=== PATIENT | male | born 1980 | race Caucasian/White ===

== ENCOUNTER 2020-04-23 09:38 | Emergency (ER) | payer MEDICARE, OTHER, SELFPAY ==
[2020-04-23 09:52] VITALS: BP 87/50; BP 94/63; PULSE 41; PULSE 49; RESP 16; TEMP 36.9; O2SAT 97; BMI 20.4
--- NOTE | 2020-04-23 10:08 | CT_ITS ---
EXAMINATION: CT HEAD W/O IV CONTRAST CT CERVICAL SPINE W/O IV CONTRAST CLINICAL INFORMATION: Trauma. COMPARISON: None TECHNIQUE: Head - Contiguous axial imaging of the head was performed from the skull base to the vertex without the administration of intravenous contrast, and axial images are reconstructed at 2 mm and 5 mm slice thickness. Cervical spine - A volumetric, helical CT acquisition of the cervical spine was obtained without contrast; in addition to the standard set of axial images, multiplanar reformatted images were provided in the coronal and sagittal imaging planes. This CT examination was performed using dose optimization techniques as appropriate, variously including the following: *Automated exposure control *Adjustment of mA and/or kV according to patient size (this includes techniques or standardized protocols for targeted exams where dose is matched to indication/reason for exam; i.e. extremities or head) *Use of iterative reconstruction technique DLP: 1371 mGy-cm (total) FINDINGS: HEAD: No intracranial hemorrhage, extra-axial fluid collection, focal mass effect or midline shift. Moderate, diffuse atrophy of brain parenchyma with commensurate prominence of ventricles and sulci; no hydrocephalus. There are regions of encephalomalacia from prior infarcts in the left parietal lobe and within the inferior division territory of the right middle cerebral artery. No evidence of an acute major vascular territory infarction. The calvarium is intact. Mastoid air cells and middle ear cavities are well aerated. No fracture or malalignment at either temporomandibular joint. The orbits and globes are intact. Mucus/mucous retention cyst of right maxillary sinus. No air-fluid levels within paranasal sinuses. CERVICAL SPINE: No acute abnormalities. The craniocervical junction is normal. The occipital condyles, dens and atlantodental articulation are intact. Levoscoliosis of the cervical and upper thoracic spine. The cervical vertebra have well preserved height and alignment. No fractures in the anterior or posterior elements. No prevertebral soft tissue swelling. Mild multilevel degenerative disc space narrowing. Moderate loss of disc height at C6-C7. Multilevel uncovertebral joint hypertrophy with osteophytes causing mild to moderate foraminal stenosis at C3-C4, C5-C6 and C6-C7. There is mild left-sided foraminal stenosis at C4-C5. No significant narrowing of the central spinal canal. No spinal hematoma or focal fluid collection in the visualized neck. Thyroid gland is unremarkable. Mild paraseptal emphysema at lung apices. No apical pneumothorax. CT/CT cervical spine wo con IMPRESSION: * No hemorrhage or other acute intracranial pathology. 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 No acute infarcts. * No fracture or malalignment in the degenerated cervical spine.
--- NOTE | 2020-04-23 10:08 | ECG_ITS ---
Test Reason : FALL Blood Pressure : / mmHG Vent. Rate : 040 BPM Atrial Rate : 040 BPM P-R Int : 168 ms QRS Dur : 088 ms QT Int : 500 ms P-R-T Axes : 063 042 055 degrees QTc Int : 407 ms Marked sinus bradycardia Low voltage QRS Abnormal ECG No previous ECGs available Referred By: Tona Stockton Electronically Signed By:CHEVY BRAGA MD
--- NOTE | 2020-04-23 10:10 | ED_ITS ---
HPI - Fall General Chief Complaint: Fall Stated Complaint: UNWIT FALL,R FACE & NECK PAIN Time Seen by Provider: 04/23/20 10:08 History of Present Illness HPI Narrative: Patient is a 39-year-old male with a history of traumatic brain injury. Status post fall. Unwitnessed. Question etiology. Patient presented but some head injury. Baseline has low blood pressure has low heart rate. No systemic coughing congestion upper respiratory symptoms noted by staff. Patient from a retirement. Unable to obtain full details of the injury. Patient was found on the ground. Related Data Allergies Allergy/AdvReac Type Severity Reaction Status Date / Time erythromycin base Allergy Unknown Verified 04/23/20 10:03 ibuprofen Allergy Unknown Verified 04/23/20 10:03 ketorolac Allergy Unknown Verified 04/23/20 10:03 Sulfa (Sulfonamide Allergy Unknown Verified 04/23/20 10:03 Antibiotics) tromethamine Allergy Unknown Verified 04/23/20 10:03 Review of Systems Review of Systems: Unable to obtain review systems secondary to patient's condition PMFSH Past Medical History Medical History (Updated 04/23/20 @ 12:20 by Tona Stockton MD) Anxiety Dysphagia H/O alcohol dependence Hemiplegia affecting left nondominant side Hepatitis C Hyperlipidemia Hypothyroid Pulmonary embolism Scoliosis Surgical History H/O prosthetic heart valve Social History Social History Alcohol intake: former Smoking Status: Former smoker Use of substances other than those prescribed or required for medical reasons: No Advance Directives: No Advance Directives Information Provided: No Physical Exam Vital Signs: Vital Signs: Last Vital Signs Temp 98.5 F 04/23/20 09:52 Pulse 42 L 04/23/20 11:40 Resp 16 04/23/20 11:40 BP 106/75 04/23/20 11:40 Pulse Ox 97 04/23/20 11:40 Body Mass Index 20.4 Appearance: Alert. Oriented times 0. No acute distress. Eyes: Pupils equal, round and reactive to light. ENT: Pharynx normal. Neck: Normal inspection. Neck supple. No lymph nodes noted. No crepitus CVS: Normal heart rate and rhythm. Pulses normal. Normal S1 and S2 Respiratory: No respiratory distress. Breath sounds normal. No Wheezing. No rales Abdomen: Soft and nontender. No rigidity. No distention. good BS x4 Skin: Skin warm and dry. Normal skin color. Normal skin turgor. Extremities: No lower extremity edema. Neurovascular intact to all extremities. No Lacerations. No Rash Neuro: Oriented times 0 moving extremities, following simple commands MDM - Fall MDM Narrative Medical decision making narrative: Well-appearing no acute distress. CT scan of the head and C-spine were negative for any acute evidence of fracture or bleed. Patient's hemoglobin is baseline at 12. BUN and creatinine consistent with some mild dehydration at 22 and 0.87. Patient's EKG showed a sinus bradycardia which is baseline. Will discharge patient home. No evidence for rhabdo patient's CPK is 150. No chest pain patient's cardiac enzymes negative. Less than 3.5. Medical Records Attestation: I reviewed the patient's medical records. Lab Data Attestation: I reviewed the patient's lab results. Result diagrams: 04/23/20 10:23 04/23/20 10:23 Labs: Lab Results 04/23/20 04/23/20 04/23/20 Range/Units 10:23 10:23 10:23 WBC 5.8 (4.8-10.8) X10*3/uL RBC 4.19 L (4.60-5.80) X10*6/uL Hgb 12.7 L (14.0-18.0) g/dl Hct 38.8 L (42-52) % MCV 92.6 (80-98) fL MCH 30.3 (27.0-33.0) pg MCHC 32.7 (31.0-36.0) g/dl RDW 12.9 (11.0-16.0) % Plt Count 249 (160-400) X10*3/uL MPV 10.1 (9.4-12.4) fL Immature Gran % (Auto) 0.2 (0.0-0.4) % Neut % (Auto) 62.9 (45-73) % Lymph % (Auto) 27.7 (20-40) % [place] % (Auto) 6.9 (2-11) % Eos % (Auto) 1.4 (0-4) % Baso % (Auto) 0.9 (0-2) % Lymph # (Auto) 1.6 (1.2-4.9) X10*3/uL [place] # (Auto) 0.4 (0.1-1.2) X10*3/uL Eos # (Auto) 0.1 (0.0-0.4) X10*3/uL Baso # (Auto) 0.1 (0.0-0.2) X10*3/uL Abs Immat Gran (auto) 0.01 (0.00-0.03) X10*3/uL Absolute Neuts (auto) 3.6 (2.0-8.3) X10*3/uL Absolute Nucleated RBC 0.000 (0.0-0.012) X10*3/uL Nucleated RBC % (auto) 0.0 (0.0-0.2) /100WBC Sodium 140 (135-145) mmol/L Potassium 4.6 (3.3-5.1) mmol/l Chloride 104 (96-108) mmol/L Carbon Dioxide 28 (22-29) mmol/L Anion Gap 13 (12-20) BUN 22 H (9-16) mg/dL Creatinine 0.87 (0.5-1.4) mg/dL Estim Creat Clear Calc 112.2 Estimated GFR > 60 Random Glucose 79 (60-115) mg/dL Calcium 9.0 (8.4-10.2) mg/dL Total Creatine Kinase 168 (38-174) U/L Troponin I High Sens < 3.5 (<3.5-35.0) ng/L ECG Data Interpretation: Sinus heart rate was 50 [place] QRS QT within normal limits LVH noted Discharge Plan Discharge Clinical Impression: Fall, Head injury Patient Disposition: er [facility] Instructions: Head Injury (ED), Fall Prevention (ED), Fall Prevention for Older Adults (ED) Referrals: Donnell Banuelos DO [Primary Care Provider] - 2 days
[2020-04-23 10:11] VITALS: BP 102/69; PULSE 52
[2020-04-23] MEDS: 0.9 % Sodium Chloride 1,000 ML 999 ML IV (10:26)
[2020-04-23 10:30] LABS: MANUAL DIFF FLAG NO
[2020-04-23 10:37] LABS: Basophils Absolute Auto 0.1 X10*3/uL (0.0-0.2); Basophils Percent Auto 0.9 % (0-2); Eosinophils Absolute Auto 0.1 X10*3/uL (0.0-0.4); Eosinophils Percent Auto 1.4 % (0-4); Hematocrit 38.8 % (42-52); Hemoglobin 12.7 g/dl (14.0-18.0); Imm Gran Abs Auto 0.01 X10*3/uL (0.00-0.03); Imm Gran Pct Auto 0.2 % (0.0-0.4); Lymphocytes Absolute Auto 1.6 X10*3/uL (1.2-4.9); Lymphocytes Percent Auto 27.7 % (20-40); Mean Corpuscular HGB Conc 32.7 g/dl (31.0-36.0); Mean Corpuscular Hemoglobin 30.3 pg (27.0-33.0); Mean Corpuscular Volume 92.6 fL (80-98); Mean Platelet Volume 10.1 fL (9.4-12.4); Monocytes Absolute Auto 0.4 X10*3/uL (0.1-1.2); Monocytes Percent Auto 6.9 % (2-11); Neutrophils Absolute Auto 3.6 X10*3/uL (2.0-8.3); Neutrophils Percent Auto 62.9 % (45-73); Platelet Count 249 X10*3/uL (160-400); Red Blood Count 4.19 X10*6/uL (4.60-5.80); Red Cell Distribution Width 12.9 % (11.0-16.0); White Blood Count 5.8 X10*3/uL (4.8-10.8)
[2020-04-23 11:00] LABS: Anion Gap 13 (12-20); Blood Urea Nitrogen 22 mg/dL (9-16); Carbon Dioxide 28 mmol/L (22-29); Chloride 104 mmol/L (96-108); Creatinine Clr Calc Pharmacy 112.2; Estimated Glomerular Filt Rate > 60; Glucose Random 79 mg/dL (60-115); Potassium 4.6 mmol/l (3.3-5.1); Sodium 140 mmol/L (135-145)
[2020-04-23 11:06] LABS: Troponin-I High Sensitivity < 3.5 ng/L (<3.5-35.0)
[2020-04-23 11:40] VITALS: BP 106/75; PULSE 42; RESP 16; O2SAT 97
--- NOTE | 2020-04-23 13:11 | PC.NURSE ---
This RN called [facility] for report back to facility, per staff primary RN unable to take call at this time, awaiting call back from [facility] at this time
== END 2020-04-23 13:47 | disposition skilled nursing facility (03) ==
PROVIDERS: Emergency Provider Emergency Medicine Emergency Medical Services; PCP Hospitalist
DX: S09.90XA Unspecified injury of head, initial encounter (principal); M54.2 Cervicalgia; G44.309 Post-traumatic headache, unspecified, not intractable; W18.30XA Fall on same level, unspecified, initial encounter; Y93.9 Activity, unspecified; Y92.9 Unspecified place or not applicable; Y99.9 Unspecified external cause status; Z87.891 Personal history of nicotine dependence
CPT/HCPCS: 36415; 70450; 72125; 80048; 82550; 84484; 85025; 93005; 96360; 99284

== ENCOUNTER 2020-08-12 17:24 | Inpatient (IN) | payer MEDICARE, MEDICAID, SELFPAY ==
--- NOTE | ~2020-08-12 | CT_ITS ---
EXAMINATION: CT HEAD WITHOUT CONTRAST CLINICAL INFORMATION: Increased lethargy. COMPARISON: CT brain 04/23/2020 TECHNIQUE: Contiguous axial imaging was performed from the skull base to vertex without intravenous administration of contrast. This CT examination was performed using dose optimization techniques as appropriate, variously including the following: *Automated exposure control *Adjustment of mA and/or kV according to patient size (this includes techniques or standardized protocols for targeted exams where dose is matched to indication/reason for exam; i.e. extremities or head) *Use of iterative reconstruction technique DLP: 757 mGy-cm FINDINGS: None encephalomalacia in the left posterior parietal lobe and right middle cerebral artery territory involving the lateral temporal lobe from old insult. There is no acute infarct in evolution. There is no acute intra-axial, extra-axial bleed, masses or midline shift. The lateral ventricles are symmetrical and enlarged and so other cortical sulci. The garcia to white matter difference is maintained. Bone windows reveal no calvarial abnormality. There is no scalp soft tissue abnormality. Bilateral paranasal sinuses and mastoid air cells are well aerated. CT/CT head/brain wo con IMPRESSION: No acute intracranial process seen. Right lateral temporal lobe and left posterior parietal lobe encephalomalacia from old insult. Age-related cerebral volume loss.
--- NOTE | ~2020-08-12 | XR_ITS ---
EXAMINATION: XR CHEST CLINICAL INFORMATION: Increasing lethargy COMPARISON: None TECHNIQUE: Frontal view of the chest was obtained. FINDINGS: Scoliosis and kyphosis is present. Median sternotomy is seen. Left atrial appendage clip is present. The heart size is normal. Some mild increased reticular nodular densities present in the lungs most likely chronic. No acute infiltrates effusions or suspicious lung masses are seen. A bone island is present in the right humeral head XR/XR chest 1V IMPRESSION: No acute intrathoracic disease.
[2020-08-12 17:31] VITALS: BP 109/65; PULSE 63; RESP 16; O2SAT 98; BMI 20.8
--- NOTE | 2020-08-12 17:52 | ECG_ITS ---
Test Reason : CARDIAC HITORY Blood Pressure : / mmHG Vent. Rate : 063 BPM Atrial Rate : 063 BPM P-R Int : 164 ms QRS Dur : 084 ms QT Int : 412 ms P-R-T Axes : 076 038 064 degrees QTc Int : 421 ms Normal sinus rhythm Low voltage QRS Borderline ECG When compared with ECG of 23-APR-2020 10:30, Vent. rate has increased BY 23 BPM Referred By: Greta Jean Baptiste Electronically Signed By:MACRINA MARTINEZ
[2020-08-12 17:55] VITALS: BP 86/58; PULSE 62; RESP 18; TEMP 37; O2SAT 91
--- NOTE | 2020-08-12 17:57 | ED.WEAKNESS ---
HPI - Weakness General Chief complaint: Failure to Thrive Stated complaint: ftt Time Seen by Provider: 08/12/20 17:31 Source: EMS Mode of arrival: EMS History of Present Illness HPI Narrative: 39-year-old male with a past medical history of alcohol dependence, hemiplegia and hemiparesis s/p CVA, dysarthria and anarthria, encephalopathy, major depressive disorder, anxiety, hyperlipidemia, BIBA from [facility] for increased lethargy, weight loss, and depression x1 month. No reported fever, falls. History limited secondary to patient's baseline nonverbal Related Data Allergies Allergy/AdvReac Type Severity Reaction Status Date / Time erythromycin base Allergy Unknown Verified 04/23/20 10:03 ibuprofen Allergy Unknown Verified 04/23/20 10:03 ketorolac Allergy Unknown Verified 04/23/20 10:03 Sulfa (Sulfonamide Allergy Unknown Verified 04/23/20 10:03 Antibiotics) tromethamine Allergy Unknown Verified 04/23/20 10:03 Review of Systems Review of Systems: Constitutional: + Weight loss, No Fever, No Chills, + increased lethargy Neuro: + Weakness Psych: + Depression History limited secondary to patient being nonverbal Yes all other systems are reviewed and are negative PMFSH Past Medical History Attestation statement: The following information was validated with the patient. Medical History (Updated 08/13/20 @ 01:43 by MAK Saba) Anxiety Dysphagia H/O alcohol dependence Hemiplegia affecting left nondominant side Hepatitis C Hyperlipidemia Hypothyroid Pulmonary embolism Scoliosis Surgical History H/O prosthetic heart valve Social History Social History Alcohol intake: former Smoking Status: Former smoker Advance Directives: No Advance Directives Information Provided: No Physical Exam Vital Signs: Vital Signs: Last Vital Signs Temp 98.6 F 08/12/20 17:55 Pulse 41 L 08/12/20 20:00 Resp 16 08/12/20 20:00 BP 85/64 L 08/12/20 20:00 Pulse Ox 100 08/12/20 20:00 Body Mass Index 20.8 Const: General: alert Nutritional Appearance: thin Limitations: no limitations HENMT: Head: Yes normal to inspection Ears: hearing grossly normal bilaterally General nose exam: Normal external nose present Face and sinus: Yes normal facial exam Eyes: General: appearance normal, both eyes and all related structures EOM: EOMs intact bilaterally Neck: Neck: Yes normal visual inspection and Yes no meningeal signs Resp: Effort & Inspection: normal respiratory effort Auscultation: clear to auscultation bilaterally Cardio: Rate: regular rate Heart sounds: S1 normal heart sound present and S2 normal heart sound present GI: Inspection: Yes normal to inspection Palpation (GI): Soft to palpation, nontender, no guarding and not rigid Skin: Rashes: no rashes Wounds: no wounds Neuro: General: tone normal and no meningeal signs Extrem: General: Yes normal to inspection Course Course Course Narrative: -no leukocytosis, H&H stable, BUN chronically elevated, labs otherwise unremarkable. -UA negative. COVID-19/influenza/RSV negative CT head/brain wo con IMPRESSION: No acute intracranial process seen. Right lateral temporal lobe and left posterior parietal lobe encephalomalacia from old insult. Age-related cerebral volume loss. XR chest 1V IMPRESSION: No acute intrathoracic disease. -patient has been persistently hypotensive, 3rd L IVF ordered. Mentating at baseline. -0100--patient's heart rate dropped to mid 30s, repeat EKG sinus bradycardia, repeat POC, TSH & repeat troponin ordered. Plan to admit for further management -1330--heart rate noted to jump from 35 to 123, and then back to 60 > concern for tachy-kenneth or sick sinus syndrome > cardiology consulted MDM - Weakness MDM Narrative Medical decision making narrative: 39-year-old male with a past medical history of alcohol dependence, hemiplegia and hemiparesis s/p CVA, dysarthria and anarthria, encephalopathy, major depressive disorder, anxiety, hyperlipidemia, BIBA from [facility] for increased lethargy, weight loss, and depression x1 month. On exam hypotensive, 91% on RA, lungs CTA, abdomen soft/nontender. Concern for dehydration vs viral syndrome/COVID-19. Rule out metabolic/infectious etiology. Low concern for severe sepsis at this time. Plan: EKG, labs, head CT, CXR, IVF, reassess Medical Records Attestation: I reviewed the patient's medical records. Lab Data Attestation: I reviewed the patient's lab results. Result diagrams: 08/12/20 18:56 08/12/20 18:56 Labs: Lab Results 08/12/20 08/12/20 08/12/20 Range/Units 18:56 18:56 18:56 WBC 10.3 (4.8-10.8) X10*3/uL RBC 4.85 (4.60-5.80) X10*6/uL Hgb 14.4 (14.0-18.0) g/dl Hct 45.5 (42-52) % MCV 93.8 (80-98) fL MCH 29.7 (27.0-33.0) pg MCHC 31.6 (31.0-36.0) g/dl RDW 13.1 (11.0-16.0) % Plt Count 317 D (160-400) X10*3/uL MPV 10.9 (9.4-12.4) fL Immature Gran % (Auto) 0.3 (0.0-0.4) % Neut % (Auto) 79.4 H (45-73) % Lymph % (Auto) 14.0 L (20-40) % [place] % (Auto) 5.2 (2-11) % Eos % (Auto) 0.8 (0-4) % Baso % (Auto) 0.3 (0-2) % Lymph # (Auto) 1.4 (1.2-4.9) X10*3/uL [place] # (Auto) 0.5 (0.1-1.2) X10*3/uL Eos # (Auto) 0.1 (0.0-0.4) X10*3/uL Baso # (Auto) 0.0 (0.0-0.2) X10*3/uL Abs Immat Gran (auto) 0.03 (0.00-0.03) X10*3/uL Absolute Neuts (auto) 8.2 (2.0-8.3) X10*3/uL Absolute Nucleated RBC 0.000 (0.0-0.012) X10*3/uL Nucleated RBC % (auto) 0.0 (0.0-0.2) /100WBC Hold Blue Top SEE NOTE Sodium 145 (135-145) mmol/L Potassium 4.1 (3.3-5.1) mmol/L Chloride 101 (96-108) mmol/L Carbon Dioxide 33 H (22-29) mmol/L Anion Gap 15 (12-20) BUN 28 H (9-16) mg/dL Creatinine 0.90 (0.5-1.4) mg/dL Estim Creat Clear Calc 87.6 Estimated GFR > 60 POC Glucose (60-115) mg/dL Random Glucose 83 (60-115) mg/dL Calcium 9.4 (8.4-10.2) mg/dL Magnesium 2.1 (1.6-2.6) mg/dL Total Bilirubin 0.5 (0.0-1.0) mg/dL Direct Bilirubin 0.2 (0.0-0.5) mg/dL AST 21 (5-37) U/L ALT 16 (0-40) U/L Alkaline Phosphatase 70 (39-117) U/L Ammonia (13-55) umol/L Troponin I High Sens (<3.5-35.0) ng/L Total Protein 7.9 (6.5-8.0) g/dL Albumin 3.6 (3.5-5.0) g/dL Lipase 18 (8-78) U/L Urine Color Urine Appearance Urine pH (5.0-8.0) Ur Specific [place] (1.005-1.025) Urine Protein (NEG-TRACE) MG/DL Urine Glucose (UA) (NEG) MG/DL Urine Ketones (NEG) MG/DL Urine Blood (NEG) Urine Nitrite (NEG) Ur Leukocyte Esterase (NEG) Urine Opiates Screen (Not Detect) Ur Barbiturates Screen (Not Detect) Ur Phencyclidine Scrn (Not Detect) Ur Amphetamines Screen (Not Detect) U Benzodiazepines Scrn (Not Detect) Urine Cocaine Screen (Not Detect) U Marijuana (THC) Screen (Not Detect) Coronavirus (PCR) (Negative) Influenza Type A (PCR) (Negative) Influenza Type B (PCR) (Negative) RSV RNA Qual (PCR) (Negative) 08/12/20 08/12/20 08/12/20 Range/Units 18:56 18:56 20:00 WBC (4.8-10.8) X10*3/uL RBC (4.60-5.80) X10*6/uL Hgb (14.0-18.0) g/dl Hct (42-52) % MCV (80-98) fL MCH (27.0-33.0) pg MCHC (31.0-36.0) g/dl RDW (11.0-16.0) % Plt Count (160-400) X10*3/uL MPV (9.4-12.4) fL Immature Gran % (Auto) (0.0-0.4) % Neut % (Auto) (45-73) % Lymph % (Auto) (20-40) % [place] % (Auto) (2-11) % Eos % (Auto) (0-4) % Baso % (Auto) (0-2) % Lymph # (Auto) (1.2-4.9) X10*3/uL [place] # (Auto) (0.1-1.2) X10*3/uL Eos # (Auto) (0.0-0.4) X10*3/uL Baso # (Auto) (0.0-0.2) X10*3/uL Abs Immat Gran (auto) (0.00-0.03) X10*3/uL Absolute Neuts (auto) (2.0-8.3) X10*3/uL Absolute Nucleated RBC (0.0-0.012) X10*3/uL Nucleated RBC % (auto) (0.0-0.2) /100WBC Hold Blue Top Sodium (135-145) mmol/L Potassium (3.3-5.1) mmol/L Chloride (96-108) mmol/L Carbon Dioxide (22-29) mmol/L Anion Gap (12-20) BUN (9-16) mg/dL Creatinine (0.5-1.4) mg/dL Estim Creat Clear Calc Estimated GFR POC Glucose (60-115) mg/dL Random Glucose (60-115) mg/dL Calcium (8.4-10.2) mg/dL Magnesium (1.6-2.6) mg/dL Total Bilirubin (0.0-1.0) mg/dL Direct Bilirubin (0.0-0.5) mg/dL AST (5-37) U/L ALT (0-40) U/L Alkaline Phosphatase (39-117) U/L Ammonia 43 (13-55) umol/L Troponin I High Sens 4.5 (<3.5-35.0) ng/L Total Protein (6.5-8.0) g/dL Albumin (3.5-5.0) g/dL Lipase (8-78) U/L Urine Color Urine Appearance Urine pH (5.0-8.0) Ur Specific [place] (1.005-1.025) Urine Protein (NEG-TRACE) MG/DL Urine Glucose (UA) (NEG) MG/DL Urine Ketones (NEG) MG/DL Urine Blood (NEG) Urine Nitrite (NEG) Ur Leukocyte Esterase (NEG) Urine Opiates Screen (Not Detect) Ur Barbiturates Screen (Not Detect) Ur Phencyclidine Scrn (Not Detect) Ur Amphetamines Screen (Not Detect) U Benzodiazepines Scrn (Not Detect) Urine Cocaine Screen (Not Detect) U Marijuana (THC) Screen (Not Detect) Coronavirus (PCR) NEGATIVE (Negative) Influenza Type A (PCR) NEGATIVE (Negative) Influenza Type B (PCR) NEGATIVE (Negative) RSV RNA Qual (PCR) NEGATIVE (Negative) 08/12/20 08/12/20 08/13/20 Range/Units 20:00 20:00 01:05 WBC (4.8-10.8) X10*3/uL RBC (4.60-5.80) X10*6/uL Hgb (14.0-18.0) g/dl Hct (42-52) % MCV (80-98) fL MCH (27.0-33.0) pg MCHC (31.0-36.0) g/dl RDW (11.0-16.0) % Plt Count (160-400) X10*3/uL MPV (9.4-12.4) fL Immature Gran % (Auto) (0.0-0.4) % Neut % (Auto) (45-73) % Lymph % (Auto) (20-40) % [place] % (Auto) (2-11) % Eos % (Auto) (0-4) % Baso % (Auto) (0-2) % Lymph # (Auto) (1.2-4.9) X10*3/uL [place] # (Auto) (0.1-1.2) X10*3/uL Eos # (Auto) (0.0-0.4) X10*3/uL Baso # (Auto) (0.0-0.2) X10*3/uL Abs Immat Gran (auto) (0.00-0.03) X10*3/uL Absolute Neuts (auto) (2.0-8.3) X10*3/uL Absolute Nucleated RBC (0.0-0.012) X10*3/uL Nucleated RBC % (auto) (0.0-0.2) /100WBC Hold Blue Top Sodium (135-145) mmol/L Potassium (3.3-5.1) mmol/L Chloride (96-108) mmol/L Carbon Dioxide (22-29) mmol/L Anion Gap (12-20) BUN (9-16) mg/dL Creatinine (0.5-1.4) mg/dL Estim Creat Clear Calc Estimated GFR POC Glucose 74 (60-115) mg/dL Random Glucose (60-115) mg/dL Calcium (8.4-10.2) mg/dL Magnesium (1.6-2.6) mg/dL Total Bilirubin (0.0-1.0) mg/dL Direct Bilirubin (0.0-0.5) mg/dL AST (5-37) U/L ALT (0-40) U/L Alkaline Phosphatase (39-117) U/L Ammonia (13-55) umol/L Troponin I High Sens (<3.5-35.0) ng/L Total Protein (6.5-8.0) g/dL Albumin (3.5-5.0) g/dL Lipase (8-78) U/L Urine Color YELLOW Urine Appearance HAZY Urine pH 7.5 (5.0-8.0) Ur Specific [place] 1.010 (1.005-1.025) Urine Protein NEG (NEG-TRACE) MG/DL Urine Glucose (UA) NEG (NEG) MG/DL Urine Ketones NEG (NEG) MG/DL Urine Blood NEG (NEG) Urine Nitrite NEG (NEG) Ur Leukocyte Esterase NEG (NEG) Urine Opiates Screen Not Detected (Not Detect) Ur Barbiturates Screen Not Detected (Not Detect) Ur Phencyclidine Scrn Not Detected (Not Detect) Ur Amphetamines Screen Not Detected (Not Detect) U Benzodiazepines Scrn POSITIVE H (Not Detect) Urine Cocaine Screen Not Detected (Not Detect) U Marijuana (THC) Screen Not Detected (Not Detect) Coronavirus (PCR) (Negative) Influenza Type A (PCR) (Negative) Influenza Type B (PCR) (Negative) RSV RNA Qual (PCR) (Negative) Discharge Plan Discharge Clinical Impression: Lethargy, Bradycardia, Hypotension Patient Disposition: Admitted As Inpatient Transfer Details: Back to [facility] Instructions: Weakness (ED) Referrals: Donnell Banuelos DO [Physician] - 3 days
[2020-08-12 19:02] LABS: MANUAL DIFF FLAG NO
[2020-08-12 19:10] LABS: Basophils Percent Auto 0.3 % (0-2); Eosinophils Absolute Auto 0.1 X10*3/uL (0.0-0.4); Eosinophils Percent Auto 0.8 % (0-4); Hematocrit 45.5 % (42-52); Hemoglobin 14.4 g/dl (14.0-18.0); Imm Gran Abs Auto 0.03 X10*3/uL (0.00-0.03); Imm Gran Pct Auto 0.3 % (0.0-0.4); Lymphocytes Absolute Auto 1.4 X10*3/uL (1.2-4.9); Mean Corpuscular HGB Conc 31.6 g/dl (31.0-36.0); Mean Corpuscular Hemoglobin 29.7 pg (27.0-33.0); Mean Corpuscular Volume 93.8 fL (80-98); Mean Platelet Volume 10.9 fL (9.4-12.4); Monocytes Absolute Auto 0.5 X10*3/uL (0.1-1.2); Monocytes Percent Auto 5.2 % (2-11); Neutrophils Absolute Auto 8.2 X10*3/uL (2.0-8.3); Neutrophils Percent Auto 79.4 % (45-73); Platelet Count 317 X10*3/uL (160-400); Red Blood Count 4.85 X10*6/uL (4.60-5.80); Red Cell Distribution Width 13.1 % (11.0-16.0); White Blood Count 10.3 X10*3/uL (4.8-10.8)
[2020-08-12 19:34] LABS: Alanine Aminotransferase 16 U/L (0-40); Albumin Level 3.6 g/dL (3.5-5.0); Alkaline Phosphatase 70 U/L (39-117); Anion Gap 15 (12-20); Aspartate Amino Transferase 21 U/L (5-37); Bilirubin Direct 0.2 mg/dL (0.0-0.5); Bilirubin Total 0.5 mg/dL (0.0-1.0); Blood Urea Nitrogen 28 mg/dL (9-16); Calcium 9.4 mg/dL (8.4-10.2); Carbon Dioxide 33 mmol/L (22-29); Chloride 101 mmol/L (96-108); Creatinine Clr Calc Pharmacy 87.6; Estimated Glomerular Filt Rate > 60; Glucose Random 83 mg/dL (60-115); Lipase 18 U/L (8-78); Magnesium 2.1 mg/dL (1.6-2.6); Potassium 4.1 mmol/L (3.3-5.1); Sodium 145 mmol/L (135-145); Total Protein 7.9 g/dL (6.5-8.0)
[2020-08-12 19:40] LABS: Troponin-I High Sensitivity 4.5 ng/L (<3.5-35.0)
[2020-08-12 20:00] VITALS: BP 85/64; PULSE 41; RESP 16; O2SAT 100
[2020-08-12 20:06] LABS: Influenza A PCR NEGATIVE (Negative); Influenza B PCR NEGATIVE (Negative); Resp Syncy Virus RNA Qual PCR NEGATIVE (Negative); SARS COV2 PCR INHOUSE NEGATIVE (Negative)
[2020-08-12] MEDS: 0.9 % Sodium Chloride 1,000 ML 999 ML IVCONT ×2 (20:20→21:33)
[2020-08-12 20:24] LABS: Glucose Urine UA NEG (NEG); Leukocyte Esterase Urine NEG (NEG); Nitrite Urine NEG (NEG); PH 7.5 (5.0-8.0); Urine Blood NEG (NEG); Urine Ketones NEG (NEG); Urine Protein NEG (NEG-TRACE)
[2020-08-12 20:25] LABS: Appearance Urine HAZY; Color Urine YELLOW
--- NOTE | 2020-08-12 20:31 | PC.NURSE ---
pt resting in stretcher. Pt difficult stick and attempting to draw blood. NS up and running w/o site intact. pt is straight cath for urine sample. pt remains alert, respirations easy, n/l. skin w/d/pale.
[2020-08-12 20:50] LABS: Amphetamine Screen Urine Not Detected (Not Detect); Barbiturates, Urine Not Detected (Not Detect); Benzodiazepines Screen Urine POSITIVE (Not Detect); Cannabinoid Screen Urine Not Detected (Not Detect); Cocaine Screen Urine Not Detected (Not Detect); Opiate Screen Urine Not Detected (Not Detect); Phencyclidine Screen Urine Not Detected (Not Detect)
[2020-08-12 21:13] LABS: Ammonia 43 umol/L (13-55)
--- NOTE | 2020-08-12 23:23 | PC.NURSE ---
2nd L infusing w/o difficulty, site intact. pt awake and alert, looking around when someone enters the room. b/p improving. PA aware of b/p. /
[2020-08-13] VITALS (8 sets, daily range): BP systolic 82–145; BP diastolic 40–65; PULSE 30–78; RESP 18–20; TEMP 35.5–36.8; O2SAT 93–98
--- NOTE | 2020-08-13 00:44 | PC.NURSE ---
3RD L OF NS UP AND RUNNING, SITE INTACT. PT HAVING HR 35-36, PA AWARE. PT AWAKE AND NON VERBAL. EKG OBTAINED. PT DENIES ANY COMPLAINTS AT THIS TIME.
--- NOTE | 2020-08-13 00:56 | ECG_ITS ---
Test Reason : VON Blood Pressure : / mmHG Vent. Rate : 047 BPM Atrial Rate : 047 BPM P-R Int : 202 ms QRS Dur : 090 ms QT Int : 588 ms P-R-T Axes : 073 027 063 degrees QTc Int : 520 ms Sinus bradycardia with sinus arrhythmia Low voltage QRS Nonspecific ST and T wave abnormality Prolonged QT Abnormal ECG When compared with ECG of 13-AUG-2020 00:55, QT has lengthened Referred By: Greta Jean Baptiste Electronically Signed By:MACRINA MARTINEZ
[2020-08-13 01:09] LABS: Glucose, Whole Blood 74 mg/dL (60-115)
--- NOTE | 2020-08-13 01:29 | PC.NURSE ---
REPEAT EKG OBTAINED TO .
[2020-08-13 01:46] LABS: TSH reflex Free T4 2.08 uIU/mL (0.32-4.0)
--- NOTE | 2020-08-13 02:31 | PC.NURSE ---
REPORT TO FLOOR. PT TO FLOOR IN STRETCHER AT THIS TIME. PT LEFT ED IN NAD.
[2020-08-13 03:10] LABS: B Type Natriuretic Peptide 26 pg/mL (<100); Troponin-I High Sensitivity 5.6 ng/L (<3.5-35.0)
[2020-08-13] MEDS: Enoxaparin Sodium 40 MG/0.4 ML SYRINGE SUBCUT (03:57)
--- NOTE | 2020-08-13 05:56 | PM.IMHP ---
History of Present Illness Date of Service: 08/13/20 Chief Complaint: bradycardia, hypotension Past medical history of hemiplegia and hemiparesis status post CVA, bed-bound, and or 3 a, encephalopathy, major depressive disorder, HLD, history of alcohol dependence who presents from [facility] for increased lethargy, weight loss and depression for 1 month. Patient is nonverbal therefore I am unable to review any of his systems. There is no reported history of fever, falls, no history of diarrhea, and his blood pressures have been reported in the low 100s above 90. on arrival to the ED pt was found to have temp of 98.5, HR 41, RR of 16, BP of 87/50 and 97% on RA. In the ED pt's HR seem to fluctuates between mid 30s to 123 and then down to the 60s. Labs unremarkable with normal trop, tsh pt pmhx as below per EMR Review of Systems Review of Systems: Yes all other systems are reviewed and are negative FOR[facility], [facility] Medical History Anxiety Dysphagia H/O alcohol dependence Hemiplegia affecting left nondominant side Hepatitis C Hyperlipidemia Hypothyroid Pulmonary embolism Scoliosis Surgical History H/O prosthetic heart valve Social History Housing: Long-Term Alcohol intake: former Smoking Status: Former smoker Use of substances other than those prescribed or required for medical reasons: No Advance Directives: No Advance Directives Information Provided: No Do you have thoughts of harming others: None Do you have a plan to hurt others: No Plan Recently lost weight without trying: Yes How much weight loss: 24-33 pounds Meds Allergies Allergy/AdvReac Type Severity Reaction Status Date / Time erythromycin base Allergy Unknown Verified 04/23/20 10:03 ibuprofen Allergy Unknown Verified 04/23/20 10:03 ketorolac Allergy Unknown Verified 04/23/20 10:03 Sulfa (Sulfonamide Allergy Unknown Verified 04/23/20 10:03 Antibiotics) tromethamine Allergy Unknown Verified 04/23/20 10:03 Active Medications: Current Medications Generic Name Dose Route Start Last Admin Trade Name Freq PRN Reason Stop Dose Admin Acetaminophen 650 mg 08/13/20 03:17 Acetaminophen 325 Mg Tablet PO Q6H PRN Pain, Mild (Pain Scale 1-3) Docusate Sodium 100 mg 08/13/20 03:17 Docusate Sodium 100 Mg Capsule PO DAILY PRN Constipation Enoxaparin Sodium 40 mg 08/13/20 04:00 08/13/20 03:57 Enoxaparin Sodium 40 Mg/0.4 Ml Syringe SUBCUT 40 mg Q24H PORFIRIO Administration Ondansetron HCl 4 mg 08/13/20 03:17 Ondansetron Hcl 4 Mg/2 Ml Vial IVPUSH Q8H PRN Nausea and Vomiting Pharmacy Consult 1 each 08/13/20 00:58 Consult Rx Perform Med Rec MISCELLANE ONCE PRN Consult order Sodium Chloride 3 ml 08/13/20 08:00 0.9 % Sodium Chloride Flush 3 Ml Syringe IVFLUSH QSHIFT [facility] Home Medications Medication Instructions Recorded Confirmed Last Taken Type acetaminophen [Tylenol] 650 mg PO Q6-8H PRN 08/13/20 08/13/20 Unknown History diazepam [Valium] 5 mg PO TID PRN 08/13/20 08/13/20 Unknown History docusate sodium 100 mg PO Q24W PRN 08/13/20 08/13/20 Unknown History famotidine 20 mg PO DAILY 08/13/20 08/13/20 Unknown History levothyroxine 100 mcg PO DAILY 08/13/20 08/13/20 Unknown History oxycodone 5 mg PO TID PRN 08/13/20 08/13/20 Unknown History sennosides [senna] 8.6 mg PO DAILY 08/13/20 08/13/20 Unknown History Physical Exam Vital Signs and Narrative: Vital Signs: Last Vital Signs Temp 97.5 F 08/13/20 03:29 Pulse 35 L 08/13/20 03:29 Resp 18 08/13/20 03:29 BP 83/50 L 08/13/20 03:29 Pulse Ox 98 08/13/20 03:29 Body Mass Index 20.8 Const: General: cooperative and no acute distress Orientation/consciousness: patient oriented x3 Eyes: General: appearance normal, both eyes and all related structures Resp: Effort & Inspection: normal respiratory effort and able to speak in complete sentences Cardio: Rate: regular rate Rhythm: regular rhythm GI: Palpation (GI): Soft to palpation Auscultation: normal bowel sounds Skin: General skin exam: no rashes or lesions noted Neuro: General: patient oriented x3 Cognition (Neuro): normal cognition Extrem: General: Yes normal to inspection and Yes no pedal edema Results Labs CBC and Chem 7: 08/12/20 18:56 08/12/20 18:56 Labs: Laboratory Results - last 24 hr 08/12/20 08/12/20 08/12/20 18:56 18:56 18:56 MCV 93.8 MCH 29.7 MCHC 31.6 RDW 13.1 Plt Count 317 D MPV 10.9 Immature Gran % (Auto) 0.3 Neut % (Auto) 79.4 H Lymph % (Auto) 14.0 L [place] % (Auto) 5.2 Eos % (Auto) 0.8 Baso % (Auto) 0.3 Lymph # (Auto) 1.4 Bond # (Auto) 0.5 Eos # (Auto) 0.1 Baso # (Auto) 0.0 Abs Immat Gran (auto) 0.03 Absolute Neuts (auto) 8.2 Absolute Nucleated RBC 0.000 Nucleated RBC % (auto) 0.0 Hold Blue Top SEE NOTE Anion Gap 15 Estim Creat Clear Calc 87.6 Estimated GFR > 60 POC Glucose Random Glucose 83 Calcium 9.4 Magnesium 2.1 Total Bilirubin 0.5 Direct Bilirubin 0.2 AST 21 ALT 16 Alkaline Phosphatase 70 Ammonia Troponin I High Sens B-Natriuretic Peptide Total Protein 7.9 Albumin 3.6 Lipase 18 TSH 2.08 Urine Color Urine Appearance Urine pH Ur Specific [place] Urine Protein Urine Glucose (UA) Urine Ketones Urine Blood Urine Nitrite Ur Leukocyte Esterase Urine Opiates Screen Ur Barbiturates Screen Ur Phencyclidine Scrn Ur Amphetamines Screen U Benzodiazepines Scrn Urine Cocaine Screen U Marijuana (THC) Screen Coronavirus (PCR) Influenza Type A (PCR) Influenza Type B (PCR) RSV RNA Qual (PCR) 08/12/20 08/12/20 08/12/20 18:56 18:56 20:00 MCV MCH MCHC RDW Plt Count MPV Immature Gran % (Auto) Neut % (Auto) Lymph % (Auto) [place] % (Auto) Eos % (Auto) Baso % (Auto) Lymph # (Auto) [place] # (Auto) Eos # (Auto) Baso # (Auto) Abs Immat Gran (auto) Absolute Neuts (auto) Absolute Nucleated RBC Nucleated RBC % (auto) Hold Blue Top Anion Gap Estim Creat Clear Calc Estimated GFR POC Glucose Random Glucose Calcium Magnesium Total Bilirubin Direct Bilirubin AST ALT Alkaline Phosphatase Ammonia 43 Troponin I High Sens 4.5 B-Natriuretic Peptide Total Protein Albumin Lipase TSH Urine Color Urine Appearance Urine pH Ur Specific [place] Urine Protein Urine Glucose (UA) Urine Ketones Urine Blood Urine Nitrite Ur Leukocyte Esterase Urine Opiates Screen Ur Barbiturates Screen Ur Phencyclidine Scrn Ur Amphetamines Screen U Benzodiazepines Scrn Urine Cocaine Screen U Marijuana (THC) Screen Coronavirus (PCR) NEGATIVE Influenza Type A (PCR) NEGATIVE Influenza Type B (PCR) NEGATIVE RSV RNA Qual (PCR) NEGATIVE 08/12/20 08/12/20 08/13/20 20:00 20:00 01:05 MCV MCH MCHC RDW Plt Count MPV Immature Gran % (Auto) Neut % (Auto) Lymph % (Auto) [place] % (Auto) Eos % (Auto) Baso % (Auto) Lymph # (Auto) [place] # (Auto) Eos # (Auto) Baso # (Auto) Abs Immat Gran (auto) Absolute Neuts (auto) Absolute Nucleated RBC Nucleated RBC % (auto) Hold Blue Top Anion Gap Estim Creat Clear Calc Estimated GFR POC Glucose 74 Random Glucose Calcium Magnesium Total Bilirubin Direct Bilirubin AST ALT Alkaline Phosphatase Ammonia Troponin I High Sens B-Natriuretic Peptide Total Protein Albumin Lipase TSH Urine Color YELLOW Urine Appearance HAZY Urine pH 7.5 Ur Specific [place] 1.010 Urine Protein NEG Urine Glucose (UA) NEG Urine Ketones NEG Urine Blood NEG Urine Nitrite NEG Ur Leukocyte Esterase NEG Urine Opiates Screen Not Detected Ur Barbiturates Screen Not Detected Ur Phencyclidine Scrn Not Detected Ur Amphetamines Screen Not Detected U Benzodiazepines Scrn POSITIVE H Urine Cocaine Screen Not Detected U Marijuana (THC) Screen Not Detected Coronavirus (PCR) Influenza Type A (PCR) Influenza Type B (PCR) RSV RNA Qual (PCR) 08/13/20 02:36 MCV MCH MCHC RDW Plt Count MPV Immature Gran % (Auto) Neut % (Auto) Lymph % (Auto) [place] % (Auto) Eos % (Auto) Baso % (Auto) Lymph # (Auto) [place] # (Auto) Eos # (Auto) Baso # (Auto) Abs Immat Gran (auto) Absolute Neuts (auto) Absolute Nucleated RBC Nucleated RBC % (auto) Hold Blue Top Anion Gap Estim Creat Clear Calc Estimated GFR POC Glucose Random Glucose Calcium Magnesium Total Bilirubin Direct Bilirubin AST ALT Alkaline Phosphatase Ammonia Troponin I High Sens 5.6 B-Natriuretic Peptide 26 Total Protein Albumin Lipase TSH Urine Color Urine Appearance Urine pH Ur Specific [place] Urine Protein Urine Glucose (UA) Urine Ketones Urine Blood Urine Nitrite Ur Leukocyte Esterase Urine Opiates Screen Ur Barbiturates Screen Ur Phencyclidine Scrn Ur Amphetamines Screen U Benzodiazepines Scrn Urine Cocaine Screen U Marijuana (THC) Screen Coronavirus (PCR) Influenza Type A (PCR) Influenza Type B (PCR) RSV RNA Qual (PCR) Imaging Radiologist's Impressions: Impressions Chest X-Ray 08/12/20 17:52 IMPRESSION: No acute intrathoracic disease. Head CT 08/12/20 17:52 IMPRESSION: No acute intracranial process seen. Right lateral temporal lobe and left posterior parietal lobe encephalomalacia from old insult. Age-related cerebral volume loss. Assessment and Plan (1) Lethargy: Status: Acute (2) Wicho-tachy syndrome: Status: Acute (3) Hypotension: Status: Acute This is a 39-year-old male with past medical history of CVA with residual hemiparesis bed-bound presents to the hospital with increased lethargy found to be hypotensive as well as have bradycardia and tachycardia # WICHO-TACHY SYNDROME - EKG shows sinus rhythm, but heart rate in the ED jaundice between 30s to 120s - not on any AV agnes blockers - unable to get any systemic review from patient as he is nonverbal - will order atropine PRN for HR <30 - consult cardiology for possible pacemaker - keep NPO # hypotension - unclear etiology - has no evidence of infection, no leukocytosis, afebrile, chest x-ray negative, UA negative, - received 3 L of fluids with BP still in the 80s over 50s - unlikely to be secondary to sepsis - will follow cultures - at this time will keep off antibiotics as there is no evidence of infection # lethargy - on my interview patient seemed alert oriented with no evidence of lethargy - no clear infection - possibly secondary to hypotension versus wicho-tachy syndrome - will monitor # hypothyroidism - continue levothyroxine DVT prophylaxis:lovenox
[2020-08-13] MEDS: Atropine Sulfate 1 MG/10 ML SYRINGE 0.5 MG IVPUSH (06:25)
[2020-08-13] MEDS: Lactated Ringers 500 ML 999 ML IV (06:28)
--- NOTE | 2020-08-13 06:50 | PC.NURSE ---
Noted in the ED pt. came up with low bp. In the time in the ED 3 L of IVF were bolused without much changed. Pts 4am Bp was 83/50 and hr between 30s and 40s overnight hospitalist was notified. Pt dropped to 26 at a point and hospitalist was once again notified. Pt. was ordered to get 0.5mg atropine and hr came up into 50s. 1L Lr bolus was also ordered and sbp still staying in the 80s.
[2020-08-13] MEDS: 0.9 % Sodium Chloride Flush 3 ML SYRINGE IVFLUSH ×2 (07:44→15:54)
[2020-08-13] MEDS: Midodrine HCl 5 MG TABLET PO (08:55)
[2020-08-13] MEDS: Levothyroxine Sodium 100 MCG TABLET PO (08:55)
[2020-08-13] MEDS: Famotidine 20 MG TABLET PO (08:56)
--- NOTE | 2020-08-13 10:22 | P.CONCA_ITS ---
History of Present Illness History of Present Illness Date of Service: 08/13/20 Consult reason: other (Bradycardia) Chief complaint: hypotensive,bradycardia Narrative: This is a cardiology consultation regarding bradycardia. Patient has a history of hemiplegia status post cerebrovascular accident and he also seems to be bed-bound and has other issues including depression, history of alcohol dependence and some encephalopathy. He has been admitted from [facility] for increased lethargy, weight loss and being depressed. Patient himself is not able to give any history whatsoever. Otherwise based on the information given by ER provider as well as H&P, his heart rate has been slow and hence we have been asked to see him. Patient himself is not able to provide any information whatsoever. Review of Systems Review of Systems: Yes Unobtainable due to mental status PMFSH Past Medical History Medical History Anxiety Dysphagia H/O alcohol dependence Hemiplegia affecting left nondominant side Hepatitis C Hyperlipidemia Hypothyroid Pulmonary embolism Scoliosis Surgical History Surgical History H/O prosthetic heart valve Social History Social History Housing: [facility] Alcohol intake: former Smoking Status: Former smoker Use of substances other than those prescribed or required for medical reasons: No Currently Displaying Signs/Symptoms of Drug Intoxication Withdrawal: No Advance Directives: No Advance Directives Information Provided: No Do you have thoughts of harming others: None Do you have a plan to hurt others: No Plan Recently lost weight without trying: Yes How much weight loss: 24-33 pounds Meds Allergies Allergy/AdvReac Type Severity Reaction Status Date / Time erythromycin base Allergy Unknown Verified 04/23/20 10:03 ibuprofen Allergy Unknown Verified 04/23/20 10:03 ketorolac Allergy Unknown Verified 04/23/20 10:03 Sulfa (Sulfonamide Allergy Unknown Verified 04/23/20 10:03 Antibiotics) tromethamine Allergy Unknown Verified 04/23/20 10:03 Active Medications: Current Medications Generic Name Dose Route Start Last Admin Trade Name Freq PRN Reason Stop Dose Admin Acetaminophen 650 mg 08/13/20 03:17 Acetaminophen 325 Mg Tablet PO Q6H PRN Pain, Mild (Pain Scale 1-3) Diazepam 2.5 mg 08/13/20 08:29 Diazepam 5 Mg Tablet PO TID PRN Anxiety Docusate Sodium 100 mg 08/13/20 03:17 Docusate Sodium 100 Mg Capsule PO DAILY PRN Constipation Docusate Sodium 100 mg 08/13/20 06:14 Docusate Sodium 100 Mg Capsule PO Q24H PRN Constipation Enoxaparin Sodium 40 mg 08/13/20 04:00 08/13/20 03:57 Enoxaparin Sodium 40 Mg/0.4 Ml Syringe SUBCUT 40 mg Q24H PORFIRIO Administration Famotidine 20 mg 08/13/20 09:00 08/13/20 08:56 Famotidine 20 Mg Tablet PO 20 mg DAILY PORFIRIO Administration Levothyroxine Sodium 100 mcg 08/13/20 09:00 08/13/20 08:55 Levothyroxine Sodium 100 Mcg Tablet PO 100 mcg DAILY PORFIRIO Administration Ondansetron HCl 4 mg 08/13/20 03:17 Ondansetron Hcl 4 Mg/2 Ml Vial IVPUSH Q8H PRN Nausea and Vomiting Oxycodone HCl 5 mg 08/13/20 06:14 Oxycodone Hcl Immed Release 5 Mg Tablet PO TID PRN Pain Pharmacy Consult 1 each 08/13/20 00:58 Consult Rx Perform Med Rec MISCELLANE ONCE PRN Consult order Sodium Chloride 3 ml 08/13/20 08:00 08/13/20 07:44 0.9 % Sodium Chloride Flush 3 Ml Syringe IVFLUSH 3 ml QSHIFT PORFIRIO Administration Home Medications Medication Instructions Recorded Confirmed Last Taken Type acetaminophen [Tylenol] 650 mg PO Q6-8H PRN 08/13/20 08/13/20 Unknown History diazepam [Valium] 5 mg PO TID PRN 08/13/20 08/13/20 Unknown History docusate sodium 100 mg PO Q24W PRN 08/13/20 08/13/20 Unknown History famotidine 20 mg PO DAILY 08/13/20 08/13/20 Unknown History levothyroxine 100 mcg PO DAILY 08/13/20 08/13/20 Unknown History oxycodone 5 mg PO TID PRN 08/13/20 08/13/20 Unknown History sennosides [senna] 8.6 mg PO DAILY 08/13/20 08/13/20 Unknown History Physical Exam Vital Signs: Vital Signs: Last Vital Signs Temp 98 F 08/13/20 07:06 Pulse 31 L 08/13/20 08:55 Resp 18 08/13/20 07:06 BP 84/40 L 08/13/20 08:55 Pulse Ox 96 08/13/20 07:06 Body Mass Index 20.8 Const: General: comfortable and no acute distress HENMT: Other: Unremarkable Neck: Neck: Yes normal visual inspection Chest: Chest palpation & inspection: normal inspection of the chest Resp: Auscultation: clear to auscultation bilaterally, no crackles and no wheezes Cardio: Jugular venous distension: no JVD Palpation: normal PMI Heart sounds: S1 normal heart sound present, S2 normal heart sound present, no ga llops, no murmurs and no rubs GI: Palpation (GI): Soft to palpation Back/Spine/Pelvis: Other: unremarkable Skin: General skin exam: no rashes or lesions noted Extrem: General: Yes no clubbing, cyanosis or edema Psych: Mental Status: other Results Labs and Meds Result diagrams: 08/12/20 18:56 08/12/20 18:56 Lab results: Laboratory Results - last 24 hr 08/12/20 08/12/20 08/12/20 18:56 18:56 18:56 WBC 10.3 RBC 4.85 Hgb 14.4 Hct 45.5 MCV 93.8 MCH 29.7 MCHC 31.6 RDW 13.1 Plt Count 317 D MPV 10.9 Immature Gran % (Auto) 0.3 Neut % (Auto) 79.4 H Lymph % (Auto) 14.0 L [place] % (Auto) 5.2 Eos % (Auto) 0.8 Baso % (Auto) 0.3 Lymph # (Auto) 1.4 [place] # (Auto) 0.5 Eos # (Auto) 0.1 Baso # (Auto) 0.0 Abs Immat Gran (auto) 0.03 Absolute Neuts (auto) 8.2 Absolute Nucleated RBC 0.000 Nucleated RBC % (auto) 0.0 Hold Blue Top SEE NOTE Sodium 145 Potassium 4.1 Chloride 101 Carbon Dioxide 33 H Anion Gap 15 BUN 28 H Creatinine 0.90 Estim Creat Clear Calc 87.6 Estimated GFR > 60 POC Glucose Random Glucose 83 Calcium 9.4 Magnesium 2.1 Total Bilirubin 0.5 Direct Bilirubin 0.2 AST 21 ALT 16 Alkaline Phosphatase 70 Ammonia Troponin I High Sens B-Natriuretic Peptide Total Protein 7.9 Albumin 3.6 Lipase 18 TSH 2.08 Urine Color Urine Appearance Urine pH Ur Specific [place] Urine Protein Urine Glucose (UA) Urine Ketones Urine Blood Urine Nitrite Ur Leukocyte Esterase Urine Opiates Screen Ur Barbiturates Screen Ur Phencyclidine Scrn Ur Amphetamines Screen U Benzodiazepines Scrn Urine Cocaine Screen U Marijuana (THC) Screen Coronavirus (PCR) Influenza Type A (PCR) Influenza Type B (PCR) RSV RNA Qual (PCR) 08/12/20 08/12/20 08/12/20 18:56 18:56 20:00 WBC RBC Hgb Hct MCV MCH MCHC RDW Plt Count MPV Immature Gran % (Auto) Neut % (Auto) Lymph % (Auto) [place] % (Auto) Eos % (Auto) Baso % (Auto) Lymph # (Auto) [place] # (Auto) Eos # (Auto) Baso # (Auto) Abs Immat Gran (auto) Absolute Neuts (auto) Absolute Nucleated RBC Nucleated RBC % (auto) Hold Blue Top Sodium Potassium Chloride Carbon Dioxide Anion Gap BUN Creatinine Estim Creat Clear Calc Estimated GFR POC Glucose Random Glucose Calcium Magnesium Total Bilirubin Direct Bilirubin AST ALT Alkaline Phosphatase Ammonia 43 Troponin I High Sens 4.5 B-Natriuretic Peptide Total Protein Albumin Lipase TSH Urine Color Urine Appearance Urine pH Ur Specific [place] Urine Protein Urine Glucose (UA) Urine Ketones Urine Blood Urine Nitrite Ur Leukocyte Esterase Urine Opiates Screen Ur Barbiturates Screen Ur Phencyclidine Scrn Ur Amphetamines Screen U Benzodiazepines Scrn Urine Cocaine Screen U Marijuana (THC) Screen Coronavirus (PCR) NEGATIVE Influenza Type A (PCR) NEGATIVE Influenza Type B (PCR) NEGATIVE RSV RNA Qual (PCR) NEGATIVE 08/12/20 08/12/20 08/13/20 20:00 20:00 01:05 WBC RBC Hgb Hct MCV MCH MCHC RDW Plt Count MPV Immature Gran % (Auto) Neut % (Auto) Lymph % (Auto) [place] % (Auto) Eos % (Auto) Baso % (Auto) Lymph # (Auto) [place] # (Auto) Eos # (Auto) Baso # (Auto) Abs Immat Gran (auto) Absolute Neuts (auto) Absolute Nucleated RBC Nucleated RBC % (auto) Hold Blue Top Sodium Potassium Chloride Carbon Dioxide Anion Gap BUN Creatinine Estim Creat Clear Calc Estimated GFR POC Glucose 74 Random Glucose Calcium Magnesium Total Bilirubin Direct Bilirubin AST ALT Alkaline Phosphatase Ammonia Troponin I High Sens B-Natriuretic Peptide Total Protein Albumin Lipase TSH Urine Color YELLOW Urine Appearance HAZY Urine pH 7.5 Ur Specific [place] 1.010 Urine Protein NEG Urine Glucose (UA) NEG Urine Ketones NEG Urine Blood NEG Urine Nitrite NEG Ur Leukocyte Esterase NEG Urine Opiates Screen Not Detected Ur Barbiturates Screen Not Detected Ur Phencyclidine Scrn Not Detected Ur Amphetamines Screen Not Detected U Benzodiazepines Scrn POSITIVE H Urine Cocaine Screen Not Detected U Marijuana (THC) Screen Not Detected Coronavirus (PCR) Influenza Type A (PCR) Influenza Type B (PCR) RSV RNA Qual (PCR) 08/13/20 02:36 WBC RBC Hgb Hct MCV MCH MCHC RDW Plt Count MPV Immature Gran % (Auto) Neut % (Auto) Lymph % (Auto) [place] % (Auto) Eos % (Auto) Baso % (Auto) Lymph # (Auto) [place] # (Auto) Eos # (Auto) Baso # (Auto) Abs Immat Gran (auto) Absolute Neuts (auto) Absolute Nucleated RBC Nucleated RBC % (auto) Hold Blue Top Sodium Potassium Chloride Carbon Dioxide Anion Gap BUN Creatinine Estim Creat Clear Calc Estimated GFR POC Glucose Random Glucose Calcium Magnesium Total Bilirubin Direct Bilirubin AST ALT Alkaline Phosphatase Ammonia Troponin I High Sens 5.6 B-Natriuretic Peptide 26 Total Protein Albumin Lipase TSH Urine Color Urine Appearance Urine pH Ur Specific [place] Urine Protein Urine Glucose (UA) Urine Ketones Urine Blood Urine Nitrite Ur Leukocyte Esterase Urine Opiates Screen Ur Barbiturates Screen Ur Phencyclidine Scrn Ur Amphetamines Screen U Benzodiazepines Scrn Urine Cocaine Screen U Marijuana (THC) Screen Coronavirus (PCR) Influenza Type A (PCR) Influenza Type B (PCR) RSV RNA Qual (PCR) ECG Attestation: I personally reviewed and interpreted this ECG as follows: Interpretation: Telemetry reviewed. Essential he has sinus bradycardia in the 30s 40s and sometimes into the 60s. Brief periods of junctional rhythm. Imaging Radiologist's impression: Impressions Chest X-Ray 08/12/20 17:52 IMPRESSION: No acute intrathoracic disease. Head CT 08/12/20 17:52 IMPRESSION: No acute intracranial process seen. Right lateral temporal lobe and left posterior parietal lobe encephalomalacia from old insult. Age-related cerebral volume loss. Assessment and Plan (1) Sinus bradycardia: Status: Acute (2) Hypotension: Qualifiers: Hypotension type: idiopathic hypotension Qualified Code(s): I95.0 - Idiopathic hypotension Status: Acute (3) Failure to thrive: Qualifiers: Failure to thrive age range: in adult Qualified Code(s): R62.7 - Adult failure to thrive Status: Acute He does have sinus bradycardia on periods of junctional escape along with hypertension. However he also looks emaciated and of poor nutritional status. Multiple prior issues including history of stroke and residual weakness and little or no baseline physical activity. He has also not able to communicate. I feel that a permanent pacemaker may not be beneficial to him considering the above. Will need to discuss with family and explained the above and get their thoughts. Discussed with from hospitalist service.
--- NOTE | 2020-08-13 16:24 | HO.PM.IMPN ---
Subjective Subjective Date of Service: 08/14/20 Interval History: patient nonverbal ,lethargic hx obtained by mom and admission note unable to obtain ros as above. Physical Exam Vital Signs: Vital Signs: Last Vital Signs Temp 96.8 F 08/13/20 15:09 Pulse 31 L 08/13/20 15:09 Resp 20 08/13/20 15:09 BP 82/51 L 08/13/20 15:09 Pulse Ox 94 08/13/20 15:09 Body Mass Index 20.8 Resting in bed no acute distress Neck no JVD Heart regular rate rhythm Lungs clear to auscultation Abdomen normal bowel sounds soft Extremities no edema neuro not assessed Objective Data Current Medications Generic Name Dose Route Start Last Admin Trade Name Freq PRN Reason Stop Dose Admin Acetaminophen 650 mg 08/13/20 03:17 Acetaminophen 325 Mg Tablet PO Q6H PRN Pain, Mild (Pain Scale 1-3) Diazepam 2.5 mg 08/13/20 08:29 Diazepam 5 Mg Tablet PO TID PRN Anxiety Docusate Sodium 100 mg 08/13/20 03:17 Docusate Sodium 100 Mg Capsule PO DAILY PRN Constipation Docusate Sodium 100 mg 08/13/20 06:14 Docusate Sodium 100 Mg Capsule PO Q24H PRN Constipation Enoxaparin Sodium 40 mg 08/13/20 04:00 08/13/20 03:57 Enoxaparin Sodium 40 Mg/0.4 Ml Syringe SUBCUT 40 mg Q24H PORFIRIO Administration Famotidine 20 mg 08/13/20 09:00 08/13/20 08:56 Famotidine 20 Mg Tablet PO 20 mg DAILY PORFIRIO Administration Levothyroxine Sodium 100 mcg 08/13/20 09:00 08/13/20 08:55 Levothyroxine Sodium 100 Mcg Tablet PO 100 mcg DAILY PORFIRIO Administration Ondansetron HCl 4 mg 08/13/20 03:17 Ondansetron Hcl 4 Mg/2 Ml Vial IVPUSH Q8H PRN Nausea and Vomiting Oxycodone HCl 5 mg 08/13/20 06:14 Oxycodone Hcl Immed Release 5 Mg Tablet PO TID PRN Pain Pharmacy Consult 1 each 08/13/20 00:58 Consult Rx Perform Med Rec MISCELLANE ONCE PRN Consult order Sodium Chloride 3 ml 08/13/20 08:00 08/13/20 15:54 0.9 % Sodium Chloride Flush 3 Ml Syringe IVFLUSH 3 ml QSHIFT PORFIRIO Administration Labs CBC & Chem 7: 08/14/20 05:51 08/14/20 05:51 Assessment and Plan (1) Hypotension: Status: Acute (2) Sinus bradycardia: Status: Acute (3) Failure to thrive: Status: Acute (4) Wicho-tachy syndrome: Status: Acute (5) Lethargy: Status: Acute Assessment and Plan: 39-year-old male with past medical history of CVA with residual hemiparesis bed-bound presents to the hospital with increased lethargy found to be hypotensive as well as have bradycardia and tachycardia # WICHO-TACHY SYNDROME - EKG shows sinus rhythm, but telemonitor shows HR in 30 -40 range, with periods of junctional escape, not on any AV agnes blockers, normal TSH, no evidence of infection Case discussed with consultant in ergonomics and safety Dr. Mccauley, he feels that a permanent pacemaker may not be beneficial with current patient's condition including history of small stroke left-sided weakness poor by mouth intake underlying depression and failure to thrive spoke with mother Margaret [phone],discussed treatment plan she agrees with above plan,she does no want resusciation will change code staus to DNR/DNI she has signed paperwork at [facility], cont telemonitor , continue IV fluids. # hypotension - unclear etiology likely due to dehydration, patient noted to have low blood pressure 4 months ago , has no evidence of infection, no leukocytosis, afebrile, chest x-ray negative, UA negative, - received 3 L of fluids with BP still in the 80s will continue IV fluid, hold antibiotic # failure to thrive/ lethargy - due to poor by mouth intake spoke with mother patient has been taking only 2 Ensure can daily he stopped eating 3 weeks ago question related to depression Will reduce dose of diazepam that can be contributing to above symptoms # hypothyroidism - continue levothyroxine # history of CVA, nonverbal communicate through pointing thumbs up or down. DVT prophylaxis:lovenox
[2020-08-13] MEDS: Lactated Ringers 1,000 ML 100 ML IVCONT (19:03)
[2020-08-13] MEDS: diazePAM 5 MG TABLET 2.5 MG PO (19:45)
[2020-08-14] VITALS (14 sets, daily range): BP systolic 74–111; BP diastolic 38–73; PULSE 28–51; RESP 16–20; TEMP 36–37.1; O2SAT 93–100
[2020-08-14] MEDS: Enoxaparin Sodium 40 MG/0.4 ML SYRINGE SUBCUT (05:15)
--- NOTE | 2020-08-14 06:50 | PM.EVENT ---
Event Note Date of Service: 08/14/20 Event Note: HR dropped to 20s 1 dose of atropine given
[2020-08-14 06:59] LABS: MANUAL DIFF FLAG NO
[2020-08-14] MEDS: Atropine Sulfate 1 MG/10 ML SYRINGE 0.5 MG IVPUSH (07:02)
[2020-08-14 07:04] LABS: Basophils Percent Auto 0.4 % (0-2); Eosinophils Absolute Auto 0.1 X10*3/uL (0.0-0.4); Eosinophils Percent Auto 2.2 % (0-4); Hematocrit 36.7 % (42-52); Hemoglobin 11.8 g/dl (14.0-18.0); Imm Gran Abs Auto 0.01 X10*3/uL (0.00-0.03); Imm Gran Pct Auto 0.2 % (0.0-0.4); Lymphocytes Absolute Auto 1.6 X10*3/uL (1.2-4.9); Lymphocytes Percent Auto 29.4 % (20-40); Mean Corpuscular HGB Conc 32.2 g/dl (31.0-36.0); Mean Corpuscular Volume 93.4 fL (80-98); Mean Platelet Volume 10.6 fL (9.4-12.4); Monocytes Absolute Auto 0.4 X10*3/uL (0.1-1.2); Monocytes Percent Auto 7.5 % (2-11); Neutrophils Absolute Auto 3.3 X10*3/uL (2.0-8.3); Neutrophils Percent Auto 60.3 % (45-73); Platelet Count 345 X10*3/uL (160-400); Red Blood Count 3.93 X10*6/uL (4.60-5.80); Red Cell Distribution Width 13.1 % (11.0-16.0); White Blood Count 5.5 X10*3/uL (4.8-10.8)
[2020-08-14] MEDS: Lactated Ringers 1,000 ML 100 ML IVCONT ×2 (07:18→17:15)
[2020-08-14] MEDS: 0.9 % Sodium Chloride Flush 3 ML SYRINGE IVFLUSH (07:23)
[2020-08-14 08:00] LABS: Blood Urea Nitrogen 19 mg/dL (9-16); Creatinine Clr Calc Pharmacy 103.8; Estimated Glomerular Filt Rate > 60; Glucose Random 99 mg/dL (60-115)
[2020-08-14] MEDS: Famotidine 20 MG TABLET PO (08:13)
[2020-08-14] MEDS: Levothyroxine Sodium 100 MCG TABLET PO (08:13)
[2020-08-14 08:17] LABS: Anion Gap 11 (12-20); Calcium 8.5 mg/dL (8.4-10.2); Carbon Dioxide 26 mmol/L (22-29); Chloride 109 mmol/L (96-108); Potassium 4.1 mmol/L (3.3-5.1); Sodium 142 mmol/L (135-145)
--- NOTE | 2020-08-14 08:59 | MHC.CM.PN ---
Addendum entered by Betsey Smith 08/14/20 13:19: CM SPOKE TO PTS MOTHER, MARIANA THIS MORNING. SHE IS INTERESTED IN LOOKING INTO [facility] [place] [facility]. A REFERRAL HAS BEEN SENT. Original Note: CM SPOKE TO PTS MOTHER/LEGAL GUARDIAN, MARIANA RODRÍGUEZ ([phone]) AT APPROXIMATELY 1625 ON 08/13/20. 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 SHE REPORTS THE PT HAS BEEN UNWELL FOR 3 WEEKS. MARIANA REPORTS SHE VISITED THE PT ABOUT 3 WEEKS AGO AT THE [facility] AND SOON AFTER THE VISIT THE PT FACE TIMED HER. SHE REPORTS DURING THE CALL THE PT WAS NOT HIMSELF SO SHE CONTACTED THE FACILITY STAFF. SHE REPORTS THEY TOLD HER THE PT WAS DEPRESSED AND THAT WAS WHY HE WAS NO LONGER ENGAGING IN HIS USUAL ACTIVITIES. MARIANA REPORTS PRIOR TO THIS THE PT WAS USING AN ELLIPTICAL MACHINE DAILY AND DOING WELL . MARIANA REPORTS WHEN SHE FACE TIMED THE PT AT THE [facility] ON 08/12, HE PASSED OUT MULTIPLE TIMES DURING THE CALL. SHE REPORTS SHE SPOKE TO THE NURSES WELL THE DON AND THEY ALL CONTINUED TO TELL HER THE PT WAS FINE AND HIS VITALS WERE GREAT . MARIANA REPORTS SHE EVENTUALLY TOLD THEM SHE WAS GOING TO CALL THE STATE IF THEY DID NOT SEND THE PT TO THE ED. SHE REPORTS WHEN THE PT ARRIVED AT THE ED, HIS HEART RATE WAS IN THE 30'S . SHE REPORTS SHE IS NOT SURE THAT SHE WANTS THE PT TO RETURN. SHE REPORTS THE DON CONTINUED TO INDICATE SHE WAS BEING OVER PROTECTIVE HOWEVER SHE FEELS SHE IS VERY REALISTIC AND SAYS SHE KNOWS THE PT CAN BE DIFFICULT . MARIANA WOULD LIKE TO RESEARCH OTHER LTC FACILITIES FOR CM TO REFER TO. [facility] WILL CONTACT MARIANA WITH A LIST OF POTENTIAL SNF'S AND MAKE REFERRALS TODAY, 08/14/20.
--- NOTE | 2020-08-14 11:51 | PM.PNCARD ---
Subjective Subjective Date of Service: 08/14/20 Interval history: Using his thumbs, he was showing signs that he feels okay. Denies any symptoms like dizziness or presyncope. Review of Systems Review of Systems Yes Unobtainable due to mental status Physical Exam Vital Signs: Last Vital Signs Temp 97 F 08/14/20 10:50 Pulse 39 L 08/14/20 10:50 Resp 18 08/14/20 10:50 BP 91/56 L 08/14/20 10:50 Pulse Ox 98 08/14/20 10:50 Body Mass Index 20.8 Const General: comfortable and no acute distress [facility] Other: Unremarkable Neck Neck: Yes normal visual inspection Chest Chest palpation & inspection: normal inspection of the chest Resp Auscultation: clear to auscultation bilaterally, no crackles and no wheezes Cardio Jugular venous distension: no JVD Palpation: normal PMI Heart sounds: S1 normal heart sound present, S2 normal heart sound present, no gallops, no murmurs and no rubs GI Palpation (GI): Soft to palpation Back/Spine/Pelvis Other: unremarkable Skin General skin exam: no rashes or lesions noted Extrem General: Yes no clubbing, cyanosis or edema Psych Mental Status: other Results Labs and Meds Result diagrams: 08/14/20 05:51 08/14/20 05:51 Lab results: Laboratory Results - last 24 hr 08/14/20 08/14/20 05:51 05:51 WBC 5.5 RBC 3.93 L Hgb 11.8 L Hct 36.7 L MCV 93.4 MCH 30.0 MCHC 32.2 RDW 13.1 Plt Count 345 MPV 10.6 Immature Gran % (Auto) 0.2 Neut % (Auto) 60.3 Lymph % (Auto) 29.4 [place] % (Auto) 7.5 Eos % (Auto) 2.2 Baso % (Auto) 0.4 Lymph # (Auto) 1.6 [place] # (Auto) 0.4 Eos # (Auto) 0.1 Baso # (Auto) 0.0 Abs Immat Gran (auto) 0.01 Absolute Neuts (auto) 3.3 Absolute Nucleated RBC 0.000 Nucleated RBC % (auto) 0.0 Sodium 142 Potassium 4.1 Chloride 109 H Carbon Dioxide 26 Anion Gap 11 L BUN 19 H Creatinine 0.76 Estim Creat Clear Calc 103.8 Estimated GFR > 60 Random Glucose 99 Calcium 8.5 D Progress Note: A&P Assessment and plan (1) Sinus bradycardia: Status: Acute (2) Hypotension: Status: Acute (3) Failure to thrive: Status: Acute Assessment and Plan: He does have sinus bradycardia and periods of junctional escape along with hypotension. However he also looks emaciated and of poor nutritional status. Multiple prior issues including history of stroke and residual weakness and little or no baseline physical activity. Also communication issues. I feel that a permanent pacemaker will likely not be beneficial to him considering the above. To address goals of care. Discussed with from hospitalist service who discussed with his mother- agrees to above. Fall Risk Details Current Medications: Current Medications Generic Name Dose Route Start Last Admin Trade Name Freq PRN Reason Stop Dose Admin Acetaminophen 650 mg 08/13/20 03:17 Acetaminophen 325 Mg Tablet PO Q6H PRN Pain, Mild (Pain Scale 1-3) Diazepam 2.5 mg 08/13/20 08:29 08/13/20 19:45 Diazepam 5 Mg Tablet PO 2.5 mg TID PRN Administration Anxiety Docusate Sodium 100 mg 08/13/20 03:17 Docusate Sodium 100 Mg Capsule PO DAILY PRN Constipation Docusate Sodium 100 mg 08/13/20 06:14 Docusate Sodium 100 Mg Capsule PO Q24H PRN Constipation Enoxaparin Sodium 40 mg 08/13/20 04:00 08/14/20 05:15 Enoxaparin Sodium 40 Mg/0.4 Ml Syringe SUBCUT 40 mg Q24H PORFIRIO Administration Famotidine 20 mg 08/13/20 09:00 08/14/20 08:13 Famotidine 20 Mg Tablet PO 20 mg DAILY PORFIRIO Administration Lactated Ringer's 1,000 mls @ 100 mls/hr 08/13/20 18:45 08/14/20 07:18 Lr IVCONT 100 mls/hr .Q10H PORFIRIO Administration Levothyroxine Sodium 100 mcg 08/13/20 09:00 08/14/20 08:13 Levothyroxine Sodium 100 Mcg Tablet PO 100 mcg DAILY PORFIRIO Administration Ondansetron HCl 4 mg 08/13/20 03:17 Ondansetron Hcl 4 Mg/2 Ml Vial IVPUSH Q8H PRN Nausea and Vomiting Oxycodone HCl 5 mg 08/13/20 06:14 Oxycodone Hcl Immed Release 5 Mg Tablet PO TID PRN Pain Pharmacy Consult 1 each 08/13/20 00:58 Consult Rx Perform Med Rec MISCELLANE ONCE PRN Consult order Sodium Chloride 3 ml 08/13/20 08:00 08/14/20 07:23 0.9 % Sodium Chloride Flush 3 Ml Syringe IVFLUSH 3 ml QSHIFT PORFIRIO Administration Time Spent With Patient Time: Total time spent is greater than 50% in coordination of care (as documented) at patient's floor/unit and/or counseling patient: Time with patient: less than 15 minutes
--- NOTE | 2020-08-14 14:36 | HO.PM.IMPN ---
Subjective Subjective Date of Service: 08/14/20 Interval History: Patient awake alert following commands this morning, nonverbal, pointing to back likely has pain. Unable to obtain review of systems since nonverbal. Physical Exam Vital Signs: Vital Signs: Last Vital Signs Temp 97 F 08/14/20 10:50 Pulse 39 L 08/14/20 10:50 Resp 18 08/14/20 10:50 BP 91/56 L 08/14/20 10:50 Pulse Ox 96 08/14/20 12:57 Body Mass Index 20.8 Resting in bed awake alert, no acute distress Neck no JVD Heart regular rate rhythm Lungs clear to auscultation Abdomen normal bowel sounds, soft Extremities no edema neuro able to raise both hands above head, point thumbs up and down for answering, face symmetrical. Objective Data Current Medications Generic Name Dose Route Start Last Admin Trade Name Freq PRN Reason Stop Dose Admin Acetaminophen 650 mg 08/13/20 03:17 Acetaminophen 325 Mg Tablet PO Q6H PRN Pain, Mild (Pain Scale 1-3) Diazepam 2.5 mg 08/13/20 08:29 08/13/20 19:45 Diazepam 5 Mg Tablet PO 2.5 mg TID PRN Administration Anxiety Docusate Sodium 100 mg 08/13/20 03:17 Docusate Sodium 100 Mg Capsule PO DAILY PRN Constipation Docusate Sodium 100 mg 08/13/20 06:14 Docusate Sodium 100 Mg Capsule PO Q24H PRN Constipation Enoxaparin Sodium 40 mg 08/13/20 04:00 08/14/20 05:15 Enoxaparin Sodium 40 Mg/0.4 Ml Syringe SUBCUT 40 mg Q24H PORFIRIO Administration Famotidine 20 mg 08/13/20 09:00 08/14/20 08:13 Famotidine 20 Mg Tablet PO 20 mg DAILY PORFIRIO Administration Lactated Ringer's 1,000 mls @ 100 mls/hr 08/13/20 18:45 08/14/20 07:18 Lr IVCONT 100 mls/hr .Q10H PORFIRIO Administration Levothyroxine Sodium 100 mcg 08/13/20 09:00 08/14/20 08:13 Levothyroxine Sodium 100 Mcg Tablet PO 100 mcg DAILY PORFIRIO Administration Ondansetron HCl 4 mg 08/13/20 03:17 Ondansetron Hcl 4 Mg/2 Ml Vial IVPUSH Q8H PRN Nausea and Vomiting Oxycodone HCl 5 mg 08/13/20 06:14 Oxycodone Hcl Immed Release 5 Mg Tablet PO TID PRN Pain Pharmacy Consult 1 each 08/13/20 00:58 Consult Rx Perform Med Rec MISCELLANE ONCE PRN Consult order Sodium Chloride 3 ml 08/13/20 08:00 08/14/20 07:23 0.9 % Sodium Chloride Flush 3 Ml Syringe IVFLUSH 3 ml QSHIFT PORFIRIO Administration Labs CBC & Chem 7: 08/14/20 05:51 08/14/20 05:51 Assessment and Plan (1) Hypotension: Status: Acute (2) Sinus bradycardia: Status: Acute (3) Failure to thrive: Status: Acute Assessment and Plan: 39-year-old male with past medical history of CVA with residual hemiparesis bed-bound presents to the hospital with increased lethargy found to be hypotensive as well as have bradycardia and tachycardia # Sinus bradycardia EKG shows sinus rhythm, telemonitor shows HR in 30 -40 range, last night heart rate drop in 20s therefore received dose of atropine Noted to have periods of junctional escape, not on any AV agnes blockers, normal TSH, no evidence of infection Case discussed with windows application administrator Dr. Mccauley, he feels that a permanent pacemaker may not be beneficial with current patient's condition including history of stroke left-sided weakness, aphasia failure to thrive, and underlying depression spoke with mother Margaret [phone],discussed treatment plan she agrees with above plan,she does no want resusciation will change code staus to DNR/DNI she has [facility], cont. telemonitor , continue IV fluids, mother is requesting for a different rehab upon discharge, she is requesting for rehab that can offer physical therapy case discussed with certified social workers in health care she is looking for beds. # hypotension - unclear etiology likely due to dehydration, patient noted to have low blood pressure 4 months ago , has no evidence of infection, no leukocytosis, afebrile, chest x-ray negative, UA negative, - received 3 L of fluids with BP still in the 80s will continue IV fluid, hold antibiotic, reduce dose of diazepam to 2.5 mg that can be contributing to hypotension and bradycardia. # failure to thrive/ lethargy - poor by mouth intake x 3 weeks, question related to depression,added ensure can tid, and cont. on pureed nectar thick liqs. # hypothyroidism - continue levothyroxine # history of CVA, nonverbal communicate through pointing thumbs up or down,will add scheduled tylenol for back pain. DVT prophylaxis:lovenox
[2020-08-14] MEDS: Acetaminophen 325 MG TABLET 650 MG PO ×2 (14:55→20:20)
--- NOTE | 2020-08-14 15:48 | PC.NURSE ---
Pt looked more awake & alert today. Was able to get pt OOB w/2assist to recliner. Pt doesnt stand staright up and is mostly a stand /pivot not bearing much of his own weight. Pt able to able to communicate yes/no using up and down thumbs and miming some words. Was able to point to commode when need to use and had BM. Pt facetimes his family on ipad which makes him happy. When asked about pain pt points to his back - started on monica tylenol. Lungs clear. Skin intact, pt moves himself and bed and staff repo pt more q2 as well. PT tolerating pureed diet andnectar thick liquids, able to feed himself w/only assistance to set up tray. Pt sometimes uses call cano appropriately. Telesitter also in place. High fall risk measures in place. Pt room is across from RN station.
[2020-08-15 02:32] VITALS: BP 122/72
[2020-08-15] MEDS: Lactated Ringers 1,000 ML 100 ML IVCONT ×3 (03:04→18:24)
[2020-08-15 03:05] VITALS: BP 120/71; PULSE 35; RESP 16; TEMP 36.7; O2SAT 98
[2020-08-15] MEDS: Omeprazole 40 MG CAPSULE.DR PO (03:05)
[2020-08-15] MEDS: Enoxaparin Sodium 40 MG/0.4 ML SYRINGE SUBCUT (03:06)
[2020-08-15] MEDS: Acetaminophen 325 MG TABLET 650 MG PO ×4 (03:06→20:06)
[2020-08-15 06:50] LABS: Anion Gap 14 (12-20); Blood Urea Nitrogen 13 mg/dL (9-16); Calcium 8.6 mg/dL (8.4-10.2); Carbon Dioxide 22 mmol/L (22-29); Chloride 107 mmol/L (96-108); Estimated Glomerular Filt Rate > 60; Glucose Random 83 mg/dL (60-115); Magnesium 1.9 mg/dL (1.6-2.6); Potassium 4.3 mmol/L (3.3-5.1); Sodium 139 mmol/L (135-145)
[2020-08-15 06:56] VITALS: BP 90/52; PULSE 38; RESP 18; TEMP 35.8; O2SAT 99
[2020-08-15] MEDS: 0.9 % Sodium Chloride Flush 3 ML SYRINGE IVFLUSH (09:12)
[2020-08-15] MEDS: Levothyroxine Sodium 100 MCG TABLET PO (09:12)
[2020-08-15] MEDS: Famotidine 20 MG TABLET PO (09:12)
--- NOTE | 2020-08-15 10:56 | P.CDIC_ITS ---
CDI Concurrent Query Service Date: 08/15/20 Documentation Clarification: Please clarify if you are treating a proba ble/suspected/likely or confirmed: Mild Protein Calorie Malnutrition Moderate Protein Calorie Malnutrition Severe Protein Calorie Malnutrition Provider Response: Moderate Protein-Calorie Malnutrition PLEASE DO NOT DELETE/MODIFY EXISTING CONTENT Additional information is needed in order to code to the highest accuracy and appropriate Severity of Illness (SOI). Please clarify the information noted below in your progress notes and discharge summary. Risk Factors/Clinical Indicators/Treatments 39 year old male admitted with FTT, weight loss, lethargy, Depression, Wicho-tachy Syndrome HT 5'5 WT 56.8 kg BMI 20.8 Per Cardiology note 08/14/20 looks emaciated and poor nutritional status CDS: Laverne Aguayo RN Contact Number: [phone] Please Review the information above and exercise your independent professional judgment in responding to the query. If you concur, pleas document in the PROGRESS NOTES and DISCHARGE SUMMARY. If you do not agree with the query, please document in the query above. THIS QUERY IS PART OF THE PERMANENT MEDICAL RECORD
[2020-08-15 11:02] VITALS: BP 90/52; PULSE 46; RESP 18; TEMP 35.9; O2SAT 98
--- NOTE | 2020-08-15 11:09 | MHC.CM.PN ---
DP Male 39 DX Bradycardia hypotension DP return to [facility], via BLS. The pt's Mother Bibiana Shelby/ HCP, had requested that the Pt be placed elsewhere @ discharge. T/W explained that due to insurance, [place] Medicaid, the Pt can not be placed elsewhere at this time. She understands that she will need to apply for [facility] prior to transfering to another facility. She verbalized understanding of all information provided. CM will follow.
[2020-08-15 12:23] VITALS: BMI 20.8
[2020-08-15] MEDS: oxyCODONE HCl Immed Release 5 MG TABLET PO ×2 (14:00→21:09)
--- NOTE | 2020-08-15 15:04 | P.PNIM_ITS ---
Subjective Subjective Date of Service: 08/15/20 Interval History: nonverbal and as such unable to obtain ROS appears in NAD Physical Exam Vital Signs: Vital Signs: Last Vital Signs Temp 96.6 F L 08/15/20 11:02 Pulse 46 L 08/15/20 11:02 Resp 18 08/15/20 11:02 BP 90/52 L 08/15/20 11:02 Pulse Ox 98 08/15/20 11:02 Body Mass Index 20.8 Gen: appears emaciated HEENT: sclera anicteric, moist mucus membranes Neck: supple Lungs: clear to auscultation bilaterally Heart: bradycardic, no m/r/g Abd: soft, non-tender, non-distended Ext: no edema Skin: warm/well-perfused Neuro: alert, nonverbal Objective Data Current Medications Generic Name Dose Route Start Last Admin Trade Name Freq PRN Reason Stop Dose Admin Acetaminophen 650 mg 08/14/20 14:45 08/15/20 09:12 Acetaminophen 325 Mg Tablet PO 650 mg Q6H PORFIRIO Administration Al Hydroxide/Mg Hydroxide 15 ml 08/15/20 02:37 Magnesium Hydrox/Alum Hydrox 30 Ml Oral.Susp PO Q6H PRN Heartburn Diazepam 2.5 mg 08/13/20 08:29 08/13/20 19:45 Diazepam 5 Mg Tablet PO 2.5 mg TID PRN Administration Anxiety Docusate Sodium 100 mg 08/13/20 03:17 Docusate Sodium 100 Mg Capsule PO DAILY PRN Constipation Docusate Sodium 100 mg 08/13/20 06:14 Docusate Sodium 100 Mg Capsule PO Q24H PRN Constipation Enoxaparin Sodium 40 mg 08/13/20 04:00 08/15/20 03:06 Enoxaparin Sodium 40 Mg/0.4 Ml Syringe SUBCUT 40 mg Q24H PORFIRIO Administration Famotidine 20 mg 08/13/20 09:00 08/15/20 09:12 Famotidine 20 Mg Tablet PO 20 mg DAILY PORFIRIO Administration Lactated Ringer's 1,000 mls @ 100 mls/hr 08/13/20 18:45 08/15/20 09:13 Lr IVCONT 100 mls/hr .Q10H PORFIRIO Administration Levothyroxine Sodium 100 mcg 08/13/20 09:00 08/15/20 09:12 Levothyroxine Sodium 100 Mcg Tablet PO 100 mcg DAILY PORFIRIO Administration Omeprazole 40 mg 08/15/20 02:40 08/15/20 03:05 Omeprazole 40 Mg Capsule. PO 40 mg DAILY@0630 [facility] Administration Ondansetron HCl 4 mg 08/13/20 03:17 Ondansetron Hcl 4 Mg/2 Ml Vial IVPUSH Q8H PRN Nausea and Vomiting Oxycodone HCl 5 mg 08/13/20 06:14 08/15/20 14:00 Oxycodone Hcl Immed Release 5 Mg Tablet PO 5 mg TID PRN Administration Pain Pharmacy Consult 1 each 08/13/20 00:58 Consult Rx Perform Med Rec MISCELLANE ONCE PRN Consult order Sodium Chloride 3 ml 08/13/20 08:00 08/15/20 09:12 0.9 % Sodium Chloride Flush 3 Ml Syringe IVFLUSH 3 ml QSHIFT PORFIRIO Administration Labs CBC & Chem 7: 08/14/20 05:51 08/15/20 06:14 Labs: Laboratory Results - last 24 hr 08/15/20 06:14 Sodium 139 Potassium 4.3 Chloride 107 Carbon Dioxide 22 Anion Gap 14 BUN 13 Creatinine 0.73 Estim Creat Clear Calc 108.0 Estimated GFR > 60 Random Glucose 83 Calcium 8.6 Magnesium 1.9 Assessment and Plan (1) Hypotension: Status: Acute (2) Sinus bradycardia: Status: Acute (3) Failure to thrive: Status: Acute Assessment and Plan: hospital d#3 39-year-old male with past medical history of CVA with residual hemiparesis bed- bound presents to the hospital with increased lethargy found to be hypotensive as well as have bradycardia and tachycardia # sinus bradycardia - HR in the 30s while asleep, even as low as 20s 2 nights ago and got dose of atropine then - noted to have periods of junctional escape, not on any AV agnes blockers; normal TSH, no evidence of infection - per Cardiology PPM not likely to be in interests of patient given hx of stroke with dense aphsia, FTT - Dr Cortes spoke to pt's mother Margaret @ [phone] and agrees with above plan; code status changed to DNR/DNI; requests a different rehab that can offer PT # hypotension - unclear etiology; likely due to dehydration, patient noted to have low blood pressure 4 months ago , has no evidence of infection, no leukocytosis, afebrile, chest x-ray negative, UA negative, - continue IV fluids; reduced dose of diazepam to 2.5 mg that can be contr ibuting to hypotension and bradycardia. # failure to thrive/moderate protein-calorie malnutrition - poor by mouth intake x 3 weeks, question related to depression, added Ensure 1 can tid, and continued on pureed solids + nectar-thick liquids # hypothyroidism - continue levothyroxine, TSH therapeutic # history of CVA - nonverbal; communicates through pointing thumbs up or down # back pain - scheduled APAP # VTE ppx - [facility]
[2020-08-15 15:49] VITALS: BP 93/63; PULSE 68; RESP 20; TEMP 36.6; O2SAT 95
[2020-08-15 23:30] VITALS: BP 87/42; PULSE 48; RESP 18; TEMP 37.1; O2SAT 96
[2020-08-16 03:21] VITALS: BP 88/50; PULSE 48; RESP 16; TEMP 36.8; O2SAT 95
[2020-08-16] MEDS: Acetaminophen 325 MG TABLET 650 MG PO ×2 (03:28→08:53)
[2020-08-16] MEDS: Lactated Ringers 1,000 ML 100 ML IVCONT (03:29)
[2020-08-16] MEDS: Enoxaparin Sodium 40 MG/0.4 ML SYRINGE SUBCUT (03:29)
[2020-08-16] MEDS: Omeprazole 40 MG CAPSULE.DR PO (05:40)
[2020-08-16 07:28] VITALS: BP 93/63; PULSE 42; RESP 16; TEMP 36.6; O2SAT 98
[2020-08-16] MEDS: Levothyroxine Sodium 100 MCG TABLET PO (08:49)
[2020-08-16] MEDS: 0.9 % Sodium Chloride Flush 3 ML SYRINGE IVFLUSH (08:53)
[2020-08-16] MEDS: Famotidine 20 MG TABLET PO (08:53)
[2020-08-16] MEDS: diazePAM 5 MG TABLET 2.5 MG PO (11:02)
[2020-08-16 11:40] VITALS: BP 95/63; PULSE 41; RESP 16; TEMP 36.8; O2SAT 98
[2020-08-16 11:53] LABS: COVID-19 Test Negative (Negative)
--- NOTE | 2020-08-16 14:25 | PM.DS ---
DS: Providers Provider Date of Service: 08/16/20 Date of admission: 08/13/20 06:17 Primary care physician: Donnell Banuelos DO Consults: 08/13/20 03:17 Consult to Cardiology Routine Consulting Provider: Mauricio Mccauley Reason for consultation: sick sinus syndrome Has provider been notified: Yes DS: Diagnosis Discharge Diagnosis (1) Hypotension: Status: Acute (2) Sinus bradycardia: Status: Acute (3) Failure to thrive: Status: Acute (4) Protein-calorie malnutrition, moderate: Status: Acute DS: Medications Discharge Medications Home Medications: Home Medications Medication Instructions Recorded Confirmed acetaminophen [Tylenol] 650 mg PO Q6-8H PRN 08/13/20 08/13/20 docusate sodium 100 mg PO Q24W PRN 08/13/20 08/13/20 famotidine 20 mg PO DAILY 08/13/20 08/13/20 levothyroxine 100 mcg PO DAILY 08/13/20 08/13/20 oxycodone 5 mg PO TID PRN 08/13/20 08/13/20 sennosides [senna] 8.6 mg PO DAILY 08/13/20 08/13/20 Previous Rx's Medication Instructions Recorded diazepam 2.5 mg PO TID PRN #20 tab 08/16/20 DS: Summary Hospital Course Hospital Course: From H+P by admitting hospitalist Mikaela Miller, 08/13/20: [This is a 39 year-old man with a] Past medical history of hemiplegia and hemiparesis status post CVA, bed-bound, and... ...encephalopathy, major depressive disorder, HLD, history of alcohol dependence who presents from [facility] for increased lethargy, weight loss and depression for 1 month. Patient is nonverbal therefore I am unable to review any of his systems. There is no reported history of fever, falls, no history of diarrhea, and his blood pressures have been reported in the low 100s above 90. on arrival to the ED pt was found to have temp of 98.5, HR 41, RR of 16, BP of 87/50 and 97% on RA. In the ED pt's HR seem to fluctuates between mid 30s to 123 and then down to the 60s. Labs unremarkable with normal trop, tsh The patient was admitted to telemetry. 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 He was noted to have sinus bradycardia in the 30s while asleep with 1 episode down to the 20s for which he got 1 dose of atropine. he was noted to have periods of junctional escape rhythm. He is not on any AV agnes blockers. TSH was normal and there was no evidence of infection. Cardiology was consulted and ultimately pacemaker was not felt to be in the interests of the patient's quality of life. After discussion with his mother, his healthcare proxy, his code status was changed to DNR/DNI. Hypotension improved with IV hydration and dose-reduction of his diazepam. For failure to thrive and malnutrition, he was started on 1 can of Ensure 3x a day and continued on pureed solids and nectar-thick liquids. He was discharged back to [facility] and his mother plans to transition him to a different SNF once he can change insurance from [place] Medicaid to [employer]. Time Spent with Patient Time attestation: Total time spent providing and/or coordinating discharge services: 35 Discharge coordination time: Greater than 30 minutes Physical Exam Vital Signs: Vital Signs: Last Vital Signs Temp 98.3 F 08/16/20 11:40 Pulse 41 L 08/16/20 11:40 Resp 16 08/16/20 11:40 BP 95/63 08/16/20 11:40 Pulse Ox 98 08/16/20 11:40 Body Mass Index 20.8 Gen: appears emaciated HEENT: sclera anicteric, moist mucus membranes Neck: supple Lungs: clear to auscultation bilaterally Heart: bradycardic, no m/r/g Abd: soft, non-tender, non-distended Ext: no edema Skin: warm/well-perfused Neuro: alert, nonverbal DS: Data Data Completed and Pending Completed studies during hospitalization [Text1]: Laboratory Results WBC 5.5 X10*3/uL (4.8-10.8) 08/14/20 05:51 RBC 3.93 X10*6/uL (4.60-5.80) L 08/14/20 05:51 Hgb 11.8 g/dl (14.0-18.0) L 08/14/20 05:51 Hct 36.7 % (42-52) L 08/14/20 05:51 MCV 93.4 fL (80-98) 08/14/20 05:51 MCH 30.0 pg (27.0-33.0) 08/14/20 05:51 MCHC 32.2 g/dl (31.0-36.0) 08/14/20 05:51 RDW 13.1 % (11.0-16.0) 08/14/20 05:51 Plt Count 345 X10*3/uL (160-400) 08/14/20 05:51 MPV 10.6 fL (9.4-12.4) 08/14/20 05:51 Immature Gran % (Auto) 0.2 % (0.0-0.4) 08/14/20 05:51 Neut % (Auto) 60.3 % (45-73) 08/14/20 05:51 Lymph % (Auto) 29.4 % (20-40) 08/14/20 05:51 [place] % (Auto) 7.5 % (2-11) 08/14/20 05:51 Eos % (Auto) 2.2 % (0-4) 08/14/20 05:51 Baso % (Auto) 0.4 % (0-2) 08/14/20 05:51 Lymph # (Auto) 1.6 X10*3/uL (1.2-4.9) 08/14/20 05:51 [place] # (Auto) 0.4 X10*3/uL (0.1-1.2) 08/14/20 05:51 Eos # (Auto) 0.1 X10*3/uL (0.0-0.4) 08/14/20 05:51 Baso # (Auto) 0.0 X10*3/uL (0.0-0.2) 08/14/20 05:51 Abs Immat Gran (auto) 0.01 X10*3/uL (0.00-0.03) 08/14/20 05:51 Absolute Neuts (auto) 3.3 X10*3/uL (2.0-8.3) 08/14/20 05:51 Absolute Nucleated RBC 0.000 X10*3/uL (0.0-0.012) 08/14/20 05:51 Nucleated RBC % (auto) 0.0 /100WBC (0.0-0.2) 08/14/20 05:51 Hold Blue Top SEE NOTE 08/12/20 18:56 Sodium 139 mmol/L (135-145) 08/15/20 06:14 Potassium 4.3 mmol/L (3.3-5.1) 08/15/20 06:14 Chloride 107 mmol/L (96-108) 08/15/20 06:14 Carbon Dioxide 22 mmol/L (22-29) 08/15/20 06:14 Anion Gap 14 (12-20) 08/15/20 06:14 BUN 13 mg/dL (9-16) 08/15/20 06:14 Creatinine 0.73 mg/dL (0.5-1.4) 08/15/20 06:14 Estim Creat Clear Calc 108.0 08/15/20 06:14 Estimated GFR > 60 08/15/20 06:14 POC Glucose 74 mg/dL (60-115) 08/13/20 01:05 Random Glucose 83 mg/dL (60-115) 08/15/20 06:14 Calcium 8.6 mg/dL (8.4-10.2) 08/15/20 06:14 Magnesium 1.9 mg/dL (1.6-2.6) 08/15/20 06:14 Total Bilirubin 0.5 mg/dL (0.0-1.0) 08/12/20 18:56 Direct Bilirubin 0.2 mg/dL (0.0-0.5) 08/12/20 18:56 AST 21 U/L (5-37) 08/12/20 18:56 ALT 16 U/L (0-40) 08/12/20 18:56 Alkaline Phosphatase 70 U/L (39-117) 08/12/20 18:56 Ammonia 43 umol/L (13-55) 08/12/20 20:00 Troponin I High Sens 5.6 ng/L (<3.5-35.0) 08/13/20 02:36 B-Natriuretic Peptide 26 pg/mL (<100) 08/13/20 02:36 Total Protein 7.9 g/dL (6.5-8.0) 08/12/20 18:56 Albumin 3.6 g/dL (3.5-5.0) 08/12/20 18:56 Lipase 18 U/L (8-78) 08/12/20 18:56 TSH 2.08 uIU/mL (0.32-4.0) 08/12/20 18:56 Urine Color YELLOW 08/12/20 20:00 Urine Appearance HAZY 08/12/20 20:00 Urine pH 7.5 (5.0-8.0) 08/12/20 20:00 Ur Specific [place] 1.010 (1.005-1.025) 08/12/20 20:00 Urine Protein NEG MG/DL (NEG-TRACE) 08/12/20 20:00 Urine Glucose (UA) NEG MG/DL (NEG) 08/12/20 20:00 Urine Ketones NEG MG/DL (NEG) 08/12/20 20:00 Urine Blood NEG (NEG) 08/12/20 20:00 Urine Nitrite NEG (NEG) 08/12/20 20:00 Ur Leukocyte Esterase NEG (NEG) 08/12/20 20:00 Urine Opiates Screen Not Detected (Not Detect) 08/12/20 20:00 Ur Barbiturates Screen Not Detected (Not Detect) 08/12/20 20:00 Ur Phencyclidine Scrn Not Detected (Not Detect) 08/12/20 20:00 Ur Amphetamines Screen Not Detected (Not Detect) 08/12/20 20:00 U Benzodiazepines Scrn POSITIVE (Not Detect) H 08/12/20 20:00 Urine Cocaine Screen Not Detected (Not Detect) 08/12/20 20:00 U Marijuana (THC) Screen Not Detected (Not Detect) 08/12/20 20:00 Coronavirus (PCR) NEGATIVE (Negative) 08/12/20 18:56 COVID-19 (MEHUL) Negative (Negative) 08/16/20 11:15 COVID-19 Clin Com See Note 08/16/20 11:15 Influenza Type A (PCR) NEGATIVE (Negative) 08/12/20 18:56 Influenza Type B (PCR) NEGATIVE (Negative) 08/12/20 18:56 RSV RNA Qual (PCR) NEGATIVE (Negative) 08/12/20 18:56 Impressions Chest X-Ray 08/12/20 17:52 IMPRESSION: No acute intrathoracic disease. Head CT 08/12/20 17:52 IMPRESSION: No acute intracranial process seen. Right lateral temporal lobe and left posterior parietal lobe encephalomalacia from old insult. Age-related cerebral volume loss. Discharge Plan Discharge Patient Disposition: er SNF Discharge Diagnosis: bradycardia Referrals: [facility] [Outside] - 1 Week Donnell Banuelos DO [Physician] - 3 days Physician,Unknown [Primary Care Provider] - 1 Week Discharge Medications: New diazepam 5 mg Tablet 2.5 mg PO TID PRN (Reason: Anxiety) Qty: 20 RF: 0 Continued sennosides [senna] 8.6 mg Tablet 8.6 mg PO DAILY RF: 0 acetaminophen [Tylenol] 325 mg Tablet 650 mg PO Q6-8H PRN (Reason: Fever) RF: 0 levothyroxine 100 mcg Tablet 100 mcg PO DAILY RF: 0 famotidine 20 mg Tablet 20 mg PO DAILY RF: 0 docusate sodium 100 mg Capsule 100 mg PO Q24W PRN (Reason: Constipation) RF: 0 oxycodone 5 mg Tablet, Oral Only 5 mg PO TID PRN (Reason: Pain) RF: 0 Discontinued diazepam [Valium] 5 mg Tablet 5 mg PO TID PRN (Reason: Anxiety) RF: 0 Discharge Orders: Discharge Order (Routine); Ordered 08/16/20 Ordered By: Tomi Andre Diet: advance to usual diet Activity on Discharge: As tolerated Stand Alone Forms: Patient Portal Discharge page Care Plan Goals: improved nutrition Health Concerns: bradycardia failure to thrive/malnutrition Plan of Treatment: no pacemaker indicated for now Ensure 1 can tid pureed solids + nectar-thick liquids Assessment: as above Patient Instructions: Malnutrition (DC), Weakness (ED)
--- NOTE | 2020-08-16 14:58 | MHC.CM.PN ---
Patient will discharge today. He will return to [facility]. The Pts Mother/guardian has been notified of discharge this afternoon. [facility] is scheduled to [facility]. Clinical info has been sent. The result of Covid test and discharge info has been sent. Transportation via S scheduled for 4pm. [facility]
[2020-08-16 15:29] VITALS: BP 102/64; PULSE 50; RESP 18; TEMP 36.7; O2SAT 99
[2020-08-16] MEDS: oxyCODONE HCl Immed Release 5 MG TABLET PO (16:07)
== END 2020-08-16 17:13 | disposition skilled nursing facility (03) | DRG 315 ==
LOC: HO.ED 08-13 01:43 → HO.EDOVER 08-13 01:44 → HO.IMC 08-13 01:55
PROVIDERS: Physician Assistant; Admitting Provider Internal Medicine; Emergency Provider Emergency Medicine; Visit Provider Family Medicine
DX: I95.0 Idiopathic hypotension (principal); I69.954 Hemiplegia and hemiparesis following unspecified cerebrovascular disease affecting left non-dominant side; E44.0 Moderate protein-calorie malnutrition; I49.5 Sick sinus syndrome; F41.9 Anxiety disorder, unspecified; Z74.01 Bed confinement status; R62.7 Adult failure to thrive; E03.9 Hypothyroidism, unspecified; Z20.822 Contact with and (suspected) exposure to COVID-19; Z68.20 Body mass index [BMI] 20.0-20.9, adult; Z87.891 Personal history of nicotine dependence; I69.920 Aphasia following unspecified cerebrovascular disease; I69.991 Dysphagia following unspecified cerebrovascular disease; Z88.2 Allergy status to sulfonamides; Z88.6 Allergy status to analgesic agent; Z79.890 Hormone replacement therapy; Z79.891 Long term (current) use of opiate analgesic; Z79.899 Other long term (current) drug therapy; Z66 Do not resuscitate
CPT/HCPCS: 0241U; 36415; 70450; 71045; 80048; 80076; 80307; 81003; 82140; 82947; 83690; 83735; 83880; 84443; 84484; 85025; 87635; 93005; 96361; 96372; 96374; 96375; 99285; J0461; J1650

== ENCOUNTER 2020-11-29 20:09 | Emergency (ER) | payer MEDICARE, MEDICAID, SELFPAY ==
--- NOTE | 2020-11-29 20:10 | PC.NURSE ---
RECEIVED AN EXPECT CALL FROM NURSE AT [facility], STATING THAT THE PATIENT WAS BEING SENT IN FOR RULE OUT DVT WITH THE UPPER LEG. NURSE WAS UNSURE WHICH LEG WAS EFFECT, REPORTING WELL HE HAS AN AMPUTATION REPORTING THAT THEY PATIENTS LEG WAS SWOLLEN WARM TO THE TOUCH. STATING HE RECEIVED AN ULTRASOUND AT [facility] BUT WAS INCONCLUSIVE AND NEEDS ANOTHER ONE
[2020-11-29 20:12] VITALS: BP 115/74; PULSE 60; RESP 18; TEMP 36.7; O2SAT 97; BMI 26.6
--- NOTE | 2020-11-29 20:20 | ED.EXTPRO ---
HPI - Extremity Problem General Chief complaint: Extremity Problem Stated complaint: RULE OUT DVT Time Seen by Provider: 11/29/20 20:19 Source: EMS Mode of arrival: EMS History of Present Illness HPI Narrative: Patient L leg arterial Doppler done today which showed moderate peripheral vascular disease with normal peak systolic velocity in femoral artery 8200 centimeter/second popliteal artery 60-80 tibial artery 40-60. On vancomycin and Cipro for osteomyelitis seen in the x-ray of left calcaneum without any open wound. Patient was sent here to rule out any blood clot although patient not a Doppler does not say any occlusion patient is nonverbal alert and awake Related Data Home Medications Medication Instructions Recorded Confirmed acetaminophen 325 mg tablet 650 mg PO Q6-8H PRN 08/13/20 08/13/20 (Tylenol) docusate sodium 100 mg capsule 100 mg PO Q24W PRN 08/13/20 08/13/20 famotidine 20 mg tablet 20 mg PO DAILY 08/13/20 08/13/20 levothyroxine 100 mcg tablet 100 mcg PO DAILY 08/13/20 08/13/20 oxycodone 5 mg tablet,oral ONLY 5 mg PO TID PRN 08/13/20 08/13/20 (not feeding tubes) sennosides 8.6 mg tablet (senna) 8.6 mg PO DAILY 08/13/20 08/13/20 Previous Rx's Medication Instructions Recorded diazepam 5 mg tablet 2.5 mg PO TID PRN #20 tab 08/16/20 Allergies Allergy/AdvReac Type Severity Reaction Status Date / Time erythromycin base Allergy Unknown Verified 04/23/20 10:03 ibuprofen Allergy Unknown Verified 04/23/20 10:03 ketorolac Allergy Unknown Verified 04/23/20 10:03 Sulfa (Sulfonamide Allergy Unknown Verified 04/23/20 10:03 Antibiotics) tromethamine Allergy Unknown Verified 04/23/20 10:03 Review of Systems Review of Systems: Limited as patient is nonverbal [facility] Past Medical History Medical History Anxiety Wicho-tachy syndrome Bradycardia Dysphagia Failure to thrive H/O alcohol dependence Hemiplegia affecting left nondominant side Hepatitis C Hyperlipidemia Hypotension Hypothyroid Lethargy Protein-calorie malnutrition, moderate Pulmonary embolism Scoliosis Sinus bradycardia Surgical History H/O prosthetic heart valve Social History Social History Housing: Group Home Alcohol intake: former Advance Directives: No Advance Directives Information Provided: Yes service: No Current occupational status: disabled Physical Exam Vital Signs: Vital Signs: Last Vital Signs Temp 98.0 F 11/29/20 20:12 Pulse 60 11/29/20 20:12 Resp 18 11/29/20 20:12 BP 115/74 11/29/20 20:12 Pulse Ox 97 11/29/20 20:12 Body Mass Index 26.6 Appearance: Alert. And awake nonverbal. No acute distress. Eyes: No pallor or icterus ENT: Pharynx normal. Oral Mucosa moist Neck: Normal inspection. Neck supple. CVS: Normal heart rate and rhythm. Pulses normal. Respiratory: No respiratory distress. Equal air entry bilateral, no wheezing/rales/rhonchi Abdomen: Soft and nontender. Bowel sounds are present, no mass palpable, no CVA tenderness Skin: Skin warm and dry. Normal skin color. Normal skin turgor. Extremities: No lower extremity edema. No calf tenderness PICC line in right arm left metatarsal amputation slight colder than right no cyanosis Neuro: Oriented and awake MDM - Extremity (Nontraumatic) Lab Data Result diagrams: 11/29/20 20:30 11/29/20 20:30 Labs: Lab Results 11/29/20 11/29/20 11/29/20 Range/Units 20:30 20:30 20:30 WBC 6.7 (4.8-10.8) X10*3/uL RBC 4.30 L (4.60-5.80) X10*6/uL Hgb 13.0 L (14.0-18.0) g/dl Hct 39.8 L (42-52) % MCV 92.6 (80-98) fL MCH 30.2 (27.0-33.0) pg MCHC 32.7 (31.0-36.0) g/dl RDW 12.4 (11.0-16.0) % Plt Count 325 (160-400) X10*3/uL MPV 8.9 L (9.4-12.4) fL Immature Gran % (Auto) 0.1 (0.0-0.4) % Neut % (Auto) 64.6 (45-73) % Lymph % (Auto) 22.6 (20-40) % [place] % (Auto) 9.5 (2-11) % Eos % (Auto) 2.8 (0-4) % Baso % (Auto) 0.4 (0-2) % Lymph # (Auto) 1.5 (1.2-4.9) X10*3/uL [place] # (Auto) 0.6 (0.1-1.2) X10*3/uL Eos # (Auto) 0.2 (0.0-0.4) X10*3/uL Baso # (Auto) 0.0 (0.0-0.2) X10*3/uL Abs Immat Gran (auto) 0.01 (0.00-0.03) X10*3/uL Absolute Neuts (auto) 4.3 (2.0-8.3) X10*3/uL Absolute Nucleated RBC 0.000 (0.0-0.012) X10*3/uL Nucleated RBC % (auto) 0.0 (0.0-0.2) /100WBC ESR 13 (0-15) MM/HR Sodium 140 (135-145) mmol/L Potassium 4.4 (3.3-5.1) mmol/L Chloride 100 (96-108) mmol/L Carbon Dioxide 31 H (22-29) mmol/L Anion Gap 13 (12-20) BUN 24 H D (9-16) mg/dL Creatinine 0.81 (0.5-1.4) mg/dL Estim Creat Clear Calc 104.3 Estimated GFR > 60 Random Glucose 77 (60-115) mg/dL Calcium 9.8 D (8.4-10.2) mg/dL Total Bilirubin 0.4 (0.0-1.0) mg/dL AST 30 D (5-37) U/L ALT 35 (0-40) U/L Alkaline Phosphatase 80 (39-117) U/L C-Reactive Protein (< or = 0.50) mg/dL Total Protein 7.8 (6.5-8.0) g/dL Albumin 4.1 (3.5-5.0) g/dL 11/29/20 Range/Units 20:30 WBC (4.8-10.8) X10*3/uL RBC (4.60-5.80) X10*6/uL Hgb (14.0-18.0) g/dl Hct (42-52) % MCV (80-98) fL MCH (27.0-33.0) pg MCHC (31.0-36.0) g/dl RDW (11.0-16.0) % Plt Count (160-400) X10*3/uL MPV (9.4-12.4) fL Immature Gran % (Auto) (0.0-0.4) % Neut % (Auto) (45-73) % Lymph % (Auto) (20-40) % [place] % (Auto) (2-11) % Eos % (Auto) (0-4) % Baso % (Auto) (0-2) % Lymph # (Auto) (1.2-4.9) X10*3/uL [place] # (Auto) (0.1-1.2) X10*3/uL Eos # (Auto) (0.0-0.4) X10*3/uL Baso # (Auto) (0.0-0.2) X10*3/uL Abs Immat Gran (auto) (0.00-0.03) X10*3/uL Absolute Neuts (auto) (2.0-8.3) X10*3/uL Absolute Nucleated RBC (0.0-0.012) X10*3/uL Nucleated RBC % (auto) (0.0-0.2) /100WBC ESR (0-15) MM/HR Sodium (135-145) mmol/L Potassium (3.3-5.1) mmol/L Chloride (96-108) mmol/L Carbon Dioxide (22-29) mmol/L Anion Gap (12-20) BUN (9-16) mg/dL Creatinine (0.5-1.4) mg/dL Estim Creat Clear Calc Estimated GFR Random Glucose (60-115) mg/dL Calcium (8.4-10.2) mg/dL Total Bilirubin (0.0-1.0) mg/dL AST (5-37) U/L ALT (0-40) U/L Alkaline Phosphatase (39-117) U/L C-Reactive Protein 0.13 (< or = 0.50) mg/dL Total Protein (6.5-8.0) g/dL Albumin (3.5-5.0) g/dL Discharge Plan Discharge Clinical Impression: Peripheral vascular disease of lower extremity Patient Disposition: Xfer [facility] Transfer Details: Follow-up with your PCP Instructions: Peripheral Vascular Disease (ED) Additional Instructions: Continue aspirin and follow up with vascular surgeon Prescriptions: No Action sennosides [senna] 8.6 mg Tablet 8.6 mg PO DAILY RF: 0 acetaminophen [Tylenol] 325 mg Tablet 650 mg PO Q6-8H PRN (Reason: Fever) RF: 0 levothyroxine 100 mcg Tablet 100 mcg PO DAILY RF: 0 famotidine 20 mg Tablet 20 mg PO DAILY RF: 0 docusate sodium 100 mg Capsule 100 mg PO Q24W PRN (Reason: Constipation) RF: 0 oxycodone 5 mg Tablet, Oral Only 5 mg PO TID PRN (Reason: Pain) RF: 0 diazepam 5 mg Tablet 2.5 mg PO TID PRN (Reason: Anxiety) Qty: 20 RF: 0
[2020-11-29 20:35] LABS: MANUAL DIFF FLAG NO
[2020-11-29 20:36] LABS: Basophils Percent Auto 0.4 % (0-2); Eosinophils Absolute Auto 0.2 X10*3/uL (0.0-0.4); Eosinophils Percent Auto 2.8 % (0-4); Hematocrit 39.8 % (42-52); Imm Gran Abs Auto 0.01 X10*3/uL (0.00-0.03); Imm Gran Pct Auto 0.1 % (0.0-0.4); Lymphocytes Absolute Auto 1.5 X10*3/uL (1.2-4.9); Lymphocytes Percent Auto 22.6 % (20-40); Mean Corpuscular HGB Conc 32.7 g/dl (31.0-36.0); Mean Corpuscular Hemoglobin 30.2 pg (27.0-33.0); Mean Corpuscular Volume 92.6 fL (80-98); Mean Platelet Volume 8.9 fL (9.4-12.4); Monocytes Absolute Auto 0.6 X10*3/uL (0.1-1.2); Monocytes Percent Auto 9.5 % (2-11); Neutrophils Absolute Auto 4.3 X10*3/uL (2.0-8.3); Neutrophils Percent Auto 64.6 % (45-73); Platelet Count 325 X10*3/uL (160-400); Red Cell Distribution Width 12.4 % (11.0-16.0); White Blood Count 6.7 X10*3/uL (4.8-10.8)
[2020-11-29 20:54] LABS: C Reactive Protein 0.13 mg/dL (< or = 0.50)
[2020-11-29 20:56] LABS: Alanine Aminotransferase 35 U/L (0-40); Albumin Level 4.1 g/dL (3.5-5.0); Alkaline Phosphatase 80 U/L (39-117); Anion Gap 13 (12-20); Aspartate Amino Transferase 30 U/L (5-37); Bilirubin Total 0.4 mg/dL (0.0-1.0); Blood Urea Nitrogen 24 mg/dL (9-16); Calcium 9.8 mg/dL (8.4-10.2); Carbon Dioxide 31 mmol/L (22-29); Chloride 100 mmol/L (96-108); Creatinine Clr Calc Pharmacy 104.3; Estimated Glomerular Filt Rate > 60; Glucose Random 77 mg/dL (60-115); Potassium 4.4 mmol/L (3.3-5.1); Sodium 140 mmol/L (135-145); Total Protein 7.8 g/dL (6.5-8.0)
[2020-11-29 21:15] LABS: Erythrocyte Sedimentation Rate 13 MM/HR (0-15)
== END 2020-11-29 21:57 | disposition skilled nursing facility (03) ==
PROVIDERS: Emergency Provider Internal Medicine
DX: I73.9 Peripheral vascular disease, unspecified (principal); E78.5 Hyperlipidemia, unspecified; B19.20 Unspecified viral hepatitis C without hepatic coma; Z86.711 Personal history of pulmonary embolism; Z89.422 Acquired absence of other left toe(s); Z79.899 Other long term (current) drug therapy
CPT/HCPCS: 36415; 80053; 85025; 85652; 86140; 99283

== ENCOUNTER 2020-11-30 14:22 | Outpatient (REF) | payer MEDICARE, MEDICAID, SELFPAY ==
--- NOTE | ~2020-11-30 | XR_ITS ---
EXAMINATION: KUB. CLINICAL INFORMATION: Pre-MRI screening. COMPARISON: None TECHNIQUE: KUB FINDINGS: There is moderate scattered stool seen throughout the colon without any significant distention. There is mild levoscoliosis lumbar spine. There are median sternotomy sutures from previous intervention. No gross bony abnormality seen. XR/XR pre mri screening IMPRESSION: No radiopaque foreign body seen in the abdomen. Median sternotomy sutures from previous cardiac valve replacement is noted. Moderate levoscoliosis lumbar spine.
--- NOTE | ~2020-11-30 | MR_ITS ---
EXAMINATION: MR ANKLE WITHOUT AND WITH CONTRAST, LEFT CLINICAL INFORMATION: Left ankle wound. Posterior ankle wound. Evaluate for osteomyelitis. COMPARISON: None. TECHNIQUE: MRI of the ankle was performed before and after the intravenous administration of 7.5 mL gadolinium on a high-field scanner. FINDINGS: BONE AND ARTICULAR CARTILAGE: Increased T2 and decreased T1 signal with postcontrast enhancement within the anterior and inferior aspect of the cuboid, concerning for osteomyelitis. Findings consistent with metatarsal resections. No additional abnormal marrow signal. No talar osteochondral lesion. ACHILLES TENDON: Normal. OTHER TENDONS: Fluid within the posterior tibialis and flexor digitorum longus tendon sheaths, consistent with tenosynovitis. Edema within the visualized portion of the flexor hallucis longus myotendinous junction, which could represent a strain/partial tear. LIGAMENTS: Intact. JOINT FLUID AND SOFT TISSUES: Soft tissue ulceration anterior to the cuboid without significant enhancement or soft tissue collection/abscess formation. PLANTAR FASCIA: The proximal plantar fascia is intact. SINUS TARSI AND TARSAL TUNNEL: Normal. MR/MR ankle LT wo/w con IMPRESSION: 1. Soft tissue ulceration anterior to the cuboid with cuboid marrow edema and postcontrast enhancement, consistent with acute osteomyelitis. 2. No additional osseous abnormality. 3. Posterior tibialis and flexor digitorum longus tenosynovitis. Strain/partial tear of the distal flexor hallucis longus myotendinous junction.
== END 2020-11-30 14:23 | disposition home or self-care (01) ==
LOC: HO.MRI 14:22
PROVIDERS: Visit Provider Hospitalist
DX: M86.9 Osteomyelitis, unspecified (principal); Z89.422 Acquired absence of other left toe(s)
CPT/HCPCS: 73723; A9585

== ENCOUNTER 2021-01-12 08:37 | Outpatient (REF) | payer MEDICARE, MEDICAID, SELFPAY | END 2021-01-12 08:38 | disposition home or self-care (01) | LOC: HO.MRI 08:37 | PROVIDERS: Visit Provider Hospitalist | DX: Z13.89 Encounter for screening for other disorder (principal) ==

== ENCOUNTER 2021-01-24 10:46 | Outpatient (REF) | payer MEDICARE, MEDICAID, SELFPAY ==
--- NOTE | ~2021-01-24 | MR_ITS ---
EXAMINATION: MR ANKLE WITHOUT AND WITH CONTRAST, LEFT CLINICAL INFORMATION: Follow up nonhealing left calcaneal wound. Osteomyelitis. COMPARISON: Left ankle MRI dated 11/30/2020. TECHNIQUE: MRI of the ankle was performed before and after the intravenous administration of 7 mL Gadavist on a high-field scanner. FINDINGS: BONE AND ARTICULAR CARTILAGE: Redemonstration of forefoot amputation. Soft tissue ulceration is again noted at the ventral aspect of the cuboid with minimal subcutaneous edema. Minimal postcontrast subcutaneous enhancement which could represent minimal cellulitis. No associated fluid collection/abscess formation. There is underlying edema redemonstrated within the anterior aspect of the cuboid. This appears to demonstrate increased T1 signal on both pre and postcontrast imaging without significant postcontrast-enhancement. Minimal postcontrast enhancement cannot be entirely excluded. No new abnormal marrow signal or osseous erosion. ACHILLES TENDON: The distal Achilles tendon is intact. OTHER TENDONS: Fluid within the posterior tibialis tendon sheath, consistent with tenosynovitis. The visualized flexor and extensor tendons are intact. JOINT FLUID AND SOFT TISSUES: No new soft tissue mass or fluid collection. PLANTAR FASCIA: The proximal plantar fascia is intact. SINUS TARSI AND TARSAL TUNNEL: Normal. MR/MR ankle LT wo/w con IMPRESSION: 1. Soft tissue ulceration again noted at the ventral aspect of the cuboid with minimal subcutaneous edema and enhancement, which could represent minimal cellulitis. No associated fluid collection/abscess formation. Edema within the underlying anterior cuboid which appears similar when compared to the prior examination. No new osseous erosion. Minimal if any postcontrast enhancement. Minimal osteomyelitis cannot be excluded. 2. No new osseous abnormality. 3. Mild posterior tibialis tenosynovitis.
== END 2021-01-24 10:47 | disposition home or self-care (01) ==
LOC: HO.MRI 10:46
PROVIDERS: Visit Provider Hospitalist
DX: M86.9 Osteomyelitis, unspecified (principal)
CPT/HCPCS: 73723; A9585

== ENCOUNTER 2023-01-06 10:31 | Inpatient (IN) | payer MEDICARE, MEDICAID, SELFPAY ==
[2023-01-06] VITALS (9 sets, daily range): BP systolic 89–135; BP diastolic 37–52; PULSE 35–64; RESP 13–20; TEMP 36.3–36.7; O2SAT 97–99; BMI 20.9; BMI 21.2
--- NOTE | ~2023-01-06 | XR_ITS ---
EXAMINATION: XR CHEST CLINICAL INFORMATION: Reason for Exam weakness COMPARISON: Chest radiograph 08/12/2020 TECHNIQUE: One view of the chest FINDINGS: Lines and tubes: Median sternotomy wires, several which appear fractured similar to prior. Left atrial appendage clip. EKG leads overlie the patient. Clear lungs. No pleural effusion. No pneumothorax. Unchanged cardiomediastinal silhouette. XR/XR chest 1V IMPRESSION: * Clear lungs.
--- NOTE | 2023-01-06 10:33 | ED_ITS ---
HPI - General Adult General Chief complaint: General Medical Stated complaint: WEAK,LOW BP 104/50,FROM SNF PER EMS Time Seen by Provider: 01/06/23 10:32 Source: patient, EMS, RN notes reviewed and old records reviewed Mode of arrival: EMS History of Present Illness HPI narrative: 42-year-old male with a past medical history of hemiplegia and hemiparesis s/p CVA, bed-bound, hepatitis-C, encephalopathy, major depressive disorder, HLD, hx of alcohol dependence, Wicho-tachy syndrome, nonverbal presenting to the ED from [facility] for increased lethargy and generalized weakness noted this morning. Patient was also noted to be hypotensive 72/36, needing extra help with ADLs. Per report patient did not get up for breakfast or take his medications this morning. Remaining history limited due to patient's baseline nonverbal status Related Data Home Medications Medication Instructions Recorded Confirmed acetaminophen 325 mg tablet 650 mg PO Q6-8H PRN Fever 08/13/20 01/06/23 (Tylenol) docusate sodium 100 mg capsule 100 mg PO BID PRN Constipation 08/13/20 01/06/23 sennosides 8.6 mg tablet (senna) 8.6 mg PO DAILY 08/13/20 01/06/23 artificial tears solution eye drops 1 drp ophthalmic (eye) Q4H PRN Dry 01/06/23 01/06/23 Eye(S) naphazoline 0.025 %-pheniramine 1 drp ophthalmic (eye) QID PRN 01/06/23 01/06/23 0.3 % eye drops REDNESS Allergies Allergy/AdvReac Type Severity Reaction Status Date / Time erythromycin base Allergy Unknown Verified 04/23/20 10:03 ibuprofen Allergy Unknown Verified 04/23/20 10:03 ketorolac Allergy Unknown Verified 04/23/20 10:03 Sulfa (Sulfonamide Allergy Unknown Verified 04/23/20 10:03 Antibiotics) tromethamine Allergy Unknown Verified 04/23/20 10:03 Review of Systems 2 Review of Systems: ROS limited as patient is nonverbal Yes all other systems are reviewed and are negative Constitutional: Constitutional: Reports as per HPI [facility] Past Medical History Attestation statement: The following information was validated with the patient. Source: old records reviewed Medical History Protein-calorie malnutrition, moderate Failure to thrive Sinus bradycardia Wicho-tachy syndrome Hypotension Bradycardia Lethargy Hepatitis C H/O alcohol dependence Anxiety Hyperlipidemia Scoliosis Pulmonary embolism Hypothyroid Dysphagia Hemiplegia affecting left nondominant side Surgical History H/O prosthetic heart valve Social History Social History Housing: [facility] Alcohol intake: former Smoked in Last 30 Days: No Use of substances other than those prescribed or required for medical reasons: No Advance Directives: No Advance Directives Information Provided: No service: No Current occupational status: disabled Physical Exam ED Vital Signs: Vital Signs - 24 hr 01/06/23 10:43 01/06/23 11:19 01/06/23 11:56 Temperature 98 F Pulse Rate 49 L 39 L 35 L Respiratory Rate 16 19 18 Blood Pressure 105/48 L 106/43 L 91/40 L Pulse Oximetry 98 98 99 Oxygen Delivery Method Room Air Room Air Room Air 01/06/23 12:47 Temperature Pulse Rate 64 Respiratory Rate 17 Blood Pressure 89/37 L Pulse Oximetry 99 Oxygen Delivery Method Room Air BMI result Body Mass Index 20.9 Const General: no acute distress Limitations: other limitations (nonverbal) [facility] Head: Yes normal to inspection and Yes atraumatic Ears: hearing grossly normal bilaterally General nose exam: Normal external nose present Face and sinus: Yes normal facial exam Eyes General: appearance normal, both eyes and all related structures EOM: EOMs intact bilaterally Neck Neck: Yes normal visual inspection and Yes no meningeal signs Resp Effort & Inspection: normal respiratory effort, no respiratory distress and not tachypneic Auscultation: clear to auscultation bilaterally Cardio Rate: regular rate Heart sounds: S1 normal heart sound present and S2 normal heart sound present GI Inspection: Yes normal to inspection Palpation (GI): Soft to palpation, nontender, no guarding and not rigid Skin Rashes: no rashes Wounds: no wounds Neuro Other: Awake/alert, following commands, mentation appears at baseline General: tone normal, moves all extremities and no meningeal signs Cranial nerves: Yes CN's II-XII intact bilaterally Extrem General: Yes normal to inspection Course Course Course Narrative: -1206--mild leukopenia to 4.1. Chronic anemia. UA negative -COVID and influenza negative -1319--BUN 23, chronically elevated. XR chest 1V IMPRESSION: * Clear lungs. > plan to admit for further management. No evidence of infection, will hold on antibiotics at this time. Patient with history of hypotension during prior admission Medications Administered Discontinued Medications Generic Name Dose Route Start Last Admin Trade Name Freq PRN Reason Stop Dose Admin Sodium Chloride 1,000 mls @ 999 mls/hr 01/06/23 11:00 01/06/23 12:02 Ns IV 01/06/23 12:00 Infused .Q1H1M PORFIRIO Infusion Sodium Chloride 1,000 mls @ 999 mls/hr 01/06/23 12:15 01/06/23 12:48 Ns IV 01/06/23 13:15 999 mls/hr .Q1H1M PORFIRIO Administration Medical Decision Making Medical Decision Making [facility] Narrative: 42-year-old male with a past medical history of hemiplegia and hemiparesis s/p CVA, bed-bound, hepatitis-C, encephalopathy, major depressive disorder, HLD, hx of alcohol dependence, Wicho-tachy syndrome, nonverbal presenting to the ED from [facility] for increased lethargy and generalized weakness noted this morning. On exam BP soft, NAD, nontoxic appearing, mentating at baseline. Concern for viral syndrome vs dehydration/metabolic abnormalities. Rule out infectious etiology. Low suspicion for severe sepsis. Lower suspicion for ICH/acute CVA Plan: EKG, labs, UA, CXR, viral testing, IVF, re-evaluate Please refer to course for remaining clinical decision making, interpretation of labs/imaging results, and discussions with consultants and/or family members. Differential Diagnosis Differential Diagnoses: The differential diagnosis associated with the presentation includes As above Admission/Observation Consideration of admission/observation: Escalation of care including admission/observation considered Lab Data [facility] Lab Attestation statement: I reviewed the patient's lab results. 01/06/23 11:41 01/06/23 11:41 Labs: Lab Results 01/06/23 01/06/23 01/06/23 Range/Units 11:15 11:17 11:41 WBC 4.1 L (4.8-10.8) X10*3/uL RBC 3.90 L (4.60-5.80) X10*6/uL Hgb 11.8 L (14.0-18.0) g/dl Hct 35.8 L (42.0-52.0) % MCV 91.8 (80.0-98.0) fL MCH 30.3 (27.0-33.0) pg MCHC 33.0 (31.0-36.0) g/dl RDW 13.1 (11.0-16.0) % Plt Count 204 (160-400) X10*3/uL MPV 9.7 (9.4-12.4) fL Immature Gran % (Auto) 0.2 (0.0-0.4) % Neut % (Auto) 56.0 (45-73) % Lymph % (Auto) 28.7 (20-40) % [place] % (Auto) 11.2 H (2-11) % Eos % (Auto) 3.2 (0-4) % Baso % (Auto) 0.7 (0-2) % Lymph # (Auto) 1.2 (1.2-4.9) X10*3/uL [place] # (Auto) 0.5 (0.1-1.2) X10*3/uL Eos # (Auto) 0.1 (0.0-0.4) X10*3/uL Baso # (Auto) 0.0 (0.0-0.2) X10*3/uL Abs Immat Gran (auto) 0.01 (0.00-0.03) X10*3/uL Absolute Neuts (auto) 2.3 (2.0-8.3) x10*3/uL Absolute Nucleated RBC 0.000 (0.0-0.012) X10*3/uL Nucleated RBC % (auto) 0.0 (0.0-0.2) /100WBC PT 12.4 (11.1-13.3) SEC INR 1.0 (0.9-1.1) Sodium 139 (135-145) mmol/L Potassium 4.2 (3.3-5.1) mmol/L Chloride 103 (96-108) mmol/L Carbon Dioxide 26 (22-29) mmol/L Anion Gap 14 (12-20) BUN 23 H (9-16) mg/dL Creatinine 0.78 (0.5-1.4) mg/dL Estim Creat Clear Calc 114.3 Estimated GFR > 60 Random Glucose 84 (60-115) mg/dL Calcium 9.9 (8.4-10.2) mg/dL Magnesium 2.0 (1.6-2.6) mg/dL Total Bilirubin 0.4 (0.0-1.0) mg/dL Direct Bilirubin 0.2 (0.0-0.5) mg/dL AST 30 (5-37) U/L ALT 33 (0-40) U/L Alkaline Phosphatase 60 (39-117) U/L Ammonia 22 (13-55) umol/L Troponin I High Sens < 2.7 (<3.5-35.0) ng/L Total Protein 7.4 (6.5-8.0) g/dL Albumin 4.1 (3.5-5.0) g/dL TSH 0.45 (0.32-4.0) uIU/mL Urine Color Yellow Urine Appearance Clear Urine pH 8.0 (5.0-9.0) Ur Specific [place] 1.015 (1.005-1.025) Urine Protein Negative (Neg-Trace) mg/dL Urine Glucose (UA) Negative (Negative) mg/dL Urine Ketones Negative (Negative) mg/dL Urine Blood Negative (Negative) Urine Nitrite Negative (Negative) Ur Leukocyte Esterase Negative (Negative) COVID-19 (MEHUL) Negative (Negative) COVID-19 Clin Com See Note Influenza Type A (KATY) Negative (Negative) Influenza Type B (KATY) Negative (Negative) Influenza A & B Note See Note Independent Interpretation I performed an independent interpretation of an: EKG (EKG sinus bradycardia with first-degree AV block rate of 38. The see elevation no present in anterior leads. Nonspecific T-wave abnormality in inferior/lateral leads. No STEMI ) and Plain X-Ray Radiology Impression Discussion of test interpretation with radiology: I have reviewed the radiologist's reading. Independent Historian Clinical information obtained from an independent historian. History obtained from or confirmed by: EMS External Record Review External record reviewed: Inpatient record, Office record, Outpatient record, Prior outpatient labs, Prior outpatient radiology, Primary care record and Outside ED record Tests considered The following testing was considered but not selected: As above Chronic Conditions Patient?s care impacted by: Other (Hemiplegia and hemiparesis s/p CVA) Social Determinants Patient?s care significantly limited by Social Determinants of Health including: Alcoholism and drug addiction in family and Problems related to primary support group Critical Care Time Critical Care Time Critical Care Time: Yes Total Critical Care Time: 35 Attestation: I have personally provided critical care time exclusive of time spent on separately billable procedures. Time includes review of lab data, radiology results, discussion with consultants, and monitoring for potential decompensation. Intervention performed as documented. Discharge Plan Discharge Clinical Impression: Acute hypotension, Bradycardia, Generalized weakness Patient Disposition: Admitted As Inpatient
--- NOTE | 2023-01-06 10:49 | ECG_ITS ---
Test Reason : WEAKNESS Blood Pressure : / mmHG Vent. Rate : 038 BPM Atrial Rate : 038 BPM P-R Int : 220 ms QRS Dur : 098 ms QT Int : 502 ms P-R-T Axes : 067 042 034 degrees QTc Int : 399 ms Marked sinus bradycardia with 1st degree A-V block Nonspecific ST and T wave abnormality Abnormal ECG When compared with ECG of 13-AUG-2020 00:56, ST elevation now present in Anterior leads Nonspecific T wave abnormality now evident in Inferior leads Nonspecific T wave abnormality now evident in Lateral leads QT has shortened Referred By: Greta Juarez Electronically Signed By:HONORIO BAI
[2023-01-06] MEDS: 0.9 % Sodium Chloride 1,000 ML 999 ML IV ×2 (11:00→12:48)
--- NOTE | 2023-01-06 11:15 | PHA.MEDREC ---
Pharmacy Consult ? Medication Reconciliation Pharmacy has completed the medication reconciliation. List from [facility]
[2023-01-06 11:26] LABS: Appearance Urine Clear; Color Urine Yellow; Glucose Urine UA Negative (Negative); Leukocyte Esterase Urine Negative (Negative); Nitrite Urine Negative (Negative); Specific Gravity - Urine 1.015 (1.005-1.025); Urine Blood Negative (Negative); Urine Ketones Negative (Negative); Urine Protein Negative (Neg-Trace)
[2023-01-06 11:42] LABS: COVID-19 Test Negative (Negative); IDNOW Serial# 08D9AD1C; IDNOW Serial# BCCEAD1C; Influenza A Negative (Negative); Influenza B2 Negative (Negative)
[2023-01-06 11:47] LABS: MANUAL DIFF FLAG NO
[2023-01-06 11:48] LABS: Basophils Percent Auto 0.7 % (0-2); Eosinophils Absolute Auto 0.1 X10*3/uL (0.0-0.4); Eosinophils Percent Auto 3.2 % (0-4); Hematocrit 35.8 % (42.0-52.0); Hemoglobin 11.8 g/dl (14.0-18.0); Imm Gran Abs Auto 0.01 X10*3/uL (0.00-0.03); Imm Gran Pct Auto 0.2 % (0.0-0.4); Lymphocytes Absolute Auto 1.2 X10*3/uL (1.2-4.9); Lymphocytes Percent Auto 28.7 % (20-40); Mean Corpuscular Hemoglobin 30.3 pg (27.0-33.0); Mean Corpuscular Volume 91.8 fL (80.0-98.0); Mean Platelet Volume 9.7 fL (9.4-12.4); Monocytes Absolute Auto 0.5 X10*3/uL (0.1-1.2); Monocytes Percent Auto 11.2 % (2-11); Neutrophils Absolute Auto 2.3 x10*3/uL (2.0-8.3); Platelet Count 204 X10*3/uL (160-400); Red Cell Distribution Width 13.1 % (11.0-16.0); White Blood Count 4.1 X10*3/uL (4.8-10.8)
[2023-01-06 11:54] LABS: Prothrombin Time 12.4 SEC (11.1-13.3)
[2023-01-06 12:02] LABS: Ammonia 22 umol/L (13-55)
--- NOTE | 2023-01-06 12:03 | PC.NURSE ---
Greta CORADO made aware of low BP. IVF infusing on a pressure bag
[2023-01-06 12:11] LABS: Alanine Aminotransferase 33 U/L (0-40); Albumin Level 4.1 g/dL (3.5-5.0); Alkaline Phosphatase 60 U/L (39-117); Anion Gap 14 (12-20); Aspartate Amino Transferase 30 U/L (5-37); Bilirubin Direct 0.2 mg/dL (0.0-0.5); Bilirubin Total 0.4 mg/dL (0.0-1.0); Blood Urea Nitrogen 23 mg/dL (9-16); Calcium 9.9 mg/dL (8.4-10.2); Carbon Dioxide 26 mmol/L (22-29); Chloride 103 mmol/L (96-108); Creatinine Clr Calc Pharmacy 114.3; Estimated Glomerular Filt Rate > 60; Glucose Random 84 mg/dL (60-115); Potassium 4.2 mmol/L (3.3-5.1); Sodium 139 mmol/L (135-145); Total Protein 7.4 g/dL (6.5-8.0)
[2023-01-06 12:19] LABS: Troponin-I High Sensitivity < 2.7 ng/L (<3.5-35.0)
[2023-01-06 12:48] LABS: TSH reflex Free T4 0.45 uIU/mL (0.32-4.0)
--- NOTE | 2023-01-06 14:11 | MHC.EDTECH ---
Unable to obtain 2nd set of cultures/trop at this time, t/w tried twice, several other techs have tried to draw on Pt throughout day. RN aware.
[2023-01-06] MEDS: Lactated Ringers 1,000 ML 999 ML IV (14:29)
--- NOTE | 2023-01-06 14:53 | P.HPHOSP_ITS ---
History of Present Illness Date of Service: 01/06/23 Attending physician on admission: Tomi Andre Chief Complaint: Hypotension, bradycardia, lethargy Pt is a 42-year-old male with a PMH significant for?hx of IVDU, endocarditis, aortic valve replacement x3, bradycardia, hypotension, hemiplegia d/t CVA, bed- bound, and wicho-tachy syndrome who presents to the ED from [facility] with hypotension bradycardia, increased lethargy, and generalized weakness noted since this morning. Patient apparently did not get off for breakfast this morning or take his medications. Staff noted patient to be hypotensive as low as 72/36 and he needed extra help with ADLs. Patient is nonverbal at baseline but can make some of his needs known by pointing to a letter chart and giving a thumbs up for yes and thumbs down for no. Patient seen evaluated at bedside. Appears to be at baseline mentation. Patient complains of lower back pain and left leg pain. Also reports not eating or drinking much lately. Otherwise has no acute medical complaints. Denies chest pain/pressure, palpitations. Denies lightheadedness, dizziness. No shortness of breath. Denies fever, chills, nausea, vomiting, abdominal pain. ?Of note, pt has a long and complicated cardiac history. Patient originally had an aortic valve replacement procedure 23 years ago secondary to endocarditis d/t IVDU. Patient then had TAVR procedure done 7 years ago; procedures complicated by stroke and hemiplegia. Recent echo showed severe prosthetic valve stenosis and patient had repeat TAVR procedure 1 month prior on 11/29/2022. During hospital stay patient was hypotensive and bradycardic in the 30-50s. Had repeat echo done that showed increase in paravalvular leak with normal RV/LV function, and possible apical hypertrophy. There are no plans by [facility] to repeat procedure. Patient was started on midodrine 15 mg q8hr and eventually weaned off of it the week after discharge. In speaking to the healthcare proxy, she notes this is his 3rd admission to the hospital since his most recent TAVR procedure. There has been some discussion with [facility] about possible pacemaker. In the ED patient was afebrile but bradycardic as low as 35, hypotensive as low as 89/37, and satting at 97% on RA. Labs were significant for WBC 4.1, H&H 11.8/35.8 otherwise grossly unremarkable. Electrolytes WNL. Renal function, hepatic function WNL. Troponin negative. CXR showed clear lungs. EKG demonstrated sinus bradycardia of 38 and with first-degree AV block with nonspecific ST and T-wave abnormalities. Pt was treated with 3L IVF. Pt will be admitted to the hospital for treatment further evaluation of marked bradycardia and hypotension. Review of Systems 2 Review of Systems: Lower back pain Left leg pain Generalized weakness Yes all other systems are reviewed and are negative [facility] Medical History Protein-calorie malnutrition, moderate Failure to thrive Sinus bradycardia Wicho-tachy syndrome Hypotension Bradycardia Lethargy Hepatitis C H/O alcohol dependence Anxiety Hyperlipidemia Scoliosis Pulmonary embolism Hypothyroid Dysphagia Hemiplegia affecting left nondominant side Surgical History H/O prosthetic heart valve Social History Housing: Retirement Alcohol intake: former Patient Tobacco Use Status: Tobacco use Unknown service: No Current occupational status: disabled Meds Allergies Allergy/AdvReac Type Severity Reaction Status Date / Time erythromycin base Allergy Unknown Verified 04/23/20 10:03 ibuprofen Allergy Unknown Verified 04/23/20 10:03 ketorolac Allergy Unknown Verified 04/23/20 10:03 Sulfa (Sulfonamide Allergy Unknown Verified 04/23/20 10:03 Antibiotics) tramadol Allergy Unknown Verified 01/06/23 16:25 tromethamine Allergy Unknown Verified 04/23/20 10:03 Home Medications Medication Instructions Recorded Confirmed Last Taken Type acetaminophen 325 mg tablet 650 mg PO Q6-8H PRN Fever 08/13/20 01/06/23 Unknown History (Tylenol) docusate sodium 100 mg capsule 100 mg PO BID PRN Constipation 08/13/20 01/06/23 Unknown History sennosides 8.6 mg tablet (senna) 8.6 mg PO DAILY 08/13/20 01/06/23 Unknown History artificial tears solution eye drops 1 drp ophthalmic (eye) Q4H PRN Dry 01/06/23 01/06/23 Unknown History Eye(S) naphazoline 0.025 %-pheniramine 1 drp ophthalmic (eye) QID PRN 01/06/23 01/06/23 Unknown History 0.3 % eye drops REDNESS Physical Exam 2 Vital Signs and Narrative: Vital Signs: Last Vital Signs Temp 97.4 F 01/06/23 14:11 Pulse 45 L 01/06/23 14:11 Resp 13 01/06/23 14:11 BP 96/45 L 01/06/23 14:11 Pulse Ox 99 01/06/23 14:11 O2 Del Method Room Air 01/06/23 14:11 BMI result Body Mass Index 20.9 Constitutional: Alert, nonverbal but capable of making basic needs known, in no acute distress. Mental Status: Oriented to person, place and time. Eyes: Pupils are equal, round, and reactive to light. Ear, Nose, and Throat: Oropharynx clear, mucous membranes moist. Ears and nose without deformities. Trachea midline. Respiratory: Clear but diminished. Cardiovascular: S1, S2, slow. Gastrointestinal: Abdomen soft, non-tender, non-distended. Normal bowel sounds. Neurologic: Cranial nerves II-XII are grossly intact bilaterally. Pt with chronic hemipalegia. Skin: No rashes or lesions noted. Musculoskeletal: No cyanosis or clubbing. Extremities: No edema. Results Labs 01/06/23 11:41 01/06/23 11:41 Labs: Laboratory Results - last 24 hr 01/06/23 01/06/23 01/06/23 11:15 11:17 11:41 MCV 91.8 MCH 30.3 MCHC 33.0 RDW 13.1 Plt Count 204 MPV 9.7 Immature Gran % (Auto) 0.2 Neut % (Auto) 56.0 Lymph % (Auto) 28.7 [place] % (Auto) 11.2 H Eos % (Auto) 3.2 Baso % (Auto) 0.7 Lymph # (Auto) 1.2 [place] # (Auto) 0.5 Eos # (Auto) 0.1 Baso # (Auto) 0.0 Abs Immat Gran (auto) 0.01 Absolute Neuts (auto) 2.3 Absolute Nucleated RBC 0.000 Nucleated RBC % (auto) 0.0 PT 12.4 INR 1.0 Anion Gap 14 Estim Creat Clear Calc 114.3 Estimated GFR > 60 Random Glucose 84 Calcium 9.9 Magnesium 2.0 Total Bilirubin 0.4 Direct Bilirubin 0.2 AST 30 ALT 33 Alkaline Phosphatase 60 Ammonia 22 Total Protein 7.4 Albumin 4.1 TSH 0.45 Urine Color Yellow Urine Appearance Clear Urine pH 8.0 Ur Specific [place] 1.015 Urine Protein Negative Urine Glucose (UA) Negative Urine Ketones Negative Urine Blood Negative Urine Nitrite Negative Ur Leukocyte Esterase Negative COVID-19 (MEHUL) Negative COVID-19 Clin Com See Note Influenza Type A (KATY) Negative Influenza Type B (KATY) Negative Influenza A & B Note See Note Imaging Radiologist's Impressions: Impressions Chest X-Ray 01/06/23 12:25 IMPRESSION: * Clear lungs. Assessment and Plan (1) Bradycardia: Status: Acute (2) Acute hypotension: Status: Acute Plan Pt is a 42-year-old male with a PMH significant for?hx of IVDU, endocarditis, aortic valve replacement x3, bradycardia, hypotension, hemiplegia d/t CVA, bed- bound, and wicho-tachy syndrome who [facility] with hypotension bradycardia, increased lethargy, and generalized weakness noted since this morning. Pt will be admitted to the hospital for treatment further evaluation of marked bradycardia and hypotension. Hypotension BP at [facility] this morning 72/36, is low as 89/37 in ED Patient long history of hypotension which has continued since latest TAVR procedure 1 month ago This is patient's 3rd hospitalization in the past month since latest TAVR procedure Pt received 3L IVF in ED Will place on maintenance fluids If pt continues to be hypotensive despite IVF, consider cardiology consult Monitor BP Bradycardia Pt with chronic bradycardia, currently not on any home meds Monitor on telemetry Lethargy/generalized weakness Noted at [facility] In the setting of hypotension, bradycardia Pt appears to be at baseline mentation Treat as above Aortic stenosis Patient has had 3 separate TAVR procedures in the past 23 years, most recently 1 month ago at [facility] Patient discharged on 1-month prescription of aspirin 81 mg which was not renewed at facility Will restart aspirin 81mg Diet Patient failed nurse swallowing screen Will be kept NPO for now Will get speech and swallow evaluation tomorrow Patient apparently on mechanically ground diet and nectar thick liquids HCP notes patient still coughs and chokes while eating and has done this for the past 6 years Full Code Attending:?Dr. Andre DVT Prophylaxis: Lovenox Pt will require a hospitalization of at least two nights for treatment of?symptomatic hypotension and bradycardia with IVF and close monitoring. Time Spent With Patient Time: Total time managing care of this patient today ____ minutes. Quality Stroke Does the patient have a stroke diagnosis?: No VTE Prior VTE?: No VTE Risk Level:: Medical - moderate - high VTE Device Contraindication: Treatment Not Indicated VTE Drug Contraindication: N/A - Med Ordered
--- NOTE | 2023-01-06 15:11 | PC.NURSE ---
attempted to give PO tylenol. paperwork from [facility] did not include diet orders. attempted nursing bed side swallow eval. pt failed immediately. will hold PO tylenol, give rectal tylenol.
[2023-01-06 15:29] LABS: Troponin-I High Sensitivity < 2.7 ng/L (<3.5-35.0)
--- NOTE | 2023-01-06 15:31 | PC.NURSE ---
pt refused rectal tylenol, said it doesn't do anything
[2023-01-06] MEDS: Enoxaparin Sodium 40 MG/0.4 ML SYRINGE SUBCUT (16:33)
[2023-01-06] MEDS: 0.9 % Sodium Chloride Flush 3 ML SYRINGE IVFLUSH (16:33)
[2023-01-06] MEDS: Morphine Sulfate 2 MG/ML CARTRIDGE 1 MG IVPUSH (17:15)
--- NOTE | 2023-01-06 17:27 | PC.NURSE ---
pt requesting coffee. this bond underwriter informed pt he is NPO as he choked on his water during his nursing bedside swallow eval. pt proceeded to flip this bond underwriter off. explained process to pt, who proceeded to ball up his fists and shake them at this bond underwriter. informed MAK Frazier, who reported he spoke with the HCP and recent admission at [facility], plans to maintain NPO status until pt can be evaluated by speech/swallow
[2023-01-07] MEDS: Morphine Sulfate 4 MG/ML CARTRIDGE IVPUSH (02:32)
[2023-01-07 03:12] VITALS: BP 89/51; PULSE 45; RESP 16; TEMP 37.1; O2SAT 97
[2023-01-07] MEDS: LORazepam 2 MG/ML VIAL 0.5 MG IVPUSH (03:13)
[2023-01-07 06:36] LABS: Hematocrit 32.9 % (42.0-52.0); Hemoglobin 10.9 g/dl (14.0-18.0); Mean Corpuscular HGB Conc 33.1 g/dl (31.0-36.0); Mean Corpuscular Hemoglobin 30.7 pg (27.0-33.0); Mean Corpuscular Volume 92.7 fL (80.0-98.0); Mean Platelet Volume 10.5 fL (9.4-12.4); Platelet Count 184 X10*3/uL (160-400); Red Blood Count 3.55 X10*6/uL (4.60-5.80); Red Cell Distribution Width 13.2 % (11.0-16.0); White Blood Count 4.2 X10*3/uL (4.8-10.8)
[2023-01-07 06:53] LABS: Anion Gap 10 (12-20); Blood Urea Nitrogen 17 mg/dL (9-16); Calcium 9.2 mg/dL (8.4-10.2); Carbon Dioxide 27 mmol/L (22-29); Chloride 108 mmol/L (96-108); Estimated Glomerular Filt Rate > 60; Glucose Random 74 mg/dL (60-115); Potassium 3.9 mmol/L (3.3-5.1); Sodium 141 mmol/L (135-145)
[2023-01-07 07:05] VITALS: BP 84/55; PULSE 43; RESP 20; TEMP 36.8; O2SAT 95
[2023-01-07] MEDS: 0.9 % Sodium Chloride Flush 3 ML SYRINGE IVFLUSH ×2 (07:43→15:48)
--- NOTE | 2023-01-07 09:09 | MHC.CM.PN ---
CM spoke with Guardian/Mother/Bibiana @ [phone] and addressed IMM with her; Bibiana requested that no IMM be mailed to her because she has several already. Patient is a LTC Resident of [facility] and returning there is the goal, once medically cleared for dc. FAVIO has initiated and will follow for dc planning.
--- NOTE | 2023-01-07 10:17 | PM.CNCAR ---
History of Present Illness History of Present Illness Date of Service: 01/07/23 Chief complaint: Hypotension, bradycardia, lethargy Narrative: This is a cardiology consultation regarding hypotension, bradycardia and history of TAVR. Fairly complex history. [facility] documentation reviewed. History of IV drug use, apparently 2 aortic valve replacements in the past. Most recently 7 years ago. At that time, complicated by stroke hemiplegia. Then a recent echo had again shown severe prosthetic valve stenosis and then had another TAVR-valve in this year. It seems that there were issues with bradycardia and hypotension even then. He was discharged on midodrine. Echocardiogram had shown paravalvular leak but it seems that they had decided not to pursue that. Current admission is because of hypotension/bradycardia, lethargy and increased weakness per documentation. Patient not able to communicate but able to show thumbs up and thumbs down. He is able to write something but unfortunately is not legible and hence not able to comprehend. We also tried using a clinical nursing instructor at the bedside and communicate but still not able to. Review of Systems Review of Systems: Unable to obtain a full review of systems as the patient is not able to communicate. [facility] Past Medical History Medical History Protein-calorie malnutrition, moderate Failure to thrive Sinus bradycardia Wicho-tachy syndrome Hypotension Bradycardia Lethargy Hepatitis C H/O alcohol dependence Anxiety Hyperlipidemia Scoliosis Pulmonary embolism Hypothyroid Dysphagia Hemiplegia affecting left nondominant side Surgical History Surgical History H/O prosthetic heart valve Social History Social History Household Members: Unknown / Unable to assess Housing: Assisted Living Facility Alcohol intake: former Patient Tobacco Use Status: Tobacco use Unknown Smoked in Last 30 Days: No Use of substances other than those prescribed or required for medical reasons: No Currently Displaying Signs/Symptoms of Drug Intoxication Withdrawal: No Advance Directives: No Advance Directives Information Provided: No Recently lost weight without trying: Unsure How much weight loss: Unsure Nutrition Risks: Difficulty swallowing and On aspiration precautions service: No Current occupational status: disabled Meds Allergies Allergy/AdvReac Type Severity Reaction Status Date / Time erythromycin base Allergy Unknown Verified 04/23/20 10:03 ibuprofen Allergy Unknown Verified 04/23/20 10:03 ketorolac Allergy Unknown Verified 04/23/20 10:03 Sulfa (Sulfonamide Allergy Unknown Verified 04/23/20 10:03 Antibiotics) tramadol Allergy Unknown Verified 01/06/23 16:25 tromethamine Allergy Unknown Verified 04/23/20 10:03 Active Medications: Current Medications Acetaminophen (Acetaminophen 325 Mg Tablet) 650 mg PO Q6H PRN PRN Reason: Pain, Mild (Pain Scale 1-3) Aspirin (Aspirin 81 Mg Tab.Chew) 81 mg PO DAILY [facility] Last Admin: 01/07/23 10:10 Dose: Not Given Docusate Sodium (Docusate Sodium 100 Mg Capsule) 100 mg PO DAILY PRN PRN Reason: Constipation Enoxaparin Sodium (Enoxaparin Sodium 40 Mg/0.4 Ml Syringe) 40 mg SUBCUT Q24H [facility] Last Admin: 01/06/23 16:33 Dose: 40 mg Lactated Ringer's (Lr) 1,000 mls @ 100 mls/hr IVCONT .Q10H [facility] Last Admin: 01/06/23 17:02 Dose: Not Given Ondansetron HCl (Ondansetron Hcl 4 Mg/2 Ml Vial) 4 mg IVPUSH Q8H PRN PRN Reason: Nausea and Vomiting Sodium Chloride (0.9 % Sodium Chloride Flush 3 Ml Syringe) 3 ml IVFLUSH QSHIFT [facility] Last Admin: 01/07/23 07:43 Dose: 3 ml Home Medications Medication Instructions Recorded Confirmed Last Taken Type acetaminophen 325 mg tablet 650 mg PO Q6-8H PRN Fever 08/13/20 01/06/23 Unknown History (Tylenol) docusate sodium 100 mg capsule 100 mg PO BID PRN Constipation 08/13/20 01/06/23 Unknown History sennosides 8.6 mg tablet (senna) 8.6 mg PO DAILY 08/13/20 01/06/23 Unknown History artificial tears solution eye drops 1 drp ophthalmic (eye) Q4H PRN Dry 01/06/23 01/06/23 Unknown History Eye(S) naphazoline 0.025 %-pheniramine 1 drp ophthalmic (eye) QID PRN 01/06/23 01/06/23 Unknown History 0.3 % eye drops REDNESS Physical Exam Vital Signs: Vital Signs: Last Vital Signs Temp 98.2 F 01/07/23 07:05 Pulse 43 L 01/07/23 07:05 Resp 20 01/07/23 07:05 BP 84/55 L 01/07/23 07:05 Pulse Ox 95 01/07/23 07:05 O2 Del Method Room Air 01/07/23 07:05 BMI result Body Mass Index 21.2 Const: General: comfortable and no acute distress Orientation/consciousness: No patient oriented x3 HEENT: Other: Unremarkable Head: Yes normal to inspection Neck: Neck: Yes normal visual inspection Chest: Chest palpation & inspection: normal inspection of the chest Resp: Auscultation: clear to auscultation bilaterally Cardio: Palpation: normal PMI Heart sounds: S1 normal heart sound present, S2 normal heart sound present, no gallops, Murmur heart sound present diastolic II/ and at the right sternal border and systolic and no rubs GI: Palpation (GI): Soft to palpation Back/Spine/Pelvis: Other: unremarkable Skin: General skin exam: no rashes or lesions noted Neuro: General: No patient oriented x3 Extrem: General: Yes normal to inspection Psych: Mental Status: mental status grossly abnormal Objective Labs and Meds 01/07/23 06:22 01/07/23 06:22 Lab results: Laboratory Results - last 24 hr 01/06/23 01/06/23 01/06/23 11:15 11:17 11:41 WBC 4.1 L RBC 3.90 L Hgb 11.8 L Hct 35.8 L MCV 91.8 MCH 30.3 MCHC 33.0 RDW 13.1 Plt Count 204 MPV 9.7 Immature Gran % (Auto) 0.2 Neut % (Auto) 56.0 Lymph % (Auto) 28.7 [place] % (Auto) 11.2 H Eos % (Auto) 3.2 Baso % (Auto) 0.7 Lymph # (Auto) 1.2 [place] # (Auto) 0.5 Eos # (Auto) 0.1 Baso # (Auto) 0.0 Abs Immat Gran (auto) 0.01 Absolute Neuts (auto) 2.3 Absolute Nucleated RBC 0.000 Nucleated RBC % (auto) 0.0 PT 12.4 INR 1.0 Sodium 139 Potassium 4.2 Chloride 103 Carbon Dioxide 26 Anion Gap 14 BUN 23 H Creatinine 0.78 Estim Creat Clear Calc 114.3 Estimated GFR > 60 Random Glucose 84 Calcium 9.9 Magnesium 2.0 Total Bilirubin 0.4 Direct Bilirubin 0.2 AST 30 ALT 33 Alkaline Phosphatase 60 Ammonia 22 Troponin I High Sens < 2.7 Total Protein 7.4 Albumin 4.1 TSH 0.45 Urine Color Yellow Urine Appearance Clear Urine pH 8.0 Ur Specific [place] 1.015 Urine Protein Negative Urine Glucose (UA) Negative Urine Ketones Negative Urine Blood Negative Urine Nitrite Negative Ur Leukocyte Esterase Negative COVID-19 (MEHUL) Negative COVID-19 Clin Com See Note Influenza Type A (KATY) Negative Influenza Type B (KATY) Negative Influenza A & B Note See Note 01/06/23 01/07/23 14:39 06:22 WBC 4.2 L RBC 3.55 L Hgb 10.9 L Hct 32.9 L MCV 92.7 MCH 30.7 MCHC 33.1 RDW 13.2 Plt Count 184 MPV 10.5 Immature Gran % (Auto) Neut % (Auto) Lymph % (Auto) [place] % (Auto) Eos % (Auto) Baso % (Auto) Lymph # (Auto) [place] # (Auto) Eos # (Auto) Baso # (Auto) Abs Immat Gran (auto) Absolute Neuts (auto) Absolute Nucleated RBC 0.000 Nucleated RBC % (auto) 0.0 PT INR Sodium 141 Potassium 3.9 Chloride 108 Carbon Dioxide 27 Anion Gap 10 L BUN 17 H Creatinine 0.79 Estim Creat Clear Calc 114.0 Estimated GFR > 60 Random Glucose 74 Calcium 9.2 D Magnesium Total Bilirubin Direct Bilirubin AST ALT Alkaline Phosphatase Ammonia Troponin I High Sens < 2.7 Total Protein Albumin TSH Urine Color Urine Appearance Urine pH Ur Specific [place] Urine Protein Urine Glucose (UA) Urine Ketones Urine Blood Urine Nitrite Ur Leukocyte Esterase COVID-19 (MEHUL) COVID-19 Clin Com Influenza Type A (KATY) Influenza Type B (KATY) Influenza A & B Note ECG Interpretation: EKG with sinus bradycardia at 38/Min; NC prolongation to 120 milliseconds. Imaging Radiologist's impression: Impressions Chest X-Ray 01/06/23 12:25 IMPRESSION: * Clear lungs. Assessment and Plan (1) Bradycardia: Status: Acute (2) Acute hypotension: Status: Acute (3) Status post transcatheter aortic valve replacement (TAVR) using bioprosthesis: Status: Acute Plan Complex medical history as listed above with valve in valve TAVR, paravalvular leak, chronic bradycardia and hypotension but worse than baseline. We need to reconcile Midodrine as to how much he takes at home, as that is not reconciled. Per [facility] discharge summary, he was discharged on midodrine 15 mg t.i.d.. We can resume that. Otherwise, we will get another echocardiogram to assess cardiac function and prosthetic valve function. Will you discussed with family about goals of care. Time Spent With Patient Time: Total time managing care of this patient today ____ minutes. Procedures Date of Service Date of Service: 01/07/23
--- NOTE | 2023-01-07 10:49 | P.PNIM_ITS ---
Subjective Subjective Date of Service: 01/07/23 Interval History: Pointing to lower back complaining of pain, unable to verbalize, showing thumbs up. BP and pulse remains low , patient awake alert. Review of Systems Unable to obtain since patient nonverbal Physical Exam 2 Vital Signs: Vital Signs: Last Vital Signs Temp 98.2 F 01/07/23 07:05 Pulse 43 L 01/07/23 07:05 Resp 20 01/07/23 07:05 BP 84/55 L 01/07/23 07:05 Pulse Ox 95 01/07/23 07:05 O2 Del Method Room Air 01/07/23 07:05 BMI result Body Mass Index 21.2 Const: Other: General sitting in bed awake alert, no acute distress Neck no JVD Heart regular rate rhyth m Lungs clear to a uscultation Abdome n normal bowel indira nds, soft Extremit ies no edema Back scoliosis, no para vertebral muscle s pasm, no redness, no bruising neuro point thumbs up a nd down for answer ing, face symmetri monica. Objective Data Active Medications Acetaminophen (Acetaminophen 325 Mg Tablet) 650 mg PO Q6H PRN PRN Reason: Pain, Mild (Pain Scale 1-3) Acetaminophen (Acetaminophen 325 Mg Tablet) 650 mg PO Q6H PRN PRN Reason: Pain, Mild (Pain Scale 1-3) Aspirin (Aspirin 81 Mg Tab.Chew) 81 mg PO DAILY [facility] Last Admin: 01/07/23 10:10 Dose: Not Given Documented By: JORDON Non-Admin Reason: unable to swallow Docusate Sodium (Docusate Sodium 100 Mg Capsule) 100 mg PO DAILY PRN PRN Reason: Constipation Enoxaparin Sodium (Enoxaparin Sodium 40 Mg/0.4 Ml Syringe) 40 mg SUBCUT Q24H [facility] Last Admin: 01/06/23 16:33 Dose: 40 mg Documented By: PRAFUL Lactated Ringer's (Lr) 1,000 mls @ 100 mls/hr IVCONT .Q10H [facility] Last Admin: 01/06/23 17:02 Dose: Not Given Documented By: PRAFUL Non-Admin Reason: Physician Held Med Midodrine (Midodrine Hcl 10 Mg Tablet) 10 mg PO TID [facility] Ondansetron HCl (Ondansetron Hcl 4 Mg/2 Ml Vial) 4 mg IVPUSH Q8H PRN PRN Reason: Nausea and Vomiting Sodium Chloride (0.9 % Sodium Chloride Flush 3 Ml Syringe) 3 ml IVFLUSH QSHIFT [facility] Last Admin: 01/07/23 07:43 Dose: 3 ml Documented By: JORDON Labs 01/07/23 06:22 01/07/23 06:22 Labs: Laboratory Results - last 24 hr 01/06/23 01/06/23 01/06/23 11:15 11:17 11:41 MCV 91.8 MCH 30.3 MCHC 33.0 RDW 13.1 Plt Count 204 MPV 9.7 Immature Gran % (Auto) 0.2 Neut % (Auto) 56.0 Lymph % (Auto) 28.7 [place] % (Auto) 11.2 H Eos % (Auto) 3.2 Baso % (Auto) 0.7 Lymph # (Auto) 1.2 [place] # (Auto) 0.5 Eos # (Auto) 0.1 Baso # (Auto) 0.0 Abs Immat Gran (auto) 0.01 Absolute Neuts (auto) 2.3 Absolute Nucleated RBC 0.000 Nucleated RBC % (auto) 0.0 PT 12.4 INR 1.0 Anion Gap 14 Estim Creat Clear Calc 114.3 Estimated GFR > 60 Random Glucose 84 Calcium 9.9 Magnesium 2.0 Total Bilirubin 0.4 Direct Bilirubin 0.2 AST 30 ALT 33 Alkaline Phosphatase 60 Ammonia 22 Total Protein 7.4 Albumin 4.1 TSH 0.45 Urine Color Yellow Urine Appearance Clear Urine pH 8.0 Ur Specific [place] 1.015 Urine Protein Negative Urine Glucose (UA) Negative Urine Ketones Negative Urine Blood Negative Urine Nitrite Negative Ur Leukocyte Esterase Negative COVID-19 (MEHUL) Negative COVID-19 Clin Com See Note Influenza Type A (KATY) Negative Influenza Type B (KATY) Negative Influenza A & B Note See Note 01/07/23 06:22 MCV 92.7 MCH 30.7 MCHC 33.1 RDW 13.2 Plt Count 184 MPV 10.5 Immature Gran % (Auto) Neut % (Auto) Lymph % (Auto) [place] % (Auto) Eos % (Auto) Baso % (Auto) Lymph # (Auto) [place] # (Auto) Eos # (Auto) Baso # (Auto) Abs Immat Gran (auto) Absolute Neuts (auto) Absolute Nucleated RBC 0.000 Nucleated RBC % (auto) 0.0 PT INR Anion Gap 10 L Estim Creat Clear Calc 114.0 Estimated GFR > 60 Random Glucose 74 Calcium 9.2 D Magnesium Total Bilirubin Direct Bilirubin AST ALT Alkaline Phosphatase Ammonia Total Protein Albumin TSH Urine Color Urine Appearance Urine pH Ur Specific [place] Urine Protein Urine Glucose (UA) Urine Ketones Urine Blood Urine Nitrite Ur Leukocyte Esterase COVID-19 (MEHUL) COVID-19 Clin Com Influenza Type A (KATY) Influenza Type B (KATY) Influenza A & B Note Assessment and Plan (1) Generalized weakness: Status: Acute (2) Bradycardia: Status: Acute Plan 42-year-old male with a PMH significant for?hx of IVDU, endocarditis, aortic valve replacement x3, bradycardia, hypotension, hemiplegia d/t CVA, bed-bound, and kenneth-tachy syndrome who presents to the ED from [facility] with hypotension bradycardia, increased lethargy, and generalized weakness noted since this morning. Pt will be admitted to the hospital for treatment further evaluation of marked bradycardia and hypotension. Hypotension Chronic hypotension BP 84/55 is status post 3 L of IV fluid in ED currently on IV fluid 100 mL/hour Obtain Cardiology consult,follow echo, added midodrine 10 mg t.i.d., patient was treated at [facility] with 15 mg of midodrine t.i.d. that was weaned off the week after discharge. Monitor BP Bradycardia chronic bradycardia, currently not on any home meds Monitor on telemetry Lethargy/generalized weakness Noted at SNF, at present awake alert no lethargy, does not communicate verbally Aortic stenosis Patient has had 3 separate TAVR procedures in the past 23 years, most recently 1 month ago at [facility], continue aspirin 81 mg daily Back pain point to mid lower back has scoliosis will add Tylenol prn. Diet Seen by speech therapy they recommend NPO HCP notes patient still coughs and chokes while eating and has done this for the past 6 years. Full Code DVT Prophylaxis: Lovenox Pt will require continued inpatient hospitalization for treatment of?symptomatic hypotension and bradycardia with IVF , further cardiac workup melinda gravis making you 3 ox ordered on new next a 30 and close monitoring. Time Spent With Patient Time: Total time managing care of this patient today ____ minutes. Quality Stroke Does the patient have a stroke diagnosis?: No VTE Prior VTE?: No VTE Risk Level:: Medical - moderate - high VTE Device Contraindication: Treatment Not Indicated VTE Drug Contraindication: N/A - Med Ordered
[2023-01-07 12:00] VITALS: BP 95/51; PULSE 44; RESP 20; TEMP 37.1; O2SAT 97
--- NOTE | 2023-01-07 12:23 | P.DS_ITS ---
DS: Providers Provider Date of Service: 01/07/23 Date of admission: 01/06/23 15:43 Primary care physician: Donnell Banuelos DO Consults: 01/07/23 08:04 Consult to Cardiology Routine Consulting Provider: Mauricio Mccauley Reason for consultation: bradycardia Has provider been notified: No DS: Diagnosis Discharge Diagnosis (1) Generalized weakness: Status: Acute (2) Bradycardia: Status: Acute DS: Summary Hospital Course Hospital Course: Date of Service: 01/06/23 Attending physician on admission: Tomi Andre Chief Complaint: Hypotension, bradycardia, lethargy Pt is a 42-year-old male with a PMH significant for?hx of IVDU, endocarditis, aortic valve replacement x3, bradycardia, hypotension, hemiplegia d/t CVA, bed- bound, and kenneth-tachy syndrome who presents to the ED from [facility] with hypotension bradycardia, increased lethargy, and generalized weakness noted since this morning. Patient apparently did not get off for breakfast this morning or take his medications. Staff noted patient to be hypotensive as low as 72/36 and he needed extra help with ADLs. Patient is nonverbal at baseline but can make some of his needs known by pointing to a letter chart and giving a thumbs up for yes and thumbs down for no. Patient seen evaluated at bedside. Appears to be at baseline mentation. Patient complains of lower back pain and l eft leg pain. Also reports not eating or drinking much lately. Otherwise has no acute medical complaints. Denies chest pain/pressure, palpitations. Denies lightheadedness, dizziness. No shortness of breath. Denies fever, chills, nausea, vomiting, abdominal pain. ?Of note, pt has a long and complicated cardiac history. Patient originally had an aortic valve replacement procedure 23 years ago secondary to endocarditis d/t IVDU. Patient then had TAVR procedure done 7 years ago; procedures complicated by stroke and hemiplegia. Recent echo showed severe prosthetic valve stenosis and patient had repeat TAVR procedure 1 month prior on 11/29/2022. During hospital stay patient was hypotensive and bradycardic in the 30-50s. Had repeat echo done that showed increase in paravalvular leak with normal RV/LV function, and possible apical hypertrophy. There are no plans by [facility] Cardiology to repeat procedure. Patient was started on midodrine 15 mg q8hr and eventually weaned off of it the week after discharge. In speaking to the healthcare proxy, she notes this is his 3rd admission to the hospital since his most recent TAVR procedure. There has been some discussion with [facility] Cardiology about possible pacemaker. In the ED patient was afebrile but bradycardic as low as 35, hypotensive as low as 89/37, and satting at 97% on RA. Labs were significant for WBC 4.1, H&H 11.8/35.8 otherwise grossly unremarkable. Electrolytes WNL. Renal function, hepatic function WNL. Troponin negative. CXR showed clear lungs. EKG demonstrated sinus bradycardia of 38 and with first-degree AV block with nonspecific ST and T-wave abnormalities. Pt was treated with 3L IVF. Pt will be admitted to the hospital for treatment further evaluation of marked bradycardia and hypotension. Hospital course 42-year-old male with a PMH significant for?hx of IVDU, endocarditis, aortic valve replacement x3, bradycardia, hypotension, hemiplegia d/t CVA, bed-bound, and kenneth-tachy syndrome who presents to the ED from [facility] with hypotension bradycardia, increased lethargy, and generalized weakness noted since this morning. Pt will be admitted to the hospital for treatment further evaluation of marked bradycardia and hypotension. Hypotension /bradycardia BP at [facility] 72/36, treated with 3 L of IV fluids, blood pressure improved to 84/55, heart rate remains low around 40, patient placed on midodrine 10 mg t.i.d., continue IV fluids patient seen by manager export Dr. Mccauley he Discussed with , from [facility] and being transferred to [facility] for EP eval and possible pacemaker placement. Pt with chronic bradycardia, not on any home meds, recent echo showed paravalvular leak. Lethargy/generalized weakness, likely due to hypotension and bradycardia noted at [facility] at present patient appears to be at baseline mentation with no lethargy. Aortic stenosis Patient has had 3 separate TAVR procedures in the past 23 years, most recently 1 month ago at [facility], continue aspirin 81 mg daily and recommend follow-up with Cardiology Diet seen by speech therapy and failed swallow eval recommend continued speech therapy evaluation HCP informed that patient still cough and chokes while eating and has done this for the past 6 years Time Spent with Patient Time attestation: Total time managing care of this patient today ____ minutes. Discharge coordination time: Greater than 30 minutes Quality: Safe Use of Opioids Does Pt have an Active Cancer Diagnosis on the Problem List?: No Quality: Stroke Does the patient have a stroke diagnosis?: No Physical Exam Vital Signs: Vital Signs: Last Vital Signs Temp 98.7 F 01/07/23 12:00 Pulse 44 L 01/07/23 12:00 Resp 20 01/07/23 12:00 BP 95/51 L 01/07/23 12:00 Pulse Ox 97 01/07/23 12:00 O2 Del Method Room Air 01/07/23 12:00 BMI result Body Mass Index 21.2 Const: Other: Constitutional: Alert, nonverbal but capable of making basic needs known, in no acute distress. Eyes: Pupils are equal, round, and reactive to light. Ear, Nose, and Throat: Oropharynx clear, mucous membranes moist. Ears and nose without deformities. Trachea midline. Respiratory: Clear but diminished. Cardiovascular: S1, S2, slow. Gastrointestinal: Abdomen soft, non-tender, non-distended. Normal bowel sounds. Neurologic: alert, nonverbal. Skin: No rashes or lesions noted. Back scoliosis Musculoskeletal: No cyanosis or clubbing. Extremities: No edema. DS: Data Data Completed and Pending Labs on day of discharge: Laboratory Results - last 24 hr 01/06/23 01/06/23 01/07/23 11:41 14:39 06:22 WBC 4.2 L RBC 3.55 L Hgb 10.9 L Hct 32.9 L MCV 92.7 MCH 30.7 MCHC 33.1 RDW 13.2 Plt Count 184 MPV 10.5 Absolute Nucleated RBC 0.000 Nucleated RBC % (auto) 0.0 Sodium 141 Potassium 3.9 Chloride 108 Carbon Dioxide 27 Anion Gap 10 L BUN 17 H Creatinine 0.79 Estim Creat Clear Calc 114.0 Estimated GFR > 60 Random Glucose 74 Calcium 9.2 D Troponin I High Sens < 2.7 TSH 0.45 Discharge Plan Discharge Anticipated Discharge Date/Time: 01/07/23 12:19 Patient Disposition: Xfer Acute Care Hospital Discharge Diagnosis: Hypotension Bradycardia Referrals: [facility] [Outside] - 1 Week Donnell Banuelos DO [Primary Care Provider] - 1 Week Discharge Medications: New midodrine 10 mg Tablet 10 mg PO TID Qty: 30 0RF Continued sennosides [senna] 8.6 mg Tablet 8.6 mg PO DAILY acetaminophen [Tylenol] 325 mg Tablet 650 mg PO Q6-8H PRN (Reason: Fever) docusate sodium 100 mg Capsule 100 mg PO BID PRN (Reason: Constipation) artificial tears solution Drops 1 drp OPHTHALMIC (EYE) Q4H PRN (Reason: Dry Eye(S)) naphazoline-pheniramine 0.025-0.3 % Drops 1 drp OPHTHALMIC (EYE) QID PRN (Reason: REDNESS) Discharge Orders: Discharge Order (Routine); Ordered 01/07/23 Ordered By: Deny Cortes Diet: npo Activity on Discharge: As tolerated Stand Alone Forms: Patient Portal Discharge page Care Plan Goals: Chronic bradycardia and hypotension, transferred to [facility] for pacemaker Need speech therapy evaluation iv D5 Ringer lactate 100 mL/hour Health Concerns: status post TAVR with paravalvular leak Plan of Treatment: Follow-up with cardiology and primary care physician Assessment: As above
--- NOTE | 2023-01-07 12:30 | MHC.CM.PN ---
Patient will dc/transfer to [facility] today.
--- NOTE | 2023-01-07 13:04 | MHC.SL.SWA ---
Speech Pathologist Impression: Risk of aspiration, severe oropharyngeal dysphagia Risk of Aspiration Due to: Lethargy Medically Fragile Neurological Condition Dysphasia Diet Status:No change, continue NPO status Liquid Consistency and Strategies for Safe Swallow: Liquid Intake Recommendation: NPO Solid Food Consistency: Dietary Recommendations: NPO Additional Modifications to Solid Foods: Pt w/ clinical s/s of aspiration on ice chips, honey thick juice, and puree. Pt w/ significantly delayed swallow trigger, swallow appeared very effortful. Multiple swallow attempts, which resulted in immediate wet and nonproductive cough and increased work of breathing. Pt turning red in the face, unable to clear his throat. Pt was tearful and appeared anxious. RN on floor and MD immediately notified. Based on these observations, safest recommendation is to remain NPO strict, as pt is at high risk of aspiration. Recommend elevate head of bed at least 30 degrees and provide frequent oral care, moisturize oral cavity for comfort. Recommend continue ST for continued eval and management of severe dysphagia during inpatient stay and at next level of care. Oral Medication Intake: NPO Please contact the pharmacy regarding appropriate crushable or liquid drug formulations that are available whenever modified delivery is recommended. Supervision While Eating and Drinking for Safe Swallow: PO with [facility] Recommendation for Speech: Speech Therapy through Rehab Facility Modified Barium Swallow Study - Inpatient Modified Barium Swallow Study - Outpatient Inspection And Testing Supervisor Clinican/Clinical Fellow: No Supervisory Statement: I have reviewed and agree with the student/clinical fellow's documentation: N/A Speech Language Pathologist: Judi Canales M.A., [facility]
[2023-01-07 15:35] VITALS: BP 127/63; PULSE 57; RESP 16; TEMP 37.1; O2SAT 98
[2023-01-07] MEDS: Enoxaparin Sodium 40 MG/0.4 ML SYRINGE SUBCUT (15:47)
[2023-01-07] MEDS: Midodrine HCl 10 MG TABLET PO (15:47)
--- NOTE | 2023-01-07 16:06 | PC.NURSE ---
Report called to [facility], talked to receiving Nurse MOISES. 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
== END 2023-01-07 16:42 | disposition short-term general hospital (02) | DRG 315 ==
LOC: HO.ED 13:21 → HO.EDOVER 15:55 → HO.IMC 17:40
PROVIDERS: Physician Assistant; Admitting Provider Student in an Organized Health Care Education/Training Program; Emergency Provider Emergency Medicine; PCP Hospitalist; Visit Provider Hospitalist
DX: I95.9 Hypotension, unspecified (principal); I69.354 Hemiplegia and hemiparesis following cerebral infarction affecting left non-dominant side; E03.9 Hypothyroidism, unspecified; F10.21 Alcohol dependence, in remission; I35.0 Nonrheumatic aortic (valve) stenosis; R00.1 Bradycardia, unspecified; F32.9 Major depressive disorder, single episode, unspecified; Z95.2 Presence of prosthetic heart valve; Z20.822 Contact with and (suspected) exposure to COVID-19; Z74.01 Bed confinement status; Z79.899 Other long term (current) drug therapy
CPT/HCPCS: 36415; 71045; 80048; 80076; 81003; 82140; 83735; 84443; 84484; 85025; 85027; 85610; 87040; 87502; 87635; 92610; 93005; 99285; J1650; J2060; J2270

== ENCOUNTER → 2023-01-06 15:43 | Outpatient (BNV) | payer MEDICARE, MEDICAID, SELFPAY | PROVIDERS: Admitting Provider Student in an Organized Health Care Education/Training Program; Emergency Provider Emergency Medicine; PCP Hospitalist; Visit Provider Internal Medicine | DX: R00.1 Bradycardia, unspecified (principal); I95.9 Hypotension, unspecified; Z95.3 Presence of xenogenic heart valve | CPT/HCPCS: 99223 ==

== ENCOUNTER → 2023-01-06 15:43 | Outpatient (BNV) | payer MEDICARE, MEDICAID, SELFPAY | PROVIDERS: Admitting Provider Student in an Organized Health Care Education/Training Program; Emergency Provider Emergency Medicine; PCP Hospitalist; Visit Provider Hospitalist | DX: R53.1 Weakness (principal); R00.1 Bradycardia, unspecified | CPT/HCPCS: 99223; 99239 ==

== ENCOUNTER 2023-02-08 14:30 | Outpatient (REF) | payer MEDICARE, MEDICAID, SELFPAY ==
--- NOTE | ~2023-02-08 | XR_ITS ---
EXAMINATION: XR CHEST CLINICAL INFORMATION: Cough, congestion COMPARISON: January 06, 2023 TECHNIQUE: 4 views of the chest were obtained. FINDINGS: Median sternotomy wires, several of which again appear fractured, redemonstrated. Left atrial appendage clip. Severe kyphoscoliosis with multilevel degenerative changes. There is no gross pneumothorax. Evaluation of cardiomediastinal silhouette limited because of patient rotation. Left subclavian approach electronic device with leads projecting over right heart. Prosthetic device overlies the heart. Increased mild bibasilar opacities, left greater than right may represent pneumonia. No gross pleural effusion. XR/XR chest 2V IMPRESSION: Increased mild bibasilar opacities, left greater than right may represent pneumonia. This study was presented February 12, 2023 at 11:36 AM for interpretation. PSA staff will provide results to referring provider at this time.
== END 2023-02-08 14:31 | disposition home or self-care (01) ==
LOC: HO.XRAY 14:30
PROVIDERS: PCP Hospitalist; Visit Provider Hospitalist
DX: R05.9 Cough, unspecified (principal)
CPT/HCPCS: 71046

== ENCOUNTER 2023-03-06 11:10 | Outpatient (REF) | payer MEDICARE, MEDICAID, SELFPAY ==
--- NOTE | ~2023-03-06 | XR_ITS ---
EXAMINATION: XR CHEST CLINICAL INFORMATION: Cough, lethargy COMPARISON: 02/08/2023. TECHNIQUE: 2 views of the chest were obtained. FINDINGS: Status post median sternotomy. Left atrial appendage clip is again observed. Pacer wires maintain position. No pneumothorax. No new dominant airspace consolidations. Patchy opacities previously seen toward the bases have improved. Minimal linear atelectatic change noted toward the right base. Pulmonary vascularity is stable. No new pleural effusions. Previously noted stent or prosthesis overlying the heart appears to be stable. XR/XR chest 2V IMPRESSION: No new dominant consolidations. Previously noted patchy opacities toward the bases improved. Minimal linear atelectasis toward the right base. Postoperative changes.
== END 2023-03-06 11:11 | disposition home or self-care (01) ==
LOC: HO.XRAY 11:10
PROVIDERS: PCP Hospitalist; Visit Provider Hospitalist
DX: Z13.89 Encounter for screening for other disorder (principal)
CPT/HCPCS: 71046

== ENCOUNTER 2023-03-28 11:27 | Outpatient (REF) | payer MEDICARE, MEDICAID, SELFPAY ==
--- NOTE | ~2023-03-28 | XR_ITS ---
EXAMINATION: XR CHEST CLINICAL INFORMATION: Lethargy. COMPARISON: March 06, 2023 TECHNIQUE: 2 views of the chest were obtained. FINDINGS: The cardiomediastinal silhouette is stable. There has been a previous median sternotomy. Pacer leads are again seen in place. There is no focal lung consolidation or pleural effusion. There is mild curvature of the thoracic spine to the right. The soft tissues are unremarkable. XR/XR chest 2V IMPRESSION: No evidence for active cardiopulmonary disease.
== END 2023-03-28 11:28 | disposition home or self-care (01) ==
LOC: HO.XRAY 11:27
PROVIDERS: PCP Hospitalist; Visit Provider Hospitalist
DX: R53.83 Other fatigue (principal)
CPT/HCPCS: 71046

== ENCOUNTER 2023-04-19 11:35 | Outpatient (REF) | payer MEDICARE, MEDICAID, SELFPAY ==
--- NOTE | ~2023-04-19 | XR_ITS ---
EXAMINATION: XR CHEST CLINICAL INFORMATION: Follow-up, history of dysphagia COMPARISON: Chest 03/28/2023 TECHNIQUE: 2 views of the chest were obtained. FINDINGS: The lungs are well-expanded and clear of acute process. Heart size and pulmonary vascularity is normal. There are dual pacer electrodes in right atrium and right ventricle. There are median sternotomy sutures, aortic valve stent and atrial appendage clip. XR/XR chest 2V IMPRESSION: No acute cardiopulmonary process seen.
== END 2023-04-19 11:36 | disposition home or self-care (01) ==
LOC: HO.XRAY 11:35
PROVIDERS: PCP Hospitalist; Visit Provider Hospitalist
DX: R13.10 Dysphagia, unspecified (principal)
CPT/HCPCS: 71046

== ENCOUNTER 2024-08-22 14:14 | Inpatient (IN) | payer MEDICARE, MEDICAID, SELFPAY ==
[2024-08-22] VITALS (9 sets, daily range): BP systolic 91–146; BP diastolic 51–82; PULSE 65–87; RESP 14–20; TEMP 36.7–37.8; O2SAT 92–94; BMI 17.8
--- NOTE | ~2024-08-22 | XR_ITS ---
CLINICAL HISTORY: Back pain, fever, rule out pneumonia 1 view chest x-ray Comparison: DX/SR - XR CHEST 2V - 04/19/23 12:30 EST Findings: There is a large focus of consolidation within the left lung, centered at the level of the mid lung. The right lung is clear. Borderline heart size. Status post TAVR. Status post sternotomy. Cardiac pacemaker present. Moderate scoliosis. No acute fracture. IMPRESSION: Consolidative change within the left lung, compatible with pneumonia. This document has been electronically signed by: Yamilex Cervantes MD on 08/22/2024 17:34:13
--- NOTE | ~2024-08-22 | CT_ITS ---
CLINICAL HISTORY: Severe lower back pain, UTI R O stone, pyelonephri CT abdomen and pelvis with contrast Comparison: None Findings: Status post TAVR. Ground-glass opacity and nodularity within the left lower lung. Linear and bandlike foci of atelectasis within the left lower lobe. There is a focus of splenic scarring associated with multiple calcifications. No splenomegaly. Unremarkable liver, pancreas and adrenal glands. Heterogeneity of portions of the right kidney. Unremarkable left kidney. No calculus or hydronephrosis. Moderate fecal retention within the colon. Desiccated appearance of fecal material suggesting constipation. No bowel edema or dilatation. Borderline thickening of the bladder wall. Unremarkable prostate. Likely visualization of a normal appendix. The bones are intact. IMPRESSION: 1. Probable pyelonephritis of the right kidney. 2. There is a focus of infiltrate within the left lower lung. This document has been electronically signed by: Yamilex Cervantes MD on 08/22/2024 19:19:57
--- OUTSIDE RECORDS SUMMARY | 2024-08-22 15:08 | XMS_ITS | Encounter Summary ---
Author Organization [facility] Address [address] [place] [address] Care Team Providers Care Novelty Balloon Assembler And Packer Name Role Phone Donnell Banuelos MD Primary Care Provider Encounter Details Date Type Department Care Team (Late st Contact Info) Description 08/22/2024 Lab Requisition [facility] - Main Lab [address] [facility] [employer] [place] [phone] Donnell Banuelos MD [address] [place] [address] [address] [place], [place] Other viral infections of unspecified site Social History Tobacco Use Types Packs/Day Years Used Date Smoking Tobacco: Former Smokeless Tobacco: Never Alcohol Use Standard Drinks/Week Comments Not Currently 0 (1 standard drink = 0.6 oz pur e alcohol) Sex and Gender Information Value Date Recorded Sex Assigned at Not on file Legal Sex Male 9:05 PM EST Gender Identity Not on file Sexual Orientation Not on file documented as of this encounter Plan of Treatment Upcoming Encounters Date Type Department Care Team (Late Contact Info) Description 03/11/2025 10:30 AM EST Ancillary Procedure [facility] - [facility] [address] [facility] [address] [place] [phone] Pending Results Name Type Priority Associated Diagnoses Date /Time Culture blood Microbiology Routine Other viral infections of unspecified site 08/22/2024 8:16 AM EDT documented as of this encounter Procedures Procedure Name Priority Date/Time Associated Diagnosis Comments CULTURE BLOOD Routine 08/22/2024 8:16 AM EDT Other viral infections of unspecified site documented in this encounter Visit Diagnoses Diagnosis Other viral infections of unspecified site Encounter for adjustment or management of cardiac device documented in this encounter Care Teams Novelty Balloon Assembler And Packer Relationship Specialty Start Date End Date Donnell Banuelos MD [address] [place] [address] Dr [address] PEDRO Fernandez PCP - General Internal Medicine 11/03/21 documented as of this encounter
--- OUTSIDE RECORDS SUMMARY | 2024-08-22 15:08 | XMS_ITS | Encounter Summary ---
Author Organization [facility] Address [address] [place] [address] Care Team Providers Care Chief Customer Officer Name Role Phone Donnell Banuelos MD Primary Care Provider Encounter Details Date Type Department Care Team (Late Contact Info) Description 08/21/2024 Lab Requisition [facility] - Main Lab [address] [place] [phone] Donnell Banuelos MD [address] [place] [address] [address] [place], [place] Unspecified infectious disease Social History Tobacco Use Types Packs/Day Years [...] Description 03/11/2025 10:30 AM EST Ancillary Procedure [facility] - [facility] [address] [facility] [address] [place] [address] documented as of this encounter Procedures Procedure Name Priority Date/Time Associated Diagnosis Comments BASIC METABOLIC PANEL Routine 08/21/2024 5:55 AM EDT Unspecified infectious disease documented in this encounter Results * (ABNORMAL) Basic metabolic panel (08/21/2024 5:55 AM EDT) Sodium 151(H) 133 - 145 mmol/L LAB CHEMISTRY METHOD 08/21/2024 8:57 AM EDT [facility] Potassium 4.1 3.5 - 5.5 mmol/L LAB CHEMISTRY METHOD 08/21/2024 8:57 AM T [facility] LAB Chloride 113(H) 96 - 110 mmol/L LAB CHEMISTRY METHOD 08/21/2024 8:57 AM [facility] CO2 31 21 - 32 mmol/L LAB CHEMISTRY METHOD 08/21/2024 8:57 AM T [facility] LAB Anion Gap 7 3 - 11 LAB CHEMISTRY METHOD 08/21/2024 8:57 AM [facility] Glucose 108(H) 70 - 100 mg/dL LAB CHEMISTRY METHOD 08/21/2024 8:57 AM [facility] BUN 30(H) 5 - 25 mg/dL LAB CHEMISTRY METHOD 08/21/2024 8:57 AM [facility] Creatinine 0.66(L) 0.70 - 1.30 mg/dL LAB CHEMISTRY METHOD 08/21/2024 8:57 AM [facility] LAB eGFR 119 >=60 mL/min/1. 73m2 LAB CHEMISTRY METHOD 08/21/2024 8:57 AM [facility] LAB Comment:Calculation based on the Chronic Kidney Disease Epidemiology Collaboration (CKD-EPI) equation refit without adjustment for race. BUN/Creatinine Ratio 45.5 LAB CHEMISTRY METHOD 08/21/2024 8:57 AM [facility] LAB Calcium 8.8 8.5 - 10.5 mg/dL LAB CHEMISTRY METHOD 08/21/2024 8:57 AM [facility] LAB Blood Venous blood specimen / Unknown 08/21/2024 5:55 AM EDT 08/21/2024 6:47 AM EDT us Donnell Banuelos MD LAB BLOOD ORDERABLES Final Resul t [facility] [address] [place], [place] [address] [phone] documented in this encounter Visit Diagnoses Diagnosis Unspecified infectious disease Encounter for adjustment or management of cardiac device documented in this encounter Care Teams Chief Customer Officer Relationship Specialty Start Date End Date Donnell Banuelos MD [address] [place] [address] [address] PEDRO Fernandez PCP - General Internal Medicine 11/03/21 documented as of this encounter
--- OUTSIDE RECORDS SUMMARY | 2024-08-22 15:08 | XMS_ITS | Encounter Summary ---
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 Social History Tobacco Use Types Packs/Day Years [...] Description 03/11/2025 10:30 AM EST Ancillary Procedure [facility] - [facility] [address] [facility] [address] [place] [phone] documented as of this encounter Procedures Procedure Name Priority Date/Time Associated Diagnosis Comments CBC WITH AUTO DIFFERENTIAL Routine 08/14/2024 6:25 AM EDT 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 WBC 6.2 4.8 - 10.8 K/mcL LAB HEMETOLOGY METHOD 08/14/2024 7:18 AM [facility] RBC 3.70(L) 4.50 - 5.50 M/mcL LAB HEMETOLOGY METHOD 08/14/2024 7:18 AM EDT [facility] LAB Hemoglobin 11.1(L) 13.5 - 17.5 g/dL LAB HEMETOLOGY METHOD 08/14/2024 7:18 AM [facility] Hematocrit 33.0(L) 42.0 - 54.0 % LAB HEMETOLOGY METHOD 08/14/2024 7:18 AM [facility] MCV 89.9 79.0 - 98.0 FL LAB HEMETOLOGY METHOD 08/14/2024 7:18 AM [facility] LAB MCH 30.2 27.0 - 32.0 pcg LAB HEMETOLOGY METHOD 08/14/2024 7:18 AM [facility] MCHC 33.6 32.0 - 37.0 g/dL LAB HEMETOLOGY METHOD 08/14/2024 7:18 AM [facility] RDW 13.0 11.0 - 15.0 % LAB HEMETOLOGY METHOD 08/14/2024 7:18 AM [facility] Platelets 267 130 - 400 K/mcL LAB HEMETOLOGY METHOD 08/14/2024 7:18 AM [facility] MPV 9.5 7.0 - 11.0 FL LAB HEMETOLOGY METHOD 08/14/2024 7:18 AM [facility] NRBC 0.0 <1.0 % LAB HEMETOLOGY METHOD 08/14/2024 7:18 AM [facility] NRBC Absolute 0.00 <0.10 K/mcL LAB HEMETOLOGY METHOD 08/14/2024 7:18 AM [facility] Neutrophils Relative 64.0 % LAB HEMETOLOGY METHOD 08/14/2024 7:18 AM [facility] Lymphocytes Relative 22.9 % LAB HEMETOLOGY METHOD 08/14/2024 7:18 AM [facility] Monocytes Relative 10.4 % LAB HEMETOLOGY METHOD 08/14/2024 7:18 AM [facility] Eosinophils Relative 1.9 % LAB HEMETOLOGY METHOD 08/14/2024 7:18 AM [facility] Basophils Relative 0.5 % LAB HEMETOLOGY METHOD 08/14/2024 7:18 AM [facility] Immature Granulocytes Relative 0.3 % LAB HEMETOLOGY METHOD 08/14/2024 7:18 AM [facility] Neutrophils Absolute 3.99 1.50 - 7.00 K/mcL LAB HEMETOLOGY METHOD 08/14/2024 7:18 AM [facility] Lymphocytes Absolute 1.43 1.00 - 5.00 K/mcL LAB HEMETOLOGY METHOD 08/14/2024 7:18 AM [facility] Monocytes Absolute 0.65 0.20 - 1.00 K/mcL LAB HEMETOLOGY METHOD 08/14/2024 7:18 AM [facility] Eosinophils Absolute 0.12 0.00 - 0.50 K/mcL LAB HEMETOLOGY METHOD 08/14/2024 7:18 AM [facility] Basophils Absolute 0.03 0.00 - 0.20 K/mcL LAB HEMETOLOGY METHOD 08/14/2024 7:18 AM [facility] Immature Granulocytes Absolute 0.02 0.00 - 0.03 K/mcL LAB HEMETOLOGY METHOD 08/14/2024 7:18 AM [facility] Blood Venous blood specimen / Unknown 08/14/2024 6:25 AM EDT 08/14/2024 6:59 AM EDT us Donnell Banuelos MD LAB BLOOD ORDERABLES Final Resul t [facility] [address] [place] [address], [place] [phone] * (ABNORMAL) Comprehensive metabolic panel (08/14/2024 6:25 AM EDT) Sodium 136 133 - 145 mmol/L LAB CHEMISTRY METHOD 08/14/2024 7:52 AM [facility] Potassium 3.8 3.5 - 5.5 mmol/L LAB CHEMISTRY METHOD 08/14/2024 7:52 AM [facility] Chloride 101 96 - 110 mmol/L LAB CHEMISTRY METHOD 08/14/2024 7:52 AM [facility] CO2 28 21 - 32 mmol/L LAB CHEMISTRY METHOD 08/14/2024 7:52 AM [facility] Anion Gap 7 3 - 11 LAB CHEMISTRY METHOD 08/14/2024 7:52 AM [facility] Glucose 79 70 - 100 mg/dL LAB CHEMISTRY METHOD 08/14/2024 7:52 AM [facility] BUN 18 5 - 25 mg/dL LAB CHEMISTRY METHOD 08/14/2024 7:52 AM [facility] Creatinine 0.61(L) 0.70 - 1.30 mg/dL LAB CHEMISTRY METHOD 08/14/2024 7:52 AM [facility] eGFR 121 >=60 mL/min/1. 73m2 LAB CHEMISTRY METHOD 08/14/2024 7:52 AM EDT [facility] Comment:Calculation based on the Chronic Kidney Disease Epidemiology Collaboration (CKD-EPI) equation refit without adjustment for race. BUN/Creatinine Ratio 29.5 LAB CHEMISTRY METHOD 08/14/2024 7:52 AM [facility] Calcium 9.0 8.5 - 10.5 mg/dL LAB CHEMISTRY METHOD 08/14/2024 7:52 AM [facility] AST (SGOT) 20 10 - 42 unit/L LAB CHEMISTRY METHOD 08/14/2024 7:52 AM [facility] ALT (SGPT) 27 10 - 60 unit/L LAB CHEMISTRY METHOD 08/14/2024 7:52 AM [facility] Alkaline Phosphatase 70 42 - 121 unit/L LAB CHEMISTRY METHOD 08/14/2024 7:52 AM [facility] Total Protein 7.0 6.0 - 8.0 g/dL LAB CHEMISTRY METHOD 08/14/2024 7:52 AM [facility] Albumin 3.5 3.2 - 5.0 g/dL LAB CHEMISTRY METHOD 08/14/2024 7:52 AM [facility] Total Bilirubin 0.3 0.0 - 1.4 mg/dL LAB CHEMISTRY METHOD 08/14/2024 7:52 AM [facility] Blood Venous blood specimen / Unknown 08/14/2024 6:25 AM EDT 08/14/2024 6:59 AM EDT us Donnell Banuelos MD LAB BLOOD ORDERABLES Final Resul t [facility] [address] [place] [address], documented in this encounter Visit Diagnoses Diagnosis Other care home (current) drug therapy Encounter for adjustment or management of cardiac device documented in this encounter Care Teams Machine Icer Relationship Specialty Start Date End Date Donnell Banuelos MD [address] [place] [address] Dr [facility] PEDRO Fernandez PCP - General Internal Medicine 11/03/21 documented as of this encounter
--- OUTSIDE RECORDS SUMMARY | 2024-08-22 15:08 | XMS_ITS | Encounter Summary ---
Author Organization [facility] Address [address] [place] [address] Care Team Providers Care Stained Glass Installer Name Role Phone Donnell Banuelos MD Primary Care Provider Encounter Details Date Type Department Care Team (Late st Contact Info) Description 05/07/2024 Lab Requisition [facility] - Main Lab [address] [facility] [place] [phone] Donnell Banuelos MD [address] [place] [address] [address] [place], [place] Hyperlipidemia, unspecified; Other jail (current) drug therapy; Essential (primary) hypertension; Dysphagia following cerebral infarction Social History Tobacco Use Types Packs/Day Years [...] Encounters Date Type Department Care Team (Late st Contact Info) Description 03/11/2025 10:30 AM EST Ancillary Procedure [facility] - [facility] [address] [facility] [address] [place] [phone] documented as of this encounter Procedures Procedure Name Priority Date/Time Associated Diagnosis Comments LIPID PANEL WITH REFLEX TO DIRECT LDL Routine 05/07/2024 5:49 AM EST Other jail (current) drug therapy Essential (primary) hypertension Dysphagia following cerebral infarction Hyperlipidemia, unspecified CBC WITH AUTO DIFFERENTIAL Routine 05/07/2024 5:49 AM EST Other jail (current) drug therapy Essential (primary) hypertension Dysphagia following cerebral infarction Hyperlipidemia, unspecified CBC AND DIFFERENTIAL Routine 05/07/2024 5:49 AM EST Other terminologist (current) drug therapy Essential (primary) hypertension Dysphagia following cerebral infarction Hyperlipidemia, unspecified THYROID STIMULATING HORMONE Routine 05/07/2024 5:49 AM EST Other jail (current) drug therapy Essential (primary) hypertension Dysphagia following cerebral infarction Hyperlipidemia, unspecified THYROXINE FREE Routine 05/07/2024 5:49 AM EST Other jail (current) drug therapy Essential (primary) hypertension Dysphagia following cerebral infarction Hyperlipidemia, unspecified COMPREHENSIVE METABOLIC PANEL Routine 05/07/2024 5:49 AM EST Other jail (current) drug therapy Essential (primary) hypertension Dysphagia following cerebral infarction Hyperlipidemia, unspecified documented in this encounter Results * (ABNORMAL) CBC auto differential (05/07/2024 5:49 AM EST) WBC 4.7(L) 4.8 - 10.8 K/mcL LAB HEMETOLOGY METHOD 05/07/2024 7:09 AM [facility] RBC 4.10(L) 4.50 - 5.50 M/mcL LAB HEMETOLOGY METHOD 05/07/2024 7:09 AM [facility] Hemoglobin 12.2(L) 13.5 - 17.5 g/dL LAB HEMETOLOGY METHOD 05/07/2024 7:09 AM [facility] LAB Hematocrit 37.6(L) 42.0 - 54.0 % LAB HEMETOLOGY METHOD 05/07/2024 7:09 AM [facility] MCV 91.5 79.0 - 98.0 FL LAB HEMETOLOGY METHOD 05/07/2024 7:09 AM [facility] MCH 29.7 27.0 - 32.0 pcg LAB HEMETOLOGY METHOD 05/07/2024 7:09 AM [facility] LAB MCHC 32.4 32.0 - 37.0 g/dL LAB HEMETOLOGY METHOD 05/07/2024 7:09 AM [facility] RDW 12.9 11.0 - 15.0 % LAB HEMETOLOGY METHOD 05/07/2024 7:09 AM [facility] Platelets 256 130 - 400 K/mcL LAB HEMETOLOGY METHOD 05/07/2024 7:09 AM [facility] MPV 10.1 7.0 - 11.0 FL LAB HEMETOLOGY METHOD 05/07/2024 7:09 AM [facility] NRBC 0.0 <1.0 % LAB HEMETOLOGY METHOD 05/07/2024 7:09 AM [facility] NRBC Absolute 0.00 <0.10 K/mcL LAB HEMETOLOGY METHOD 05/07/2024 7:09 AM [facility] Neutrophils Relative 36.7 % LAB HEMETOLOGY METHOD 05/07/2024 7:09 AM [facility] Lymphocytes Relative 48.6 % LAB HEMETOLOGY METHOD 05/07/2024 7:09 AM [facility] Monocytes Relative 9.7 % LAB HEMETOLOGY METHOD 05/07/2024 7:09 AM [facility] Eosinophils Relative 4.0 % LAB HEMETOLOGY METHOD 05/07/2024 7:09 AM [facility] Basophils Relative 0.8 % LAB HEMETOLOGY METHOD 05/07/2024 7:09 AM [facility] Immature Granulocytes Relative 0.2 % LAB HEMETOLOGY METHOD 05/07/2024 7:09 AM [facility] Neutrophils Absolute 1.73 1.50 - 7.00 K/mcL LAB HEMETOLOGY METHOD 05/07/2024 7:09 AM [facility] Lymphocytes Absolute 2.30 1.00 - 5.00 K/mcL LAB HEMETOLOGY METHOD 05/07/2024 7:09 AM [facility] Monocytes Absolute 0.46 0.20 - 1.00 K/mcL LAB HEMETOLOGY METHOD 05/07/2024 7:09 AM [facility] Eosinophils Absolute 0.19 0.00 - 0.50 K/mcL LAB HEMETOLOGY METHOD 05/07/2024 7:09 AM [facility] Basophils Absolute 0.04 0.00 - 0.20 K/mcL LAB HEMETOLOGY METHOD 05/07/2024 7:09 AM [facility] Immature Granulocytes Absolute 0.01 0.00 - 0.03 K/[facility] LAB HEMETOLOGY METHOD 05/07/2024 7:09 AM [facility] Blood Venous blood specimen / Unknown 05/07/2024 5:49 AM EST 05/07/2024 6:24 AM EST us Donnell Banuelos MD LAB BLOOD ORDERABLES Final Resul t [facility] [address] [place] [address], * Lipid panel with reflex to direct LDL (05/07/2024 5:49 AM EST) Cholesterol 138 0 - 200 mg/dL LAB CHEMISTRY METHOD 05/07/2024 8:27 AM [facility] Triglycerides 109 0 - 150 mg/dL LAB CHEMISTRY METHOD 05/07/2024 8:27 AM [facility] HDL 60 >=40 mg/dL LAB CHEMISTRY METHOD 05/07/2024 8:27 AM [facility] LDL Calculated 56 0 - 100 mg/dL LAB CHEMISTRY METHOD 05/07/2024 8:27 AM [facility] VLDL Cholesterol Alex 21.8 mg/dL LAB CHEMISTRY METHOD 05/07/2024 8:27 AM [facility] Non HDL Chol. (LDL+VLDL) 78 <145 mg/dL LAB CHEMISTRY METHOD 05/07/2024 8:27 AM [facility] Chol/HDL Ratio 2.3 0.0 - 4.4 LAB CHEMISTRY METHOD 05/07/2024 8:27 AM [facility] Blood Venous blood specimen / Unknown 05/07/2024 5:49 AM EST 05/07/2024 6:24 AM EST us Donnell Banuelos MD LAB BLOOD ORDERABLES Final Resul t [facility] [address] [place] [address], [place] [phone] * (ABNORMAL) Comprehensive metabolic panel (05/07/2024 5:49 AM EST) Sodium 136 133 - 145 mmol/L LAB CHEMISTRY METHOD 05/07/2024 8:27 AM [facility] Potassium 4.3 3.5 - 5.5 mmol/L LAB CHEMISTRY METHOD 05/07/2024 8:27 AM [facility] Chloride 101 96 - 110 mmol/L LAB CHEMISTRY METHOD 05/07/2024 8:27 AM [facility] CO2 33(H) 21 - 32 mmol/L LAB CHEMISTRY METHOD 05/07/2024 8:27 AM [facility] Anion Gap 2(L) 3 - 11 LAB CHEMISTRY METHOD 05/07/2024 8:27 AM [facility] Glucose 72 70 - 100 mg/dL LAB CHEMISTRY METHOD 05/07/2024 8:27 AM [facility] BUN 20 5 - 25 mg/dL LAB CHEMISTRY METHOD 05/07/2024 8:27 AM [facility] Creatinine 0.78 0.70 - 1.30 mg/dL LAB CHEMISTRY METHOD 05/07/2024 8:27 AM [facility] LAB eGFR 113 >=60 mL/min/1. 73m2 LAB CHEMISTRY METHOD 05/07/2024 8:27 AM [facility] LAB Comment:Calculation based on the??Chronic Kidney Disease Epidemiology Collaboration (CKD-EPI) equation refit??without adjustment for race. BUN/Creatinine Ratio 25.6 LAB CHEMISTRY METHOD 05/07/2024 8:27 AM [facility] Calcium 9.3 8.5 - 10.5 mg/dL LAB CHEMISTRY METHOD 05/07/2024 8:27 AM [facility] AST (SGOT) 25 10 - 42 unit/L LAB CHEMISTRY METHOD 05/07/2024 8:27 AM [facility] ALT (SGPT) 35 10 - 60 unit/L LAB CHEMISTRY METHOD 05/07/2024 8:27 AM [facility] Alkaline Phosphatase 70 42 - 121 unit/L LAB CHEMISTRY METHOD 05/07/2024 8:27 AM [facility] Total Protein 7.3 6.0 - 8.0 g/dL LAB CHEMISTRY METHOD 05/07/2024 8:27 AM [facility] Albumin 3.6 3.2 - 5.0 g/dL LAB CHEMISTRY METHOD 05/07/2024 8:27 AM [facility] Total Bilirubin 0.3 0.0 - 1.4 mg/dL LAB CHEMISTRY METHOD 05/07/2024 8:27 AM [facility] Blood Venous blood specimen / Unknown 05/07/2024 5:49 AM EST 05/07/2024 6:24 AM EST us Donnell Banuelos MD LAB BLOOD ORDERABLES Final Resul t [facility] [address] [place] [address], * Thyroxine free (05/07/2024 5:49 AM EST) Free T4 1.24 0.70 - 1.80 ng/dL LAB CHEMISTRY METHOD 05/07/2024 8:30 AM EST [facility] Blood Venous blood specimen / Unknown 05/07/2024 5:49 AM EST 05/07/2024 6:24 AM EST us Donnell Banuelos MD LAB BLOOD ORDERABLES Final Resul t Performing Organization Address City/[facility]/ZIP Co de Phone Number [facility] [address] [place] [address], [place] [phone] * Thyroid stimulating hormone (05/07/2024 5:49 AM EST) TSH 1.91 0.40 - 4.00 mcIU/mL LAB CHEMISTRY METHOD 05/07/2024 8:30 AM EST [facility] Blood Venous blood specimen / Unknown 05/07/2024 5:49 AM EST 05/07/2024 6:24 AM EST us Donnell Banuelos MD LAB BLOOD ORDERABLES Final Resul t Performing Organization Address [facility] Co de Phone Number [facility] [address] [place] [address], [place] [phone] documented in this encounter Visit Diagnoses Diagnosis Hyperlipidemia, unspecified Other terminologist (current) drug therapy Essential (primary) hypertension Unspecified essential hypertension Dysphagia following cerebral infarction Encounter for adjustment or management of cardiac device documented in this encounter Care Teams Stained Glass Installer Relationship Specialty Start Date End Date Donnell Banuelos MD [address] [facility] [address] Abilio Fernandez [place] PCP - General Internal Medicine 11/03/21 documented as of this encounter
--- OUTSIDE RECORDS SUMMARY | 2024-08-22 15:08 | XMS_ITS | Clinical Summary ---
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 Active aspirin 81 mg EC tablet Take 1 Tablet by mouth daily. Active benzocaine (HurriCaine) 20 % gel 1 application every 6 hours/prn 3 Active bisacodyL (DULCOLAX) [address] 1 Suppository rectally as needed. 3 Active carboxymethylcel lulose (REFRESH PLUS) 0.5 % ophthalmic solution Place 1 Drop into both eyes every 4 hours as needed. Active citalopram (CeleXA) 10 mg tablet Take 1 Tablet by mouth daily. Active diazePAM (VALIUM) 5 mg tablet Take 0.5 Tablets by mouth 2 times daily. Active docusate sodium (COLACE) 100 mg tablet Take 1 Tablet by mouth 2 times daily. Active famotidine (PEPCID) 20 mg tablet Take 1 Tablet by mouth daily. Active levothyroxine (SYNTHROID, LEVOTHROID) 100 mcg tablet Take 1 Tablet by mouth daily. Active midodrine (PROAMATINE) 5 mg tablet Take 3 Tablets by mouth every 8 hours as needed. Active naloxone (NARCAN) 4 mg/0.1 mL nasal spray by Nasal route as needed. Active naphazoline-phen iramine (NAPHCON-A) 0.025-0.3 % ophthalmic solution Place 2 Drops into both eyes every 6 hours as needed. Active nicotine (NICODERM CQ) 14 mg/[address] 1 Patch onto the skin every 24 hours. Active NYSTATIN TOP Apply?topica lly as needed. Active oxyCODONE-acetam inophen (PERCOCET) 10-325 mg per tablet Take 1 Tablet by mouth 3 times daily as needed. Active senna (SENOKOT) 8.6 mg tablet Take?by mouth as needed. Active sodium phosphates (Fleet Enema Extra) 19-7 gram/[address]?rectal ly daily as needed. Active multivit-min/iro n/folic acid/K (ADULTS MULTIVITAMIN ORAL) Take?by mouth daily. Active Active Problems Problem Noted Date Diagnosed Date Hypotension after procedure 12/17/2022 Overview (01/23/2024): Last Assessment & Plan: Patient was noted to be hypotensive and bradycardic postprocedure. He was bolused with IV fluids, and started on midodrine 3 times a day. He presents today with a blood pressure of 110/60. He will continue on midodrine to ensure adequate blood pressure. I have made no changes to his medication regime today. Encounters Date Type Department Care Team Description 08/22/2024 Lab Requisition [facility] Lab [address] [place] [address] Donnell Banuelos MD Other viral infections of unspecified site 08/21/2024 Lab Requisition [facility] Lab [address] [place] [address] Donnell Banuelos MD Unspecified infectious disease 08/19/2024 Lab Requisition [facility] Lab [address] [place] [address] Donnell Banuelos MD Repeated falls 08/19/2024 Lab Requisition [facility] Lab [address] [place] [address] Donnell Banuelos MD Altered mental status, unspecified 08/14/2024 Lab Requisition [facility] [address] [facility] [place] [address] Donnell Banuelos MD 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 07/10/2024 10:55 PM EDT Ancillary Procedure [facility] Cardiology [facility] [address] [place] [id number] 06/03/2024 9:20 PM EST Ancillary Procedure [facility] [address] [place] [id number] from Last 3 Months Surgical History Surgery Date Site/Laterality Comments CARDIAC SURGERY PROCEDURE: HISTORICAL HEART SURGERY(ASD,VSD,VALVES) Medical History Medical History Date Comments Hemiplegia (CMS/HCC V24, CMS/HCC V28) DX:Hemiplegia (HCC) CVA (cerebral vascular accid ent) (CMS/HCC V24, CMS/HCC V28) DX:CVA (cerebral vascular a ccident) (HCC) Depression DX:Depression Encephalopathy DX:Encephalopath y Anxiety DX:Anxiety Dysphagia DX:Dysphagia Hepatitis C DX:Hepatitis C Hypothyroidism DX:Hypothyroidis m Pulmonary embolism (CMS/HCC V24, CMS/HCC V28) DX:Pulmonary embolism (HCC) Scoliosis DX:Scoliosis Failure to thrive in adult DX:Fa ilure to thrive in adult Personal history of other di seases of circulatory system DX:Personal history of other diseases of circulatory system Personal history of diseases of blood and blood-forming organs DX:Personal history of disea ses of blood and blood-forming organs Chronic viral hepatitis (CMS /HCC V24, CMS/HCC V28) DX:Chronic viral hepatitis ( HCC) Functional dyspepsia DX:Function al dyspepsia Other chronic pain DX: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 pain Abnormal weight loss DX:Abnormal weight loss Pain in left foot DX:Pain in lef t foot Regular astigmatism, bilateral D X:Regular astigmatism, bilateral Presbyopia DX:Presbyopia 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 DX:Dry eye syndrome of bilat eral lacrimal glands Generalized anxiety disorder DX: Generalized anxiety disorder Sciatica, left side DX:Sciatica, left side Other forms of scoliosis, ce rvical region DX:Other forms of scoliosis, cervical region Constipation DX:Constipation Anoxic brain damage (CMS/HCC V24, CMS/HCC V28) DX:Anoxic brain damage (HCC) Weakness DX:Weakness Unsteadiness on feet DX:Unsteadi ness on feet Major depressive disorder, r ecurrent, moderate (CMS/HCC V24, CMS/HCC V28) DX:Major depressiv e disorder, recurrent, moderate (HCC) Muscle weakness (generalized) DX :Muscle weakness (generalized) Other encephalopathy DX:Other en cephalopathy Pressure ulcer of heel DX:Pressu re ulcer of heel Social History Tobacco Use Types Packs/Day Years Used Date Smoking Tobacco: Former Smokeless Tobacco: Never Alcohol Use Standard Drinks/Week Comments Not Currently 0 (1 standard drink = 0.6 oz pur e alcohol) Sex and Gender Information Value Date Recorded Sex Assigned at Not on file Legal Sex Male 9:05 PM EST Gender Identity Not on file Sexual Orientation Not on file Obstetrics History Last Filed Vital Signs Vital Sign Reading Time Taken Comments Blood Pressure 92/50 12/16/2023 10:30 AM EDT Pulse 60 01/28/2023 11:08 AM EDT Temperature - - Respiratory Rate - - Oxygen Saturation - - Inhaled Oxygen Concentration - - Weight 61 kg (134 lb 8 oz) 01/28/2024 3:46 PM ED T Height 162.6 cm (5' 4 ) 01/28/2024 3:46 PM EDT Body Mass Index 23.09 01/28/2024 3:46 PM EDT Plan of Treatment Upcoming Encounters Date Type Department Care Team (Late st Contact Info) Description 03/11/2025 10:30 AM EST Ancillary Procedure [facility] [address] [facility] [address] [place] [address] Health Maintenance Due Date Last Done Comments DTaP,Tdap,and Td Vaccines (1 - Tdap) 09/14/1998 Hepatitis B Vaccines (1 of 3 - 19+ 3-dose series) 09/14/1998 Depression Screening 03/18/2022 HIV Screening 03/18/2022 Hepatitis C Screening 03/18/2022 Medicare Annual Wellness Visit 03/18/2022 Social Influencers of Health Screening 03/18/2022 COVID-19 Vaccine ( season) 2023 02/15/2023, 2021, 01/25/2021, Additional history exists Influenza Vaccine (Season Ended) 2024 01/19/2021 Hypertension/CHF/CAD Annual BMP Blood Test 08/21/2025 08/21/2024, 08/19/2024, 08/14/2024, Additional history exists Cholesterol Screening (Lipid Panel) 05/07/2029 05/07/2024 HIB Vaccines Aged Out No longer eligi ble based on patient's age to complete this topic HPV Vaccines Aged Out No longer eligi ble based on patient's age to complete this topic Hepatitis A Vaccines Aged Out No long er eligible based on patient's age to complete this topic IPV Vaccines Aged Out No longer eligi ble based on patient's age to complete this topic MMR Vaccines Aged Out No longer eligi ble based on patient's age to complete this topic Meningococcal ACWY Vaccine Aged Out N o longer eligible based on patient's age to complete this topic Meningococcal B Vaccine Aged Out No l onger eligible based on patient's age to complete this topic Pneumococcal Vaccine: Pediatrics (0 to 5 Years) and At-Risk Patients (6 to 64 Years) Aged Out No longer eligible based on patient's age to complete this topic RSV Immunization Patients Under 20 months Aged Out No longer eligible based on patient's age to complete this topic Varicella Vaccines Aged Out No longer eligible based on patient's age to complete this topic Medical Devices Implanted Type Area General Operations Manager Device Identifier Shelf Expiration Date Model / Serial / Lot Bsci-Crm [id number] Implanted:08/2022 (Quantity not on file) Cardiac Pacemaker [employer]HY[employer] MGMT [id number] / [id number] / Procedures Procedure Name Priority Date/Time Associated Diagnosis Comments CULTURE BLOOD Routine 08/22/2024 8:16 AM EDT Other viral infections of unspecified site BASIC METABOLIC PANEL Routine 08/21/2024 5:55 AM EDT Unspecified infectious disease URINALYSIS WITH REFLEX MICROSCOPIC AND CULTURE Routine 08/19/2024 12:40 PM EDT Repeated falls URINALYSIS WITH REFLEX MICROSCOPIC AND CULTURE Routine 08/19/2024 12:40 PM EDT Repeated falls CULTURE URINE Routine 08/19/2024 12:40 PM EDT Repeated falls COMPLETE BLOOD COUNT Routine 08/19/2024 7:06 AM EDT Altered mental status, unspecified COMPREHENSIVE METABOLIC PANEL Routine 08/19/2024 7:06 AM EDT Altered mental status, unspecified CBC WITH AUTO DIFFERENTIAL Routine 08/14/2024 6:25 AM EDT Other alf (current) drug therapy CBC AND DIFFERENTIAL Routine 08/14/2024 6:25 AM EDT 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 COMPREHENSIVE METABOLIC PANEL Routine 08/14/2024 6:25 AM EDT 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 CARDIAC DEVICE CHECK- REMOTE- MURJ Routine 07/10/2024 10:54 PM EDT CARDIAC DEVICE CHECK- REMOTE- MURJ Routine 06/03/2024 9:15 PM EST LIPID PANEL WITH REFLEX TO DIRECT LDL Routine 05/07/2024 5:49 AM EST 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 Essential (primary) hypertension Dysphagia following cerebral infarction Hyperlipidemia, unspecified from Last 3 Months or Most Recently Relevant to Health Maintenance Results * (ABNORMAL) Basic metabolic panel (08/21/2024 5:55 AM EDT) Sodium 151(H) 133 - 145 mmol/L LAB CHEMISTRY METHOD 08/21/2024 8:57 AM EDT [facility] Potassium 4.1 3.5 - 5.5 mmol/L LAB CHEMISTRY METHOD 08/21/2024 8:57 AM EDT [facility] Chloride 113(H) 96 - 110 mmol/L LAB CHEMISTRY METHOD 08/21/2024 8:57 AM EDT [facility] CO2 31 21 - 32 mmol/L LAB CHEMISTRY METHOD 08/21/2024 8:57 AM EDT [facility] Anion Gap 7 3 - 11 LAB CHEMISTRY METHOD 08/21/2024 8:57 AM [facility] Glucose 108(H) 70 - 100 mg/dL LAB CHEMISTRY METHOD 08/21/2024 8:57 AM [facility] BUN 30(H) 5 - 25 mg/dL LAB CHEMISTRY METHOD 08/21/2024 8:57 AM [facility] Creatinine 0.66(L) 0.70 - 1.30 mg/dL LAB CHEMISTRY METHOD 08/21/2024 8:57 AM [facility] eGFR 119 >=60 mL/min/1. 73m2 LAB CHEMISTRY METHOD 08/21/2024 8:57 AM [facility] Comment:Calculation based on the Chronic Kidney Disease Epidemiology Collaboration (CKD-EPI) equation refit without adjustment for race. BUN/Creatinine Ratio 45.5 LAB CHEMISTRY METHOD 08/21/2024 8:57 AM [facility] Calcium 8.8 8.5 - 10.5 mg/dL LAB CHEMISTRY METHOD 08/21/2024 8:57 AM [facility] Blood Venous blood specimen / Unknown 08/21/2024 5:55 AM EDT 08/21/2024 6:47 AM EDT us Donnell Banuelos MD LAB BLOOD ORDERABLES Final Resul t [facility] [address] [place] [address], * (ABNORMAL) Urinalysis with reflex microscopic and culture (08/19/2024 12:40 PM EDT) Specific [place] Urine 1.023 1.003 - 1.030 LAB URINALYSIS - AUTOMATED METHOD 08/19/2024 5:31 PM EDT [facility] pH, Urine 6.0 5.0 - 8.0 pH LAB URINALYSIS - AUTOMATED METHOD 08/19/2024 5:31 PM [facility] Leukocytes, Urine Moderate(A) Negative LAB URINALYSIS - AUTOMATED METHOD 08/19/2024 5:31 PM [facility] Nitrite, Urine Positive(A) Negative LAB URINALYSIS - AUTOMATED METHOD 08/19/2024 5:31 PM [facility] Protein, Urine 100(A) <=Trace mg/dL LAB URINALYSIS - AUTOMATED METHOD 08/19/2024 5:31 PM [facility] Glucose, Urine Negative Negative mg/dL LAB URINALYSIS - AUTOMATED METHOD 08/19/2024 5:31 PM [facility] Ketones, Urine Trace(A) Negative mg/dL LAB URINALYSIS - AUTOMATED METHOD 08/19/2024 5:31 PM [facility] Urobilinogen , Urine 1.0 0.2 - 1.0 mg/dL LAB URINALYSIS - AUTOMATED METHOD 08/19/2024 5:31 PM [facility] Bilirubin, Urine Negative Negative LAB URINALYSIS - AUTOMATED METHOD 08/19/2024 5:31 PM [facility] Blood, Urine Small(A) Negative LAB URINALYSIS - AUTOMATED METHOD 08/19/2024 5:31 PM [facility] RBC, Urine 5.7(H) 0 - 4 /HPF LAB URINALYSIS - AUTOMATED METHOD 08/19/2024 5:31 PM [facility] WBC, Urine 121.1(H) 0 - 4 /HPF LAB URINALYSIS - AUTOMATED METHOD 08/19/2024 5:31 PM [facility] Squamous Epithelial, Urine 11 0 - 60 /LPF LAB URINALYSIS - AUTOMATED METHOD 08/19/2024 5:31 PM [facility] Bacteria, Urine Many(A) Negative /HPF LAB URINALYSIS - AUTOMATED METHOD 08/19/2024 5:31 PM EDT [facility] Hyaline Casts, Urine 17.3(H) 0 - 3 /LPF LAB URINALYSIS - AUTOMATED METHOD 08/19/2024 5:31 PM EDT [facility] Urine Urine specimen obtained by clean catch procedure / Unknown 08/19/2024 12:40 PM EDT 08/19/2024 4:21 PM EDT us Donnell Banuelos MD LAB URINE ORDERABLES Final Resul t [facility] [address] [place] [address], [place] [phone] * (ABNORMAL) Culture urine (08/19/2024 12:40 PM EDT) Culture, Urine >100,000 CFU/mL Escherichia coli(A) ROSA 08/21/2024 11:20 AM EDT [facility] Urine Urine specimen obtained by clean catch procedure / Unknown 08/19/2024 12:40 PM EDT 08/19/2024 5:31 PM EDT Narrative [facility] - 08/21/2024 11:20 AM EDT Additional colony types present in insignificant amounts. Organism Antibiotic Method Susceptibility Escherichia coli Amoxicillin/Clavulanate ROSA <=2 ug/ml: Susceptible Escherichia coli Ampicillin/Sulbactam ROSA <=2 ug/ml: Susceptible Escherichia coli Piperacillin/Tazobactam ROSA <=4 ug/ml: Susceptible Escherichia coli Cefazolin (Urine) ROSA <=1 ug/ml: Susceptible Escherichia coli Cefoxitin ROSA <=4 ug/ml: Susceptible Escherichia coli Ceftazidime ROSA <=0.5 ug/ml: Susceptible Escherichia coli Ceftriaxone ROSA <=0.25 ug/ml: Susceptible Escherichia coli Cefepime ROSA <=0.12 ug/ml: Susceptible Escherichia coli Meropenem ROSA <=0.25 ug/ml: Susceptible Escherichia coli Amikacin ROSA 2 ug/ml: Susceptible Escherichia coli Gentamicin ROSA <=1 ug/ml: Susceptible Escherichia coli Ciprofloxacin ROSA <=0.06 ug/ml: Susceptible Escherichia coli Levofloxacin ROSA <=0.12 ug/ml: Susceptible Escherichia coli Nitrofurantoin ROSA <=16 ug/ml: Susceptible Escherichia coli Trimethoprim/Sulfamethoxazole ROSA >=320 ug/ml: Resistant Donnell Banuelos MD LAB MICROBIOLOGY - GENERAL ORDER FRANKIE Final Result [facility] [address] [place] [address], * (ABNORMAL) Complete blood count (08/19/2024 7:06 AM EDT) WBC 16.2(H) 4.8 - 10.8 K/mcL LAB HEMETOLOGY METHOD 08/19/2024 7:53 AM EDT [facility] RBC 4.10(L) 4.50 - 5.50 M/mcL LAB HEMETOLOGY METHOD 08/19/2024 7:53 AM EDT [facility] Hemoglobin 12.2(L) 13.5 - 17.5 g/dL LAB HEMETOLOGY METHOD 08/19/2024 7:53 AM EDT [facility] Hematocrit 37.3(L) 42.0 - 54.0 % LAB HEMETOLOGY METHOD 08/19/2024 7:53 AM EDT [facility] MCV 91.9 79.0 - 98.0 FL LAB HEMETOLOGY METHOD 08/19/2024 7:53 AM EDT [facility] MCH 30.0 27.0 - 32.0 pcg LAB HEMETOLOGY METHOD 08/19/2024 7:53 AM EDT [facility] MCHC 32.7 32.0 - 37.0 g/dL [facility] RDW 13.1 11.0 - 15.0 % LAB HEMETOLOGY METHOD 08/19/2024 7:53 AM EDT [facility] Platelets 313 130 - 400 K/mcL LAB HEMETOLOGY METHOD 08/19/2024 7:53 AM EDT [facility] MPV 9.7 7.0 - 11.0 FL LAB HEMETOLOGY METHOD 08/19/2024 7:53 AM EDT [facility] NRBC 0.0 <1.0 % LAB HEMETOLOGY METHOD 08/19/2024 7:53 AM EDT [facility] NRBC Absolute 0.00 <0.10 K/mcL [facility] 08/19/2024 7:53 AM EDT [facility] Blood Venous blood specimen / Unknown 08/19/2024 7:06 AM EDT 08/19/2024 7:45 AM EDT us Donnell Banuelos MD LAB BLOOD ORDERABLES Final Resul t [facility] [address] [place] [address], * (ABNORMAL) Comprehensive metabolic panel (08/19/2024 7:06 AM EDT) Only the most recent of2 resultswithin the time period is included. Sodium 142 133 - 145 mmol/L LAB CHEMISTRY METHOD 08/19/2024 8:38 AM EDT [facility] Potassium 3.8 3.5 - 5.5 mmol/L LAB CHEMISTRY METHOD 08/19/2024 8:38 AM EDT [facility] Chloride 107 96 - 110 mmol/L LAB CHEMISTRY METHOD 08/19/2024 8:38 AM T [facility] CO2 30 21 - 32 mmol/L LAB CHEMISTRY METHOD 08/19/2024 8:38 AM EDT [facility] Anion Gap 5 3 - 11 LAB CHEMISTRY METHOD 08/19/2024 8:38 AM [facility] Glucose 106(H) 70 - 100 mg/dL LAB CHEMISTRY METHOD 08/19/2024 8:38 AM [facility] BUN 43(H) 5 - 25 mg/dL LAB CHEMISTRY METHOD 08/19/2024 8:38 AM [facility] Comment:Results verified by repeat testing Creatinine 0.93 0.70 - 1.30 mg/dL LAB CHEMISTRY METHOD 08/19/2024 8:38 AM [facility] eGFR 104 >=60 mL/min/1. 73m2 LAB CHEMISTRY METHOD 08/19/2024 8:38 AM [facility] Comment:Calculation based on the Chronic Kidney Disease Epidemiology Collaboration (CKD-EPI) equation refit without adjustment for race. BUN/Creatinine Ratio 46.2 LAB CHEMISTRY METHOD 08/19/2024 8:38 AM [facility] Calcium 9.3 8.5 - 10.5 mg/dL LAB CHEMISTRY METHOD 08/19/2024 8:38 AM [facility] AST (SGOT) 83(H) 10 - 42 unit/L LAB CHEMISTRY METHOD 08/19/2024 8:38 AM [facility] Comment:Results verified by repeat testing ALT (SGPT) 45 10 - 60 unit/L LAB CHEMISTRY METHOD 08/19/2024 8:38 AM [facility] Alkaline Phosphatase 78 42 - 121 unit/L LAB CHEMISTRY METHOD 08/19/2024 8:38 AM [facility] Total Protein 7.9 6.0 - 8.0 g/dL LAB CHEMISTRY METHOD 08/19/2024 8:38 AM [facility] Albumin 3.5 3.2 - 5.0 g/dL LAB CHEMISTRY METHOD 08/19/2024 8:38 AM [facility] Total Bilirubin 0.5 0.0 - 1.4 mg/dL LAB CHEMISTRY METHOD 08/19/2024 8:38 AM EDT [facility] Blood Venous blood specimen / Unknown 08/19/2024 7:06 AM EDT 08/19/2024 7:45 AM EDT Donnell Banuelos MD LAB BLOOD ORDERABLES Final Resul t [facility] [address] [place] [address], * (ABNORMAL) CBC auto differential (08/14/2024 6:25 AM EDT) WBC 6.2 4.8 - 10.8 K/mcL LAB [facility] RBC 3.70(L) 4.50 - 5.50 M/mcL LAB HEMETOLOGY METHOD 08/14/2024 7:18 AM [facility] Hemoglobin 11.1(L) 13.5 - 17.5 g/dL LAB HEMETOLOGY METHOD 08/14/2024 7:18 AM [facility] Hematocrit 33.0(L) 42.0 - 54.0 % LAB HEMETOLOGY METHOD 08/14/2024 7:18 AM [facility] MCV 89.9 79.0 - 98.0 FL LAB HEMETOLOGY METHOD 08/14/2024 7:18 AM EDT [facility] MCH 30.2 27.0 - 32.0 pcg LAB HEMETOLOGY METHOD 08/14/2024 7:18 AM [facility] MCHC 33.6 32.0 - 37.0 g/dL LAB HEMETOLOGY METHOD 08/14/2024 7:18 AM [facility] RDW 13.0 11.0 - 15.0 % LAB HEMETOLOGY METHOD 08/14/2024 7:18 AM [facility] Platelets 267 130 - 400 K/mcL LAB HEMETOLOGY METHOD 08/14/2024 7:18 AM [facility] MPV 9.5 7.0 - 11.0 FL LAB HEMETOLOGY METHOD 08/14/2024 7:18 AM [facility] NRBC 0.0 <1.0 % LAB HEMETOLOGY METHOD 08/14/2024 7:18 AM [facility] NRBC Absolute 0.00 <0.10 K/mcL LAB HEMETOLOGY METHOD 08/14/2024 7:18 AM [facility] Neutrophils Relative 64.0 % LAB HEMETOLOGY METHOD 08/14/2024 7:18 AM [facility] Lymphocytes Relative 22.9 % LAB HEMETOLOGY METHOD 08/14/2024 7:18 AM [facility] Monocytes Relative 10.4 % LAB HEMETOLOGY METHOD 08/14/2024 7:18 AM [facility] Eosinophils Relative 1.9 % LAB HEMETOLOGY METHOD 08/14/2024 7:18 AM [facility] Basophils Relative 0.5 % LAB HEMETOLOGY METHOD 08/14/2024 7:18 AM [facility] Immature Granulocytes Relative 0.3 % LAB HEMETOLOGY METHOD 08/14/2024 7:18 AM [facility] Neutrophils Absolute 3.99 1.50 - 7.00 K/mcL LAB HEMETOLOGY METHOD 08/14/2024 7:18 AM [facility] Lymphocytes Absolute 1.43 1.00 - 5.00 K/mcL LAB HEMETOLOGY METHOD 08/14/2024 7:18 AM [facility] Monocytes Absolute 0.65 0.20 - 1.00 K/mcL LAB HEMETOLOGY METHOD 08/14/2024 7:18 AM [facility] Eosinophils Absolute 0.12 0.00 - 0.50 K/mcL LAB HEMETOLOGY METHOD 08/14/2024 7:18 AM EDT [facility] Basophils Absolute 0.03 0.00 - 0.20 K/mcL LAB HEMETOLOGY METHOD 08/14/2024 7:18 AM EDT [facility] Immature Granulocytes Absolute 0.02 0.00 - 0.03 K/mcL LAB HEMETOLOGY METHOD 08/14/2024 7:18 AM EDT [facility] Blood Venous blood specimen / Unknown 08/14/2024 6:25 AM EDT 08/14/2024 6:59 AM EDT us Donnell Banuelos MD LAB BLOOD ORDERABLES Final Resul t [facility] [address] [place] [address], * Cardiac device check - Remote- MURJ (07/10/2024 10:54 PM EDT) Only the most recent of2 resultswithin the time period is included. Date Time Interrogation Session [id number] CV DEVICE CHECK Type Interrogation Session Remote Scheduled CV DEVICE CHECK Implantable Pulse Generator General Operations Manager BSX CV DEVICE CHECK Implantable Pulse Generator Type IPG CV DEVICE CHECK Implantable Pulse Generator Model L111 CV DEVICE CHECK Implantable Pulse Generator Serial Number [id number] CV DEVICE CHECK Implantable Pulse Generator Implant Date 20230110 CV DEVICE CHECK Battery Remaining Percentage 100.00 CV DEVICE CHECK Battery Remaining Longevity 96.0 CV DEVICE CHECK Battery Status Beginning of Service CV DEVICE CHECK [place] Statistic RA Percent Paced 59.00 CV DEVICE CHECK [place] Statistic RV Percent Paced 0.00 CV DEVICE CHECK Atrial Tachy Statistic AT/AF [place] Percent 1.00 CV DEVICE CHECK Lead Channel Sensing Intrinsic Amplitude 4.700 CV DEVICE CHECK Lead Channel Setting Sensing Sensitivity 0.25 CV DEVICE CHECK Lead Channel Impedance Value 675 CV DEVICE CHECK Lead Channel Pacing Threshold Amplitude 0.500 CV DEVICE CHECK Lead Channel Pacing Threshold Pulse Width 0.4 CV DEVICE CHECK Lead Channel RA Pacing Threshold Date 2023-12-02 CV DEVICE CHECK Lead Channel Setting Pacing Amplitude 2.000 CV DEVICE CHECK Lead Channel Setting Pacing Pulse Width 0.4 CV DEVICE CHECK Lead Channel Sensing Intrinsic Amplitude 15.800 CV DEVICE CHECK Lead Channel Setting Sensing Sensitivity 0.60 CV DEVICE CHECK Lead Channel Impedance Value 414 CV DEVICE CHECK Lead Channel Pacing Threshold Amplitude 0.700 CV DEVICE CHECK Lead Channel Pacing Threshold Pulse Width 0.4 CV DEVICE CHECK Lead Channel RV Pacing Threshold Date 2023-12-02 CV DEVICE CHECK Lead Channel Setting Pacing Amplitude 1.300 CV DEVICE CHECK Lead Channel Setting Pacing Pulse Width 0.4 CV DEVICE CHECK [place]o Setting Mode (NBG Code) DDDR CV DEVICE CHECK [place] Setting Lower Rate Limit 60 CV DEVICE CHECK [place]o Setting AT Mode Switch Rate 170 CV DEVICE CHECK [place]o Setting Maximum Tracking Rate 130 CV DEVICE CHECK [place]o Setting Maximum Sensor Rate 130 CV DEVICE CHECK [place]o Setting PAV Delay 180 CV DEVICE CHECK [place]o Setting ARMIN Delay 150 CV DEVICE CHECK Zone Setting Type Category VT CV DEVICE CHECK Rate 160 CV DEVICE CHECK Zone Setting Status Monitor CV DEVICE CHECK Zone ID 1 CV DEVICE CHECK Date of Service 2023-12-14 CV DEVICE CHECK Anatomical Region Laterality Modality Device Interroga tion 12/04/2023 4:41 AM EDT Impressions 12/09/2023 11:45 PM EDT Normal Remote: No Events * Normal Device Function * Alerts or events: None * Battery: Battery is at 100%, 8.00 yrs * Sensing, impedance and thresholds reviewed * Programmed parameters reviewed * Presenting rhythm reviewed * Heart Rate Histograms reviewed * No significant changes noted Narrative Procedure Note Gretchen Douglas MD - 07/10/2024 IMPRESSION: Normal Remote: No Events * Normal Device Function * Alerts or events: None * Battery: Battery is at 100%, 8.00 yrs * Sensing, impedance and thresholds reviewed * Programmed parameters reviewed * Presenting rhythm reviewed * Heart Rate Histograms reviewed * No significant changes noted Gretchen Douglas MD CV IMPLANTABLE CARDIAC DEV ICE PROCEDURES Final Result * Lipid panel with reflex to direct LDL (05/07/2024 5:49 AM EST) Cholesterol 138 0 - 200 mg/dL LAB CHEMISTRY METHOD 05/07/2024 8:27 AM EST [facility] Triglycerides 109 0 - 150 mg/dL LAB CHEMISTRY METHOD 05/07/2024 8:27 AM EST [facility] HDL 60 >=40 mg/dL LAB CHEMISTRY METHOD 05/07/2024 8:27 AM [facility] LDL Calculated 56 0 - 100 mg/dL LAB CHEMISTRY METHOD 05/07/2024 8:27 AM EST [facility] VLDL Cholesterol Alex 21.8 mg/dL LAB CHEMISTRY METHOD 05/07/2024 8:27 AM [facility] Non HDL Chol. (LDL+VLDL) 78 <145 mg/dL LAB CHEMISTRY METHOD 05/07/2024 8:27 AM [facility] Chol/HDL Ratio 2.3 0.0 - 4.4 LAB CHEMISTRY METHOD 05/07/2024 8:27 AM [facility] Blood Venous blood specimen / Unknown 05/07/2024 5:49 AM EST 05/07/2024 6:24 AM EST us Donnell Banuelos MD LAB BLOOD ORDERABLES Final Resul t [facility]) [facility] [address] [place] [address], from Last 3 Months or Most Recently Relevant to Health Maintenance Insurance MEDICARE MEDICAID - [place] Advance Directives Documents on File Type Date Recorded Patient Bed Control Specialist Expl anation Health Care Decision (hx) 12/27/2022 AD PICKENS DIRECTIVE Health Care Decision (hx) 12/27/2022 AD PICKENS DIRECTIVE Care Teams Packing And Wrapping Supervisor Relationship Specialty Start Date End Date Donnell Banuelos MD [address] [place], [place] PCP - General Internal Medicine 11/03/21
--- OUTSIDE RECORDS SUMMARY | 2024-08-22 15:08 | XMS_ITS | Encounter Summary ---
Author Organization [facility] Address [address] [place] [address] Care Team Providers Care Rural Route Carrier Name Role Phone Donnell Banuelos MD Primary Care Provider [phone] Encounter Details Date Type Department Care Team (Late Contact Info) Description 05/15/[address] [facility] - Main Lab [address] [place] [phone] Donnell Banuelos MD [address] [place] [address] [address] [place], [place] Dysphagia following cerebral infarction Social History Tobacco [...] Description 03/11/2025 10:30 AM EST Ancillary Procedure [facility] - [facility] [address] [facility] [address] [place] [address] documented as of this encounter Procedures Procedure Name Priority Date/Time Associated Diagnosis Comments THYROXINE FREE Routine 05/15/2024 6:03 AM EST Dysphagia following cerebral infarction documented in this encounter Results * Thyroxine free (05/15/2024 6:03 AM EST) Free T4 1.24 0.70 - 1.80 ng/dL LAB CHEMISTRY METHOD 05/15/2024 8:[address] [facility] Blood Venous blood specimen / Unknown 05/15/2024 6:03 AM EST 05/15/2024 6:53 AM EST us Donnell Banuelos MD LAB BLOOD ORDERABLES Final Resul t [facility]) [facility] [address] [place] [address], documented in this encounter Visit Diagnoses Diagnosis Dysphagia following cerebral infarction Encounter for adjustment or management of cardiac device documented in this encounter Care Teams Rural Route Carrier Relationship Specialty Start Date End Date Donnell Banuelos MD [address] [place], [place] PCP - General Internal Medicine 11/03/21 documented as of this encounter
--- OUTSIDE RECORDS SUMMARY | 2024-08-22 15:08 | XMS_ITS | Encounter Summary ---
Author Organization [facility] Address [address] [place] [address] Care Team Providers Care Emergency Room Orderly Name Role Phone Donnell Banuelos MD Primary Care Provider [phone] Encounter Details Date Type Department Care Team (Late st Contact Info) Description 08/19/2024 Lab Requisition [facility] - Main Lab [address] [facility] [place] [phone] Donnell Banuelos MD [address] [place] [address] [address] [place], [place] Repeated falls Social History Tobacco Use Types Packs/Day Years [...] Description 03/11/2025 10:30 AM EST Ancillary Procedure [facility] - [facility] [address] [facility] [address] [place] [phone] documented as of this encounter Procedures Procedure Name Priority Date/Time Associated Diagnosis Comments URINALYSIS WITH REFLEX MICROSCOPIC AND CULTURE Routine 08/19/2024 12:40 PM EDT Repeated falls URINALYSIS WITH REFLEX MICROSCOPIC AND CULTURE Routine 08/19/2024 12:40 PM EDT Repeated falls CULTURE URINE Routine 08/19/2024 12:40 PM EDT Repeated falls documented in this encounter Results * (ABNORMAL) Culture urine (08/19/2024 12:40 PM EDT) Culture, Urine >100,000 CFU/mL Escherichia coli(A) ROSA 08/21/2024 11:20 AM EDT [facility] Urine Urine specimen obtained by clean catch procedure / Unknown 08/19/2024 12:40 PM EDT 08/19/2024 5:31 PM EDT Narrative [facility] - 08/21/2024 11:20 AM EDT [...] MICROBIOLOGY - GENERAL ORDER FRANKIE Final Result [facility] [address] [place] [address], * (ABNORMAL) Urinalysis with reflex microscopic and culture (08/19/2024 12:40 PM EDT) Specific [place] Urine 1.023 1.003 - 1.030 LAB URINALYSIS - AUTOMATED METHOD 08/19/2024 5:31 PM [facility] pH, Urine 6.0 5.0 - 8.0 pH LAB URINALYSIS - AUTOMATED METHOD 08/19/2024 5:31 PM [facility] Leukocytes, Urine Moderate(A) Negative LAB URINALYSIS - AUTOMATED METHOD 08/19/2024 5:31 PM [facility] Nitrite, Urine Positive(A) Negative LAB URINALYSIS - AUTOMATED METHOD 08/19/2024 5:31 PM [facility] Protein, Urine 100(A) <=Trace mg/dL LAB URINALYSIS - AUTOMATED METHOD 08/19/2024 5:31 PM [facility] Glucose, Urine Negative Negative mg/dL LAB URINALYSIS - AUTOMATED METHOD 08/19/2024 5:31 PM [facility] Ketones, Urine Trace(A) Negative mg/dL LAB URINALYSIS - AUTOMATED METHOD 08/19/2024 5:31 PM [facility] Urobilinogen , Urine 1.0 0.2 - 1.0 mg/dL LAB URINALYSIS - AUTOMATED METHOD 08/19/2024 5:31 PM [facility] Bilirubin, Urine Negative Negative LAB URINALYSIS - AUTOMATED METHOD 08/19/2024 5:31 PM [facility] Blood, Urine Small(A) Negative LAB URINALYSIS - AUTOMATED METHOD 08/19/2024 5:31 PM [facility] RBC, Urine 5.7(H) 0 - 4 /HPF LAB URINALYSIS - AUTOMATED METHOD 08/19/2024 5:31 PM [facility] WBC, Urine 121.1(H) 0 - 4 /HPF LAB URINALYSIS - AUTOMATED METHOD 08/19/2024 5:31 PM [facility] Squamous Epithelial, Urine 11 0 - 60 /LPF LAB URINALYSIS - AUTOMATED METHOD 08/19/2024 5:31 PM EDT [facility] Bacteria, Urine Many(A) Negative /HPF LAB URINALYSIS - AUTOMATED METHOD 08/19/2024 5:31 PM EDT [facility] Hyaline Casts, Urine 17.3(H) 0 - 3 /LPF LAB URINALYSIS - AUTOMATED METHOD 08/19/2024 5:31 PM EDT [facility] Urine Urine specimen obtained by clean catch procedure / Unknown 08/19/2024 12:40 PM EDT 08/19/2024 4:21 PM EDT us Donnell Banuelos MD LAB URINE ORDERABLES Final Resul t [facility] [address] [place] [address], documented in this encounter Visit Diagnoses Diagnosis Repeated falls Encounter for adjustment or management of cardiac device documented in this encounter Care Teams Emergency Room Orderly Relationship Specialty Start Date End Date Donnell Banuelos MD [address] PEDRO Fernandez PCP - General Internal Medicine 11/03/21 documented as of this encounter
--- OUTSIDE RECORDS SUMMARY | 2024-08-22 15:08 | XMS_ITS | Encounter Summary ---
Author Organization [facility] Address [address] [place] [address] Care Team Providers Care Customer Business Manager Name Role Phone Donnell Banuelos MD Primary Care Provider Encounter Details Date Type Department Care Team (Late Contact Info) Description 08/19/2024 Lab Requisition [facility] - Main Lab [address] [facility] [place] [phone] Donnell Banuelos MD [address] [place] [address] [address] [place], [place] Altered mental status, unspecified Social History Tobacco Use Types Packs/Day Years [...] Description 03/11/2025 10:30 AM EST Ancillary Procedure [facility] - [facility] [address] [facility] [address] [place] [phone] documented as of this encounter Procedures Procedure Name Priority Date/Time Associated Diagnosis Comments COMPLETE BLOOD COUNT Routine 08/19/2024 7:06 AM EDT Altered mental status, unspecified COMPREHENSIVE METABOLIC PANEL Routine 08/19/2024 7:06 AM EDT Altered mental status, unspecified documented in this encounter Results * (ABNORMAL) Complete blood count (08/19/2024 7:06 AM EDT) [facility] WBC 16.2(H) 4.8 - 10.8 K/mcL LAB HEMETOLOGY METHOD 08/19/2024 7:53 AM [facility] RBC 4.10(L) 4.50 - 5.50 M/mcL LAB HEMETOLOGY METHOD 08/19/2024 7:53 AM [facility] Hemoglobin 12.2(L) 13.5 - 17.5 g/dL LAB HEMETOLOGY METHOD 08/19/2024 7:53 AM [facility] Hematocrit 37.3(L) 42.0 - 54.0 % LAB HEMETOLOGY METHOD 08/19/2024 7:53 AM [facility] MCV 91.9 79.0 - 98.0 FL LAB HEMETOLOGY METHOD 08/19/2024 7:53 AM [facility] MCH 30.0 27.0 - 32.0 pcg LAB HEMETOLOGY METHOD 08/19/2024 7:53 AM [facility] MCHC 32.7 32.0 - 37.0 g/dL LAB HEMETOLOGY METHOD 08/19/2024 7:53 AM [facility] RDW 13.1 11.0 - 15.0 % LAB HEMETOLOGY METHOD 08/19/2024 7:53 AM [facility] Platelets 313 130 - 400 K/mcL LAB HEMETOLOGY METHOD 08/19/2024 7:53 AM [facility] MPV 9.7 7.0 - 11.0 FL LAB HEMETOLOGY METHOD 08/19/2024 7:53 AM [facility] NRBC 0.0 <1.0 % LAB HEMETOLOGY METHOD 08/19/2024 7:53 AM [facility] NRBC Absolute 0.00 <0.10 K/mcL LAB HEMETOLOGY METHOD 08/19/2024 7:53 AM [facility] Blood Venous blood specimen / Unknown 08/19/2024 7:06 AM EDT 08/19/2024 7:45 AM EDT us Donnell Banuelos MD LAB BLOOD ORDERABLES Final Resul t [facility] [address] [place] [address], * (ABNORMAL) Comprehensive metabolic panel (08/19/2024 7:06 AM EDT) Sodium 142 133 - 145 mmol/L LAB CHEMISTRY METHOD 08/19/2024 8:38 AM [facility] Potassium 3.8 3.5 - 5.5 mmol/L LAB CHEMISTRY METHOD 08/19/2024 8:38 AM [facility] Chloride 107 96 - 110 mmol/L LAB CHEMISTRY METHOD 08/19/2024 8:38 AM [facility] CO2 30 21 - 32 mmol/L LAB CHEMISTRY METHOD 08/19/2024 8:38 AM [facility] Anion Gap 5 3 - 11 LAB CHEMISTRY METHOD 08/19/2024 8:38 AM [facility] Glucose 106(H) 70 - 100 mg/dL LAB CHEMISTRY METHOD 08/19/2024 8:38 AM [facility] BUN 43(H) 5 - 25 mg/dL LAB CHEMISTRY METHOD 08/19/2024 8:38 AM [facility] Comment:Results verified by repeat testing Creatinine 0.93 0.70 - 1.30 mg/dL LAB CHEMISTRY METHOD 08/19/2024 8:38 AM [facility] eGFR 104 >=60 mL/min/1. 73m2 LAB CHEMISTRY METHOD 08/19/2024 8:38 AM [facility] Comment:Calculation based on the Chronic Kidney Disease Epidemiology Collaboration (CKD-EPI) equation refit without adjustment for race. BUN/Creatinine Ratio 46.2 LAB CHEMISTRY METHOD 08/19/2024 8:38 AM [facility] Calcium 9.3 8.5 - 10.5 mg/dL LAB CHEMISTRY METHOD 08/19/2024 8:38 AM [facility] AST (SGOT) 83(H) 10 - 42 unit/L LAB CHEMISTRY METHOD 08/19/2024 8:38 AM [facility] Comment:Results verified by repeat testing ALT (SGPT) 45 10 - 60 unit/L LAB CHEMISTRY METHOD 08/19/2024 8:38 AM [facility] Alkaline Phosphatase 78 42 - 121 unit/L LAB CHEMISTRY METHOD 08/19/2024 8:38 AM [facility] Total Protein 7.9 6.0 - 8.0 g/dL LAB CHEMISTRY METHOD 08/19/2024 8:38 AM [facility] Albumin 3.5 3.2 - 5.0 g/dL LAB CHEMISTRY METHOD 08/19/2024 8:38 AM [facility] Total Bilirubin 0.5 0.0 - 1.4 mg/dL LAB CHEMISTRY METHOD 08/19/2024 8:38 AM [facility] Blood Venous blood specimen / Unknown 08/19/2024 7:06 AM EDT 08/19/2024 7:45 AM EDT us Donnell Banuelos MD LAB BLOOD ORDERABLES Final Resul t [facility] [address] [place] [address], documented in this encounter Visit Diagnoses Diagnosis Altered mental status, unspecified Encounter for adjustment or management of cardiac device documented in this encounter Care Teams Customer Business Manager Relationship Specialty Start Date End Date Donnell Banuelos MD [address] [place] [address] Dr [facility] PEDRO Fernandez PCP - General Internal Medicine 11/03/21 documented as of this encounter
--- OUTSIDE RECORDS SUMMARY | 2024-08-22 15:08 | XMS_ITS | Encounter Summary ---
Author Organization [facility] Address [address] [place] [address] Care Team Providers Care Bag Filler Name Role Phone Donnell Banuelos MD Primary Care Provider Encounter Details Date Type Department Care Team (Late Contact Info) Description 03/10/2024 Lab Requisition [facility] - Main Lab [address] [facility] [place] [phone] Donnell Banuelos MD [address] [place] [address] [address] [place], [place] Other buttermaker helper (current) drug therapy; Dysphagia following cerebral infarction Social History Tobacco [...] Description 03/11/2025 10:30 AM EST Ancillary Procedure [facility] - [facility] [address] [facility] [address] [place] [phone] documented as of this encounter Procedures Procedure Name Priority Date/Time Associated Diagnosis Comments THYROID STIMULATING HORMONE Routine 03/10/2024 5:25 AM EST Dysphagia following cerebral infarction [facility] ([facility] drug therapy documented in this encounter Results * Thyroid stimulating hormone (03/10/2024 5:25 AM EST) TSH 1.16 0.40 - 4.00 mcIU/mL LAB CHEMISTRY METHOD 03/10/2024 10:24 AM EST [facility] Blood Venous blood specimen / Unknown 03/10/2024 5:25 AM EST 03/10/2024 6:51 AM EST Donnell Banuelos MD LAB BLOOD ORDERABLES Final Resul t [facility] ([facility] [address] [place] [address], documented in this encounter Visit Diagnoses Diagnosis 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
--- NOTE | 2024-08-22 15:43 | ED_ITS ---
HPI - Back Pain/Injury General Chief Complaint: Back Pain/Injury Stated Complaint: uti Time Seen by Provider: 08/22/24 15:40 History of Present Illness ED Provider: Dr. Peter Walter HPI Narrative: 42-year-old male with a past medical history of TAVR, hemiplegia and hemiparesis s/p CVA, bed-bound, hepatitis-C, encephalopathy, major depressive disorder, HLD, hx of alcohol dependence, Wicho-tachy syndrome, nonverbal presenting to the ED from [facility] severe back pain which is 10/10. Patient has a known UTI and is being treated with ceftriaxone. The patient can communicate using a letter board with yes and no answers. The patient is having severe back pain. He has had similar back pain in the past. He has been treated with morphine for his pain in the past. The patient has not used injection drugs for at least 4 year and he states that he has been at [facility] for 4 years. The following was obtained from the [facility] Hospital transfer form: Reason for transfer: Urinary tract infection, fever. Vital signs : BP 132/82, heart rate 80, respiratory rate 18, temperature 101.2 degrees, O2 saturation 95%. Most recent pain level: 10. Pain location: back. Most recent pain medication: Oxycodone/APAP 10/25 mg. Related Data Home Medications ?Medication ?Instructions ?Recorded ?Confirmed acetaminophen 325 mg tablet 650 mg PO Q6-8H PRN Fever 08/13/20 01/06/23 (Tylenol) docusate sodium 100 mg capsule 100 mg PO BID PRN Constipation 08/13/20 01/06/23 sennosides 8.6 mg tablet (senna) 8.6 mg PO DAILY 08/13/20 01/06/23 artificial tears solution eye drops 1 drp ophthalmic (eye) Q4H PRN Dry 01/06/23 01/06/23 Eye(S) naphazoline 0.025 %-pheniramine 1 drp ophthalmic (eye) QID PRN 01/06/23 01/06/23 0.3 % eye drops REDNESS Previous Rx's ?Medication ?Instructions ?Recorded midodrine 10 mg tablet 10 mg PO TID #30 tabs 01/07/23 Allergies Allergy/AdvReac Type Severity Reaction Status Date / Time erythromycin base Allergy Unknown Verified 08/22/24 14:54 ibuprofen Allergy Unknown Verified 08/22/24 14:54 ketorolac Allergy Unknown Verified 08/22/24 14:54 Sulfa (Sulfonamide Allergy Unknown Verified 08/22/24 14:54 Antibiotics) tramadol Allergy Unknown Verified 08/22/24 14:54 tromethamine Allergy Unknown Verified 08/22/24 14:54 [facility] Past Medical History Medical History Protein-calorie malnutrition, moderate Failure to thrive Sinus bradycardia Wicho-tachy syndrome Hypotension Bradycardia Lethargy Hepatitis C H/O alcohol dependence Anxiety Hyperlipidemia Scoliosis Pulmonary embolism Hypothyroid Dysphagia Hemiplegia affecting left nondominant side Surgical History H/O prosthetic heart valve Social History Social History Household Members: Unknown / Unable to assess Housing: Assisted Living Facility Alcohol intake: former Patient Tobacco Use Status: Tobacco use Unknown Advance Directives: Yes Advance Directives on File: Yes Advance Directives Date on File: 01/06/23 Do you have a plan to hurt others: No Plan service: No Current occupational status: disabled Physical Exam 2 Vital Signs: Vital Signs: Last Vital Signs Temp 98.0 F 08/22/24 19:11 Pulse 83 08/22/24 20:28 Resp 14 08/22/24 20:28 BP 124/68 08/22/24 20:28 Pulse Ox 92 08/22/24 20:28 O2 Del Method Room Air 08/22/24 20:28 BMI result Body Mass Index 17.8 Vital signs were normal Exam: General: Awake, alert in no distress, weight 51.7 kg, low BMI of 17.9 Head: Normocephalic, atraumatic EENT: PERRL, Lids normal, sclera normal, conjunctiva normal, nose normal , ears normal, throat without erythema or exudates Neck: Supple, no adenopathy Lung: breath sounds symmetric, no wheezing, rales or rhonchi Chest: symmetric movement, nontender Heart: regular rate and rhythm, normal S1, S2 , 3/6 systolic murmur best heard at the right upper quadrant Abdomen: soft, mild to moderate suprapubic tenderness,, nondistended, normal bowel sounds Back: Mild bilateral CVA tenderness, no point vertebral tenderness, tenderness palpation of the paraspinal muscles in the lumbar sacral area with no spasm Psych: Pleasant, cooperative Course Reevaluation(s) Reevaluation #1: Dr. Mulligan: The patient was signed out to me at change of shift pending the results of a CT scan of the abdomen and pelvis. The patient is a 43-year-old male who was chronically ill and lives at the [facility] where he has lived for many years. Apparently they were concerned about a possible UTI in the last couple of days and started him on cefuroxime (not ceftriaxone) yesterday. Apparently they had sent a urine specimen to a lab through the [facility] system. He received a dose yesterday evening and a dose this morning. Despite this he was febrile today and he was sent here. He has been complaining of some right- sided back pain. Prior to my evaluation the patient had received IV cefepime and IV vancomycin. Labs were fairly unremarkable. His lactate was normal. The patient is very difficult to communicate with because of his chronic brain issues. The CT of the abdomen and pelvis suggested the possibility of right-sided pyelonephritis. There was also a question of a left lower lobe infiltrate. Given these findings the patient will be hospitalized for further care. Time: 21:07 Medications Administered Discontinued Medications Generic Name Dose Route Start Last Admin Trade Name Freq PRN Reason Stop Dose Admin Sodium Chloride 1,000 mls @ 999 mls/hr 08/22/24 16:16 08/22/24 17:43 Ns IV 08/22/24 17:16 Infused .Q1H1M STA Infusion Vancomycin HCl 1,250 mg/ 250 mls @ 166.667 mls/hr 08/22/24 17:07 08/22/24 20:03 Sodium Chloride IV 08/22/24 18:36 Infused ONCE ONE Infusion Cefepime HCl 2 gm in 50 mls @ 100 mls/hr 08/22/24 17:08 08/22/24 17:54 Maxipime IV 08/22/24 17:37 Infused ONCE ONE Infusion Iohexol 100 ml 08/22/24 18:03 08/22/24 18:03 Iohexol 350 Mg/Ml 100 Ml Infus..Btl IV 08/22/24 18:04 85 ml ONCE ONE Administration Morphine Sulfate 4 mg 08/22/24 16:16 08/22/24 16:43 Morphine Sulfate 4 Mg/Ml Cartridge IVPUSH 08/22/24 16:17 4 mg ONCE STA Administration Protocol Medical Decision Making Medical Decision Making MDM Narrative: 42-year-old male with a past medical history of IVDU, endocarditis, TAVR x3(last on February 2023), bradycardia, hypotension, hemiplegia d/t CVA, bed-bound, and wicho-tachy syndrome , bed-bound, hepatitis-C, encephalopathy, major depressive disorder, HLD, hx of alcohol dependence, Wicho-tachy syndrome, nonverbal presenting to the ED from [facility] severe back pain which is 10/10. Patient has a known UTI and is being treated with ceftriaxone. The patient can communicate using a letter board with yes and no answers. The patient is having severe back pain. He has had similar back pain in the past. He has been treated with morphine for his pain in the past. The following was obtained from the [facility] Hospital transfer form: Reason for transfer: Urinary tract infection, fever. Vital signs : BP 132/82, heart rate 80, respiratory rate 18, temperature 101.2 degrees, O2 saturation 95%. Most recent pain level: 10. Pain location: back. Most recent pain medication: Oxycodone/APAP 10/25 mg. Physical examination did reveal suprapubic tenderness, mild bilateral CVA tenderness and tenderness palpation over his paraspinal muscles in the lumbar sacral area with no point tenderness over his vertebrae. Patient does have a 3/6 systolic murmur best heard at the right upper sternal border. 17:13 Differential diagnosis: ?Includes but is not limited to pneumonia, endocarditis, pyelonephritis, urinary tract infection, musculoskeletal pain, anemia, electrolyte abnormalities Course: 17:[address] scan of the abdomen pelvis with IV contrast to evaluate the patient for possible hydronephrosis, pyelonephritis and other sources for possible infection. I am also obtain a chest x-ray, laboratory evaluation including lactic acid and blood cultures. Given the patient's fever in his nursing facility in the fact that he is being treated for urinary tract infection with ceftriaxone I am concerned that he may a resistant organism causing his persistent symptoms in his back pain. Therefore I ordered vancomycin 1250 mg IV and cefepime 2 g IV. At the end of my shift, patient's studies are pending and the patient's care was turned over to my colleague, Dr. Rene Mulligan. Admission/Observation Consideration of admission/observation: Escalation of care including admission/observation considered (Yes) Lab Data 08/22/24 16:48 08/22/24 16:48 Labs: Lab Results 08/22/24 08/22/24 Range/Units 16:48 19:14 WBC 9.5 (4.8-10.8) X10*3/uL RBC 3.96 L (4.60-5.80) X10*6/uL Hgb 12.0 L (14.0-18.0) g/dl Hct 37.1 L (42.0-52.0) % MCV 93.7 (80.0-98.0) fL MCH 30.3 (27.0-33.0) pg MCHC 32.3 (31.0-36.0) g/dl RDW 13.3 (11.0-16.0) % Plt Count 354 D (160-400) X10*3/uL MPV 9.4 (9.4-12.4) fL Immature Gran % (Auto) 0.3 (0.0-0.4) % Neut % (Auto) 70.5 (45-73) % Lymph % (Auto) 19.6 L (20-40) % [place] % (Auto) 8.4 (2-11) % Eos % (Auto) 0.7 (0-4) % Baso % (Auto) 0.5 (0-2) % Lymph # (Auto) 1.9 (1.2-4.9) X10*3/uL [place] # (Auto) 0.8 (0.1-1.2) X10*3/uL Eos # (Auto) 0.1 (0.0-0.4) X10*3/uL Baso # (Auto) 0.1 (0.0-0.2) X10*3/uL Abs Immat Gran (auto) 0.03 (0.00-0.03) X10*3/uL Absolute Neuts (auto) 6.7 (2.0-8.3) x10*3/uL Absolute Nucleated RBC 0.000 (0.0-0.012) X10*3/uL Nucleated RBC % (auto) 0.0 (0.0-0.2) /100WBC ESR 42 H (0-15) MM/HR Sodium 150 H (135-145) mmol/L Potassium 4.0 (3.3-5.1) mmol/L Chloride 112 H (96-108) mmol/L Carbon Dioxide 30 H (22-29) mmol/L Anion Gap 12 (12-20) BUN 24 H (9-16) mg/dL Creatinine 0.63 (0.5-1.4) mg/dL Estim Creat Clear Calc 109.4 Estimated GFR > 60 Random Glucose 87 (60-115) mg/dL Lactic Acid 0.9 (0.5-2.0) mmol/L Calcium 8.7 (8.4-10.2) mg/dL Magnesium 2.2 (1.6-2.6) mg/dL Total Bilirubin 0.4 (0.0-1.0) mg/dL AST 52 H (5-37) U/L ALT 37 (0-40) U/L Alkaline Phosphatase 58 (39-117) U/L Total Creatine Kinase 352 H (38-174) U/L C-Reactive Protein 6.37 H (< or = 0.50) mg/dL B-Natriuretic Peptide 263 H (<100) pg/mL Total Protein 7.2 (6.5-8.0) g/dL Albumin 3.2 L (3.5-5.0) g/dL Lipase 20 (8-78) U/L Urine Color Yellow Urine Appearance Clear Urine pH 6.5 (5.0-9.0) Ur Specific [place] >= 1.030 H (1.005-1.025) Urine Protein Trace (Neg-Trace) mg/dL Urine Glucose (UA) Negative (Negative) mg/dL Urine Ketones Trace (Negative) mg/dL Urine Blood Negative (Negative) Urine Nitrite Negative (Negative) Ur Leukocyte Esterase Trace H (Negative) Urine RBC 6-10 H (0-2) /HPF Urine WBC 0-5 (0-5) /HPF Ur Squamous Epith Cells 0-2 (0-2) /HPF Urine Bacteria None Seen (None Seen) Hyaline Casts 0-2 (0-2) /LPF External Record Review External record reviewed: Outside ED record ([facility] jail facility notes) Discharge Plan Discharge Clinical Impression: Fever, Back pain Patient Disposition: Admitted As Inpatient
[2024-08-22] MEDS: Morphine Sulfate 4 MG/ML CARTRIDGE IVPUSH (16:43)
[2024-08-22] MEDS: 0.9 % Sodium Chloride 1,000 ML 999 ML IV (16:44)
[2024-08-22 16:55] LABS: MANUAL DIFF FLAG NO
[2024-08-22 17:08] LABS: Basophils Absolute Auto 0.1 X10*3/uL (0.0-0.2); Basophils Percent Auto 0.5 % (0-2); Eosinophils Absolute Auto 0.1 X10*3/uL (0.0-0.4); Eosinophils Percent Auto 0.7 % (0-4); Hematocrit 37.1 % (42.0-52.0); Imm Gran Abs Auto 0.03 X10*3/uL (0.00-0.03); Imm Gran Pct Auto 0.3 % (0.0-0.4); Lymphocytes Absolute Auto 1.9 X10*3/uL (1.2-4.9); Lymphocytes Percent Auto 19.6 % (20-40); Mean Corpuscular HGB Conc 32.3 g/dl (31.0-36.0); Mean Corpuscular Hemoglobin 30.3 pg (27.0-33.0); Mean Corpuscular Volume 93.7 fL (80.0-98.0); Mean Platelet Volume 9.4 fL (9.4-12.4); Monocytes Absolute Auto 0.8 X10*3/uL (0.1-1.2); Monocytes Percent Auto 8.4 % (2-11); Neutrophils Absolute Auto 6.7 x10*3/uL (2.0-8.3); Neutrophils Percent Auto 70.5 % (45-73); Platelet Count 354 X10*3/uL (160-400); Red Blood Count 3.96 X10*6/uL (4.60-5.80); Red Cell Distribution Width 13.3 % (11.0-16.0); White Blood Count 9.5 X10*3/uL (4.8-10.8)
[2024-08-22 17:16] LABS: Alanine Aminotransferase 37 U/L (0-40); Albumin Level 3.2 g/dL (3.5-5.0); Alkaline Phosphatase 58 U/L (39-117); Anion Gap 12 (12-20); Aspartate Amino Transferase 52 U/L (5-37); Bilirubin Total 0.4 mg/dL (0.0-1.0); Blood Urea Nitrogen 24 mg/dL (9-16); Calcium 8.7 mg/dL (8.4-10.2); Carbon Dioxide 30 mmol/L (22-29); Chloride 112 mmol/L (96-108); Creatinine Clr Calc Pharmacy 109.4; Estimated Glomerular Filt Rate > 60; Glucose Random 87 mg/dL (60-115); Lipase 20 U/L (8-78); Magnesium 2.2 mg/dL (1.6-2.6); Sodium 150 mmol/L (135-145); Total Protein 7.2 g/dL (6.5-8.0)
[2024-08-22 17:17] LABS: Lactic Acid 0.9 mmol/L (0.5-2.0)
[2024-08-22 17:20] LABS: B Type Natriuretic Peptide 263 pg/mL (<100)
[2024-08-22 17:31] LABS: C Reactive Protein 6.37 mg/dL (< or = 0.50)
[2024-08-22] MEDS: cefEPime HCl/D5W 2 GM/50 ML PIGGYBACK IV (17:32)
[2024-08-22] MEDS: iohexoL 350 MG/ML 100 ML INFUS..BTL IV (18:03)
[2024-08-22 18:05] LABS: Erythrocyte Sedimentation Rate 42 MM/HR (0-15)
[2024-08-22] MEDS: vancomycin HCL 1,250 MG in 0.9 % Sodium Chloride 250 ML 166.67 MG IV (18:11)
--- NOTE | 2024-08-22 18:25 | PC.NURSE ---
Call received from small brake form operator Fadumo at [facility] inquiring about an update on Pt. Brief overview given and advised still waiting for CT results. Fadumo reports she will call Pts mom to update.
--- NOTE | 2024-08-22 19:18 | PC.NURSE ---
assumed care of patient, patient incont of urine at this time. cleaned and new linens applied.
[2024-08-22 19:19] LABS: Appearance Urine Clear; Color Urine Yellow; Glucose Urine UA Negative (Negative); Leukocyte Esterase Urine Trace (Negative); Nitrite Urine Negative (Negative); PH 6.5 (5.0-9.0); Specific Gravity - Urine >= 1.030 (1.005-1.025); UMIC TRIGGER UACC YES; Urine Blood Negative (Negative); Urine Ketones Trace mg/dL (Negative); Urine Protein Trace mg/dL (Neg-Trace)
[2024-08-22 19:35] LABS: Bacteria Urine None Seen (None Seen); Hyaline Casts Urine 0-2 /LPF (0-2); Squamous Epithelial Cell Urine 0-2 /HPF (0-2); WBC Urine 0-5 /HPF (0-5)
--- NOTE | 2024-08-22 20:17 | PC.NURSE ---
patient incont of urine, bed linens changed wood care providers male purewick applied at this time
--- NOTE | 2024-08-22 21:20 | P.HPHOSP_ITS ---
History of Present Illness Date of Service: 08/22/24 Attending physician on admission: Dennis Hodgson Chief Complaint: back pain Patient is a 43-year-old male living permanently at [facility], nonverbal but able to communicate using letter chart and thumbs up and thumbs down for yes and no, has past medical history of hx of IVDU, endocarditis, aortic valve replacement x3, bradycardia, hypotension, hemiplegia d/t CVA, bed-bound, and wicho-tachy syndrome with PPM, constipation, dysphagia was brought in from [facility] for complaints of back pain per ED evaluation. Patient did not have fever on arrival but eventually temperature max at 100.1. Patient has no leukocytosis, denies chills or fever, Mid Left LUng PNA noted on CXR, possibly from aspiraton as pt is on a vegetarian pureed diet with hx fo dysphagia. Pt is permitted to have thin liquids according to his records from [facility]. In addition, pyelonephritis noted in R kidney on CT scan ABD/PELVIS with evidence of stool burden and constipation. No calculus or hydronephrosis seen, Patient being admitted for antibiotic therapy for suspected aspiration pneumonia and right pyelonephritis.Pure wick is draining ck yellow urine, no sediment seen. Incidentally patient has a sodium of 150, D5W started with repeat sodium at 23:00. CK 352, mildley elevated. BMI noted at 17.9. Nutritional consultation will be ordered as well. Review of Systems 2 Review of Systems: Patient reports thumbs down to chest pain, shortness of breath at rest, headache. Patient reports thumbs up to being hungry. [facility] Medical History Protein-calorie malnutrition, moderate Failure to thrive Sinus bradycardia Wicho-tachy syndrome Hypotension Bradycardia Lethargy Hepatitis C H/O alcohol dependence Anxiety Hyperlipidemia Scoliosis Pulmonary embolism Hypothyroid Dysphagia Hemiplegia affecting left nondominant side Cognitive capacity: nonverbal, alert to self, able to communicate nonverbally using letter sheet, thumbs up for yes, thumbs up for no. Functional capacity: bed bound Pertinent family history: Patient unable to provide Surgical History Status post transcatheter aortic valve replacement (TAVR) using bioprosthesis H/O prosthetic heart valve Social History Household Members: Unknown / Unable to assess Housing: Assisted Living Facility Alcohol intake: former Patient Tobacco Use Status: Tobacco use Unknown Advance Directives: Yes Advance Directives on File: Yes Advance Directives Date on File: 01/06/23 Do you have a plan to hurt others: No Plan service: No Current occupational status: disabled Ebola Risk: Travel/Contact With Anyone From Affected Area/s: No Has Patient Experienced Ebola Symptoms: No Meds Allergies Allergy/AdvReac Type Severity Reaction Status Date / Time erythromycin base Allergy Unknown Verified 08/22/24 14:54 ibuprofen Allergy Unknown Verified 08/22/24 14:54 ketorolac Allergy Unknown Verified 08/22/24 14:54 Sulfa (Sulfonamide Allergy Unknown Verified 08/22/24 14:54 Antibiotics) tramadol Allergy Unknown Verified 08/22/24 14:54 tromethamine Allergy Unknown Verified 08/22/24 14:54 Active Medications: Current Medications Acetaminophen (Acetaminophen 325 Mg Tablet) 650 mg PO Q6H PRN PRN Reason: Pain, Mild 1-3,fever,headache Albuterol/Ipratropium (Albuterol/Iprat 2.5/0.5mg 3 Ml Ampul.Neb) 3 ml INHALE Q4H PRN PRN Reason: Shortness of Breath/Wheezing Calcium Carbonate (Calcium Carbonate 750 Mg Tab.Chew) 750 mg PO Q4H PRN PRN Reason: Heartburn Enoxaparin Sodium (Enoxaparin Sodium 40 Mg/0.4 Ml Syringe) 40 mg SUBCUT Q24H PORFIRIO Magnesium Hydroxide (Milk Of Magnesia 30 Ml Oral.Susp) 30 ml PO DAILY PRN PRN Reason: Constipation Melatonin (Melatonin 3 Mg Tablet) 6 mg PO BEDTIME PRN PRN Reason: Insomnia Ondansetron HCl (Ondansetron Hcl 4 Mg/2 Ml Vial) 4 mg IVPUSH Q8H PRN PRN Reason: Nausea and Vomiting Senna (Sennosides 8.6 Mg Tablet) 17.2 mg PO BEDTIME PORFIRIO Sodium Chloride (0.9 % Sodium Chloride Flush 3 Ml Syringe) 3 ml IVFLUSH QSHIFT [facility] Home Medications ?Medication ?Instructions ?Recorded ?Confirmed ?Last Taken ?Type acetaminophen 325 mg tablet 650 mg PO Q6-8H PRN Fever 08/13/20 01/06/23 Unknown History (Tylenol) docusate sodium 100 mg capsule 100 mg PO BID PRN Constipation 08/13/20 01/06/23 Unknown History sennosides 8.6 mg tablet (senna) 8.6 mg PO DAILY 08/13/20 01/06/23 Unknown History artificial tears solution eye drops 1 drp ophthalmic (eye) Q4H PRN Dry 01/06/23 01/06/23 Unknown History Eye(S) naphazoline 0.025 %-pheniramine 1 drp ophthalmic (eye) QID PRN 01/06/23 01/06/23 Unknown History 0.3 % eye drops REDNESS Physical Exam 2 Vital Signs and Narrative: Vital Signs: Last Vital Signs Temp 98.0 F 08/22/24 19:11 Pulse 83 08/22/24 20:28 Resp 14 08/22/24 20:28 BP 124/68 08/22/24 20:28 Pulse Ox 92 08/22/24 20:28 O2 Del Method Room Air 08/22/24 20:28 BMI result Body Mass Index 17.8 Alert to self, non verbal, can communicate non verbally Neuro: pt can follow commands, visual acuity intact EYES: PERRLA, EOM intact ENT: hearing intact, uvula midline, lips moist, nares patent no epistaxis, pt uses dentures Cardiac: S1 S2 RRR, systolic murmur, no JVD, no edema in Lower ext, PPM under left chest Pulmonary: lungs diminished bilaterally, left lower lobe greater than right Abdominal: BS active in all 4 quadrants, no guarding, tenderness, rebounding, mild distention MSK: strength 2-3/5 upper and lower extremities, noted muscle atrophy : no CVA tenderness no bladder distension Extremities: no edema in lower extremities, PT and DP pulses palpable +2 Psych: mood stable, judgement and insight fair Skin: Unable to examine the backside, no other obvious wounds found Results Labs 08/22/24 16:48 08/22/24 16:48 Labs: Laboratory Results - last 24 hr 08/22/24 08/22/24 16:48 19:14 MCV 93.7 MCH 30.3 MCHC 32.3 RDW 13.3 Plt Count 354 D MPV 9.4 Immature Gran % (Auto) 0.3 Neut % (Auto) 70.5 Lymph % (Auto) 19.6 L [place] % (Auto) 8.4 Eos % (Auto) 0.7 Baso % (Auto) 0.5 Lymph # (Auto) 1.9 [place] # (Auto) 0.8 Eos # (Auto) 0.1 Baso # (Auto) 0.1 Abs Immat Gran (auto) 0.03 Absolute Neuts (auto) 6.7 Absolute Nucleated RBC 0.000 Nucleated RBC % (auto) 0.0 ESR 42 H Anion Gap 12 Estim Creat Clear Calc 109.4 Estimated GFR > 60 Random Glucose 87 Lactic Acid 0.9 Calcium 8.7 Magnesium 2.2 Total Bilirubin 0.4 AST 52 H ALT 37 Alkaline Phosphatase 58 Total Creatine Kinase 352 H C-Reactive Protein 6.37 H B-Natriuretic Peptide 263 H Total Protein 7.2 Albumin 3.2 L Lipase 20 Urine Color Yellow Urine Appearance Clear Urine pH 6.5 Ur Specific [place] >= 1.030 H Urine Protein Trace Urine Glucose (UA) Negative Urine Ketones Trace Urine Blood Negative Urine Nitrite Negative Ur Leukocyte Esterase Trace H Urine RBC 6-10 H Urine WBC 0-5 Ur Squamous Epith Cells 0-2 Urine Bacteria None Seen Hyaline Casts 0-2 ECG Attestation: I personally reviewed and interpreted this ECG as follows: Prior ECG tracings: not available for review Imaging Radiologist's Impressions: CT ABD PELVIS MPRESSION: 1. Probable pyelonephritis of the right kidney. 2. There is a focus of infiltrate within the left lower lung CXR IMPRESSION: Consolidative change within the left lung, compatible with pneumonia. Assessment and Plan (1) Pyelonephritis: Status: Acute (2) Pneumonia: Qualifiers: Laterality: left Lung location: lower lobe of lung Pneumonia type: due to unspecified organism Qualified Code(s): J18.9 - Pneumonia, unspecified organism Status: Acute Plan Patient is a 43-year-old male living permanently at [facility], nonverbal but able to communicate using letter chart and thumbs up and thumbs down for yes and no, has past medical history of hx of IVDU, endocarditis, aortic valve replacement x3, bradycardia, hypotension, hemiplegia d/t CVA, bed-bound, and wicho-tachy syndrome with PPM, constipation, dysphagia was brought in for complaints of back pain and diagnosed with pyelonephritis of the right kidney and left lower lobe pneumonia. Pyelonephritis -IV hydration -ceftriaxone azithromycin -Purewick in place -no evidence of hydronephrosis or calculus -no evidence of enlarged prostate on CT scan -morphine p.r.n. for pain Pneumonia -left lower lobe possibly from aspiration as patient has known dysphagia -ceftriaxone and azithromycin -duo nebs -and supportive care -incentive spirometer Hypernatremia -D5W at 80 per hour -recheck BMP at 23:00 -monitor closely Metabolic alkalosis -BNP will be repeated at 2300 Elevated CK level -IV fluids initiated -repeat CK in the a.m. Under weight -nutritional consultation ordered -supplements ordered DVT prophylaxis: Lovenox Med rec pending Full Code status Quality Stroke Does the patient have a stroke diagnosis?: No Reason for No Anti-thrombotic by Day Two: N/A - Med Ordered VTE Prior VTE?: No VTE Risk Level:: Medical - moderate - high VTE Device Contraindication: N/A - Device Ordered VTE Drug Contraindication: N/A - Med Ordered
[2024-08-22] MEDS: Enoxaparin Sodium 40 MG/0.4 ML SYRINGE SUBCUT (21:52)
[2024-08-22] MEDS: Dextrose 5 % 1,000 ML 80 ML IVCONT (21:53)
[2024-08-22] MEDS: Azithromycin 500 MG in 0.9 % Sodium Chloride 250 ML 125 MG IV (21:53)
[2024-08-22] MEDS: Acetaminophen 325 MG TABLET 650 MG PO (22:11)
[2024-08-22] MEDS: Morphine Sulfate 2 MG/ML CARTRIDGE 1 MG IVPUSH (23:43)
[2024-08-22 23:44] LABS: Anion Gap 11 (12-20); Blood Urea Nitrogen 20 mg/dL (9-16); Calcium 8.4 mg/dL (8.4-10.2); Carbon Dioxide 27 mmol/L (22-29); Chloride 114 mmol/L (96-108); Creatinine Clr Calc Pharmacy 116.8; Estimated Glomerular Filt Rate > 60; Glucose Random 116 mg/dL (60-115); Potassium 3.9 mmol/L (3.3-5.1); Sodium 148 mmol/L (135-145)
[2024-08-22] MEDS: 0.9 % Sodium Chloride Flush 3 ML SYRINGE IVFLUSH (23:46)
[2024-08-23] VITALS (7 sets, daily range): BP systolic 111–132; BP diastolic 55–70; PULSE 54–73; RESP 14–18; TEMP 36.2–36.9; O2SAT 92–97
[2024-08-23] MEDS: Morphine Sulfate 2 MG/ML CARTRIDGE IVPUSH (01:56)
--- NOTE | 2024-08-23 02:53 | HO.SKINPHOTO ---
Location: Left buttocks Category: Stage: Length: Width: Depth: cm
--- NOTE | 2024-08-23 02:54 | HO.SKINPHOTO ---
Location: R heel Category: Stage: Length: Width: Depth: cm
--- NOTE | 2024-08-23 02:54 | HO.SKINPHOTO ---
Location:coccyx Category: Stage: Length: Width: Depth: cm Location : r heel location: L buttock
--- NOTE | 2024-08-23 04:28 | PC.NURSE ---
Patient to floor approx 0045, via stretcher from ED. Patient came with male purewick in place. pressure ulcer to coccyx, skin tear to right buttock and blanchable pink bony prominence along mid spine, foams placed. Large blister appears fluid filled with redness surrouning, painful per pt, open to air, but elevated off bed using two pillows. Photos placed in chart an wound consult placed.
[2024-08-23 06:29] LABS: Alanine Aminotransferase 32 U/L (0-40); Albumin Level 2.8 g/dL (3.5-5.0); Alkaline Phosphatase 47 U/L (39-117); Anion Gap 10 (12-20); Aspartate Amino Transferase 48 U/L (5-37); Bilirubin Total 0.3 mg/dL (0.0-1.0); Blood Urea Nitrogen 21 mg/dL (9-16); Calcium 8.2 mg/dL (8.4-10.2); Carbon Dioxide 27 mmol/L (22-29); Chloride 113 mmol/L (96-108); Creatinine Clr Calc Pharmacy 125.3; Estimated Glomerular Filt Rate > 60; Glucose Random 91 mg/dL (60-115); Potassium 3.7 mmol/L (3.3-5.1); Sodium 146 mmol/L (135-145); Total Protein 6.1 g/dL (6.5-8.0)
--- NOTE | 2024-08-23 08:08 | P.PNIM_ITS ---
Subjective Subjective Date of Service: 08/23/24 Interval History: uti /pyelonephritis Review of Systems awake does not answer questions Review of Systems: Yes all other systems are reviewed and are negative Physical Exam 2 Vital Signs: Vital Signs: Last Vital Signs Temp 97.1 F 08/23/24 07:26 Pulse 73 08/23/24 07:26 Resp 14 08/23/24 07:26 BP 114/55 L 08/23/24 07:26 Pulse Ox 93 08/23/24 07:26 O2 Del Method Room Air 08/23/24 07:26 BMI result Body Mass Index 17.8 Appearance: please see h&P note. cvs: rrr, [id number]. res: air entry seems somewhat diminshes lower bases. abd: no rebound or guarding ,nt, bs present. ext pulses present , no cyanosis . neuro: axo3 , nonfocal. Objective Data Active Medications Acetaminophen (Acetaminophen 325 Mg Tablet) 650 mg PO Q6H PRN PRN Reason: Pain, Mild 1-3,fever,headache Last Admin: 08/22/24 22:11 Dose: 650 mg Documented By: GARY Albuterol/Ipratropium (Albuterol/Iprat 2.5/0.5mg 3 Ml Ampul.Neb) 3 ml INHALE Q4H PRN PRN Reason: Shortness of Breath/Wheezing Calcium Carbonate (Calcium Carbonate 750 Mg Tab.Chew) 750 mg PO Q4H PRN PRN Reason: Heartburn Ceftriaxone Sodium (Ceftriaxone Sodium 1 Gm Vial) 1 gm IVPUSH Q24H COUNT INCLUDES THE [facility] Enoxaparin Sodium (Enoxaparin Sodium 40 Mg/0.4 Ml Syringe) 40 mg SUBCUT Q24H COUNT INCLUDES THE [facility] Last Admin: 08/22/24 21:52 Dose: 40 mg Documented By: GARY Azithromycin 500 mg/ Sodium (Chloride) 250 mls @ 125 mls/hr IV Q24H COUNT INCLUDES THE [facility] Last Infusion: 08/23/24 00:16 Dose: Infused Documented By: GARY Dextrose (D5w) 1,000 mls @ 80 mls/hr IVCONT .[id number] COUNT INCLUDES THE [facility] Last Admin: 08/22/24 21:53 Dose: 80 mls/hr Documented By: GARY Magnesium Hydroxide (Milk Of Magnesia 30 Ml Oral.Susp) 30 ml PO DAILY PRN PRN Reason: Constipation Melatonin (Melatonin 3 Mg Tablet) 6 mg PO BEDTIME PRN PRN Reason: Insomnia Morphine Sulfate (Morphine Sulfate 2 Mg/Ml Cartridge) 2 mg IVPUSH Q4H PRN; Protocol PRN Reason: Pain, Severe (Pain Scale 7-10) Last Admin: 08/23/24 01:56 Dose: 2 mg Documented By: JOSÉ MIGUEL Ondansetron HCl (Ondansetron Hcl 4 Mg/2 Ml Vial) 4 mg IVPUSH Q8H PRN PRN Reason: Nausea and Vomiting Senna (Sennosides 8.6 Mg Tablet) 17.2 mg PO BEDTIME PORFIRIO Sodium Chloride (0.9 % Sodium Chloride Flush 3 Ml Syringe) 3 ml IVFLUSH QSHIFT PORFIRIO Last Admin: 08/23/24 06:58 Dose: Not Given Documented By: RAÚL Non-Admin Reason: IV Running Labs 08/22/24 16:48 08/23/24 05:37 Labs: Laboratory Results - last 24 hr 08/22/24 08/22/24 08/22/24 16:48 19:14 23:24 MCV 93.7 MCH 30.3 MCHC 32.3 RDW 13.3 Plt Count 354 D MPV 9.4 Immature Gran % (Auto) 0.3 Neut % (Auto) 70.5 Lymph % (Auto) 19.6 L Morton % (Auto) 8.4 Eos % (Auto) 0.7 Baso % (Auto) 0.5 Lymph # (Auto) 1.9 Morton # (Auto) 0.8 Eos # (Auto) 0.1 Baso # (Auto) 0.1 Abs Immat Gran (auto) 0.03 Absolute Neuts (auto) 6.7 Absolute Nucleated RBC 0.000 Nucleated RBC % (auto) 0.0 ESR 42 H Hold Purple Top SEE NOTE Anion Gap 12 11 L Estim Creat Clear Calc 109.4 116.8 Estimated GFR > 60 > 60 Random Glucose 87 116 H Lactic Acid 0.9 Calcium 8.7 8.4 Magnesium 2.2 Total Bilirubin 0.4 AST 52 H ALT 37 Alkaline Phosphatase 58 Total Creatine Kinase 352 H C-Reactive Protein 6.37 H B-Natriuretic Peptide 263 H Total Protein 7.2 Albumin 3.2 L Lipase 20 Urine Color Yellow Urine Appearance Clear Urine pH 6.5 Ur Specific Delong >= 1.030 H Urine Protein Trace Urine Glucose (UA) Negative Urine Ketones Trace Urine Blood Negative Urine Nitrite Negative Ur Leukocyte Esterase Trace H Urine RBC 6-10 H Urine WBC 0-5 Ur Squamous Epith Cells 0-2 Urine Bacteria None Seen Hyaline Casts 0-2 08/23/24 05:37 MCV MCH MCHC RDW Plt Count MPV Immature Gran % (Auto) Neut % (Auto) Lymph % (Auto) Morton % (Auto) Eos % (Auto) Baso % (Auto) Lymph # (Auto) Morton # (Auto) Eos # (Auto) Baso # (Auto) Abs Immat Gran (auto) Absolute Neuts (auto) Absolute Nucleated RBC Nucleated RBC % (auto) ESR Hold Purple Top Anion Gap 10 L Estim Creat Clear Calc 125.3 Estimated GFR > 60 Random Glucose 91 Lactic Acid Calcium 8.2 L Magnesium Total Bilirubin 0.3 AST 48 H ALT 32 Alkaline Phosphatase 47 Total Creatine Kinase 228 H C-Reactive Protein B-Natriuretic Peptide Total Protein 6.1 L Albumin 2.8 L Lipase Urine Color Urine Appearance Urine pH Ur Specific Delong Urine Protein Urine Glucose (UA) Urine Ketones Urine Blood Urine Nitrite Ur Leukocyte Esterase Urine RBC Urine WBC Ur Squamous Epith Cells Urine Bacteria Hyaline Casts Assessment and Plan (1) Pyelonephritis: Status: Acute (2) Pneumonia: Status: Acute Assessment and Plan: 43-year-old male living permanently at [facility], nonverbal but able to communicate using letter chart and thumbs up and thumbs down for yes and no, has past medical history of hx of IVDU, endocarditis, aortic valve replacement x3, bradycardia, hypotension, hemiplegia d/t CVA, bed-bound, and kenneth-tachy syndrome with PPM, constipation, dysphagia was brought in for complaints of back pain and diagnosed with pyelonephritis of the right kidney and left lower lobe pneumonia. possible Pyelonephritis: added urine cultures -not sent earlier ,blood cultures pending Purewick in place,no evidence of hydronephrosis or calculus,no evidence of enlarged prostate. plan: IV hydration,ceftriaxone azithromycin,morphine p.r.n. for pain Pneumonia-left lower lobe possibly from aspiration as patient has known dysphagia blood cultures pending TWIST TESTER eval plan:ceftriaxone and azithromycin,duo nebs,and supportive care,incentive spirometer Hypernatremia: improving with d5w moniter electrolytes closely. Elevated CK level: improving -IV fluids initiated Under weight-nutritional consultation ordered supplements ordered DVT prophylaxis: Lovenox ongoing need: pneumonia /pyelonephritis -iv antiobiotics ,need oven attendant ,hypernbatremia -nee renal fyunction, Electrolyte monitoring and IV antibiotics, also blood culture pending. Quality Stroke Does the patient have a stroke diagnosis?: No Reason for No Anti-thrombotic by Day Two: N/A - Med Ordered VTE Prior VTE?: No VTE Risk Level:: Medical - moderate - high VTE Device Contraindication: N/A - Device Ordered VTE Drug Contraindication: N/A - Med Ordered
--- NOTE | 2024-08-23 09:44 | PHA.MEDREC ---
Addendum entered by Lilliana Man RPh 08/23/24 18:30: Reviewed by [facility] Original Note: Pharmacy Consult ? Medication Reconciliation Pharmacy has completed the medication reconciliation. List from Bonita mcneil [place].
[2024-08-23 11:31] LABS: Sodium 145 mmol/L (135-145)
[2024-08-23] MEDS: Dextrose 5 % 1,000 ML 80 ML IVCONT (11:35)
[2024-08-23 11:52] LABS: Adenovirus PCR Not Detected (Not Detect.); Bordetella parapertussis PCR Not Detected (Not Detect.); Bordetella pertussis PCR Not Detected (Not Detect.); Chlamydia pneumoniae PCR Not Detected (Not Detect.); Coronavirus 229E PCR Not Detected (Not Detect.); Coronavirus HKU1 PCR Not Detected (Not Detect.); Coronavirus NL63 PCR Not Detected (Not Detect.); Coronavirus OC43 PCR Not Detected (Not Detect.); Human metapneumovirus PCR Not Detected (Not Detect.); Influenza A PCR Not Detected (Not Detect.); Influenza B PCR Not Detected (Not Detect.); Mycoplasma pneumoniae PCR Not Detected (Not Detect.); Parainfluenza 1 PCR Not Detected (Not Detect.); Parainfluenza 2 PCR Not Detected (Not Detect.); Parainfluenza 3 PCR Not Detected (Not Detect.); Parainfluenza 4 PCR Not Detected (Not Detect.); RSV PCR Not Detected (Not Detect.); Rhino/Enterovirus PCR Not Detected (Not Detect.)
[2024-08-23 11:56] LABS: Influenza A H1 PCR Not Detected (Not Detect.); Influenza A H1-2009 PCR Not Detected (Not Detect.); Influenza A H3 PCR Not Detected (Not Detect.); SARS-CoV-2 PCR Not Detected (Not Detect.)
--- NOTE | 2024-08-23 13:15 | MHC.SL.SWA ---
Risk of Aspiration Due to: bed bound ?aspiration PNA Dysphasia Diet Status: UPGRADE Liquid Consistency and Strategies for Safe Swallow: Liquid Intake Recommendation: [place] Thick Liquid Intake Strategies: NO STRAW Solid Food Consistency: Dietary Recommendations: Pureed (NDD1) Oral Medication Intake: Crushed with Puree Please contact the pharmacy regarding appropriate crushable or liquid drug formulations that are available whenever modified delivery is recommended. Compensatory Strategies and Precautions to be Taken for Safe Swallow: Sitting upright No straws Oral check Alternate liquids/solids Slow rate Supervision While Eating and Drinking for Safe Swallow: Total Assistance (1:1) Recommendation for Speech: Inpatient Speech Therapy Speech Therapy through Rehab Facility Modified Barium Swallow Study - Inpatient Modified Barium Swallow Study - Outpatient Comment: Pt recommended UPGRADE to baseline diet of PUREE solids (NDD1) and NECTAR THICK liquids with MEDS CRUSHED in PUREE. Pt requires 1-1 assist; able to take cup/spoon to mouth w/ decreased speed. Encourage self feeding. Pt presents w/ intermittent prolonged bolus hold; provide cues to swallow and/or elicit empty spoon to mouth to check if oral cavity is clear. Recommend MBSS to rule in/out aspiration (outpatient vs. inpatient) considering ?aspiration PNA during current hospitalization and prolonged use of thickened liquids w/o instrumental swallow evaluation. Recommend SUGAR COATING HAND tx at next level of care for dysphagia and communication. Frequency/Duration: M-F Transportation Job Titles Clinican/Clinical Fellow: No Supervisory Statement: I have reviewed and agree with the student/clinical fellow's documentation: N/A Speech Language Pathologist: Yazmin Garcia M.A., CCC-SUGAR COATING HAND
[2024-08-23] MEDS: Levothyroxine Sodium 100 MCG TABLET PO (14:26)
[2024-08-23] MEDS: oxyCODONE HCl Immed Release 5 MG TABLET PO ×2 (14:26→19:36)
[2024-08-23] MEDS: Midodrine HCl 5 MG TABLET 15 MG PO ×2 (14:26→19:35)
[2024-08-23] MEDS: Escitalopram Oxalate 5 MG TABLET PO (14:27)
[2024-08-23] MEDS: Multivitamin TABLET 1 TAB PO (14:27)
--- NOTE | 2024-08-23 16:00 | MHC.CM.PN ---
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
[2024-08-23] MEDS: 0.9 % Sodium Chloride Flush 3 ML SYRINGE IVFLUSH (16:29)
[2024-08-23] MEDS: cefTRIAXone sodium 1 GM VIAL IVPUSH (16:29)
[2024-08-23] MEDS: Albumin Human 25 % 100 ML IV ×2 (16:32→23:27)
[2024-08-23] MEDS: Famotidine 20 MG TABLET PO (19:35)
[2024-08-23] MEDS: oxyCODONE HCl Immed Release 5 MG TABLET 10 MG PO (19:47)
[2024-08-23] MEDS: Azithromycin 500 MG in 0.9 % Sodium Chloride 250 ML 125 MG IV (21:18)
[2024-08-23] MEDS: Enoxaparin Sodium 40 MG/0.4 ML SYRINGE SUBCUT (21:19)
[2024-08-24 03:51] VITALS: BP 128/64; PULSE 63; RESP 18; TEMP 36.6; O2SAT 97
[2024-08-24] MEDS: Levothyroxine Sodium 100 MCG TABLET PO (05:58)
[2024-08-24] MEDS: Albumin Human 25 % 100 ML IV ×2 (05:59→10:52)
[2024-08-24 07:32] VITALS: BP 102/58; PULSE 65; RESP 16; TEMP 36; O2SAT 97
[2024-08-24] MEDS: oxyCODONE HCl Immed Release 5 MG TABLET 10 MG PO ×3 (07:40→20:34)
[2024-08-24] MEDS: Nicotine 7 MG PATCH.TD24 TRANSDERMA (07:41)
[2024-08-24] MEDS: Multivitamin TABLET 1 TAB PO (07:41)
[2024-08-24] MEDS: Escitalopram Oxalate 5 MG TABLET PO (07:42)
[2024-08-24] MEDS: Sennosides 8.6 MG TABLET PO (07:42)
[2024-08-24 11:36] VITALS: BP 111/56; PULSE 61; RESP 16; TEMP 36.1; O2SAT 97
[2024-08-24 11:53] VITALS: BMI 17.8
--- NOTE | 2024-08-24 12:05 | MHC.CLN ---
NUTRITION DIET ORDER IS VEGETARIAN, PUREE, WITH NECTAR THICK LIQUIDS. PATIENT INDICATED THAT OK FOR ENSURE TID. SUPPLEMENT PROVIDES 1050 KCALS, 60 G PROTEIN. INCREASED NUTRITION NEEDS DUE TO STAGE II PRESSURE INJURY TO RIGHT BUTTOCK. SUPPLEMENT TO PROMOTE WOUND HEALING AND PROVIDE ADDITIONAL KCALS. QUALIFIES MODERATELY MALNOURISHED IN THE SEE CLINICAL NUTRITION ASSESSMENT 08/24/24.
[2024-08-24] MEDS: Midodrine HCl 5 MG TABLET 15 MG PO ×2 (12:11→16:43)
--- NOTE | 2024-08-24 14:57 | MHC.CM.PN ---
EMR REVIEWED AND PER MD ROUNDS, PT IS NOT MEDICALLY CLEARED FOR DC . EMILY KRISHNA UPDATED. CM CONTINUES TO FOLLOW
[2024-08-24 15:19] VITALS: BP 111/79; PULSE 72; RESP 18; TEMP 36.5; O2SAT 97
--- NOTE | 2024-08-24 15:50 | HO.PM.IMPN ---
Subjective Subjective Date of Service: 08/24/24 Interval History: No acute issues overnight. Appears back to baseline (well known to me from [facility]) Review of Systems Unable to obtain Physical Exam Vital Signs: Vital Signs: Last Vital Signs Temp 97.7 F 08/24/24 15:19 Pulse 72 08/24/24 15:19 Resp 18 08/24/24 15:19 BP 111/79 08/24/24 15:19 Pulse Ox 97 08/24/24 15:19 O2 Del Method Room Air 08/24/24 15:19 BMI result Body Mass Index 17.8 Const: Other: Awake alert nonverbal Resp: Other: Clear to auscultation bilaterally no rales rhonchi or wheezes Cardio: Other: No S4; positive S1-S2; no S3 murmurs rubs or gallops GI: Other: Soft nontender nondistended normoactive bowel sounds Extrem: Other: No edema bilaterally Objective Data Active Medications Acetaminophen (Acetaminophen 325 Mg Tablet) 650 mg PO Q6H PRN PRN Reason: Pain, Mild 1-3,fever,headache Last Admin: 08/22/24 22:11 Dose: 650 mg Documented By: GARY Albuterol/Ipratropium (Albuterol/Iprat 2.5/0.5mg 3 Ml Ampul.Neb) 3 ml INHALE Q4H PRN PRN Reason: Shortness of Breath/Wheezing Artificial Tears (Artificial Tears 15 Ml Drops) 1 drop EYE-BOTH Q4H PRN PRN Reason: Dry Eyes Benzocaine (Benzocaine 20 % Oral Gel 9 Gm Tube) 1 appl MUCOUS MEM QID PRN; Protocol PRN Reason: Mouth Pain Bisacodyl (Bisacodyl 10 Mg Supp.Rect) 10 mg UT DAILY PRN PRN Reason: Constipation Calcium Carbonate (Calcium Carbonate 750 Mg Tab.Chew) 750 mg PO Q4H PRN PRN Reason: Heartburn Ceftriaxone Sodium (Ceftriaxone Sodium 1 Gm Vial) 1 gm IVPUSH Q24H PORFIRIO Last Admin: 08/23/24 16:29 Dose: 1 gm Documented By: RAÚL Cyclobenzaprine HCl (Cyclobenzaprine Hcl 10 Mg Tablet) 10 mg PO TID PRN PRN Reason: Muscle Spasm Diazepam (Diazepam 5 Mg Tablet) 2.5 mg PO BID PRN PRN Reason: Anxiety Enoxaparin Sodium (Enoxaparin Sodium 40 Mg/0.4 Ml Syringe) 40 mg SUBCUT Q24H [facility] Last Admin: 08/23/24 21:19 Dose: 40 mg Documented By: KADIE Escitalopram Oxalate (Escitalopram Oxalate 5 Mg Tablet) 5 mg PO DAILY [facility] Last Admin: 08/24/24 07:42 Dose: 5 mg Documented By: KADIE Famotidine (Famotidine 20 Mg Tablet) 20 mg PO BEDTIME [facility] Last Admin: 08/23/24 19:35 Dose: 20 mg Documented By: KADIE Guaifenesin (Guaifenesin 200 Mg/10 Ml 10 Ml Liquid) 5 ml PO Q4H PRN PRN Reason: Cough Hydroxyzine HCl (Hydroxyzine Hcl 25 Mg Tablet) 25 mg PO QID PRN PRN Reason: Anxiety Azithromycin 500 mg/ Sodium (Chloride) 250 mls @ 125 mls/hr IV Q24H [facility] Last Infusion: 08/23/24 23:28 Dose: Infused Documented By: RISA Ketoconazole (Ketoconazole 2 % Shampoo 120 Ml Btl) 1 appl TOPICAL TUTHSA@2100 [facility]; Protocol Ketotifen Fumarate (Ketotifen Fumarate 0.025% Oph 5 Ml Drpbtl) 1 drop EYE-BOTH BID PRN PRN Reason: redness Levothyroxine Sodium (Levothyroxine Sodium 100 Mcg Tablet) 100 mcg PO DAILY@0600 [facility] Last Admin: 08/24/24 05:58 Dose: 100 mcg Documented By: RISA Magnesium Hydroxide (Milk Of Magnesia 30 Ml Oral.Susp) 30 ml PO DAILY PRN PRN Reason: Constipation Melatonin (Melatonin 3 Mg Tablet) 6 mg PO BEDTIME PRN PRN Reason: Insomnia Midodrine (Midodrine Hcl 5 Mg Tablet) 15 mg PO TIDWM [facility] Last Admin: 08/24/24 12:11 Dose: 15 mg Documented By: KADIE Multivitamins/Vitamin C (Multivitamin Tablet) 1 tab PO DAILY [facility] Last Admin: 08/24/24 07:41 Dose: 1 tab Documented By: KADIE Nicotine (Nicotine 7 Mg Patch.Td24) 7 mg TRANSDERMA DAILY [facility] Last Admin: 08/24/24 07:41 Dose: 7 mg Documented By: KADIE Ondansetron HCl (Ondansetron Hcl 4 Mg/2 Ml Vial) 4 mg IVPUSH Q8H PRN PRN Reason: Nausea and Vomiting Oxycodone HCl (Oxycodone Hcl Immed Release 5 Mg Tablet) 10 mg PO TID [facility] Last Admin: 08/24/24 14:13 Dose: 10 mg Documented By: KADIE Senna (Sennosides 8.6 Mg Tablet) 8.6 mg PO DAILY [facility] Last Admin: 08/24/24 07:42 Dose: 8.6 mg Documented By: KADIE Senna (Sennosides 8.6 Mg Tablet) 8.6 mg PO DAILY PRN PRN Reason: Constipation Sodium Biphosphate/Sodium Phosphate (Sodium Phosphate,Chase-Dibasic 133 Ml Enema) 118 ml UT DAILY PRN PRN Reason: Constipation Sodium Chloride (0.9 % Sodium Chloride Flush 3 Ml Syringe) 3 ml IVFLUSH QSHIFT [facility] Last Admin: 08/24/24 07:42 Dose: Not Given Documented By: KADIE Non-Admin Reason: IV Running Labs 08/22/24 16:48 08/23/24 11:13 Microbiology Microbiology Results: Microbiology 08/23/24 11:00 Urine Culture - Final Urine clean catch - Clean Catch Midstream No growth. 08/22/24 16:48 Blood Culture - Preliminary Blood - Venous No growth after 24 hours. 08/22/24 16:48 Blood Culture - Preliminary Blood - Venous No growth after 24 hours. Assessment and Plan (1) Pneumonia: Status: Acute Assessment and Plan: 43-year-old male living permanently at [facility], nonverbal but able to communicate using letter chart and thumbs up and thumbs down for yes and no, has past medical history of hx of IVDU, endocarditis, aortic valve replacement x3, bradycardia, hypotension, hemiplegia d/t CVA, bed-bound, and kenneth-tachy syndrome with PPM, constipation, dysphagia was brought in for complaints of back pain and diagnosed with pyelonephritis of the right kidney and left lower lobe pneumonia. 1.Pneumonia-left lower lobe -blood cultures and urine cultures negative -continue ceftriaxone/azithromycin (3) -switch to doxy/Augmentin on discharge -REGIONAL AGRONOMIST recommendations appreciated 2. CVA with aphasia and left hemiplegia -stable and well compensated -continue outpatient therapies 3. Dysphagia secondary to 2. -and I DD wound diet as per speech Lovenox Full code Patient will require ongoing hospitalization for IV antibiotics to treat pneumonia Quality Stroke Does the patient have a stroke diagnosis?: No Reason for No Anti-thrombotic by Day Two: N/A - Med Ordered VTE Prior VTE?: No VTE Risk Level:: Medical - moderate - high VTE Device Contraindication: N/A - Device Ordered VTE Drug Contraindication: N/A - Med Ordered
--- NOTE | 2024-08-24 15:51 | MHC.SL.SWA ---
Speech Pathologist Impression: Mild oropharyngeal dysphagia (baseline) Risk of Aspiration Due to: Hx of dysphagia Hx of aphonia Postural challenges Dysphasia Diet Status: Pt would benefit from instrumental exam to evaluate extent of dysphagia (MBSS). Liquid Consistency and Strategies for Safe Swallow: Liquid Intake Recommendation: [place] Thick Liquid Intake Strategies: Solid Food Consistency: Dietary Recommendations: Pureed (NDD1) Additional Modifications to Solid Foods: Oral Medication Intake: Crushed with Puree Please contact the pharmacy regarding appropriate crushable or liquid drug formulations that are available whenever modified delivery is recommended. Compensatory Strategies and Precautions to be Taken for Safe Swallow: Sitting Upright (90 deg) Small Bites and Sips Rate of Ingestion Change Supervision While Eating and Drinking for Safe Swallow: Total Assistance (1:1) Foods to Avoid: Swallowing Recommended Treatments: Compens. Strategy Educat. 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 inpatient) considering ?aspiration PNA PIPELINES SUPERVISOR tx at next level of care for dysphagia and communication is indicated Frequency/Duration: M-F Date Range for Service Req: Timeline to reassess: Business Technology Teacher Clinican/Clinical Fellow: No Supervisory Statement: I have reviewed and agree with the student/clinical fellow's documentation: N/A Speech Language Pathologist: Negra Gaxiola M.S., [facility] SUPERVISOR
[2024-08-24] MEDS: cefTRIAXone sodium 1 GM VIAL IVPUSH (16:41)
[2024-08-24 19:10] VITALS: BP 100/65; PULSE 64; RESP 18; TEMP 36.5; O2SAT 95
[2024-08-24] MEDS: Famotidine 20 MG TABLET PO (20:34)
[2024-08-24] MEDS: Enoxaparin Sodium 40 MG/0.4 ML SYRINGE SUBCUT (22:17)
[2024-08-24] MEDS: Azithromycin 500 MG in 0.9 % Sodium Chloride 250 ML 125 MG IV (22:17)
[2024-08-24] MEDS: 0.9 % Sodium Chloride Flush 3 ML SYRINGE IVFLUSH (22:17)
[2024-08-24 23:26] VITALS: BP 129/62; PULSE 67; RESP 20; TEMP 36.7; O2SAT 93
[2024-08-25 03:06] VITALS: BP 111/61; PULSE 73; RESP 20; TEMP 36.4; O2SAT 96
[2024-08-25] MEDS: Levothyroxine Sodium 100 MCG TABLET PO (05:56)
[2024-08-25 07:54] VITALS: BP 132/60; PULSE 65; RESP 16; TEMP 36.3; O2SAT 97
[2024-08-25] MEDS: Midodrine HCl 5 MG TABLET 15 MG PO ×2 (08:49→12:30)
[2024-08-25] MEDS: Acetaminophen 325 MG TABLET 650 MG PO (08:49)
[2024-08-25] MEDS: oxyCODONE HCl Immed Release 5 MG TABLET 10 MG PO (08:50)
[2024-08-25] MEDS: Escitalopram Oxalate 5 MG TABLET PO (08:51)
[2024-08-25] MEDS: Nicotine 7 MG PATCH.TD24 TRANSDERMA (08:51)
[2024-08-25] MEDS: Multivitamin TABLET 1 TAB PO (08:51)
[2024-08-25] MEDS: Sennosides 8.6 MG TABLET PO (08:51)
[2024-08-25 11:15] VITALS: BP 143/81; PULSE 94; RESP 18; TEMP 37.7; O2SAT 93
--- NOTE | 2024-08-25 12:45 | PM.DS ---
DS: Providers Provider Date of Service: 08/25/24 Date of admission: 08/22/24 19:53 Date of discharge: 08/25/24 Primary care physician: Donnell Banuelos DO Consults: 08/23/24 04:26 Consult to Wound Care Routine Reason for consultation: pressure ulcer to coccyx, skin tear left buttock, large blister right heel DS: Diagnosis Discharge Diagnosis (1) Pneumonia: Status: Acute DS: Summary Hospital Course Hospital Course: 43-year-old male living permanently at [facility], nonverbal but able to communicate using letter chart and thumbs up and thumbs down for yes and no, has past medical history of hx of IVDU, endocarditis, aortic valve replacement x3, bradycardia, hypotension, hemiplegia d/t CVA, bed-bound, and kenneth-tachy syndrome with PPM, constipation, dysphagia was brought in from [facility] for complaints of back pain per ED evaluation. Patient did not have fever on arrival but eventually temperature max at 100.1. Patient has no leukocytosis, denies chills or fever, Mid Left LUng PNA noted on CXR, possibly from aspiraton as pt is on a vegetarian pureed diet with hx fo dysphagia. Pt is permitted to have thin liquids according to his records from [facility]. In addition, pyelonephritis noted in R kidney on CT scan ABD/PELVIS with evidence of stool burden and constipation. No calculus or hydronephrosis seen, Hospital course Patient admitted to general medical floor and started on ceftriaxone azithromycin. Although CAT scan showed some perinephric stranding, urine was unremarkable. Patient was seen by speech who recommended NDD 1 with nectar thick liquids. Upon return to [facility] he can be assessed by speech add facility once again to ensure diet is appropriate. This time all blood cultures and urine cultures were negative so he will be returned to complete treatment for left mid lobe pneumonia with Ceftin 500 b.i.d. and doxycycline 100 b.i.d. both for 10 days. Time Attestation Discharge Coordination Time (in mins): 35 Quality: Safe Use of Opioids Does Pt have an Active Cancer Diagnosis on the Problem List?: No Quality: Stroke Does the patient have a stroke diagnosis?: No Physical Exam Vital Signs: Vital Signs: Last Vital Signs Temp 99.8 F 08/25/24 11:15 Pulse 94 08/25/24 11:15 Resp 18 08/25/24 11:15 BP 143/81 H 08/25/24 11:15 Pulse Ox 93 08/25/24 11:15 O2 Del Method Room Air 08/25/24 11:15 BMI result Body Mass Index 17.8 Const: Other: Awake alert nonverbal Resp: Other: Clear to auscultation bilaterally no rales rhonchi or wheezes Cardio: Other: No S4; positive S1-S2; no S3 murmurs rubs or gallops GI: Other: Soft nontender nondistended normoactive bowel sounds Extrem: Other: No edema bilaterally DS: Data Data Completed and Pending Labs on day of discharge: Preliminary micro results at discharge 08/22/24 16:48 Blood Culture - Preliminary Blood - Venous No growth after 48 hours. 08/22/24 16:48 Blood Culture - Preliminary Blood - Venous No growth after 48 hours. Discharge Plan Discharge Anticipated Discharge Date/Time: 08/25/24 12:40 Patient Disposition: Xfer LT Discharge Diagnosis: Left mid lobe pneumonia Referrals: [facility] [Outside] - 1 Week (RESUMPTION OF UI ARCHITECT CARE) Donnell Banuelos DO [Primary Care Provider] - 1 Week Discharge Medications: New doxycycline hyclate 100 mg tablet 100 mg PO BID Qty: 20 0RF Continued sennosides [senna] 8.6 mg Tablet 8.6 mg PO DAILY acetaminophen [Tylenol] 325 mg Tablet 650 mg PO Q6H PRN (Reason: Fever) multivitamin Tablet 1 tab PO DAILY cyclobenzaprine 10 mg Tablet 10 mg PO TID PRN (Reason: Muscle Spasm) sennosides [senna] 8.6 mg Tablet 8.6 mg PO DAILY PRN (Reason: Constipation) ketoconazole 2 % Shampoo 1 appl TOPICAL TUTHSA@2100 citalopram 10 mg Tablet 10 mg PO DAILY aspirin 81 mg Tablet,Delayed Release (Dr/Ec) 81 mg PO DAILY guaifenesin 100 mg/5 mL Liquid 100 mg PO Q4H PRN (Reason: Cough) levothyroxine 100 mcg Tablet 100 mcg PO DAILY@0600 famotidine 20 mg Tablet 20 mg PO BEDTIME oxycodone-acetaminophen 10-325 mg Tablet 1 tab PO TID carboxymethylcellulose sodium [Refresh Tears] 0.5 % Drops 1 drp OPHTHALMIC (EYE) Q4H PRN (Reason: Dry Eyes) bisacodyl 10 mg Suppository 10 mg ND DAILY PRN (Reason: Constipation) Fleet Enema 19-7 gram/118 mL Enema 118 ml ND DAILY PRN (Reason: Constipation) docusate sodium 100 mg Capsule 100 mg PO BID hydroxyzine HCl 25 mg Tablet 25 mg PO QID PRN (Reason: Anxiety) cefuroxime axetil 500 mg tablet 500 mg PO BID Rx Instructions: START DATE: 08/24/24; END DATE: 09/02/24 benzocaine 20 % Gel 1 appl MUCOUS MEMBRANE QID PRN (Reason: Mouth Pain) Naphcon-A 0.025-0.3 % Drops 2 drp OPHTHALMIC (EYE) QID PRN (Reason: redness) diazepam 5 mg Tablet 2.5 mg PO BID PRN (Reason: Anxiety) nicotine 7 mg/24 hr Patch 24 Hour 1 patch TRANSDERMAL DAILY Minerin Creme Cream 1 appl TOPICAL BID midodrine 10 mg tablet 15 mg PO TID Discharge Orders: Discharge Order (Routine); Ordered 08/25/24 Ordered By: Donnell Banuelos Diet: Advance to usual diet Activity on Discharge: As tolerated Stand Alone Forms: Patient Portal Discharge page Print Language: Slovak Care Plan Goals: Complete course of Ceftin as started prior to hospitalization. Doxycycline 100 mg twice daily for 10 days has been added to this regimen Health Concerns: Resume all other meds as taken previously a [facility] Plan of Treatment: Resume all treatments as prior to hospitalization Assessment: See discharge summary
--- NOTE | 2024-08-25 12:58 | MHC.CM.PN ---
DP: PT HAS BEEN MEDICALLY CLEARED FOR DC BACK TO [facility] FOR RESUMPTION OF LTC. RN NOTIFIED. CENTER AWARE AND WILL PROVIDE TRANSPORT BACK TO [place] AT 2 PM. GUARDIAN UPDATED ON RETURN.
[2024-08-25 12:59] VITALS: TEMP 37.1
--- NOTE | 2024-08-25 13:52 | P.CDIM_ITS ---
PROVIDER RESPONSE TEXT: To clarify, the appropriate diagnosis supported by the clinical indicators: Cachexia QUERY TEXT: PHYSICIAN'S DOCUMENTATION REQUEST Date of Query: 08/25/2024 10:37 AM EDT Patient Name: LAZARUS EDWARDS Admit Date: 08/22/2024 Dear Donnell Banuelos DO, A review of the medical record indicates additional documentation may be needed. Please review below and update the documentation accordingly. Clinical Indicators: Height: ( ) 5'7 Weight: ( ) 51.7 kg BMI: ( ) 17.8 Other Clinical Notes Supporting Significance of the BMI: per Clinical Nutrition assessment 08/24/24: mild depletion body fat rib cage, mild depletion muscle mass clavicle qualifies as moderately malnourished in the context of chronic illness Ensure TID If possible, please provide an associated diagnosis related to the abnormal BMI, such as: Underweight Weight loss Cachexia Anorexia Moderate Protein Calorie Malnutrition Other (explain) Clinically unable to determine (explain) Thank you, Laverne Aguayo RN Use of terms such as suspected, likely, concern for, or probable (associated with a specific diagnosi s that is being evaluated, monitored, or treated as if it exists) are acceptable and can be coded in the inpatient se tting, when documented at the time of discharge. Please use your independent medical judgment in providing your response. THIS QUERY IS PART OF THE PERMANENT MEDICAL RECORD
[2024-08-25 13:57] VITALS: BP 145/63; PULSE 66; RESP 18; TEMP 37.1; O2SAT 94
== END 2024-08-25 14:09 | DRG 178 ==
LOC: HO.ED 19:49 → HO.EDOVER 19:56 → HO.S3 23:27
PROVIDERS: Emergency Medicine Emergency Medical Services; Internal Medicine; Nurse Practitioner Family; Admitting Provider Student in an Organized Health Care Education/Training Program; Emergency Provider Emergency Medicine; PCP Hospitalist; Visit Provider Hospitalist
DX: J69.0 Pneumonitis due to inhalation of food and vomit (principal); E87.0 Hyperosmolality and hypernatremia; I69.354 Hemiplegia and hemiparesis following cerebral infarction affecting left non-dominant side; R64 Cachexia; E87.3 Alkalosis; Z68.1 Body mass index [BMI] 19.9 or less, adult; N12 Tubulo-interstitial nephritis, not specified as acute or chronic; I69.391 Dysphagia following cerebral infarction; I69.320 Aphasia following cerebral infarction; K59.00 Constipation, unspecified; I49.5 Sick sinus syndrome; Z95.0 Presence of cardiac pacemaker; Z20.822 Contact with and (suspected) exposure to COVID-19; Z74.01 Bed confinement status; Z95.2 Presence of prosthetic heart valve; Z79.82 Long term (current) use of aspirin; Z79.890 Hormone replacement therapy; Z79.899 Other long term (current) drug therapy
CPT/HCPCS: 36415; 71045; 74177; 80048; 80053; 81001; 82550; 83605; 83690; 83735; 83880; 84295; 85025; 85652; 86140; 87040; 87086; 87633; 92610; 99285; J0456; J0692; J0696; J1650; J2270; J3371; P9047; Q9967

== ENCOUNTER → 2024-08-22 16:18 | Outpatient (BNV) | payer MEDICARE, MEDICAID, SELFPAY | PROVIDERS: Emergency Provider Emergency Medicine; PCP Hospitalist; Visit Provider Radiology Diagnostic Radiology | DX: R91.8 Other nonspecific abnormal finding of lung field (principal) | CPT/HCPCS: 71045; 74177 ==

== ENCOUNTER → 2024-08-22 19:53 | Outpatient (BNV) | payer MEDICARE, MEDICAID, SELFPAY | PROVIDERS: Admitting Provider Student in an Organized Health Care Education/Training Program; Emergency Provider Emergency Medicine; PCP Hospitalist; Visit Provider Nurse Practitioner Family | DX: J18.9 Pneumonia, unspecified organism (principal) | CPT/HCPCS: 99223; 99232; 99239 ==

== ENCOUNTER 2024-10-06 13:34 | Outpatient (REF) | payer MEDICARE, MEDICAID, SELFPAY ==
--- NOTE | ~2024-10-06 | FL_ITS ---
EXAMINATION: XR BARIUM SWALLOW CLINICAL INFORMATION: Dysphagia COMPARISON: None available. TECHNIQUE: Routine modified barium swallow was performed in lateral fluoroscopy with patient sitting on a chair. FINDINGS: Following oral administration of thick barium there is slow propagation bolus from the oral cavity through the pharynx into the esophagus with no laryngeal penetration or aspiration. On oral administration of barium pudding there is tess laryngeal penetration and aspiration with retained food visualized in the proximal trachea. After several minutes of coughing and application of suction patient immediately regurgitated the aspirated barium pudding. Subsequent images reveal clearance of the tracheal pain. The exam was terminated at this point. FLUOROSCOPY TIME: 4 minutes 9 seconds DOSE AREA PRODUCT: 4135 uGy-m2 (microgray-meter squared) FL/FL Modified Barium Swallow IMPRESSION: Tess laryngeal aspiration of barium pudding. The exam was terminated at this time. Electronically signed by: Beto Her MD 10/06/2024 03:17 PM EDT
--- OUTSIDE RECORDS SUMMARY | 2024-10-06 14:44 | XMS_ITS | Encounter Summary ---
Author Organization [facility] Address [address] [place] [address] Care Team Providers Care Computer Network Engineer Name Role Phone Donnell Banuelos MD Primary Care Provider [phone] Reason for Visit * Reason Onset Date Comments Skin Redness 10/02/2024 Encounter Details Date Type Department Care Team (Late st Contact Info) Description 10/02/2024 Telephone [facility] [address] [facility] [address] [place] [id number] Mark Weaver NP [address] [place] [address] [address] [place] [address] Skin Redness Social History Tobacco Use Types Packs/Day Years [...] on file documented as of this encounter Progress Notes * Mattie Lyn MA - 10/05/2024 10:12 AM EDT I [facility] and schedule patient for a wound check this week. I am only here M-W so any time is fine, double book if needed. * Cheryl Mcgill RN - 10/02/2024 2:22 PM EDT Discussed with Janet. Phelps, please call Zita from [facility] ([phone]) schedule a wound checknext week. I also spoke to Zita from [facility] and informed her of Maria L Lou's message. She reported she will ask the [facility] provider to place CBC with differential lab order and can be drawn on Saturday. Educated Zita to continue to monitor for fevers or any other changes/concerning symptoms. * Mark Weaver NP - 10/02/2024 11:12 AM EDT Can we get him in for a device wound check? * Cheryl Mcgill RN - 10/02/2024 9:44 AM EDT ADDENDUM 10/02/24 @11:05 PM- I scanned in a photo of the patient's pacemaker site in the [employer] for your viewing. Please review and advise. Kike Ordonez is a 44 y.o. male, followed by Dr. Ornelas/ TAMEKA Susan Plata (MARGO with Care Team 11/2022) with a history of endocarditis, he is s/p bioprosthetic aortic valve replacement at 19 years old withredo bioprosthetic aortic valve replacement at 36 years old, CVA with hemiplegia, and [employer] pacemaker implant s/p bradycardia 01/2023. He was last seen in the office on 01/28/24. I spoke to Zita at [facility] in [place], [place]. As of yesterday, nursing noticed a red area to the patient's pacemaker site that appears more red today. She describes as a dry red line that is 1/4 inch wide and 1/2 inch long- there is flaky skin in the middle of the line. There is no swelling, drainage, or bleeding. No fevers recorded. The patient denies pain or discomfort of pacemaker site. No trauma to his chest area and per Zita, the patient denied leaning on anything. They consulted with the provider at [facility] and waiting to hear back from him. I asked Zita to send me a photo via our triage email. Awaiting the photo and will update this message when the photo is received. * Perlita Arellano - 10/02/2024 9:36 AM EDT Zita at [facility] in [place] noticed yesterday that Kike has some redness above his pacemaker and shedoesn't think its anything serious but wants to make sure. Please call her [phone] documented in this encounter Plan of Treatment Upcoming Encounters Date Type Department Care Team (Late st Contact Info) Description 03/11/2025 10:30 AM EST Ancillary Procedure [facility] - [address] [place] [address] documented as of this encounter Visit Diagnoses Not on filedocumented in this encounter Care Teams Computer Network Engineer Relationship Specialty Start Date End Date Donnell Banuelos MD [address] [place] [address] Dr [address] [place], [place] PCP - General Internal Medicine 11/03/21 documented as of this encounter
--- NOTE | 2024-10-07 17:40 | MHC.SL.IMP ---
Date of Plan of Treatment: 10/06/24 Onset of Symptoms/Illness: 01/06/23 Date Treatment Started: 10/06/24 Admitting Diagnosis: Dysphagia Primary Speech & Language Diagnosis: R13.12 Oropharyngeal Phase Dysphagia Reason for Today's Visit: 37718 Modified Barium Swallow Study Pre-evaluation Dietary Consistencies: Pureed (NDD1) Pre-evaluation Liquid Consistency: Nunda Thick Pre-evaluation Medication Administration: Crushed with Puree Medical History: Modified Barium Swallow Study Fluoroscopic Evaluation of Swallowing Function CPT Code 39836 Evaluation Year: 2024 Reason for Study: History of aspiration Referring Physician: Donnell Banuelos DO Evaluating Clinician: Judi Canales MA, CCC-COMMERCIAL REAL ESTATE ASSISTANT Study Number: 1 Patient Name: Kike Ordonez Status: Outpatient, Wheelchair Age: 44 Sex: Male Medical History Medical History Protein-calorie malnutrition, moderate Failure to thrive Sinus bradycardia Wicho-tachy syndrome Hypotension Bradycardia Lethargy Hepatitis C H/O alcohol dependence Anxiety Hyperlipidemia Scoliosis Pulmonary embolism Hypothyroid Dysphagia Hemiplegia affecting left nondominant side Surgical History H/O prosthetic heart valve Current (pre-evaluation) Intake/Diet: Route: PO Diet Grade: Puree Liquid Consistencies: Nunda Pre-Study Functional Oral Intake Scale (FOIS): 5- Total oral intake of multiple consistencies requiring special preparation Pain: None reported at time of study SUBJECTIVE: Patient is a 44 year old male referred for a modified barium swallow study by Dr. Donnell Banuelos. Patient is a fpc care resident of [facility] in [place] and was accompanied by a staff member to this exam. Paperwork from the facility indicates patient is currently on a pureed diet and mildly thick liquids (nectar thick) and is followed by the speech pathologist at [facility], Fartun Aggarwal MS CCC-COMMERCIAL REAL ESTATE ASSISTANT. He is permitted the following snacks: soft milk chocolate Pam bars, hummus, soft tofu, cottage cheese, sliced ripe banana, cheese puffs, mini Reeces, and mini peppermint patties cut in half. Pills are administered crushed in puree. Diet order also indicates patient may have un-thickened water only following oral care and not in conjunction with PO. Patient is a vegetarian and does not eat meat. Patient was recently hospitalized for left lower lobe PNA with concern of aspiration in August 2024. He remained on his baseline diet during his hospitalization. Patient was reportedly last seen for MBSS with [facility] in 2019 and has known history of silent aspiration Per COMMERCIAL REAL ESTATE ASSISTANT, patient is aware of the risk, wishes to continue PO diet, and has discussed potential for supplemental nutrition. He was referred for a repeat-MBSS to determine ongoing level of risk. Food and Liquid Trials: Oral Impairment: Lip Closure: 1=Interlabial escape; no progression to anterior tip Oral Impairment: Tongue Control During Bolus Hold: 3=Posterior escape of greater than half of bolus Oral Impairment: Bolus Preparation/Mastication: Did not test Oral Impairment: Bolus Transport/Lingual Motion: 2=Slowed tongue motion Oral Impairment: Oral Residue: 2=Residue collection on oral structures Oral Impairment:Initiation of Pharyngeal Swallow: 2=Bolus head at posterior laryngeal surface of epiglottis Pharyngeal Impairment: Soft Palate Elevation: 0=No bolus between soft palate (SP)/pharyngeal wall (PW) Pharyngeal Impairment: Laryngeal Elevation: 2=Minimal superior movement of thyroid cartilage (see description) Pharyngeal Impairment: Anterior Hyoid Excursion: 2=No anterior movement Pharyngeal Impairment: Epiglottic Movement: 2=No inversion Pharyngeal Impairment: Laryngeal Vestibular Closure:: 2=None: No inversion Pharyngeal Impairment: Pharyngeal Stripping Wave: 2=Absent Pharyngeal Impairment: Pharyngeal Contraction: Did not test Pharyngeal Impairment: Pharyngoesophageal Segment Openin=Partial distention/partial duration: partial obstruction of flow Pharyngeal Impairment: Tongue Base (TB) Retraction: 3=Wide column of contrast/air between TB and posterior PW Pharyngeal Impairment: Pharyngeal Residue: 2=Collection of residue within or on pharyngeal structures Pharyngeal Impairment: Esophageal Clearance Upright Position: Did not test Impressions and Recommendations Clinical Observations: OBJECTIVE: Time-out: performed at 14:25 Evaluation Start: 14:00; Stop: 14:10 Patient Positioning: Seated 70-90 degrees Viewing Planes: LATERAL ONLY Contrast: MBSImP? Standardized Protocol using commercially prepared, standardized Barium viscosities, including: Varibar? PUDDING (40% w/v, <2486-2245 cps) MBSImP ID: [id number] MBSImP Results: Lip closure for intraoral bolus containment resulted in interlabial escape, without progression to the anterior lip. Tongue control during bolus hold allowed posterior escape of greater than half of the bolus. Bolus preparation and mastication received the highest impairment score; solid not given due to patient safety concerns related to oral impairment. Bolus transport/lingual motion was with slowed tongue motion. Oral residue was a collection on oral structures. Initiation of the pharyngeal swallow occurred as the bolus head was at the posterior laryngeal surface of the epiglottis. Soft palate elevation resulted in no bolus between the soft palate and the pharyngeal wall. Laryngeal elevation was incomplete, as indicated through minimal superior movement of the thyroid cartilage with minimal approximation of the arytenoids to the epiglottic petiole. Anterior hyoid excursion demonstrated no movement. Epiglottic movement resulted in no inversion. Laryngeal vestibular closure was absent, resulting in a wide column of air/contrast within the laryngeal vestibule at the height of the swallow. Pharyngeal stripping wave was absent. Pharyngeal contraction could not be determined due to logistical reasons not related to physiologic impairment. Pharyngoesophageal segment opening demonstrated partial distension/partial duration, with partial obstruction of bolus flow. Tongue base retraction allowed a wide column of contrast or air between the retracted tongue base and the posterior pharyngeal wall. Pharyngeal residue was a collection of residue within or on pharyngeal structures. Esophageal clearance in the upright position could not be assessed due to logistical reasons not related to physiologic impairment. Oral Impairment Score: 12 Pharyngeal Impairment Score: 16 (absence of score, component 13) Esophageal Impairment Score: --- (absence of score, component 17) Laryngeal Penetration and Aspiration: Aspiration was observed in today's study. Pudding-thick Contrast entered the airway, passed below the vocal folds, and no effort was made to eject. ASSESSMENT: This exam was performed by the radiologist and the speech pathologist. Patient was seated upright in a wheelchair for lateral view only. Exam was terminated for safety shortly after trials of pudding thick barium. Note significant impairments of the oral phase. Trace interlabial escape, but no significant anterior loss of bolus from the oral cavity. There was, however, notable premature escape of bolus posteriorly, which collected in the valleculae and subsequently entered the trachea. Posterior lingual motion was significantly delayed and markedly slowed. Mild residue seen on the posterior tongue and floor of mouth mostly cleared after multiple self-initiated dry swallows. At the end of the exam, patient was observed to hold a small amount of pudding in the oral cavity. Pharyngeal swallow trigger initiated as the bolus head reached the posterior laryngeal surface of the epiglottis. No evidence of nasopharyngeal reflux. Collection of residue seen on the tongue base, in the valleculae, on the posterior epiglottis, on the posterior pharyngeal wall, and in the pyriforms. Initially there was mild to moderate amount of retention, which mostly cleared on dry swallows. With fatigue and as trials progressed, however, a significant amount of residue remained in the pharynx and subsequently entered the trachea. Minimal laryngeal elevation with partial, at times absent, epiglottic inverstion. Minimal to no laryngeal vestibular closure resulted in wide open airway and compromised airway protection. There was penetration above the vocal folds on first two trials of pudding, with tess aspiration on the third trial. A wide column of contrast entered the airway during the swallow with no spontaneous cough reflex. Pudding thick barium was seen in the proximal trachea. Patient was cued for several minutes to cough on command, however, volitional cough was weak and ineffective. Patient did eventually elicit a cough on application of suction and expectorated barium pudding. Liquid Intake Recommendation: NPO Dietary Recommendations: NPO Medication Administration: NPO Please contact the pharmacy regarding appropriate crushable or liquid drug formulations that are available whenever modified delivery is recommended. Recommendation for Speech Therapy: Speech Therapy through Rehab / LTC Facility Text Comment: Intake Recommendations: Route: NPO/Alternate Route Diet Grade: IDDSI Levels: Liquid Consistencies: IDDSI Levels: Post-Study Functional Oral Intake Scale (FOIS): 1- No oral intake This exam revealed severe oropharyngeal dysphagia with significantly slowed and delayed oral phase, poor tongue control with posterior spilling of bolus, minimal laryngeal elevation and absent epiglottic inversion resulting in compromised airway protection. There was tess aspiration seen on pudding thick barium with no spontaneous protective cough produced. Patient attempted to cough volitionally in order to eject contrast from the trachea, but cough was weak and ineffective. Oropharynx was suctioned with a yankauer suction, to which patient eventually elicited a cough and expectorated barium. Exam at this point was terminated for safety as patient demonstrated poor airway protection and sensory response, and was likely to aspirate silently with all consistencies. Patient is at significant risk for aspiration and choking on solids and liquids. Based on observations made during this exam, the safest recommendation would be for strict NPO status with consideration of alternate nutrition source for enteral nutrition and medication. Recommend frequent oral care to promote oral hygiene, moisture, and comfort. Paperwork from [facility] indicates patient has history of aspiration and chronic dysphagia, is reportedly aware of risk, and thus far, opted to continue PO. Given the severity of his dysphagia and high risk of aspiration on reassessment, patient would benefit from further discussion with medical team to establish or revisit goals of care and to discuss appropriate options for nutritional intake and their associated risks/benefits. Suggested Referrals: The patient might benefit from a referral to: Surgical/Gastroenterology, Nutrition Services Indication for Referral: Tess aspiration seen on MBSS. Consideration of feeding tube. Therapy Recommendations: Follow-up with speech therapy through LT facility. Treatment plan pending goals of care discussion with medical team (NPO w/ tube feeds vs continuing PO w/ acceptance of risks). Prognosis for Improvement: The prognosis for the patient to meet nutritional needs by mouth is poor based on degree of impairment, stimulability for treatment. Retirement Goals: ? The patient and/or family will participate in further education for swallowing goals. Short Term Goals: ? Education - The patient, family, caregiver, nurse will verbalize/demonstrate understanding of the results of this evaluation, the above recommendations, and the swallowing guidelines. Frequency/Duration: Date Range for Service Requested: Timeline to reassess: PRN Clinician - Supplemental, Miscellaneous Communication: It is important to note MBSS objective studies are snapshots in time and Patient function might vary with factors such as time of day or concomitant medical conditions. For this reason, the final treatment plan for this patient should rest with their medical care team. Additional recommendations should be considered with the totality of the Patient in mind. Thank for the opportunity to participate in the care of this patient. If you have any questions about the content of this report, please contact the Speech and Hearing [facility] at [facility]. Education: Education regarding findings from today's study and plans for therapy were provided to Patient only through Verbal Instruction. Prepared Foods Service Team Member Clinician/Clinical Fellow: No Supervisory Statement: N/A Speech Language Pathologist: Judi Canales M.A., CCC-COMMERCIAL REAL ESTATE ASSISTANT
== END 2024-10-06 13:35 | disposition home or self-care (01) ==
LOC: HO.XRAY 13:34
PROVIDERS: Visit Provider Hospitalist
DX: R13.10 Dysphagia, unspecified (principal)
CPT/HCPCS: 74230; 92611

== ENCOUNTER → 2024-10-06 14:00 | Outpatient (BNV) | payer MEDICARE, MEDICAID, SELFPAY | PROVIDERS: Visit Provider Radiology Diagnostic Radiology | DX: D50.1 Sideropenic dysphagia (principal) | CPT/HCPCS: 74230 ==

== ENCOUNTER 2024-12-07 09:19 | Emergency (ER) | payer MEDICARE, MEDICAID, SELFPAY ==
[2024-12-07] VITALS (7 sets, daily range): BP systolic 94–130; BP diastolic 50–59; PULSE 60–67; RESP 13–19; TEMP 36.2–36.6; O2SAT 95–99; BMI 19.9
--- NOTE | ~2024-12-07 | CT_ITS ---
CLINICAL HISTORY: unwitnessed fall, nonverbal at baseline Exam: CT Head without IV contrast Comparison: None Findings: No acute intracranial hemorrhage, mass, midline shift or hydrocephalus. No acute territory ischemic infarcts. 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 Mild subcortical and periventricular white matter hypodensities, non-specific and most frequently ascribed to chronic small vessel ischemic disease. Mild cerebral and moderate cerebellar atrophy. Orbital contents within normal range. Paranasal sinuses, mastoid air cells clear. No acute fracture. Unremarkable extracranial soft tissue. Impression: 1. No acute intracranial finding. 2. Chronic findings, as discussed. This document has been electronically signed by: Maranda Tafoya MD on 12/07/2024 11:49:16
--- NOTE | ~2024-12-07 | CT_ITS ---
CLINICAL HISTORY: unwitnessed fall, nonverbal at baseline Exam: CT cervical Spine without IV contrast Comparison: None Findings: No acute fracture or traumatic malalignment. Atlantoaxial relationship is normal. Mild degenerative spondylosis of the cervical spine, no high-grade central canal stenosis. Paraspinal musculature, prevertebral soft tissue are unremarkable. Minimal paraseptal emphysema of the lung apices. Please see separate CT head report. Impression: No acute finding. This document has been electronically signed by: Maranda Tafoya MD on 12/07/2024 11:51:43
--- NOTE | ~2024-12-07 | XR_ITS ---
CLINICAL HISTORY: unwitnessed fall 2 views thoracic spine Comparison: CR - XR CHEST 1V - 08/22/24 16:28 EDT DX/SR - XR CHEST 2V - 04/19/23 12:30 EST Findings: Redemonstration of marked scoliosis. This limits the lateral x-rays for acute osseous abnormality. No acute fractures or dislocation. Degenerative changes of the spine Prosthetic aortic valve. Median sternotomy. Left chest cardiac device. Diffusely decreased bone mineral density. IMPRESSION: Redemonstration of marked scoliosis. This limits the lateral x-rays for acute osseous abnormality. This document has been electronically signed by: Jhon Bateman DO on 12/07/2024 10:46:31
--- NOTE | 2024-12-07 09:26 | ED.GENADULT ---
HPI - General Adult General Chief complaint: Fall Stated complaint: FALL A FEW DAYS AGO Time Seen by Provider: 12/07/24 09:20 Source: patient, EMS, RN notes reviewed and old records reviewed Mode of arrival: EMS Limitations: physical limitation History of Present Illness ED Provider: Edmund HPI narrative: Patient is a 44-year-old male with history of CVA with subsequent left-sided hemiplegia, minimally verbal at baseline, dysphagia, hypothyroidism, PE in the past, anxiety, hepatitis-C, wicho-tachy syndrome, failure to thrive presenting from [facility] for evaluation after an unwitnessed fall 2 days ago. Unknown head strike or loss of consciousness, unknown downtime. Patient is not anticoagulated. Patient complaining of upper back pain after the fall. Able to answer yes/no questions and use word board and hand gestures to communicate. He denies headache or pain to any areas besides upper back. MD complaint: Back pain Onset (ago): day(s) Related Data Home Medications ?Medication ?Instructions ?Recorded ?Confirmed acetaminophen 325 mg tablet 650 mg PO Q6H PRN Fever 08/13/20 08/23/24 (Tylenol) sennosides 8.6 mg tablet (senna) 8.6 mg PO DAILY 08/13/20 08/23/24 aspirin 81 mg tablet,delayed 81 mg PO DAILY 08/23/24 08/23/24 release benzocaine 20 % mucosal gel 1 appl mucous membrane QID PRN 08/23/24 08/23/24 Mouth Pain bisacodyl 10 mg rectal suppository 10 mg SC DAILY PRN Constipation 08/23/24 08/23/24 carboxymethylcellulose sodium 0.5 1 drp ophthalmic (eye) Q4H PRN Dry 08/23/24 08/23/24 % eye drops (Refresh Tears) Eyes cefuroxime axetil 500 mg tablet 500 mg PO BID 08/23/24 08/23/24 citalopram 10 mg tablet 10 mg PO DAILY 08/23/24 08/23/24 cyclobenzaprine 10 mg tablet 10 mg PO TID PRN Muscle Spasm 08/23/24 08/23/24 diazepam 5 mg tablet 2.5 mg PO BID PRN Anxiety 08/23/24 08/23/24 docusate sodium 100 mg capsule 100 mg PO BID 08/23/24 08/23/24 famotidine 20 mg tablet 20 mg PO BEDTIME 08/23/24 08/23/24 guaifenesin 100 mg/5 mL oral liquid 100 mg PO Q4H PRN Cough 08/23/24 08/23/24 hydroxyzine HCl 25 mg tablet 25 mg PO QID PRN Anxiety 08/23/24 08/23/24 ketoconazole 2 % shampoo 1 appl topical TUTHSA@2100 08/23/24 08/23/24 lanolin alcohols-mineral 1 appl topical BID 08/23/24 08/23/24 oil-w.petrolatum-ceresin topical cream (Minerin Creme topical) levothyroxine 100 mcg tablet 100 mcg PO DAILY@0600 08/23/24 08/23/24 midodrine 10 mg tablet 15 mg PO TID 08/23/24 08/23/24 multivitamin 1 tab PO DAILY 08/23/24 08/23/24 naphazoline 0.025 %-pheniramine 2 drp ophthalmic (eye) QID PRN 08/23/24 08/23/24 0.3 % eye drops (Naphcon-A) redness nicotine 7 mg/24 hr daily 1 patch transdermal DAILY 08/23/24 08/23/24 transdermal patch oxycodone-acetaminophen 10 mg-325 1 tab PO TID 08/23/24 08/23/24 mg tablet sennosides 8.6 mg tablet (senna) 8.6 mg PO DAILY PRN Constipation 08/23/24 08/23/24 sodium phosphates 19 gram-7 118 ml SC DAILY PRN Constipation 08/23/24 08/23/24 gram/118 mL enema (Fleet Enema) Previous Rx's ?Medication ?Instructions ?Recorded doxycycline hyclate 100 mg tablet 100 mg PO BID #20 tabs 08/25/24 Allergies Allergy/AdvReac Type Severity Reaction Status Date / Time erythromycin base Allergy Unknown Verified 12/07/24 09:29 ibuprofen Allergy Unknown Verified 12/07/24 09:29 ketorolac Allergy Unknown Verified 12/07/24 09:29 Sulfa (Sulfonamide Allergy Unknown Verified 12/07/24 09:29 Antibiotics) tramadol Allergy Unknown Verified 12/07/24 09:29 tromethamine Allergy Unknown Verified 12/07/24 09:29 Review of Systems Review of Systems: As per HPI Yes all other systems are reviewed and are negative Constitutional: Constitutional: Reports as per HPI Neurologic: Reports Abnormal speech present [facility] Past Medical History Medical History Protein-calorie malnutrition, moderate Failure to thrive Sinus bradycardia Wicho-tachy syndrome Hypotension Bradycardia Lethargy Hepatitis C H/O alcohol dependence Anxiety Hyperlipidemia Scoliosis Pulmonary embolism Hypothyroid Dysphagia Hemiplegia affecting left nondominant side Surgical History Status post transcatheter aortic valve replacement (TAVR) using bioprosthesis H/O prosthetic heart valve Social History Social History Household Members: Other Housing: Long Term Alcohol intake: former Comment: , REPOSITION EVERY 2 HOURS AND PRN Patient Tobacco Use Status: Tobacco use Unknown Advance Directives: Yes Advance Directives on File: Yes Advance Directives Date on File: 01/06/23 Do you have a plan to hurt others: No Plan service: No Current occupational status: disabled Physical Exam ED Vital Signs: Vital Signs - 24 hr 12/07/24 09:27 12/07/24 11:05 12/07/24 11:25 Temperature 97.5 F 97.2 F 97.2 F Pulse Rate 62 60 60 Respiratory Rate 17 13 13 Blood Pressure 112/58 L 120/59 L 120/59 L Pulse Oximetry 99 99 99 Oxygen Delivery Method Room Air Room Air BMI result Body Mass Index 19.9 Vital signs have been reviewed and appear to be correct. Blood pressure normal. Heart rate normal. Respiratory rate normal. Temperature normal. Oxygen saturation normal. Const General: cooperative and no acute distress Orientation/consciousness: oriented to person, oriented to place, oriented to time and patient oriented x3 Limitations: physical limitations (minimally verbal, left sided hemiplegia at baseline) HENMT Head: Yes normocephalic and Yes atraumatic Ears: external ears normal General nose exam: Normal external nose present Face and sinus: Yes face symmetric Mouth: oropharynx normal and moist mucous membranes Throat: Yes uvula midline Eyes Pupils: Equal, round and reactive pupils present Neck Neck: Yes normal visual inspection and Yes supple Resp Effort & Inspection: normal respiratory effort and able to speak in complete sentences Auscultation: clear to auscultation bilaterally Cardio Rate: regular rate Rhythm: regular rhythm Heart sounds: S1 normal heart sound present and S2 normal heart sound present GI Palpation (GI): Soft to palpation and nontender Auscultation: normoactive bowel sounds General: Yes no CVA tenderness Back/Spine/Pelvis Back: no CVA tenderness Cervical Spine: normal cervical lordosis, No Cervical spine tenderness and No step off deformity Thoracic/Lumbar Spine: No thoracic and lumbar spine normal to inspection (scoliosis), No thoracic spinal tenderness and No lumbar spinal tenderness Pelvis: no pain with anterior-posterior compression and no pain with lateral compression Skin General skin exam: elasticity normal and turgor normal Neuro General: oriented to person, oriented to place, oriented to time, patient oriented x3 and CN's II-XI intact bilaterally Cranial nerves: Yes Equal, round and reactive pupils present Cognition (Neuro): normal cognition Speech: Abnormal speech present Details: expressive aphasia (baseline) Extrem General: Yes full ROM, Yes no pedal edema and Yes no calf tenderness Psych Mental Status: mental status grossly normal Affect: normal affect Thought process: Normal thought process present Course Course Course Narrative: 12/07/24 09:42maikel Shaffer NP-Spoke with guardian/mother, Bibianarenaldo Ryan, who is in agreement with ED evaluation/workup. 12/07/24 12:09 Bibiana Ryan updated on results and plan of care for patient to return to [facility]. Medications Administered Discontinued Medications Generic Name Dose Route Start Last Admin Trade Name Freq PRN Reason Stop Dose Admin Acetaminophen 650 mg 12/07/24 10:53 12/07/24 11:02 Acetaminophen 325 Mg Tablet PO 12/07/24 10:54 650 mg ONCE ONE Administration Medical Decision Making Medical Decision Making [facility] Narrative: Patient is a 44-year-old male with history of CVA with subsequent left-sided hemiplegia, minimally verbal at baseline, dysphagia, hypothyroidism, PE in the past, anxiety, hepatitis-C, wicho-tachy syndrome, failure to thrive presenting from [facility] for evaluation after an unwitnessed fall 2 days ago. On exam patient is awake, A+Ox3, VS WNL, afebrile, normal neurological exam without focal deficits, physical exam findings as above. Given reported symptoms and physical exam findings, initial differential includes but is not limited to thoracic strain versus contusion versus fracture, ICH, skull or cervical vertebral fracture or subluxation. Labs unremarkable. X-ray thoracic spine notable for scoliosis, no acute fracture. CT head and C-spine without evidence of ICH, skull or cervical vertebral fracture subluxation My interpretation is in agreement with the radiologist's interpretation. Patient reports no relief of pain from Tylenol. Will try Percocet as patient is currently prescribed this. Feel he is stable for return to [facility]. Plan and results discussed with patient's mother/guardian, Bibiana Ryan who is in agreement with plan. Differential Diagnosis Differential Diagnoses: The differential diagnosis associated with the presentation includes as per [facility] Admission/Observation Consideration of admission/observation: Escalation of care including admission/observation considered Patient would have been admitted to the hospital had their clinical presentation warranted hospital admission. Lab Data [facility] Lab Attestation statement: I reviewed the patient's lab results. as per [facility] 12/07/24 10:04 12/07/24 10:04 Labs: Lab Results 12/07/24 Range/Units 10:04 WBC 7.0 (4.8-10.8) X10*3/uL RBC 4.07 L (4.60-5.80) X10*6/uL Hgb 12.5 L (14.0-18.0) g/dl Hct 36.5 L (42.0-52.0) % MCV 89.7 (80.0-98.0) fL MCH 30.7 (27.0-33.0) pg MCHC 34.2 (31.0-36.0) g/dl RDW 13.1 (11.0-16.0) % Plt Count 273 (160-400) X10*3/uL MPV 8.7 L (9.4-12.4) fL Immature Gran % (Auto) 0.3 (0.0-0.4) % Neut % (Auto) 72.9 (45-73) % Lymph % (Auto) 16.1 L (20-40) % [place] % (Auto) 8.7 (2-11) % Eos % (Auto) 1.4 (0-4) % Baso % (Auto) 0.6 (0-2) % Lymph # (Auto) 1.1 L (1.2-4.9) X10*3/uL [place] # (Auto) 0.6 (0.1-1.2) X10*3/uL Eos # (Auto) 0.1 (0.0-0.4) X10*3/uL Baso # (Auto) 0.0 (0.0-0.2) X10*3/uL Abs Immat Gran (auto) 0.02 (0.00-0.03) X10*3/uL Absolute Neuts (auto) 5.1 (2.0-8.3) x10*3/uL Absolute Nucleated RBC 0.000 (0.0-0.012) X10*3/uL Nucleated RBC % (auto) 0.0 (0.0-0.2) /100WBC Sodium 140 (135-145) mmol/L Potassium 4.1 (3.3-5.1) mmol/L Chloride 102 (96-108) mmol/L Carbon Dioxide 30 H (22-29) mmol/L Anion Gap 12 (12-20) BUN 20 H (9-16) mg/dL Creatinine 0.73 (0.5-1.4) mg/dL Estim Creat Clear Calc 110.6 Estimated GFR > 60 Random Glucose 84 (60-115) mg/dL Calcium 9.3 D (8.4-10.2) mg/dL Total Bilirubin 0.5 (0.0-1.0) mg/dL AST 39 H (5-37) U/L ALT 42 H (0-40) U/L Alkaline Phosphatase 71 (39-117) U/L Total Protein 7.5 (6.5-8.0) g/dL Albumin 4.1 (3.5-5.0) g/dL Independent Interpretation I performed an independent interpretation of an: Plain X-Ray and CT Scan Interpretation: X-ray thoracic spine notable for scoliosis, no acute fracture. CT head and C-spine without evidence of ICH, skull or cervical vertebral fracture subluxation Radiology Impression Discussion of test interpretation with radiology: I have reviewed the radiologist's reading. Radiologist Impression: IMPRESSION: Redemonstration of marked scoliosis. This limits the lateral x-rays for acute osseous abnormality. Impression: 1. No acute intracranial finding. 2. Chronic findings, as discussed. Impression: No acute finding. Independent Historian Clinical information obtained from an independent historian. History obtained from or confirmed by: Parent (and guardian, Bibiana Vernonue) External Record Review External record reviewed: Inpatient record, Office record and Outpatient record Prescription Management I considered prescription management with: Pain Medication Critical Care Time Critical Care Time Critical Care Time: Yes Total Critical Care Time: 33 Attestation: I have personally provided critical care time exclusive of time spent on separately billable procedures. Time includes review of lab data, radiology results, discussion with consultants, and monitoring for potential decompensation. Intervention performed as documented. Discharge Plan Discharge Clinical Impression: Acute upper back pain, Fall Patient Disposition: [facility] Transfer Details: return to [facility] Instructions: Back Pain (ED), Fall Prevention (ED) Additional Instructions: Kike was evaluated in the emergency department today for upper back pain after recent fall. His x-ray did not show evidence of any acute fractures. The CT scans of his head and neck were without evidence of bleeding in his brain or fractures in his neck. His labs were reassuring. He was medicated for pain with Tylenol and oxycodone. Return to the emergency department for worsening pain, difficulty breathing or shortness of breath, fever, or any other new or concerning symptoms. Prescriptions: No Action sennosides [senna] 8.6 mg Tablet 8.6 mg PO DAILY acetaminophen [Tylenol] 325 mg Tablet 650 mg PO Q6H PRN (Reason: Fever) multivitamin Tablet 1 tab PO DAILY cyclobenzaprine 10 mg Tablet 10 mg PO TID PRN (Reason: Muscle Spasm) sennosides [senna] 8.6 mg Tablet 8.6 mg PO DAILY PRN (Reason: Constipation) ketoconazole 2 % Shampoo 1 appl TOPICAL TUTHSA@2100 citalopram 10 mg Tablet 10 mg PO DAILY aspirin 81 mg Tablet,Delayed Release (Dr/Ec) 81 mg PO DAILY guaifenesin 100 mg/5 mL Liquid 100 mg PO Q4H PRN (Reason: Cough) levothyroxine 100 mcg Tablet 100 mcg PO DAILY@0600 famotidine 20 mg Tablet 20 mg PO BEDTIME oxycodone-acetaminophen 10-325 mg Tablet 1 tab PO TID carboxymethylcellulose sodium [Refresh Tears] 0.5 % Drops 1 drp OPHTHALMIC (EYE) Q4H PRN (Reason: Dry Eyes) bisacodyl 10 mg Suppository 10 mg SC DAILY PRN (Reason: Constipation) Fleet Enema 19-7 gram/118 mL Enema 118 ml SC DAILY PRN (Reason: Constipation) docusate sodium 100 mg Capsule 100 mg PO BID hydroxyzine HCl 25 mg Tablet 25 mg PO QID PRN (Reason: Anxiety) cefuroxime axetil 500 mg tablet 500 mg PO BID Rx Instructions: START DATE: 08/24/24; END DATE: 09/02/24 benzocaine 20 % Gel 1 appl MUCOUS MEMBRANE QID PRN (Reason: Mouth Pain) Naphcon-A 0.025-0.3 % Drops 2 drp OPHTHALMIC (EYE) QID PRN (Reason: redness) diazepam 5 mg Tablet 2.5 mg PO BID PRN (Reason: Anxiety) nicotine 7 mg/24 hr Patch 24 Hour 1 patch TRANSDERMAL DAILY Minerin Creme Cream 1 appl TOPICAL BID midodrine 10 mg tablet 15 mg PO TID doxycycline hyclate 100 mg tablet 100 mg PO BID Qty: 20 0RF Print Language: Unable To Collect
[2024-12-07 10:08] LABS: MANUAL DIFF FLAG NO
[2024-12-07 10:09] LABS: Hematocrit 36.5 % (42.0-52.0); Hemoglobin 12.5 g/dl (14.0-18.0); Imm Gran Abs Auto 0.02 X10*3/uL (0.00-0.03); Imm Gran Pct Auto 0.3 % (0.0-0.4); Lymphocytes Absolute Auto 1.1 X10*3/uL (1.2-4.9); Mean Corpuscular HGB Conc 34.2 g/dl (31.0-36.0); Mean Corpuscular Hemoglobin 30.7 pg (27.0-33.0); Mean Corpuscular Volume 89.7 fL (80.0-98.0); NRBC Abs Auto 0.000 X10*3/uL (0.0-0.012); NRBC Pct Auto 0.0 /100WBC (0.0-0.2); Platelet Count 273 X10*3/uL (160-400); Red Blood Count 4.07 X10*6/uL (4.60-5.80); White Blood Count 7.0 X10*3/uL (4.8-10.8)
--- OUTSIDE RECORDS SUMMARY | 2024-12-07 10:16 | XMS_ITS | Encounter Summary ---
Author Organization [facility] Address [address] [place] [address] Care Team Providers Care Radio Television Announcer Name Role Phone Donnell Banuelos MD Primary Care Provider Encounter Details Date Type Department Care Team (Late Contact Info) Description 08/22/2024 Lab Requisition [facility] - Main Lab [address] [facility] [place] [id number] Donnell Banuelos MD [address] [place] [address] [address] [place], [place] Other viral infections of unspecified site [...] Description 03/11/2025 10:30 AM EST Ancillary Procedure [facility] - [facility] [address] [facility] [address] [place] [address] documented as of this encounter Procedures Procedure Name Priority Date/Time Associated Diagnosis Comments CULTURE BLOOD Routine 08/22/2024 8:16 AM EDT Other viral infections of unspecified site documented in this encounter Results * Culture blood (08/22/2024 8:16 AM EDT) Culture, Blood No growth at 5 days 08/27/2024 11:01 AM EDT [facility] Blood 08/22/2024 8:16 AM EDT 08/22/2024 8:53 AM EDT Donnell Banuelos MD LAB MICROBIOLOGY - GENERAL ORDER FRANKIE Final Result [facility] [address] [place] [address], documented in this encounter Visit Diagnoses Diagnosis Other viral infections of unspecified site Encounter for adjustment or management of cardiac device documented in this encounter Care Teams Radio Television Announcer Relationship Specialty Start Date End Date Donnell Banuelos MD [address] [place], [place] PCP - General Internal Medicine 11/03/21 documented as of this encounter
--- OUTSIDE RECORDS SUMMARY | 2024-12-07 10:16 | XMS_ITS | Encounter Summary ---
Author Organization [facility] Address [address] [place] [address] Care Team Providers Care Marine Service Operator Name Role Phone Donnell Banuelos MD Primary Care Provider Encounter Details Date Type Department Care Team (Late Contact Info) Description 08/19/2024 Lab Requisition [facility] - Main Lab [address] [facility] [place] [id number] Donnell Banuelos MD [address] [place] [address] [address] [place], [place] Altered mental status, unspecified Social History [...] Description 03/11/2025 10:30 AM EST Ancillary Procedure [facility] - [facility] [address] [facility] [address] [place] [address] documented as of this encounter Procedures Procedure Name Priority Date/Time Associated Diagnosis Comments COMPLETE BLOOD COUNT Routine 08/19/2024 7:06 AM EDT Altered mental status, unspecified COMPREHENSIVE METABOLIC PANEL Routine 08/19/2024 7:06 AM EDT Altered mental status, unspecified documented in this encounter Results * (ABNORMAL) Complete blood count (08/19/2024 7:06 AM EDT) [facility] WBC 16.2(H) 4.8 - 10.8 K/mcL LAB HEMETOLOGY METHOD 08/19/2024 7:53 AM [facility] RBC 4.10(L) 4.50 - 5.50 M/mcL LAB HEMETOLOGY METHOD 08/19/2024 7:53 AM [facility] Hemoglobin 12.2(L) 13.5 - 17.5 g/dL LAB HEMETOLOGY METHOD 08/19/2024 7:53 AM [facility] Hematocrit 37.3(L) 42.0 - 54.0 % LAB HEMETOLOGY METHOD 08/19/2024 7:53 AM [facility] MCV 91.9 79.0 - 98.0 FL LAB HEMETOLOGY METHOD 08/19/2024 7:53 AM [facility] MCH 30.0 27.0 - 32.0 pcg LAB HEMETOLOGY METHOD 08/19/2024 7:53 AM [facility] MCHC 32.7 32.0 - 37.0 g/dL LAB HEMETOLOGY METHOD 08/19/2024 7:53 AM [facility] RDW 13.1 11.0 - 15.0 % LAB HEMETOLOGY METHOD 08/19/2024 7:53 AM [facility] Platelets 313 130 - 400 K/mcL LAB HEMETOLOGY METHOD 08/19/2024 7:53 AM [facility] MPV 9.7 7.0 - 11.0 FL LAB HEMETOLOGY METHOD 08/19/2024 7:53 AM [facility] NRBC 0.0 <1.0 % LAB HEMETOLOGY METHOD 08/19/2024 7:53 AM [facility] NRBC Absolute 0.00 <0.10 K/mcL LAB HEMETOLOGY METHOD 08/19/2024 7:53 AM [facility] Blood Venous blood specimen / Unknown 08/19/2024 7:06 AM EDT 08/19/2024 7:45 AM EDT us Donnell Banuelos MD LAB BLOOD ORDERABLES Final Resul t [facility] [address] [place] [address], * (ABNORMAL) Comprehensive metabolic panel (08/19/2024 7:06 AM EDT) Sodium 142 133 - 145 mmol/L LAB CHEMISTRY METHOD 08/19/2024 8:38 AM [facility] Potassium 3.8 3.5 - 5.5 mmol/L LAB CHEMISTRY METHOD 08/19/2024 8:38 AM [facility] Chloride 107 96 - 110 mmol/L LAB CHEMISTRY METHOD 08/19/2024 8:38 AM [facility] CO2 30 21 - 32 mmol/L LAB CHEMISTRY METHOD 08/19/2024 8:38 AM [facility] Anion Gap 5 3 - 11 LAB CHEMISTRY METHOD 08/19/2024 8:38 AM [facility] Glucose 106(H) 70 - 100 mg/dL LAB CHEMISTRY METHOD 08/19/2024 8:38 AM [facility] BUN 43(H) 5 - 25 mg/dL LAB CHEMISTRY METHOD 08/19/2024 8:38 AM [facility] Comment:Results verified by repeat testing Creatinine 0.93 0.70 - 1.30 mg/dL LAB CHEMISTRY METHOD 08/19/2024 8:38 AM [facility] eGFR 104 >=60 mL/min/1. 73m2 LAB CHEMISTRY METHOD 08/19/2024 8:38 AM [facility] Comment:Calculation based on the Chronic Kidney Disease Epidemiology Collaboration (CKD-EPI) equation refit without adjustment for race. BUN/Creatinine Ratio 46.2 LAB CHEMISTRY METHOD 08/19/2024 8:38 AM [facility] Calcium 9.3 8.5 - 10.5 mg/dL LAB CHEMISTRY METHOD 08/19/2024 8:38 AM [facility] AST (SGOT) 83(H) 10 - 42 unit/L LAB CHEMISTRY METHOD 08/19/2024 8:38 AM [facility] Comment:Results verified by repeat testing ALT (SGPT) 45 10 - 60 unit/L LAB CHEMISTRY METHOD 08/19/2024 8:38 AM [facility] Alkaline Phosphatase 78 42 - 121 unit/L LAB CHEMISTRY METHOD 08/19/2024 8:38 AM [facility] Total Protein 7.9 6.0 - 8.0 g/dL LAB CHEMISTRY METHOD 08/19/2024 8:38 AM [facility] Albumin 3.5 3.2 - 5.0 g/dL LAB CHEMISTRY METHOD 08/19/2024 8:38 AM [facility] Total Bilirubin 0.5 0.0 - 1.4 mg/dL LAB CHEMISTRY METHOD 08/19/2024 8:38 AM [facility] Blood Venous blood specimen / Unknown 08/19/2024 7:06 AM EDT 08/19/2024 7:45 AM EDT us Donnell Banuelos MD LAB BLOOD ORDERABLES Final Resul t [facility] [address] [place] [address], documented in this encounter Visit Diagnoses Diagnosis Altered mental status, unspecified Encounter for adjustment or management of cardiac device documented in this encounter Care Teams Marine Service Operator Relationship Specialty Start Date End Date Donnell Banuelos MD [address] [place] [address] Dr Ab[address] [facility] PEDRO Fernandez PCP - General Internal Medicine 11/03/21 documented as of this encounter
--- OUTSIDE RECORDS SUMMARY | 2024-12-07 10:16 | XMS_ITS | Encounter Summary ---
Author Organization [facility] Address [address] [place] [address] Care Team Providers Care Life Science Technical Officer Name Role Phone Donnell Banuelos MD Primary Care Provider Encounter Details Date Type Department Care Team (Late Contact Info) Description 08/14/2024 Lab Requisition [facility] - Main Lab [address] [facility] [place] [phone] Donnell Banuelos MD [address] [place] [address] [address] [place], [place] Other assisted (current) drug therapy Social History Tobacco Use [...] Description 03/11/2025 10:30 AM EST Ancillary Procedure [facility] - [facility] [address] [facility] [address] [place] [phone] documented as of this encounter Procedures Procedure Name Priority Date/Time Associated Diagnosis Comments CBC WITH AUTO DIFFERENTIAL Routine 08/14/2024 6:25 AM EDT 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 CBC AND DIFFERENTIAL Routine 08/14/2024 6:25 AM EDT 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 COMPREHENSIVE METABOLIC PANEL Routine 08/14/2024 6:25 AM EDT 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 documented in this encounter Results * (ABNORMAL) CBC auto differential (08/14/2024 6:25 AM EDT) [facility] WBC 6.2 4.8 - 10.8 K/mcL LAB HEMETOLOGY METHOD 08/14/2024 7:18 AM [facility] RBC 3.70(L) 4.50 - 5.50 M/mcL LAB HEMETOLOGY METHOD 08/14/2024 7:18 AM EDT [facility] Hemoglobin 11.1(L) 13.5 - 17.5 g/dL LAB HEMETOLOGY METHOD 08/14/2024 7:18 AM [facility] Hematocrit 33.0(L) 42.0 - 54.0 % LAB HEMETOLOGY METHOD 08/14/2024 7:18 AM [facility] MCV 89.9 79.0 - 98.0 FL LAB HEMETOLOGY METHOD 08/14/2024 7:18 AM [facility] MCH 30.2 27.0 - 32.0 pcg LAB HEMETOLOGY METHOD 08/14/2024 7:18 AM [facility] MCHC 33.6 32.0 - 37.0 g/dL LAB HEMETOLOGY METHOD 08/14/2024 7:18 AM [facility] RDW 13.0 11.0 - 15.0 % LAB HEMETOLOGY METHOD 08/14/2024 7:18 AM [facility] Platelets 267 130 - 400 K/mcL LAB HEMETOLOGY METHOD 08/14/2024 7:18 AM [facility] MPV 9.5 7.0 - 11.0 FL LAB HEMETOLOGY METHOD 08/14/2024 7:18 AM [facility] NRBC 0.0 <1.0 % LAB HEMETOLOGY METHOD 08/14/2024 7:18 AM [facility] NRBC Absolute 0.00 <0.10 K/mcL LAB HEMETOLOGY METHOD 08/14/2024 7:18 AM [facility] Neutrophils Relative 64.0 % LAB HEMETOLOGY METHOD 08/14/2024 7:18 AM [facility] Lymphocytes Relative 22.9 % LAB HEMETOLOGY METHOD 08/14/2024 7:18 AM [facility] Monocytes Relative 10.4 % LAB HEMETOLOGY METHOD 08/14/2024 7:18 AM [facility] Eosinophils Relative 1.9 % LAB HEMETOLOGY METHOD 08/14/2024 7:18 AM [facility] Basophils Relative 0.5 % LAB HEMETOLOGY METHOD 08/14/2024 7:18 AM [facility] Immature Granulocytes Relative 0.3 % LAB HEMETOLOGY METHOD 08/14/2024 7:18 AM [facility] Neutrophils Absolute 3.99 1.50 - 7.00 K/mcL LAB HEMETOLOGY METHOD 08/14/2024 7:18 AM [facility] Lymphocytes Absolute 1.43 1.00 - 5.00 K/mcL LAB HEMETOLOGY METHOD 08/14/2024 7:18 AM [facility] Monocytes Absolute 0.65 0.20 - 1.00 K/mcL LAB HEMETOLOGY METHOD 08/14/2024 7:18 AM [facility] Eosinophils Absolute 0.12 0.00 - 0.50 K/mcL LAB HEMETOLOGY METHOD 08/14/2024 7:18 AM [facility] Basophils Absolute 0.03 0.00 - 0.20 K/mcL LAB HEMETOLOGY METHOD 08/14/2024 7:18 AM [facility] Immature Granulocytes Absolute 0.02 0.00 - 0.03 K/mcL LAB HEMETOLOGY METHOD 08/14/2024 7:18 AM [facility] Blood Venous blood specimen / Unknown 08/14/2024 6:25 AM EDT 08/14/2024 6:59 AM EDT us Donnell Banuelos MD LAB BLOOD ORDERABLES Final Resul t [facility] [address] [place] [address], [place] [phone] * (ABNORMAL) Comprehensive metabolic panel (08/14/2024 6:25 AM EDT) Sodium 136 133 - 145 mmol/L LAB CHEMISTRY METHOD 08/14/2024 7:52 AM [facility] Potassium 3.8 3.5 - 5.5 mmol/L LAB CHEMISTRY METHOD 08/14/2024 7:52 AM [facility] Chloride 101 96 - 110 mmol/L LAB CHEMISTRY METHOD 08/14/2024 7:52 AM [facility] CO2 28 21 - 32 mmol/L LAB CHEMISTRY METHOD 08/14/2024 7:52 AM [facility] Anion Gap 7 3 - 11 LAB CHEMISTRY METHOD 08/14/2024 7:52 AM [facility] Glucose 79 70 - 100 mg/dL LAB CHEMISTRY METHOD 08/14/2024 7:52 AM [facility] BUN 18 5 - 25 mg/dL LAB CHEMISTRY METHOD 08/14/2024 7:52 AM [facility] Creatinine 0.61(L) 0.70 - 1.30 mg/dL LAB CHEMISTRY METHOD 08/14/2024 7:52 AM [facility] eGFR 121 >=60 mL/min/1. 73m2 LAB CHEMISTRY METHOD 08/14/2024 7:52 AM EDT [facility] Comment:Calculation based on the Chronic Kidney Disease Epidemiology Collaboration (CKD-EPI) equation refit without adjustment for race. BUN/Creatinine Ratio 29.5 LAB CHEMISTRY METHOD 08/14/2024 7:52 AM [facility] Calcium 9.0 8.5 - 10.5 mg/dL LAB CHEMISTRY METHOD 08/14/2024 7:52 AM [facility] AST (SGOT) 20 10 - 42 unit/L LAB CHEMISTRY METHOD 08/14/2024 7:52 AM [facility] ALT (SGPT) 27 10 - 60 unit/L LAB CHEMISTRY METHOD 08/14/2024 7:52 AM [facility] Alkaline Phosphatase 70 42 - 121 unit/L LAB CHEMISTRY METHOD 08/14/2024 7:52 AM [facility] Total Protein 7.0 6.0 - 8.0 g/dL LAB CHEMISTRY METHOD 08/14/2024 7:52 AM [facility] Albumin 3.5 3.2 - 5.0 g/dL LAB CHEMISTRY METHOD 08/14/2024 7:52 AM [facility] Total Bilirubin 0.3 0.0 - 1.4 mg/dL LAB CHEMISTRY METHOD 08/14/2024 7:52 AM [facility] Blood Venous blood specimen / Unknown 08/14/2024 6:25 AM EDT 08/14/2024 6:59 AM EDT us Donnell Banuelos MD LAB BLOOD ORDERABLES Final Resul t [facility] [address] [place] [address], documented in this encounter Visit Diagnoses Diagnosis 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 PEDRO Fernandez PCP - General Internal Medicine 11/03/21 documented as of this encounter
--- OUTSIDE RECORDS SUMMARY | 2024-12-07 10:16 | XMS_ITS | Encounter Summary ---
Author Organization [facility] Address [address] [place] [address] Care Team Providers Care Mold Forms Builder Name Role Phone Donnell Banuelos MD Primary Care Provider Encounter Details Date Type Department Care Team (Late Contact Info) Description 05/15/2024 Lab Requisition [facility] - Main Lab [address] [place] [phone] Donnell Banuelos MD [address] [place] [address] [address] [place], [place] Dysphagia following cerebral infarction Social History [...] Description 03/11/2025 10:30 AM EST Ancillary Procedure [facility] - [facility] [address] [facility] [address] [place] [address] documented as of this encounter Procedures Procedure Name Priority Date/Time Associated Diagnosis Comments THYROXINE FREE Routine 05/15/2024 6:03 AM EST Dysphagia following cerebral infarction documented in this encounter Results * Thyroxine free (05/15/2024 6:03 AM EST) Free T4 1.24 0.70 - 1.80 ng/dL LAB CHEMISTRY METHOD 05/15/2024 8:50 AM EST [facility] Blood Venous blood specimen / Unknown 05/15/2024 6:03 AM EST 05/15/2024 6:53 AM EST us Donnell Banuelos MD LAB BLOOD ORDERABLES Final Resul t [facility] [address] [place] [address], documented in this encounter Visit Diagnoses Diagnosis Dysphagia following cerebral infarction Encounter for adjustment or management of cardiac device documented in this encounter Care Teams Mold Forms Builder Relationship Specialty Start Date End Date Donnell Banuelos MD [address] [place], [place] PCP - General Internal Medicine 11/03/21 documented as of this encounter
--- OUTSIDE RECORDS SUMMARY | 2024-12-07 10:16 | XMS_ITS | Encounter Summary ---
Author Organization [facility] Address [address] [place] [address] Care Team Providers Care Ladies Locker Room Attendant Name Role Phone Donnell Banuelos MD Primary Care Provider Encounter Details Date Type Department Care Team (Late Contact Info) Description 11/04/2024 Lab Requisition [facility] - Main Lab 299 [facility] [phone] Donnell Banuelos MD [address] [place] [address] [address] [place], [place] Hypothyroidism, unspecified; Other hyperlipidemia; Other specified hypothyroidism Social History Tobacco Use Types Packs/Day Years [...] Description 03/11/2025 10:30 AM EST Ancillary Procedure [facility] - [facility] [address] [facility] [address] [place] [phone] documented as of this encounter Procedures Procedure Name Priority Date/Time Associated Diagnosis Comments LIPID PANEL WITH REFLEX TO DIRECT LDL Routine 11/04/2024 5:50 AM EDT Hypothyroidism, unspecified Other hyperlipidemia Other specified hypothyroidism THYROID STIMULATING HORMONE Routine 11/04/2024 5:50 AM EDT Hypothyroidism, unspecified Other hyperlipidemia Other specified hypothyroidism THYROXINE FREE Routine 11/04/2024 5:50 AM EDT Hypothyroidism, unspecified Other hyperlipidemia Other specified hypothyroidism documented in this encounter Results * Thyroid stimulating hormone (11/04/2024 5:50 AM EDT) TSH 0.82 0.40 - 4.00 mcIU/mL LAB CHEMISTRY METHOD 11/04/2024 8:35 AM EDT [facility] Blood Venous blood specimen / Unknown 11/04/2024 5:50 AM EDT 11/04/2024 6:26 AM EDT us Donnell Banuelos MD LAB BLOOD ORDERABLES Final Resul t Performing Organization Address City/[facility]/ZIP Co de Phone Number [facility] [address] [place] [address], [place] [phone] * Thyroxine free (11/04/2024 5:50 AM EDT) Pathologist [facility] Free T4 1.24 0.70 - 1.80 ng/dL LAB CHEMISTRY METHOD 11/04/2024 8:34 AM EDT [facility] Blood Venous blood specimen / Unknown 11/04/2024 5:50 AM EDT 11/04/2024 6:26 AM EDT us Donnell Banuelos MD LAB BLOOD ORDERABLES Final Resul t Performing Organization Address City/[facility]/ZIP Co de Phone Number [facility] [address] [place] [address], [place] [phone] * Lipid panel with reflex to direct LDL (11/04/2024 5:50 AM EDT) Pathologist [facility] Cholesterol 142 0 - 200 mg/dL LAB CHEMISTRY METHOD 11/04/2024 7:26 AM EDT [facility] Triglycerides 56 0 - 150 mg/dL LAB CHEMISTRY METHOD 11/04/2024 7:26 AM EDT [facility] HDL 82 >=40 mg/dL LAB CHEMISTRY METHOD 11/04/2024 7:26 AM EDT [facility] LDL Calculated 49 0 - 100 mg/dL LAB CHEMISTRY METHOD 11/04/2024 7:26 AM EDT [facility] VLDL Cholesterol Alex 11.2 mg/dL LAB CHEMISTRY METHOD 11/04/2024 7:26 AM EDT [facility] Non HDL Chol. (LDL+VLDL) 60 <145 mg/dL LAB CHEMISTRY METHOD 11/04/2024 7:26 AM EDT [facility] Chol/HDL Ratio 1.7 0.0 - 4.4 LAB CHEMISTRY METHOD 11/04/2024 7:26 AM EDT [facility] Blood Venous blood specimen / Unknown 11/04/2024 5:50 AM EDT 11/04/2024 6:26 AM EDT us Donnell Banuelos MD LAB BLOOD ORDERABLES Final Resul t [facility] [address] [place] [address], documented in this encounter Visit Diagnoses Diagnosis Hypothyroidism, unspecified Other hyperlipidemia Other specified hypothyroidism Encounter for adjustment or management of cardiac device documented in this encounter Care Teams Ladies Locker Room Attendant Relationship Specialty Start Date End Date Donnell Banuelos MD [address] [place] [address] Dr [address] [place] PCP - General Internal Medicine 11/03/21 documented as of this encounter
--- OUTSIDE RECORDS SUMMARY | 2024-12-07 10:16 | XMS_ITS | Encounter Summary ---
Author Organization [facility] Address [address] [place] [address] Care Team Providers Care Warehouse Checker Name Role Phone Donnell Banuelos MD Primary Care Provider Encounter Details Date Type Department Care Team (Late Contact Info) Description 08/28/2024 Lab Requisition [facility] - Main Lab [address] [place] [phone] Donnell Banuelos MD [address] [place] [address] Dr [address] [place], [place] Pneumonia, unspecified organism Social History Tobacco Use Types Packs/Day Years [...] Description 03/11/2025 10:30 AM EST Ancillary Procedure [facility] - [facility] [address] [facility] [address] [place] [address] documented as of this encounter Procedures Procedure Name Priority Date/Time Associated Diagnosis Comments COMPREHENSIVE METABOLIC PANEL Routine 08/28/2024 6:45 AM EDT Pneumonia, unspecified organism documented in this encounter Results * (ABNORMAL) Comprehensive metabolic panel (08/28/2024 6:45 AM EDT) Sodium 140 133 - 145 mmol/L LAB CHEMISTRY METHOD 08/28/2024 8:56 AM EDT [facility] Potassium 4.7 3.5 - 5.5 mmol/L LAB CHEMISTRY METHOD 08/28/2024 8:56 AM [facility] LAB Comment:Hemolysis present Chloride 106 96 - 110 mmol/L LAB CHEMISTRY METHOD 08/28/2024 8:56 AM [facility] CO2 29 21 - 32 mmol/L LAB CHEMISTRY METHOD 08/28/2024 8:56 AM [facility] Anion Gap 5 3 - 11 LAB CHEMISTRY METHOD 08/28/2024 8:56 AM [facility] Glucose 76 70 - 100 mg/dL LAB CHEMISTRY METHOD 08/28/2024 8:56 AM [facility] BUN 26(H) 5 - 25 mg/dL LAB CHEMISTRY METHOD 08/28/2024 8:56 AM [facility] Creatinine 0.48(L) 0.70 - 1.30 mg/dL LAB CHEMISTRY METHOD 08/28/2024 8:56 AM [facility] LAB eGFR 131 >=60 mL/min/1. 73m2 LAB CHEMISTRY METHOD 08/28/2024 8:56 AM [facility] LAB Comment:Calculation based on the Chronic Kidney Disease Epidemiology Collaboration (CKD-EPI) equation refit without adjustment for race. BUN/Creatinine Ratio 54.2 LAB CHEMISTRY METHOD 08/28/2024 8:56 AM [facility] Calcium 8.6 8.5 - 10.5 mg/dL LAB CHEMISTRY METHOD 08/28/2024 8:56 AM [facility] AST (SGOT) 41 10 - 42 unit/L LAB CHEMISTRY METHOD 08/28/2024 8:56 AM [facility] LAB Comment:Hemolysis present ALT (SGPT) 55 10 - 60 unit/L LAB CHEMISTRY METHOD 08/28/2024 8:56 AM [facility] Alkaline Phosphatase 62 42 - 121 unit/L LAB CHEMISTRY METHOD 08/28/2024 8:56 AM EDT [facility] LAB Total Protein 6.5 6.0 - 8.0 g/dL LAB CHEMISTRY METHOD 08/28/2024 8:56 AM EDT [facility] LAB Albumin 2.9(L) 3.2 - 5.0 g/dL LAB CHEMISTRY METHOD 08/28/2024 8:56 AM EDT [facility] LAB Total Bilirubin 0.3 0.0 - 1.4 mg/dL LAB CHEMISTRY METHOD 08/28/2024 8:56 AM EDT [facility] LAB Blood Venous blood specimen / Unknown 08/28/2024 6:45 AM EDT 08/28/2024 7:48 AM EDT us Donnell Banuelos MD LAB BLOOD ORDERABLES Final Resul t [facility] LAB [address] [place] [address], documented in this encounter Visit Diagnoses Diagnosis Pneumonia, unspecified organism Encounter for adjustment or management of cardiac device documented in this encounter Care Teams Warehouse Checker Relationship Specialty Start Date End Date Donnell Banuelos MD [address] [place] [address] Dr [address] [place] PCP - General Internal Medicine 11/03/21 documented as of this encounter
--- OUTSIDE RECORDS SUMMARY | 2024-12-07 10:16 | XMS_ITS | Encounter Summary ---
Author Organization [facility] Address [address] [place] [address] Care Team Providers Care Medical Staff Coordinator Name Role Phone Donnell Banuelos MD Primary Care Provider [phone] Encounter Details Date Type Department Care Team (Late st Contact Info) Description 05/07/2024 Lab Requisition [facility] - Main Lab 299 [facility] [place] [phone] Donnell Banuelos MD [address] [place] [address] [address] [place], [place] Hyperlipidemia, unspecified; Other fci (current) drug therapy; Essential (primary) hypertension; Dysphagia [...] Description 03/11/2025 10:30 AM EST Ancillary Procedure [facility] - [facility] [address] [facility] [address] [place] [phone] documented as of this encounter Procedures Procedure Name Priority Date/Time Associated Diagnosis Comments LIPID PANEL WITH REFLEX TO DIRECT LDL Routine 05/07/2024 5:49 AM EST Other fci (current) drug therapy Essential (primary) hypertension Dysphagia following cerebral infarction Hyperlipidemia, unspecified CBC WITH AUTO DIFFERENTIAL Routine 05/07/2024 5:49 AM EST Other press tender long goods (current) drug therapy Essential (primary) hypertension Dysphagia following cerebral infarction Hyperlipidemia, unspecified CBC AND DIFFERENTIAL Routine 05/07/2024 5:49 AM EST Other fci (current) drug therapy Essential (primary) hypertension Dysphagia following cerebral infarction Hyperlipidemia, unspecified THYROID STIMULATING HORMONE Routine 05/07/2024 5:49 AM EST Other press tender long goods (current) drug therapy Essential (primary) hypertension Dysphagia following cerebral infarction Hyperlipidemia, unspecified THYROXINE FREE Routine 05/07/2024 5:49 AM EST Other fci (current) drug therapy Essential (primary) hypertension Dysphagia following cerebral infarction Hyperlipidemia, unspecified COMPREHENSIVE METABOLIC PANEL Routine 05/07/2024 5:49 AM EST Other press tender long goods (current) drug therapy Essential (primary) hypertension Dysphagia following cerebral infarction Hyperlipidemia, unspecified documented in this encounter Results * (ABNORMAL) CBC auto differential (05/07/2024 5:49 AM EST) WBC 4.7(L) 4.8 - 10.8 K/mcL LAB HEMETOLOGY METHOD 05/07/2024 7:09 AM [facility] RBC 4.10(L) 4.50 - 5.50 M/mcL LAB HEMETOLOGY METHOD 05/07/2024 7:09 AM [facility] Hemoglobin 12.2(L) 13.5 - 17.5 g/dL LAB HEMETOLOGY METHOD 05/07/2024 7:09 AM [facility] LAB Hematocrit 37.6(L) 42.0 - 54.0 % LAB HEMETOLOGY METHOD 05/07/2024 7:09 AM [facility] LAB MCV 91.5 79.0 - 98.0 FL LAB HEMETOLOGY METHOD 05/07/2024 7:09 AM [facility] LAB MCH 29.7 27.0 - 32.0 pcg LAB HEMETOLOGY METHOD 05/07/2024 7:09 AM [facility] LAB MCHC 32.4 32.0 - 37.0 g/dL LAB HEMETOLOGY METHOD 05/07/2024 7:09 AM [facility] LAB RDW 12.9 11.0 - 15.0 % LAB HEMETOLOGY METHOD 05/07/2024 7:09 AM [facility] LAB Platelets 256 130 - 400 K/mcL LAB HEMETOLOGY METHOD 05/07/2024 7:09 AM [facility] LAB MPV 10.1 7.0 - 11.0 FL LAB HEMETOLOGY METHOD 05/07/2024 7:09 AM [facility] NRBC 0.0 <1.0 % LAB HEMETOLOGY METHOD 05/07/2024 7:09 AM [facility] NRBC Absolute 0.00 <0.10 K/mcL LAB HEMETOLOGY METHOD 05/07/2024 7:09 AM [facility] Neutrophils Relative 36.7 % LAB HEMETOLOGY METHOD 05/07/2024 7:09 AM [facility] Lymphocytes Relative 48.6 % LAB HEMETOLOGY METHOD 05/07/2024 7:09 AM [facility] Monocytes Relative 9.7 % LAB HEMETOLOGY METHOD 05/07/2024 7:09 AM [facility] Eosinophils Relative 4.0 % LAB HEMETOLOGY METHOD 05/07/2024 7:09 AM [facility] Basophils Relative 0.8 % LAB HEMETOLOGY METHOD 05/07/2024 7:09 AM [facility] Immature Granulocytes Relative 0.2 % LAB HEMETOLOGY METHOD 05/07/2024 7:09 AM [facility] Neutrophils Absolute 1.73 1.50 - 7.00 K/mcL LAB HEMETOLOGY METHOD 05/07/2024 7:09 AM [facility] Lymphocytes Absolute 2.30 1.00 - 5.00 K/mcL LAB HEMETOLOGY METHOD 05/07/2024 7:09 AM [facility] Monocytes Absolute 0.46 0.20 - 1.00 K/mcL LAB HEMETOLOGY METHOD 05/07/2024 7:09 AM [facility] Eosinophils Absolute 0.19 0.00 - 0.50 K/mcL LAB HEMETOLOGY METHOD 05/07/2024 7:09 AM [facility] Basophils Absolute 0.04 0.00 - 0.20 K/mcL LAB HEMETOLOGY METHOD 05/07/2024 7:09 AM [facility] Immature Granulocytes Absolute 0.01 0.00 - 0.03 K/[facility] LAB HEMETOLOGY METHOD 05/07/2024 7:09 AM [facility] Blood Venous blood specimen / Unknown 05/07/2024 5:49 AM EST 05/07/2024 6:24 AM EST us Donnell Banuelos MD LAB BLOOD ORDERABLES Final Resul t [facility] [address] [place] [address], * Lipid panel with reflex to direct LDL (05/07/2024 5:49 AM EST) Cholesterol 138 0 - 200 mg/dL LAB CHEMISTRY METHOD 05/07/2024 8:27 AM [facility] Triglycerides 109 0 - 150 mg/dL LAB CHEMISTRY METHOD 05/07/2024 8:27 AM [facility] HDL 60 >=40 mg/dL LAB CHEMISTRY METHOD 05/07/2024 8:27 AM [facility] LDL Calculated 56 0 - 100 mg/dL LAB CHEMISTRY METHOD 05/07/2024 8:27 AM [facility] VLDL Cholesterol Alex 21.8 mg/dL LAB CHEMISTRY METHOD 05/07/2024 8:27 AM [facility] Non HDL Chol. (LDL+VLDL) 78 <145 mg/dL LAB CHEMISTRY METHOD 05/07/2024 8:27 AM [facility] Chol/HDL Ratio 2.3 0.0 - 4.4 LAB CHEMISTRY METHOD 05/07/2024 8:27 AM [facility] Blood Venous blood specimen / Unknown 05/07/2024 5:49 AM EST 05/07/2024 6:24 AM EST us Donnell Banuelos MD LAB BLOOD ORDERABLES Final Resul t [facility] [address] [place] [address], [place] [phone] * (ABNORMAL) Comprehensive metabolic panel (05/07/2024 5:49 AM EST) Sodium 136 133 - 145 mmol/L LAB CHEMISTRY METHOD 05/07/2024 8:27 AM [facility] Potassium 4.3 3.5 - 5.5 mmol/L LAB CHEMISTRY METHOD 05/07/2024 8:27 AM [facility] Chloride 101 96 - 110 mmol/L LAB CHEMISTRY METHOD 05/07/2024 8:27 AM [facility] CO2 33(H) 21 - 32 mmol/L LAB CHEMISTRY METHOD 05/07/2024 8:27 AM [facility] Anion Gap 2(L) 3 - 11 LAB CHEMISTRY METHOD 05/07/2024 8:27 AM [facility] Glucose 72 70 - 100 mg/dL LAB CHEMISTRY METHOD 05/07/2024 8:27 AM [facility] BUN 20 5 - 25 mg/dL LAB CHEMISTRY METHOD 05/07/2024 8:27 AM [facility] Creatinine 0.78 0.70 - 1.30 mg/dL LAB CHEMISTRY METHOD 05/07/2024 8:27 AM [facility] eGFR 113 >=60 mL/min/1. 73m2 LAB CHEMISTRY METHOD 05/07/2024 8:27 AM [facility] Comment:Calculation based on the Chronic Kidney Disease Epidemiology Collaboration (CKD-EPI) equation refit without adjustment for race. BUN/Creatinine Ratio 25.6 LAB CHEMISTRY METHOD 05/07/2024 8:27 AM [facility] Calcium 9.3 8.5 - 10.5 mg/dL LAB CHEMISTRY METHOD 05/07/2024 8:27 AM [facility] AST (SGOT) 25 10 - 42 unit/L LAB CHEMISTRY METHOD 05/07/2024 8:27 AM [facility] ALT (SGPT) 35 10 - 60 unit/L LAB CHEMISTRY METHOD 05/07/2024 8:27 AM [facility] Alkaline Phosphatase 70 42 - 121 unit/L LAB CHEMISTRY METHOD 05/07/2024 8:27 AM [facility] Total Protein 7.3 6.0 - 8.0 g/dL LAB CHEMISTRY METHOD 05/07/2024 8:27 AM [facility] Albumin 3.6 3.2 - 5.0 g/dL LAB CHEMISTRY METHOD 05/07/2024 8:27 AM [facility] Total Bilirubin 0.3 0.0 - 1.4 mg/dL LAB CHEMISTRY METHOD 05/07/2024 8:27 AM [facility] Blood Venous blood specimen / Unknown 05/07/2024 5:49 AM EST 05/07/2024 6:24 AM EST us Donnell Banuelos MD LAB BLOOD ORDERABLES Final Resul t [facility] [address] [place] [address], * Thyroxine free (05/07/2024 5:49 AM EST) Free T4 1.24 0.70 - 1.80 ng/dL LAB CHEMISTRY METHOD 05/07/2024 8:30 AM EST [facility] Blood Venous blood specimen / Unknown 05/07/2024 5:49 AM EST 05/07/2024 6:24 AM EST us Donnell Banuelos MD LAB BLOOD ORDERABLES Final Resul t Performing Organization Address City/[facility] Co de Phone Number [facility] [address] [place] [address], [place] [phone] * Thyroid stimulating hormone (05/07/2024 5:49 AM EST) TSH 1.91 0.40 - 4.00 mcIU/mL LAB CHEMISTRY METHOD 05/07/2024 8:30 AM EST [facility] Blood Venous blood specimen / Unknown 05/07/2024 5:49 AM EST 05/07/2024 6:24 AM EST us Donnell Banuelos MD LAB BLOOD ORDERABLES Final Resul t Performing Organization Address [facility] Co de Phone Number [facility] [address] [place] [address], [place] [phone] documented in this encounter Visit Diagnoses Diagnosis Hyperlipidemia, unspecified Other fci (current) drug therapy Essential (primary) hypertension Unspecified essential hypertension Dysphagia following cerebral infarction Encounter for adjustment or management of cardiac device documented in this encounter Care Teams Medical Staff Coordinator Relationship Specialty Start Date End Date Donnell Banuelos MD [address] [place] [address] Dr Suite [facility] PEDRO Fernandez PCP - General Internal Medicine 11/03/21 documented as of this encounter
--- OUTSIDE RECORDS SUMMARY | 2024-12-07 10:16 | XMS_ITS | Encounter Summary ---
Author Organization [facility] Address [address] [place] [address] Care Team Providers Care Cafeteria Cashier Name Role Phone Donnell Banuelos MD Primary Care Provider Encounter Details Date Type Department Care Team (Late Contact Info) Description 11/19/2024 Lab Requisition [facility] - Main Lab 299 [facility] [place] [phone] Donnell Banuelos MD [address] [place] [address] [address] [place], [place] Encounter for screening for diseases of the blood and blood-forming organs and certain disorders involving the immune mechanism; Encounter for screening for lipoid disorders Social History Tobacco Use Types Packs/Day Years [...] Description 03/11/2025 10:30 AM EST Ancillary Procedure [facility] - [facility] [address] [facility] [address] [place] [phone] documented as of this encounter Procedures Procedure Name Priority Date/Time Associated Diagnosis Comments COMPLETE BLOOD COUNT Routine 11/19/2024 6:12 AM EDT Encounter for screening for diseases of the blood and blood-forming organs and certain disorders involving the immune mechanism Encounter for screening for lipoid disorders COMPREHENSIVE METABOLIC PANEL Routine 11/19/2024 6:12 AM EDT Encounter for screening for diseases of the blood and blood-forming organs and certain disorders involving the immune mechanism Encounter for screening for lipoid disorders documented in this encounter Results * (ABNORMAL) Complete blood count (11/19/2024 6:12 AM EDT) WBC 6.9 4.8 - 10.8 K/mcL LAB HEMETOLOGY METHOD 11/19/2024 7:27 AM [facility] RBC 3.80(L) 4.50 - 5.50 M/mcL LAB HEMETOLOGY METHOD 11/19/2024 7:27 AM [facility] Hemoglobin 11.3(L) 13.5 - 17.5 g/dL LAB HEMETOLOGY METHOD 11/19/2024 7:27 AM [facility] Hematocrit 35.0(L) 42.0 - 54.0 % LAB HEMETOLOGY METHOD 11/19/2024 7:27 AM [facility] MCV 92.6 79.0 - 98.0 FL LAB HEMETOLOGY METHOD 11/19/2024 7:27 AM [facility] MCH 29.9 27.0 - 32.0 pcg LAB HEMETOLOGY METHOD 11/19/2024 7:27 AM [facility] MCHC 32.3 32.0 - 37.0 g/dL LAB HEMETOLOGY METHOD 11/19/2024 7:27 AM [facility] RDW 13.3 11.0 - 15.0 % LAB HEMETOLOGY METHOD 11/19/2024 7:27 AM [facility] Platelets 296 130 - 400 K/mcL LAB HEMETOLOGY METHOD 11/19/2024 7:27 AM [facility] MPV 9.7 7.0 - 11.0 FL LAB HEMETOLOGY METHOD 11/19/2024 7:27 AM [facility] NRBC 0.0 <1.0 % LAB HEMETOLOGY METHOD 11/19/2024 7:27 AM [facility] NRBC Absolute 0.00 <0.10 K/mcL LAB HEMETOLOGY METHOD 11/19/2024 7:27 AM [facility] Blood Venous blood specimen / Unknown 11/19/2024 6:12 AM EDT 11/19/2024 7:05 AM EDT us Donnell Banuelos MD LAB BLOOD ORDERABLES Final Resul t [facility] [address] [place] [address], [place] [phone] * (ABNORMAL) Comprehensive metabolic panel (11/19/2024 6:12 AM EDT) Sodium 137 133 - 145 mmol/L LAB CHEMISTRY METHOD 11/19/2024 8:04 AM [facility] Potassium 3.8 3.5 - 5.5 mmol/L LAB CHEMISTRY METHOD 11/19/2024 8:04 AM [facility] Chloride 100 96 - 110 mmol/L LAB CHEMISTRY METHOD 11/19/2024 8:04 AM [facility] CO2 34(H) 21 - 32 mmol/L LAB CHEMISTRY METHOD 11/19/2024 8:04 AM [facility] Anion Gap 3 3 - 11 LAB CHEMISTRY METHOD 11/19/2024 8:04 AM [facility] Glucose 70 70 - 100 mg/dL LAB CHEMISTRY METHOD 11/19/2024 8:04 AM [facility] BUN 20 5 - 25 mg/dL LAB CHEMISTRY METHOD 11/19/2024 8:04 AM [facility] Creatinine 0.61(L) 0.70 - 1.30 mg/dL LAB CHEMISTRY METHOD 11/19/2024 8:04 AM [facility] eGFR 121 >=60 mL/min/1. 73m2 LAB CHEMISTRY METHOD 11/19/2024 8:04 AM T [facility] Comment:Calculation based on the Chronic Kidney Disease Epidemiology Collaboration (CKD-EPI) equation refit without adjustment for race. BUN/Creatinine Ratio 32.8 LAB CHEMISTRY METHOD 11/19/2024 8:04 AM [facility] Calcium 9.2 8.5 - 10.5 mg/dL LAB CHEMISTRY METHOD 11/19/2024 8:04 AM [facility] AST (SGOT) 33 10 - 42 unit/L LAB CHEMISTRY METHOD 11/19/2024 8:04 AM [facility] ALT (SGPT) 42 10 - 60 unit/L LAB CHEMISTRY METHOD 11/19/2024 8:04 AM [facility] Alkaline Phosphatase 63 42 - 121 unit/L LAB CHEMISTRY METHOD 11/19/2024 8:04 AM [facility] Total Protein 7.1 6.0 - 8.0 g/dL LAB CHEMISTRY METHOD 11/19/2024 8:04 AM [facility] Albumin 3.8 3.2 - 5.0 g/dL LAB CHEMISTRY METHOD 11/19/2024 8:04 AM [facility] Total Bilirubin 0.3 0.0 - 1.4 mg/dL LAB CHEMISTRY METHOD 11/19/2024 8:04 AM [facility] Blood Venous blood specimen / Unknown 11/19/2024 6:12 AM EDT 11/19/2024 7:05 AM EDT us Donnell Banuelos MD LAB BLOOD ORDERABLES Final Resul t [facility] [address] [place] [address], documented in this encounter Visit Diagnoses Diagnosis Encounter for screening for diseases of the blood and blood-forming organs and certain disorders involving the immune mechanism Encounter for screening for lipoid disorders Encounter for adjustment or management of cardiac device documented in this encounter Care Teams Cafeteria Cashier Relationship Specialty Start Date End Date Donnell Banuelos MD [address] [place] [address] Dr [address] PEDRO Fernandez PCP - General Internal Medicine 11/03/21 documented as of this encounter
--- OUTSIDE RECORDS SUMMARY | 2024-12-07 10:16 | XMS_ITS | Encounter Summary ---
Author Organization [facility] Address [address] [place] [address] Care Team Providers Care Industrial Truck Driver Name Role Phone Donnell Banuelos MD Primary Care Provider Encounter Details Date Type Department Care Team (Late Contact Info) Description 09/02/2024 Lab Requisition [facility] - Main Lab 299 [facility] [place] [phone] Donnell Banuelos MD [address] [place] [address] [address] [place], [place] Encounter for therapeutic drug level monitoring Social History Tobacco Use Types Packs/Day Years [...] Description 03/11/2025 10:30 AM EST Ancillary Procedure [facility] - [facility] [address] [facility] [address] [place] [address] documented as of this encounter Procedures Procedure Name Priority Date/Time Associated Diagnosis Comments ZINC Routine 09/02/2024 6:35 AM EDT Encounter for therapeutic drug level monitoring documented in this encounter Results * Zinc (09/02/2024 6:35 AM EDT) Zinc 78 60 - 130 ug/dL 09/04/2024 9:37 AM EDT [facility] Comment: Elevated results may be due to sample collected in a non-certified trace element-free tube. This test was developed and the performance characteristics determined by [facility]. It has not been cleared or approved by the FDA. The laboratory is regulated under CLIA as qualified to perform high-complexity testing. This test is used for patient testing purposes. It should not be regarded as investigational or for research. Test performed at [facility], [address], [place] [address] Kristine Gonzáles MD, PhD - Media Law Faculty Member Blood Venous blood specimen / Unknown 09/02/2024 6:35 AM EDT 09/02/2024 7:17 AM EDT us Donnell Banuelos MD LAB BLOOD ORDERABLES Final Resul t [facility] [address] [place] [address] documented in this encounter Visit Diagnoses Diagnosis Encounter for therapeutic drug level monitoring Encounter for adjustment or management of cardiac device documented in this encounter Care Teams Industrial Truck Driver Relationship Specialty Start Date End Date Donnell Banuelos MD [address] [place] [address] Dr [address] PEDRO Fernandez PCP - General Internal Medicine 11/03/21 documented as of this encounter
--- OUTSIDE RECORDS SUMMARY | 2024-12-07 10:16 | XMS_ITS | Encounter Summary ---
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; Dysphagia following cerebral infarction [...] Description 03/11/2025 10:30 AM EST Ancillary Procedure [facility] - [facility] [address] [facility] [address] [place] [phone] documented as of this encounter Procedures Procedure Name Priority Date/Time Associated Diagnosis Comments THYROID STIMULATING HORMONE Routine 03/10/2024 5:25 AM EST Dysphagia following cerebral infarction Other jail (current) drug therapy documented in this encounter Results * Thyroid stimulating hormone (03/10/2024 5:25 AM EST) TSH 1.16 0.40 - 4.00 mcIU/mL LAB CHEMISTRY METHOD 03/10/2024 10:24 AM EST [facility] ([facility]) [facility] Blood Venous blood specimen / Unknown 03/10/2024 5:25 AM EST 03/10/2024 6:51 AM EST Donnell Banuelos MD LAB BLOOD ORDERABLES Final Resul t [facility] ([facility] [address] [place] [address], documented in this encounter Visit Diagnoses Diagnosis Other jail (current) drug therapy Dysphagia following cerebral infarction Encounter for adjustment or management of cardiac device documented in this encounter Care Teams Tile Layer Helper Relationship Specialty Start Date End Date Donnell Banuelos MD [address] [place] [address] Dr [address] [place], [place] PCP - General Internal Medicine 11/03/21 documented as of this encounter
--- OUTSIDE RECORDS SUMMARY | 2024-12-07 10:16 | XMS_ITS | Encounter Summary ---
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; Dysphagia following cerebral infarction [...] Description 03/11/2025 10:30 AM EST Ancillary Procedure [facility] - [facility] [address] [facility] [address] [place] [phone] documented as of this encounter Procedures Procedure Name Priority Date/Time Associated Diagnosis Comments THYROID STIMULATING HORMONE Routine 02/09/2024 8:45 AM EST Dysphagia following cerebral infarction Other alf (current) drug therapy documented in this encounter Results * Thyroid stimulating hormone (02/09/2024 8:45 AM EST) TSH 1.40 0.40 - 4.00 mcIU/mL LAB CHEMISTRY METHOD 02/09/2024 11:30 AM EST [facility] ([facility] Blood Venous blood specimen / Unknown 02/09/2024 8:45 AM EST 02/09/2024 9:37 AM EST Donnell Banuelos MD LAB BLOOD ORDERABLES Final Resul t [facility] ([facility]) [facility] [address] [place] [address], documented in this encounter Visit Diagnoses Diagnosis Other alf (current) drug therapy Dysphagia following cerebral infarction Encounter for adjustment or management of cardiac device documented in this encounter Care Teams Director Surgical Relationship Specialty Start Date End Date Donnell Banuelos MD [address] [place] [address] Dr [address] [place], [place] PCP - General Internal Medicine 11/03/21 documented as of this encounter
--- OUTSIDE RECORDS SUMMARY | 2024-12-07 10:17 | XMS_ITS | Clinical Summary ---
Author Organization [address] [facility] Address [address] [place] [address] Phone Care Team Providers Care Latent Print Examiner Name Role Phone Donnell Banuelos MD Primary Care Provider [phone] Allergies Active Allergy Reactions Criticality Noted Date [...] skin every 24 hours. Active NYSTATIN TOP Apply topically as needed. Active oxyCODONE-acetam inophen (PERCOCET) 10-325 mg per tablet Take 1 Tablet by mouth 3 times daily as needed. Active senna (SENOKOT) 8.6 mg tablet Take by mouth as needed. Active sodium phosphates (Fleet Enema Extra) 19-7 gram/[address] rectally daily as needed. Active multivit-min/iro n/folic acid/K (ADULTS MULTIVITAMIN ORAL) Take by mouth daily. Active Active Problems Problem Noted [...] Encounters Date Type Department Care Team Description 11/19/2024 Lab Requisition [facility] Lab [address] [place] [address] Donnell Banuelos MD Encounter for screening for diseases of the blood and blood-forming organs and certain disorders involving the immune mechanism; Encounter for screening for lipoid disorders 11/04/2024 Lab Requisition [facility] Lab [address] [place] [phone] Donnell Banuelos MD Hypothyroidism, unspecified; Other hyperlipidemia; Other specified hypothyroidism 10/08/2024 11:05 AM EDT Ancillary Procedure [facility] [address] [facility] [address] [place] [address] 10/06/2024 10:30 AM EDT Ancillary Procedure [facility] [address] [place] [address] 10/05/2024 Lab Requisition [facility] - Main Lab [address] [facility] [place] [address] Donnell Banuelos MD Presence of other heart-valve replacement 10/02/2024 Telephone [facility] [address] [place] [address] Mark Weaver NP 09/08/2024 3:20 PM EDT Ancillary Procedure [facility] [address] [place] [address] from Last 3 Months Surgical History Surgery [...] DX:Function al dyspepsia Other 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 Abnormal weight loss DX:Abnormal weight [...] Description 03/11/2025 10:30 AM EST Ancillary Procedure [facility] [address] [facility] [address] [place] [address] Health Maintenance Due Date Last Done Comments DTaP,Tdap,and Td Vaccines (1 - Tdap) 09/14/1998 Hepatitis B Vaccines (1 of 3 - 19+ 3-dose series) 09/14/1998 Colorectal Cancer Screening: Colonoscopy 03/18/2022 HIV Screening 03/18/2022 Hepatitis C Screening 03/18/2022 Medicare Annual Wellness Visit 03/18/2022 Social Influencers of Health Screening 03/18/2022 Depression Screening 04/08/2024 COVID-19 Vaccine ( season) 2024 02/15/2023, 2021, 01/25/2021, Additional history exists Influenza Vaccine (#1) 2024 01/19/2021 Hypertension/CHF/CAD Annual BMP Blood Test 11/19/2025 11/19/2024, 08/28/2024, 08/21/2024, Additional history exists Cholesterol Screening (Lipid Panel) 11/04/2029 11/04/2024, 05/07/2024 HIB Vaccines Aged Out No longer [...] 5 Years) and At-Risk Patients (6 to 49 Years) Aged Out No longer eligible based on patient's age to complete this topic RSV Immunization Patients Under 20 months Aged Out No longer eligible based on patient's age to complete this topic Varicella Vaccines Aged Out No longer eligible based on patient's age to complete this topic Medical Devices Implanted Type Area Muck Hauler Device Identifier Shelf Expiration Date Model / Serial / Lot Bsci-Crm [id number] Implanted:08/2022 (Quantity not on file) Cardiac Pacemaker [employer]HY[employer] MGMT [id number] / [id number] / Procedures Procedure Name Priority Date/Time Associated [...] mechanism Encounter for screening for lipoid disorders THYROID STIMULATING HORMONE Routine 11/04/2024 5:50 AM EDT Hypothyroidism, unspecified Other hyperlipidemia Other specified hypothyroidism THYROXINE FREE Routine 11/04/2024 5:50 AM EDT Hypothyroidism, unspecified Other hyperlipidemia Other specified hypothyroidism LIPID PANEL WITH REFLEX TO DIRECT LDL Routine 11/04/2024 5:50 AM EDT Hypothyroidism, unspecified Other hyperlipidemia Other specified hypothyroidism CARDIAC DEVICE CHECK- REMOTE- MURJ Routine 10/08/2024 11:04 AM EDT CBC WITH AUTO DIFFERENTIAL Routine 10/05/2024 5:55 AM EDT Presence of other heart-valve replacement CBC AND DIFFERENTIAL Routine 10/05/2024 5:55 AM EDT Presence of other heart-valve replacement CARDIAC DEVICE CHECK- REMOTE- MURJ Routine 09/08/2024 3:17 PM EDT from Last 3 Months Results * (ABNORMAL) Complete blood count (11/19/2024 6:12 AM EDT) [facility] WBC 6.9 4.8 - 10.8 K/mcL LAB HEMETOLOGY METHOD 11/19/2024 7:27 AM EDT [facility] RBC 3.80(L) 4.50 - 5.50 M/mcL LAB HEMETOLOGY METHOD 11/19/2024 7:27 AM EDT [facility] Hemoglobin 11.3(L) 13.5 - 17.5 g/dL LAB HEMETOLOGY METHOD 11/19/2024 7:27 AM EDT [facility] Hematocrit 35.0(L) 42.0 - 54.0 % LAB HEMETOLOGY METHOD 11/19[facility]24 [facility] MCV 92.6 79.0 - 98.0 FL LAB HEMETOLOGY METHOD 11/19/2024 7:27 AM EDT [facility] MCH 29.9 27.0 - 32.0 pcg LAB HEMETOLOGY METHOD 11/19/2024 7:27 AM EDT [facility] MCHC 32.3 32.0 - 37.0 g/dL LAB HEMETOLOGY METHOD 11/19/2024 7:27 AM EDT [facility] RDW 13.3 11.0 - 15.0 % LAB HEMETOLOGY METHOD 11/19/2024 7:27 AM EDT [facility] Platelets 296 130 - 400 K/mcL LAB HEMETOLOGY METHOD 11/19/2024 7:27 AM EDT [facility] MPV 9.7 7.0 - 11.0 FL LAB HEMETOLOGY METHOD 11/19/2024 7:27 AM EDT [facility] NRBC 0.0 <1.0 % LAB HEMETOLOGY METHOD 11/19/2024 7:27 AM EDT [facility] NRBC Absolute 0.00 <0.10 K/mcL LAB HEMETOLOGY METHOD 11/19/2024 7:[facility] Blood Venous blood specimen / Unknown 11/19/2024 6:12 AM EDT 11/19/2024 7:05 AM EDT us Donnell Banuelos MD LAB BLOOD ORDERABLES Final Resul t [facility] [address] [place] [address], * (ABNORMAL) Comprehensive metabolic panel (11/19/2024 6:12 AM EDT) Sodium 137 133 - 145 mmol/L LAB CHEMISTRY METHOD 11/19/2024 8:04 AM EDT [facility] Potassium 3.8 3.5 - 5.5 mmol/L LAB CHEMISTRY METHOD 11/19/2024 8:04 AM [facility] Chloride 100 96 - 110 mmol/L LAB CHEMISTRY METHOD 11/19/2024 8:04 AM [facility] CO2 34(H) 21 - 32 mmol/L LAB CHEMISTRY METHOD 11/19/2024 8:04 AM [facility] Anion Gap 3 3 - 11 LAB CHEMISTRY METHOD 11/19/2024 8:04 AM [facility] Glucose 70 70 - 100 mg/dL LAB CHEMISTRY METHOD 11/19/2024 8:04 AM [facility] BUN 20 5 - 25 mg/dL LAB CHEMISTRY METHOD 11/19/2024 8:04 AM [facility] Creatinine 0.61(L) 0.70 - 1.30 mg/dL LAB CHEMISTRY METHOD 11/19/2024 8:04 AM [facility] eGFR 121 >=60 mL/min/1. 73m2 LAB CHEMISTRY METHOD 11/19/2024 8:04 AM [facility] Comment:Calculation based on the Chronic Kidney Disease Epidemiology Collaboration (CKD-EPI) equation refit without adjustment for race. BUN/Creatinine Ratio 32.8 LAB CHEMISTRY METHOD 11/19/2024 8:04 AM [facility] Calcium 9.2 8.5 - 10.5 mg/dL LAB CHEMISTRY METHOD 11/19/2024 8:04 AM [facility] AST (SGOT) 33 10 - 42 unit/L LAB CHEMISTRY METHOD 11/19/2024 8:04 AM [facility] ALT (SGPT) 42 10 - 60 unit/L LAB CHEMISTRY METHOD 11/19/2024 8:04 AM [facility] Alkaline Phosphatase 63 42 - 121 unit/L LAB CHEMISTRY METHOD 11/19/2024 8:04 AM [facility] Total Protein 7.1 6.0 - 8.0 g/dL LAB CHEMISTRY METHOD 11/19/2024 8:04 AM T [facility] Albumin 3.8 3.2 - 5.0 g/dL LAB CHEMISTRY METHOD 11/19/2024 8:04 AM [facility] Total Bilirubin 0.3 0.0 - 1.4 mg/dL LAB CHEMISTRY METHOD 11/19/2024 8:04 AM [facility] Blood Venous blood specimen / Unknown 11/19/2024 6:12 AM EDT 11/19/2024 7:05 AM EDT us Donnell Banuelos MD LAB BLOOD ORDERABLES Final Resul t [facility] [address] [place] [address], [place] [phone] * Lipid panel with reflex to direct LDL (11/04/2024 5:50 AM EDT) Cholesterol 142 0 - 200 mg/dL LAB CHEMISTRY METHOD 11/04/2024 7:26 AM [facility] Triglycerides 56 0 - 150 mg/dL LAB CHEMISTRY METHOD 11/04/2024 7:26 AM [facility] HDL 82 >=40 mg/dL LAB CHEMISTRY METHOD 11/04/2024 7:26 AM [facility] LDL Calculated 49 0 - 100 mg/dL LAB CHEMISTRY METHOD 11/04/2024 7:26 AM [facility] VLDL Cholesterol Alex 11.2 mg/dL LAB CHEMISTRY METHOD 11/04/2024 7:26 AM [facility] Non HDL Chol. (LDL+VLDL) 60 <145 mg/dL LAB CHEMISTRY METHOD 11/04/2024 7:26 AM [facility] Chol/HDL Ratio 1.7 0.0 - 4.4 LAB CHEMISTRY METHOD 11/04/2024 7:26 AM [facility] Blood Venous blood specimen / Unknown 11/04/2024 5:50 AM EDT 11/04/2024 6:26 AM EDT us Donnell Banuelos MD LAB BLOOD ORDERABLES Final Resul t Performing Organization Address [facility]/ZIP Co de Phone Number [facility] [address] [place] [address], [place] [phone] * Thyroid stimulating hormone (11/04/2024 5:50 AM EDT) TSH 0.82 0.40 - 4.00 mcIU/mL LAB CHEMISTRY METHOD 11/04/2024 8:35 AM EDT [facility] Blood Venous blood specimen / Unknown 11/04/2024 5:50 AM EDT 11/04/2024 6:26 AM EDT us Donnell Banuelos MD LAB BLOOD ORDERABLES Final Resul t Performing Organization Address [facility]/ZIP Co de Phone Number [facility] [address] [place] [address], [place] [phone] * Thyroxine free (11/04/2024 5:50 AM EDT) Free T4 1.24 0.70 - 1.80 ng/dL LAB CHEMISTRY METHOD 11/04/2024 8:34 AM EDT [facility] Blood Venous blood specimen / Unknown 11/04/2024 5:50 AM EDT 11/04/2024 6:26 AM EDT us Donnell Banuelos MD LAB BLOOD ORDERABLES Final Resul t Performing Organization Address City/[facility]/ZIP Co de Phone Number [facility] [address] [place] [address], [place] [phone] * Cardiac device check - Remote- MURJ (10/08/2024 11:04 AM EDT) Only the most recent of2 resultswithin the time period is included. Date Time Interrogation Session [id number] CV DEVICE CHECK Type Interrogation Session Remote Device Initiated CV DEVICE CHECK Implantable Pulse Generator Muck Hauler BSX CV DEVICE CHECK Implantable Pulse Generator Type IPG CV DEVICE CHECK Implantable Pulse Generator Model L111 CV DEVICE CHECK Implantable Pulse Generator Serial Number [id number] CV DEVICE CHECK Implantable Pulse Generator Implant Date 20230110 CV DEVICE CHECK Battery Remaining Percentage 100.00 CV DEVICE CHECK Battery Remaining Longevity 84.0 CV DEVICE CHECK Battery Status Beginning of Service CV DEVICE CHECK [place] Statistic RA Percent Paced 57.00 CV DEVICE CHECK [place] Statistic RV Percent Paced 0.00 CV DEVICE CHECK Atrial Tachy Statistic AT/AF [place] Percent 1.00 CV DEVICE CHECK Lead Channel Sensing Intrinsic Amplitude 5.300 CV DEVICE CHECK Lead Channel Setting Sensing Sensitivity 0.25 CV DEVICE CHECK Lead Channel Impedance Value 604 CV DEVICE CHECK Lead Channel Pacing Threshold Amplitude 0.400 CV DEVICE CHECK Lead Channel Pacing Threshold Pulse Width 0.4 CV DEVICE CHECK Lead Channel RA Pacing Threshold Date 2024-10-02 CV DEVICE CHECK Lead Channel Setting Pacing Amplitude 4.000 CV DEVICE CHECK Lead Channel Setting Pacing Pulse Width 0.4 CV DEVICE CHECK Lead Channel Sensing Intrinsic Amplitude 15.900 CV DEVICE CHECK Lead Channel Setting Sensing Sensitivity 0.60 CV DEVICE CHECK Lead Channel Impedance Value 415 CV DEVICE CHECK Lead Channel Pacing Threshold Amplitude 0.800 CV DEVICE CHECK Lead Channel Pacing Threshold Pulse Width 0.4 CV DEVICE CHECK Lead Channel RV Pacing Threshold Date 2024-10-02 CV DEVICE CHECK Lead Channel Setting Pacing [...] 1 CV DEVICE CHECK Date of Service 2024-12-12 CV DEVICE CHECK Anatomical Region Laterality Modality Device Interroga tion 10/04/2024 4:41 AM EDT Impressions 10/08/2024 11:01 AM EDT Tachycardia: SVT * Stored EGMs are consistent with or suggestive of Supraventricular Tachycardia * AT burden: 1% * Total number of events: 1 12 beat SVT vs PAT Narrative Procedure Note Bibiana Lou, WRAPPER SHEETER - 10/08/2024 IMPRESSION: Tachycardia: SVT * Stored EGMs are consistent with or suggestive of SupraventricularTachycardia * AT burden: 1% * Total number of events: 1 12 beat SVT vs PAT Bibiana Lou NP CV IMPLANTABLE CARDIAC DEVIC E PROCEDURES Final Result * (ABNORMAL) CBC auto differential (10/05/2024 5:55 AM EDT) WBC 6.4 4.8 - 10.8 K/mcL LAB HEMETOLOGY METHOD 10/05/2024 7:15 AM [facility] RBC 3.90(L) 4.50 - 5.50 M/mcL LAB HEMETOLOGY METHOD 10/05/2024 7:[facility] Hemoglobin 11.6(L) 13.5 - 17.5 g/dL LAB HEMETOLOGY METHOD 10/05/2024 7:15 AM [facility] Hematocrit 36.3(L) 42.0 - 54.0 % LAB HEMETOLOGY METHOD 10/05/2024 7:15 AM [facility] MCV 93.8 79.0 - 98.0 FL LAB HEMETOLOGY METHOD 10/05/2024 7:[facility] MCH 30.0 27.0 - 32.0 pcg LAB HEMETOLOGY METHOD 10/05/2024 7:15 AM [facility] MCHC 32.0 32.0 - 37.0 g/dL LAB HEMETOLOGY METHOD 10/05/2024 7:15 AM [facility] RDW 14.2 11.0 - 15.0 % LAB HEMETOLOGY METHOD 10/05/2024 7:15 AM [facility] Platelets 315 130 - 400 K/mcL LAB HEMETOLOGY METHOD 10/05/2024 7:15 AM [facility] MPV 9.8 7.0 - 11.0 FL LAB HEMETOLOGY METHOD 10/05/2024 7:15 AM [facility] NRBC 0.0 <1.0 % LAB HEMETOLOGY METHOD 10/05/2024 7:15 AM [facility] NRBC Absolute 0.00 <0.10 K/mcL LAB HEMETOLOGY METHOD 10/05/2024 7:15 AM [facility] Neutrophils Relative 61.6 % LAB HEMETOLOGY METHOD 10/05/2024 7:15 AM [facility] Lymphocytes Relative 30.1 % LAB HEMETOLOGY METHOD 10/05/2024 7:15 AM [facility] Monocytes Relative 5.8 % LAB HEMETOLOGY METHOD 10/05/2024 7:15 AM [facility] Eosinophils Relative 1.4 % LAB HEMETOLOGY METHOD 10/05/2024 7:15 AM [facility] Basophils Relative 0.8 % LAB HEMETOLOGY METHOD 10/05/2024 7:15 AM [facility] Immature Granulocytes Relative 0.3 % LAB HEMETOLOGY METHOD 10/05/2024 7:15 AM [facility] Neutrophils Absolute 3.96 1.50 - 7.00 K/mcL LAB HEMETOLOGY METHOD 10/05/2024 7:15 AM [facility] Lymphocytes Absolute 1.93 1.00 - 5.00 K/mcL LAB HEMETOLOGY METHOD 10/05/2024 7:15 AM [facility] Monocytes Absolute 0.37 0.20 - 1.00 K/mcL LAB HEMETOLOGY METHOD 10/05/2024 7:15 AM EDT [facility] Eosinophils Absolute 0.09 0.00 - 0.50 K/mcL LAB HEMETOLOGY METHOD 10/05/2024 7:15 AM EDT [facility] Basophils Absolute 0.05 0.00 - 0.20 K/mcL LAB HEMETOLOGY METHOD 10/05/2024 7:15 AM EDT [facility] Immature Granulocytes Absolute 0.02 0.00 - 0.03 K/mcL LAB HEMETOLOGY METHOD 10/05/2024 7:15 AM EDT [facility] Blood Venous blood specimen / Unknown 10/05/2024 5:55 AM EDT 10/05/2024 7:01 AM EDT us Donnell Banuelos MD LAB BLOOD ORDERABLES Final Resul t [facility] [address] [place] [address], [place] [phone] from Last 3 Months Insurance MEDICARE MEDICAID - [place] Advance Directives Documents on File Type Date Recorded 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
--- OUTSIDE RECORDS SUMMARY | 2024-12-07 10:17 | XMS_ITS | Encounter Summary ---
Author Organization [facility] Address [address] [place] [address] Care Team Providers Care Captain Cannery Tender Name Role Phone Donnell Banuelos MD Primary Care Provider [phone] Encounter Details Date Type Department Care Team (Late st Contact Info) Description 08/19/2024 Lab Requisition [facility] - Main Lab [address] [facility] [place] [phone] Donnell Banuelos MD [address] [place] [address] [address] [place], [place] Repeated falls Social History Tobacco Use [...] Description 03/11/2025 10:30 AM EST Ancillary Procedure [facility] [address] [facility] [address] [place] [phone] documented as of this encounter Procedures Procedure [...] Escherichia coli(A) ROSA 08/21/2024 11:20 AM EDT [facility] Urine Urine specimen obtained by clean catch procedure / Unknown 08/19/2024 12:40 PM EDT 08/19/2024 5:31 PM EDT Narrative [facility] - 08/21/2024 11:20 AM EDT [...] MICROBIOLOGY - GENERAL ORDER FRANKIE Final Result [facility] [address] [place] [address], * (ABNORMAL) Urinalysis with reflex microscopic and culture (08/19/2024 12:40 PM EDT) Specific [place] Urine 1.023 1.003 - 1.030 LAB URINALYSIS - AUTOMATED METHOD 08/19/2024 5:31 PM [facility] pH, Urine 6.0 5.0 - 8.0 pH LAB URINALYSIS - AUTOMATED METHOD 08/19/2024 5:31 PM [facility] Leukocytes, Urine Moderate(A) Negative LAB URINALYSIS - AUTOMATED METHOD 08/19/2024 5:31 PM [facility] Nitrite, Urine Positive(A) Negative LAB URINALYSIS - AUTOMATED METHOD 08/19/2024 5:31 PM [facility] Protein, Urine 100(A) <=Trace mg/dL LAB URINALYSIS - AUTOMATED METHOD 08/19/2024 5:31 PM [facility] Glucose, Urine Negative Negative mg/dL LAB URINALYSIS - AUTOMATED METHOD 08/19/2024 5:31 PM [facility] Ketones, Urine Trace(A) Negative mg/dL LAB URINALYSIS - AUTOMATED METHOD 08/19/2024 5:31 PM [facility] Urobilinogen , Urine 1.0 0.2 - 1.0 mg/dL LAB URINALYSIS - AUTOMATED METHOD 08/19/2024 5:31 PM [facility] Bilirubin, Urine Negative Negative LAB URINALYSIS - AUTOMATED METHOD 08/19/2024 5:31 PM [facility] Blood, Urine Small(A) Negative LAB URINALYSIS - AUTOMATED METHOD 08/19/2024 5:31 PM [facility] RBC, Urine 5.7(H) 0 - 4 /HPF LAB URINALYSIS - AUTOMATED METHOD 08/19/2024 5:31 PM [facility] WBC, Urine 121.1(H) 0 - 4 /HPF LAB URINALYSIS - AUTOMATED METHOD 08/19/2024 5:31 PM [facility] Squamous Epithelial, Urine 11 0 - 60 /LPF LAB URINALYSIS - AUTOMATED METHOD 08/19/2024 5:31 PM EDT [facility] Bacteria, Urine Many(A) Negative /HPF LAB URINALYSIS - AUTOMATED METHOD 08/19/2024 5:31 PM EDT [facility] Hyaline Casts, Urine 17.3(H) 0 - 3 /LPF LAB URINALYSIS - AUTOMATED METHOD 08/19/2024 5:31 PM EDT [facility] Urine Urine specimen obtained by clean catch procedure / Unknown 08/19/2024 12:40 PM EDT 08/19/2024 4:21 PM EDT us Donnell Banuelos MD LAB URINE ORDERABLES Final Resul t [facility] [address] [place] [address], documented in this encounter Visit Diagnoses Diagnosis Repeated falls Encounter for adjustment or management of cardiac device documented in this encounter Care Teams Captain Cannery Tender Relationship Specialty Start Date End Date Donnell Banuelos MD [address] [place] Fernandez PCP - General Internal Medicine 11/03/21 documented as of this encounter
--- OUTSIDE RECORDS SUMMARY | 2024-12-07 10:17 | XMS_ITS | Encounter Summary ---
Author Organization [facility] Address [address] [place] [address] Care Team Providers Care Cork Insulation Installer Name Role Phone Donnell Banuelos MD Primary Care Provider [phone] Encounter Details Date Type Department Care Team (Late st Contact Info) Description 10/05/2024 Lab Requisition [facility] - Main Lab [address] [facility] [place] [id number] Donnell Banuelos MD [address] [place] [address] [address] [place], [place] Presence of other heart-valve replacement Social History Tobacco Use Types Packs/Day Years [...] Description 03/11/2025 10:30 AM EST Ancillary Procedure [facility] [address] [facility] [address] [place] [phone] documented as of this encounter Procedures Procedure Name Priority Date/Time Associated Diagnosis Comments CBC WITH AUTO DIFFERENTIAL Routine 10/05/2024 5:55 AM EDT Presence of other heart-valve replacement CBC AND DIFFERENTIAL Routine 10/05/2024 5:55 AM EDT Presence of other heart-valve replacement documented in this encounter Results * (ABNORMAL) CBC auto differential (10/05/2024 5:55 AM EDT) [facility] WBC 6.4 4.8 - 10.8 K/mcL LAB HEMETOLOGY METHOD 10/05/2024 7:15 AM EDT [facility] LAB RBC 3.90(L) 4.50 - 5.50 M/mcL LAB HEMETOLOGY METHOD 10/05/2024 7:15 AM [facility] LAB Hemoglobin 11.6(L) 13.5 - 17.5 g/dL LAB HEMETOLOGY METHOD 10/05/2024 7:15 AM [facility] LAB Hematocrit 36.3(L) 42.0 - 54.0 % LAB HEMETOLOGY METHOD 10/05/2024 7:15 AM [facility] LAB MCV 93.8 79.0 - 98.0 FL LAB HEMETOLOGY METHOD 10/05/2024 7:15 AM [facility] LAB MCH 30.0 27.0 - 32.0 pcg LAB HEMETOLOGY METHOD 10/05/2024 7:15 AM [facility] LAB MCHC 32.0 32.0 - 37.0 g/dL LAB HEMETOLOGY METHOD 10/05/2024 7:15 AM [facility] LAB RDW 14.2 11.0 - 15.0 % LAB HEMETOLOGY METHOD 10/05/2024 7:15 AM [facility] LAB Platelets 315 130 - 400 K/mcL LAB HEMETOLOGY METHOD 10/05/2024 7:15 AM [facility] LAB MPV 9.8 7.0 - 11.0 FL LAB HEMETOLOGY METHOD 10/05[facility]24 [facility] NRBC 0.0 <1.0 % LAB HEMETOLOGY METHOD 10/05/2024 7:15 AM [facility] NRBC Absolute 0.00 <0.10 K/mcL LAB HEMETOLOGY METHOD 10/05/2024 7:15 AM [facility] Neutrophils Relative 61.6 % LAB HEMETOLOGY METHOD 10/05/2024 7:15 AM [facility] Lymphocytes Relative 30.1 % LAB HEMETOLOGY METHOD 10/05/2024 7:15 AM [facility] Monocytes Relative 5.8 % LAB HEMETOLOGY METHOD 10/05/2024 7:15 AM [facility] Eosinophils Relative 1.4 % LAB HEMETOLOGY METHOD 10/05/2024 7:15 AM [facility] Basophils Relative 0.8 % LAB HEMETOLOGY METHOD 10/05/2024 7:15 AM [facility] Immature Granulocytes Relative 0.3 % LAB HEMETOLOGY METHOD 10/05/2024 7:15 AM [facility] Neutrophils Absolute 3.96 1.50 - 7.00 K/mcL LAB HEMETOLOGY METHOD 10/05/2024 7:15 AM [facility] Lymphocytes Absolute 1.93 1.00 - 5.00 K/mcL LAB HEMETOLOGY METHOD 10/05/2024 7:15 AM [facility] Monocytes Absolute 0.37 0.20 - 1.00 K/mcL LAB HEMETOLOGY METHOD 10/05/2024 7:15 AM [facility] Eosinophils Absolute 0.09 0.00 - 0.50 K/mcL LAB HEMETOLOGY METHOD 10/05/2024 7:15 AM [facility] Basophils Absolute 0.05 0.00 - 0.20 K/mcL LAB HEMETOLOGY METHOD 10/05/2024 7:15 AM [facility] Immature Granulocytes Absolute 0.02 0.00 - 0.03 K/mcL LAB HEMETOLOGY METHOD 10/05/2024 7:15 AM [facility] Blood Venous blood specimen / Unknown 10/05/2024 5:55 AM EDT 10/05/2024 7:01 AM EDT us Donnell Banuelos MD LAB BLOOD ORDERABLES Final Resul t [facility] [address] [place] [address], documented in this encounter Visit Diagnoses Diagnosis Presence of other heart-valve replacement Encounter for adjustment or management of cardiac device documented in this encounter Care Teams Cork Insulation Installer Relationship Specialty Start Date End Date Donnell Banuelos MD [address] [place] [address] Dr [address] [place], [place] PCP - General Internal Medicine 11/03/21 documented as of this encounter
--- OUTSIDE RECORDS SUMMARY | 2024-12-07 10:17 | XMS_ITS | Encounter Summary ---
Author Organization [facility] Address [address] [place] [address] Care Team Providers Care Ice Cream Machine Operator Name Role Phone Donnell Banuelos MD Primary Care Provider [phone] Encounter Details Date Type Department Care Team (Late Contact Info) Description 08/21/2024 Lab Requisition [facility] - Main Lab [address] [place] [phone] Donnell Banuelos MD [address] [place] [address] [address] [place], [place] Unspecified infectious disease Social History Tobacco [...] Description 03/11/2025 10:30 AM EST Ancillary Procedure [facility] - [facility] [address] [facility] [address] [place] [address] documented as of this encounter Procedures Procedure Name Priority Date/Time Associated Diagnosis Comments BASIC METABOLIC PANEL Routine 08/21/2024 5:55 AM EDT Unspecified infectious disease documented in this encounter Results * (ABNORMAL) Basic metabolic panel (08/21/2024 5:55 AM EDT) Sodium 151(H) 133 - 145 mmol/L LAB CHEMISTRY METHOD 08/21/2024 8:57 AM EDT [facility] Potassium 4.1 3.5 - 5.5 mmol/L LAB CHEMISTRY METHOD 08/21/2024 8:57 AM T [facility] LAB Chloride 113(H) 96 - 110 mmol/L LAB CHEMISTRY METHOD 08/21/2024 8:57 AM [facility] LAB CO2 31 21 - 32 mmol/L LAB CHEMISTRY METHOD 08/21/2024 8:57 AM T [facility] LAB Anion Gap 7 3 - 11 LAB CHEMISTRY METHOD 08/21/2024 8:57 AM [facility] LAB Glucose 108(H) 70 - 100 mg/dL LAB CHEMISTRY METHOD 08/21/2024 8:57 AM [facility] LAB BUN 30(H) 5 - 25 mg/dL LAB CHEMISTRY METHOD 08/21/2024 8:57 AM [facility] LAB Creatinine 0.66(L) 0.70 - 1.30 mg/dL LAB CHEMISTRY METHOD 08/21/2024 8:57 AM [facility] LAB eGFR 119 >=60 mL/min/1. 73m2 LAB CHEMISTRY METHOD 08/21/2024 8:57 AM [facility] LAB Comment:Calculation based on the Chronic Kidney Disease Epidemiology Collaboration (CKD-EPI) equation refit without adjustment for race. BUN/Creatinine Ratio 45.5 LAB CHEMISTRY METHOD 08/21/2024 8:57 AM [facility] LAB Calcium 8.8 8.5 - 10.5 mg/dL LAB CHEMISTRY METHOD 08/21/2024 8:57 AM [facility] LAB Blood Venous blood specimen / Unknown 08/21/2024 5:55 AM EDT 08/21/2024 6:47 AM EDT us Donnell Banuelos MD LAB BLOOD ORDERABLES Final Resul t [facility] [address] [place], [place] [address] [phone] documented in this encounter Visit Diagnoses Diagnosis Unspecified infectious disease Encounter for adjustment or management of cardiac device documented in this encounter Care Teams Ice Cream Machine Operator Relationship Specialty Start Date End Date Donnell Banuelos MD [address] [place] [address] Dr [address] PEDRO Fernandez PCP - General Internal Medicine 11/03/21 documented as of this encounter
[2024-12-07 10:26] LABS: Alanine Aminotransferase 42 U/L (0-40); Albumin Level 4.1 g/dL (3.5-5.0); Alkaline Phosphatase 71 U/L (39-117); Anion Gap 12 (12-20); Aspartate Amino Transferase 39 U/L (5-37); Blood Urea Nitrogen 20 mg/dL (9-16); Calcium 9.3 mg/dL (8.4-10.2); Carbon Dioxide 30 mmol/L (22-29); Chloride 102 mmol/L (96-108); Creatinine Clr Calc Pharmacy 110.6; Estimated Glomerular Filt Rate > 60; Potassium 4.1 mmol/L (3.3-5.1); Sodium 140 mmol/L (135-145); Total Protein 7.5 g/dL (6.5-8.0)
--- NOTE | 2024-12-07 11:05 | PC.NURSE ---
Pt indicated 9/10 pain using his visual communication aids. He indicated by pointing the pain was on right, back area. I gave him Tylenol, crushed in applesauce. He indicated with his middle finger what he thought of Tylenol. Pt has a external catheter in place, awaiting urine still.
[2024-12-07] MEDS: oxyCODONE HCl Immed Release 5 MG TABLET 10 MG PO (12:28)
--- NOTE | 2024-12-07 12:37 | PC.NURSE ---
Pt reported pain 9/10 with his communication device. Provider ordered Tylenol, which patient accepted, crushed in applesauce but he strongly indicated that it would not be effective. Pain still 9/10 at reassessment. Given 10mg Oxycodone as ordered. RN called facility to give report. No one available to take call at [facility]. RN left message that he would be returning.
--- NOTE | 2024-12-07 13:06 | PC.NURSE ---
report given to MURPYH Shay at this time - pt leaving [facility] facility.
--- NOTE | 2024-12-07 13:11 | PC.NURSE ---
spoke w/ Ross RN at [facility] at this time.
== END 2024-12-07 13:23 ==
PROVIDERS: Registered Nurse Emergency; Emergency Provider Emergency Medicine; PCP Hospitalist
DX: M54.6 Pain in thoracic spine (principal); M41.9 Scoliosis, unspecified; I69.354 Hemiplegia and hemiparesis following cerebral infarction affecting left non-dominant side; R47.89 Other speech disturbances; E03.9 Hypothyroidism, unspecified; E78.5 Hyperlipidemia, unspecified; Z86.711 Personal history of pulmonary embolism; Z79.899 Other long term (current) drug therapy
CPT/HCPCS: 36415; 70450; 72072; 72125; 80053; 85025; 99284

== ENCOUNTER → 2024-12-07 09:43 | Outpatient (BNV) | payer MEDICARE, MEDICAID, SELFPAY | PROVIDERS: Emergency Provider Emergency Medicine; PCP Hospitalist; Visit Provider Family Medicine | DX: M54.6 Pain in thoracic spine (principal) | CPT/HCPCS: 72072 ==